=== PATIENT | male | born 1930 | race Caucasian/White ===

== ENCOUNTER 2016-04-21 09:40 | Outpatient (RCR) | payer MEDICARE, OTHER ==
--- OUTSIDE RECORDS SUMMARY | 2016-03-11 09:41 | XMS REPORT | Continuity of Care Document ---
Author Author [facility] Organization [facility] Address Unknown Phone Unavailable Support Name Relationship Address Phone SORAYA COOMBS MD Caregiver [facility] [address] [place] [id number] AIDEN HANNAH Next Of Kin [address] [place] [address] Insurance Providers Payer Name Policy Number Subscriber Name Relationship s Medicare [id number] Jose Hannah Jr 19 Self / Same As Patient [facility] [id number] Jose Hannah Jr 19 Self / Same As Patient Problems No known problems or medical conditions. Medications No known medications. Social History Social History Problem Response Recorded Date/Time Recent Foreign Travel No 06/19/2014 2:38pm Hospital Discharge Instructions No hospital discharge instructions. Plan of Care No plan of care. Functional Status No functional status results. Allergies, Adverse Reactions, Alerts No known allergies. Immunizations No immunization records. Vital Signs No known vital signs results. Results Laboratory Results Test Name Result Units Flags Reference Collection Date/Time Result Date/ Time Comments White Blood Count 11.1 10^3/uL H 4.3-11.0 03/28/2014 8:47am 03/28/2014 9: 10am Red Blood Count 4.01 10^6/uL L 4.35-5.85 03/28/2014 8:47am 03/28/2014 9: 10am Hemoglobin 12.4 G/DL L 13.3-17.7 03/28/2014 8:47am 03/28/2014 9:10am Hematocrit 37 % L 40-54 03/28/2014 8:47am 03/28/2014 9:10am Mean Corpuscular Volume 92 FL 80-99 03/28/2014 8:47am 03/28/2014 9: 10am Mean Corpuscular Hemoglobin 31 PG 25-34 03/28/2014 8:47am 03/28/2014 9: 10am Mean Corpuscular Hemoglobin Concent 34 G/DL 32-36 03/28/2014 8:47am 9:10am Red Cell Distribution Width 15.5 % H 10.0-14.5 03/28/2014 8:47am 2013 9:10am Platelet Count 166 10^3/uL 130-400 03/28/2014 8:47am 03/28/2014 9:10am Mean Platelet Volume 9.1 FL 7.4-10.4 03/28/2014 8:47am 03/28/2014 9: 10am Neutrophils (%) (Auto) 24 % L 42-75 03/28/2014 8:47am 03/28/2014 9:10am Lymphocytes (%) (Auto) 71 % H 12-44 03/28/2014 8:47am 03/28/2014 9:10am Monocytes (%) (Auto) 4 % 0-12 03/28/2014 8:47am 03/28/2014 9:10am Eosinophils (%) (Auto) 1 % 0-10 03/28/2014 8:47am 03/28/2014 9:10am Basophils (%) (Auto) 0 % 0-10 03/28/2014 8:47am 03/28/2014 9:10am Neutrophils # (Auto) 2.7 X 10^3 1.8-7.8 03/28/2014 8:47am 03/28/2014 9: 10am Lymphocytes # (Auto) 8.0 X 10^3 H 1.0-4.0 03/28/2014 8:47am 03/28/2014 9: 10am Monocytes # (Auto) 0.4 X 10^3 0.0-1.0 03/28/2014 8:47am 03/28/2014 9: 10am Eosinophils # (Auto) 0.1 10^3/uL 0.0-0.3 03/28/2014 8:47am 03/28/2014 9 :10am Basophils # (Auto) 0.0 10^3/uL 0.0-0.1 03/28/2014 8:47am 03/28/2014 9: 10am Sodium Level 138 MMOL/L 135-145 03/28/2014 8:47am 03/28/2014 9:29am Potassium Level 4.7 MMOL/L 3.6-5.0 03/28/2014 8:47am 03/28/2014 9:29am Chloride Level 103 MMOL/L 98-107 03/28/2014 8:47am 03/28/2014 9:29am Carbon Dioxide Level 25 MMOL/L 21-32 03/28/2014 8:47am 03/28/2014 9: 29am Blood Urea Nitrogen 14 MG/DL 7-18 03/28/2014 8:47am 03/28/2014 9:29am Creatinine 0.97 MG/DL 0.60-1.30 03/28/2014 8:47am 03/28/2014 9:29am BUN/Creatinine Ratio 14 03/28/2014 8:47am 03/28/2014 9:29am Estimat Glomerular Filtration Rate > 60 03/28/2014 8:47am 2013 9:29am GFR INTERPRETIVE DATA UNITS FOR ESTIMATED GFR (eGFR): mL/min/1.73 M2 REFERENCE RANGE FOR ESTIMATED GFR (eGFR) eGFR NORMAL eGFR >60 MODERATELY DECREASED eGFR 30-59 SEVERLY DECREASED eGFR 15-29 KIDNEY FAILURE <15 (OR DIALYSIS) Glucose Level 84 MG/DL 70-105 03/28/2014 8:47am 03/28/2014 9:29am Calcium Level 9.5 MG/DL 8.5-10.1 03/28/2014 8:47am 03/28/2014 9:29am Total Bilirubin 0.6 MG/DL 0.1-1.0 03/28/2014 8:47am 03/28/2014 9:29am Alkaline Phosphatase 65 U/L 40-136 03/28/2014 8:47am 03/28/2014 9:29am Aspartate Amino Transf (AST/SGOT) 31 U/L 5-34 03/28/2014 8:47am 2013 9:29am Alanine Aminotransferase (ALT/SGPT) 31 U/L 0-55 03/28/2014 8:47am 03/28 9:29am Lactate Dehydrogenase 276 U/L H 125-220 03/28/2014 8:47am 03/28/2014 9: 29am Total Protein 6.4 G/DL 6.4-8.2 03/28/2014 8:47am 03/28/2014 9:29am Albumin 4.1 G/DL 3.2-4.5 03/28/2014 8:47am 03/28/2014 9:29am Wsgp-1-Yazaxnmjfwfbs 3.84 H MG/L 0.00-1.85 03/28/2014 8:47am 2013 6:55am Procedures No known history of procedures. Encounters Encounter Location Date/Time Registered Clinic Via [facility] 06/19/14 2:39pm Registered Clinic Via [facility] 06/14/14 2:17pm Discharged Recurring Via [facility] 03/28/14 8:38am
[2016-03-11 10:01] LABS: BASOPHILS % (AUTO) 0 % (0-10); EOSINOPHILS % (AUTO) 0 % (0-10); LYMPHOCYTES % (AUTO) 84 % (12-44); MEAN CORPUSCULAR HEMOGLOBIN 31 PG (25-34); MEAN CORPUSCULAR HGB CONC 33 G/DL (32-36); MEAN CORPUSCULAR VOLUME 94 FL (80-99); MEAN PLATELET VOLUME 9.3 FL (7.4-10.4); MONOCYTES # (AUTO) 0.6 X 10^3 (0.0-1.0); MONOCYTES % (AUTO) 2 % (0-12); NEUTROPHILS # (AUTO) 3.6 X 10^3 (1.8-7.8); NEUTROPHILS % (AUTO) 14 % (42-75); PLATELET COUNT 172 10^3/uL (130-400); RED BLOOD COUNT 3.91 10^6/uL (4.35-5.85); WHITE BLOOD COUNT 26.2 10^3/uL (4.3-11.0)
[2016-03-11 10:27] LABS: ALANINE AMINOTRANSFERASE 29 U/L (0-55); ALBUMIN 4.1 G/DL (3.2-4.5); ANION GAP 7 MMOL/L (5-14); ASPARTATE AMINO TRANSFERASE 24 U/L (5-34); BILIRUBIN,TOTAL 0.6 MG/DL (0.1-1.0); BLOOD UREA NITROGEN 17 MG/DL (7-18); BUN/CREATININE RATIO 17; CALCIUM 9.4 MG/DL (8.5-10.1); CARBON DIOXIDE 24 MMOL/L (21-32); CHLORIDE 103 MMOL/L (98-107); CREATININE SERUM 1.02 MG/DL (0.60-1.30); GFR ESTIMATED > 60; GLUCOSE 96 MG/DL (70-105); LACTATE DEHYDROGENASE 242 U/L (125-220); MAGNESIUM 2.2 MG/DL (1.8-2.4); POTASSIUM 5.6 MMOL/L (3.6-5.0); SODIUM 134 MMOL/L (135-145)
[~2016-04-21 09:40] MED LIST: ACET-77 PO; ATOR20TA66 PO; BUDE10.2 IH; DICL100G18 TOP; ENAL5TAB PO; Multivitamins/Minerals Therap PO; NITR0.4T SL
[2016-04-21 10:02] LABS: BASOPHILS % (AUTO) 0 % (0-10); EOSINOPHILS % (AUTO) 0 % (0-10); LYMPHOCYTES # (AUTO) 15.7 X 10^3 (1.0-4.0); LYMPHOCYTES % (AUTO) 78 % (12-44); MEAN CORPUSCULAR HEMOGLOBIN 32 PG (25-34); MEAN CORPUSCULAR HGB CONC 34 G/DL (32-36); MEAN CORPUSCULAR VOLUME 94 FL (80-99); MEAN PLATELET VOLUME 9.3 FL (7.4-10.4); MONOCYTES # (AUTO) 0.5 X 10^3 (0.0-1.0); MONOCYTES % (AUTO) 3 % (0-12); NEUTROPHILS # (AUTO) 3.8 X 10^3 (1.8-7.8); NEUTROPHILS % (AUTO) 19 % (42-75); PLATELET COUNT 160 10^3/uL (130-400); RED BLOOD COUNT 3.91 10^6/uL (4.35-5.85); RED CELL DISTRIBUTION WIDTH 16.1 % (10.0-14.5); WHITE BLOOD COUNT 20.1 10^3/uL (4.3-11.0)
== END 2016-06-09 | disposition home or self-care (01) ==
LOC: ONC 09:40
PROVIDERS: ATTEND Internal Medicine Hematology & Oncology
DX: C91.10 Chronic lymphocytic leukemia of B-cell type not having achieved remission (principal); J44.9 Chronic obstructive pulmonary disease, unspecified; I25.10 Atherosclerotic heart disease of native coronary artery without angina pectoris; E78.5 Hyperlipidemia, unspecified; Z79.899 Other long term (current) drug therapy
CPT/HCPCS: 36415; 80053; 82232; 82784; 83615; 83735; 85025; 99213

== ENCOUNTER 2016-06-17 09:46 | Outpatient (RCR) | payer MEDICARE, OTHER ==
--- OUTSIDE RECORDS SUMMARY | 2016-06-17 09:53 | XMS REPORT | Continuity of Care Document ---
Author Author [facility] Organization [facility] Address Unknown Phone Unavailable Support Name Relationship Address Phone SORAYA COOMBS MD Caregiver [facility] [address] [place] [id number] AIDEN HANNAH Next Of Kin [address] [place] [address] Insurance Providers Payer Name Policy Number Subscriber Name Relationship s Medicare [id number] Jose Hannah Jr 19 Self / Same As Patient [facility] [id number] Jose Hannah Jr 19 Self / Same [...] 4.1 G/DL 3.2-4.5 03/28/2014 8:47am 03/28/2014 9:29am Kipf-9-Ssrfwpsjxwwba 3.84 H MG/L 0.00-1.85 03/28/2014 8:47am 2013 6:55am Procedures No known history of procedures. Encounters Encounter Location Date/Time Registered Clinic Via [facility] 06/19/14 2:39pm Registered Clinic Via [facility] 06/14/14 2:17pm Discharged Recurring Via [facility] 03/28/14 8:38am
[2016-06-17 10:19] LABS: BASOPHILS % (AUTO) 0 % (0-10); EOSINOPHILS % (AUTO) 0 % (0-10); LYMPHOCYTES # (AUTO) 20.4 X 10^3 (1.0-4.0); LYMPHOCYTES % (AUTO) 85 % (12-44); MEAN CORPUSCULAR HEMOGLOBIN 32 PG (25-34); MEAN CORPUSCULAR HGB CONC 34 G/DL (32-36); MEAN CORPUSCULAR VOLUME 95 FL (80-99); MEAN PLATELET VOLUME 9.7 FL (7.4-10.4); MONOCYTES # (AUTO) 0.5 X 10^3 (0.0-1.0); MONOCYTES % (AUTO) 2 % (0-12); NEUTROPHILS # (AUTO) 3.1 X 10^3 (1.8-7.8); NEUTROPHILS % (AUTO) 13 % (42-75); PLATELET COUNT 154 10^3/uL (130-400); RED BLOOD COUNT 3.77 10^6/uL (4.35-5.85); RED CELL DISTRIBUTION WIDTH 15.9 % (10.0-14.5)
[2016-06-17 11:33] LABS: ALANINE AMINOTRANSFERASE 19 U/L (0-55); ALBUMIN 4.1 G/DL (3.2-4.5); ANION GAP 9 MMOL/L (5-14); ASPARTATE AMINO TRANSFERASE 21 U/L (5-34); BILIRUBIN,TOTAL 0.7 MG/DL (0.1-1.0); BLOOD UREA NITROGEN 22 MG/DL (7-18); BUN/CREATININE RATIO 22; CALCIUM 9.2 MG/DL (8.5-10.1); CARBON DIOXIDE 25 MMOL/L (21-32); CHLORIDE 106 MMOL/L (98-107); GFR ESTIMATED > 60; GLUCOSE 79 MG/DL (70-105); LACTATE DEHYDROGENASE 217 U/L (125-220); POTASSIUM 4.3 MMOL/L (3.6-5.0); SODIUM 140 MMOL/L (135-145); TOTAL PROTEIN 6.4 G/DL (6.4-8.2)
== END 2016-09-15 | disposition home or self-care (01) ==
LOC: ONC 09:46
PROVIDERS: ATTEND Internal Medicine Hematology & Oncology
DX: C91.10 Chronic lymphocytic leukemia of B-cell type not having achieved remission (principal); J44.9 Chronic obstructive pulmonary disease, unspecified; I25.10 Atherosclerotic heart disease of native coronary artery without angina pectoris; E78.5 Hyperlipidemia, unspecified; Z79.899 Other long term (current) drug therapy
CPT/HCPCS: 36415; 80053; 82232; 82784; 83615; 85025; 99213

== ENCOUNTER 2016-09-17 13:32 | Outpatient (RCR) | payer MEDICARE, OTHER ==
[2016-09-16 10:26] LABS: BASOPHILS % (AUTO) 0 % (0-10); EOSINOPHILS # (AUTO) 0.1 10^3/uL (0.0-0.3); EOSINOPHILS % (AUTO) 0 % (0-10); LYMPHOCYTES # (AUTO) 16.8 X 10^3 (1.0-4.0); LYMPHOCYTES % (AUTO) 81 % (12-44); MEAN CORPUSCULAR HEMOGLOBIN 31 PG (25-34); MEAN CORPUSCULAR HGB CONC 33 G/DL (32-36); MEAN CORPUSCULAR VOLUME 95 FL (80-99); MEAN PLATELET VOLUME 8.9 FL (7.4-10.4); MONOCYTES # (AUTO) 0.3 X 10^3 (0.0-1.0); MONOCYTES % (AUTO) 1 % (0-12); NEUTROPHILS # (AUTO) 3.6 X 10^3 (1.8-7.8); NEUTROPHILS % (AUTO) 17 % (42-75); PLATELET COUNT 146 10^3/uL (130-400); RED BLOOD COUNT 3.71 10^6/uL (4.35-5.85); RED CELL DISTRIBUTION WIDTH 15.3 % (10.0-14.5); WHITE BLOOD COUNT 20.7 10^3/uL (4.3-11.0)
[2016-09-16 11:01] LABS: ALANINE AMINOTRANSFERASE 17 U/L (0-55); ANION GAP 9 MMOL/L (5-14); ASPARTATE AMINO TRANSFERASE 21 U/L (5-34); BILIRUBIN,TOTAL 0.8 MG/DL (0.1-1.0); BLOOD UREA NITROGEN 14 MG/DL (7-18); BUN/CREATININE RATIO 14; CALCIUM 9.3 MG/DL (8.5-10.1); CARBON DIOXIDE 24 MMOL/L (21-32); CHLORIDE 102 MMOL/L (98-107); CREATININE SERUM 0.99 MG/DL (0.60-1.30); GFR ESTIMATED > 60; GLUCOSE 96 MG/DL (70-105); LACTATE DEHYDROGENASE 205 U/L (125-220); POTASSIUM 5.5 MMOL/L (3.6-5.0); SODIUM 135 MMOL/L (135-145); TOTAL PROTEIN 6.1 G/DL (6.4-8.2)
[2016-12-08] MEDS ORDERED: BUDE10.22 IH (10:24)
[2016-12-08] MEDS ORDERED: METO50TA2 PO (10:24)
[2016-12-08] MEDS ORDERED: POTA-51 PO (10:24)
[2016-12-08] MEDS ORDERED: CYAN100T PO (10:24)
[2016-12-08] MEDS ORDERED: NITR0.4T SL (10:24)
[2016-12-08] MEDS ORDERED: ATOR40TA PO (10:24)
[2016-12-08] MEDS ORDERED: ENAL5TAB PO (10:24)
[2016-12-08] MEDS ORDERED: MULT-35 PO (10:24)
[2016-12-08] MEDS ORDERED: RT-ALBUINH IH (10:24)
[2016-12-08] MEDS ORDERED: FURO20TA4 PO (10:24)
[2016-12-08] MEDS ORDERED: ACET325T38 PO (10:24)
[2016-12-08] MEDS ORDERED: OXYC15TA79 PO (10:24)
[2016-12-08] MEDS ORDERED: OMEP20CA12 PO (10:24)
[2016-12-08] MEDS ORDERED: SAW450CA4 PO (10:24)
[2016-12-25] MEDS ORDERED: TR1C15 TOP (13:49)
[2016-12-25] MEDS ORDERED: MICO90PO TOP (13:49)
[2016-12-25] MEDS ORDERED: CLD600T PO (13:49)
[2016-12-25] MEDS ORDERED: Oxycodone Hcl PO (13:49)
[2016-12-25] MEDS ORDERED: DICL100G18 TOP (13:49)
== END 2016-12-15 | disposition home or self-care (01) ==
LOC: ONC 13:32
PROVIDERS: ATTEND Internal Medicine Hematology & Oncology
DX: Z79.899 Other long term (current) drug therapy; E78.5 Hyperlipidemia, unspecified; C91.10 Chronic lymphocytic leukemia of B-cell type not having achieved remission; J44.9 Chronic obstructive pulmonary disease, unspecified; I25.10 Atherosclerotic heart disease of native coronary artery without angina pectoris
CPT/HCPCS: 36415; 80053; 82232; 83615; 85025; 99213

== ENCOUNTER 2016-11-25 10:29 | Emergency (ER) | payer MEDICARE, OTHER ==
[~2016-11-25] VITALS: Ht 180.3 cm; Wt 86.2 kg
[2016-11-25] MEDS ORDERED: fentaNYL INJECTION 100 MCG/2 ML AMP IVP STA ×2 (10:34→12:54)
[2016-11-25] MEDS ORDERED: LIDOCAINE 2% 20 ML (XYLOCAINE) VIAL ONE (10:37)
[2016-11-25] MEDS ORDERED: LIDOCAINE 2% 20 ML (XYLOCAINE) VIAL INJ STA (10:40)
[2016-11-25 10:51] LABS: BASOPHILS % (AUTO) 0 % (0-10); EOSINOPHILS % (AUTO) 0 % (0-10); LYMPHOCYTES % (AUTO) 79 % (12-44); MEAN CORPUSCULAR HEMOGLOBIN 31 PG (25-34); MEAN CORPUSCULAR HGB CONC 33 G/DL (32-36); MEAN CORPUSCULAR VOLUME 94 FL (80-99); MEAN PLATELET VOLUME 9.5 FL (7.4-10.4); MONOCYTES # (AUTO) 0.3 X 10^3 (0.0-1.0); MONOCYTES % (AUTO) 2 % (0-12); NEUTROPHILS # (AUTO) 4.2 X 10^3 (1.8-7.8); NEUTROPHILS % (AUTO) 19 % (42-75); PLATELET COUNT 153 10^3/uL (130-400); RED BLOOD COUNT 3.59 10^6/uL (4.35-5.85); RED CELL DISTRIBUTION WIDTH 15.3 % (10.0-14.5); WHITE BLOOD COUNT 21.6 10^3/uL (4.3-11.0)
[2016-11-25] MEDS ORDERED: ONDANSETRON 4 MG/2 ML (SDV) Z0FRAN IVP ONE (11:00)
[2016-11-25 11:04] LABS: ALANINE AMINOTRANSFERASE 19 U/L (0-55); ALBUMIN 3.9 GM/DL (3.2-4.5); ANION GAP 9 MMOL/L (5-14); ASPARTATE AMINO TRANSFERASE 24 U/L (5-34); BILIRUBIN,TOTAL 0.6 MG/DL (0.1-1.0); BLOOD UREA NITROGEN 17 MG/DL (7-18); BUN/CREATININE RATIO 18 (0-20); CALCIUM 9.2 MG/DL (8.5-10.1); CARBON DIOXIDE 24 MMOL/L (21-32); CHLORIDE 103 MMOL/L (98-107); CREATININE SERUM 0.96 MG/DL (0.60-1.30); GFR ESTIMATED > 60; GLUCOSE 106 MG/DL (70-105); HEMOLYSIS 8 (-100-29); ICTERUS 0.8 (-100-1.9); LIPEMIA 0 (-100-49); POTASSIUM 4.3 MMOL/L (3.6-5.0); SODIUM 136 MMOL/L (135-145); TOTAL PROTEIN 6.2 GM/DL (6.4-8.2)
--- NOTE | 2016-11-25 11:23 | ED Fall/Injury ---
General Chief Complaint: Trauma-Non Activation Stated Complaint: FALL Nursing Triage Note: SEE TRIAGE NOTE. Source: patient, family, EMS Exam Limitations: no limitations (JANA BROCK MD) History of Present Illness Time seen by provider: 10:40 Initial Comments Here by EMS with report of fall and scalp laceration. Apparently, patient was at a recycling center and they were getting the recycling out of the back of his truck. The worker there had unlatched his toe gait. When he lifted up his back catching, the tailgate came down and pushed him backwards. He tripped and fell landing on his buttocks and then hit his head on the ground. Has a large laceration to the left posterior scalp. No loss of consciousness. Complains of posterior head pain, neck pain and left hip pain. Also question of mild low back pain. 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 Tetanus shot is up-to-date as of one week ago. Occurred: just prior to arrival (approximately 30 minutes ago) Severity: moderate Injuries/Pain Location: head, neck, pelvis Context: tripped Loss of Consciousness: no loss of consciousness Modifying Factors: Improves With Immobilization, Worse With Movement Associated Symptoms (Fall): No Chest Pain, No Confusion, Headache, No Lightheadedness, No Nausea/Vomiting, Neck Pain, No Shortness of Air (JANA BROCK MD) Allergies and Home Medications Allergies Coded Allergies: prednisone (Verified Allergy, Mild, 01/02/15) Home Medications Acetaminophen 500 Mg Tablet, 1,000 MG PO Q6H PRN for MILD PAIN, #100 Prescribed by: KARL MIRELES on 01/25/15826 Atorvastatin Calcium 20 Mg Tablet, 40 MG PO HS, #100 Prescribed by: KARL MIRELES on 01/25/15826 Budesonide/Formoterol Fumarate 10.2 Gm Hfa.aer.ad, 2 PUFF IH DAILY@0800, #1 Prescribed by: KARL MIRELES on 01/25/15826 Diclofenac Sodium 100 Gm Gel..gram., 0 GM TOP QID, #1 Prescribed by: KARL MIRELES on 01/25/15826 Enalapril Maleate 5 Mg Tablet, 5 MG PO DAILY, #30 Prescribed by: KARL MIRELES on 01/25/15826 Nitroglycerin 0.4 Mg Tab.subl, 0.4 MG SL Q5M PRN for CHEST PAIN, #100 Prescribed by: KARL MIRELES on 01/25/15826 [Multivitamins/Minerals Therap] 1 EA TABLET, 1 EA PO DAILY@0700, #100 Prescribed by: KARL MIRELES on 01/25/15826 Constitutional: see HPI, No chills, No fever Ears, Nose, Mouth, Throat: no symptoms reported Respiratory: no symptoms reported Cardiovascular: no symptoms reported, No syncope Gastrointestinal: no symptoms reported Genitourinary: no symptoms reported Musculoskeletal: see HPI, back pain, muscle pain, neck pain Skin: see HPI, lesions, No rash Psychiatric/Neurological: Headache, Denies Tingling, Denies Tremors, Denies Weakness (JANA BROCK MD) Past Rccenzp-Cvmjdk-Mjmuxy Hx Patient Social History Alcohol Use: Denies Use Recreational Drug Use: No Smoking Status: Never a Smoker Recent Foreign Travel: No Contact w/Someone Who Travel: No Recent Infectious Disease Expo: No (JANA BROCK MD) Immunizations Up To Date Date of Pneumonia Vaccine: Dec 04, 2014 (JANA BROCK MD) Surgeries HX Surgeries: Yes (neck/hernia repair) Surgeries: Bowel Surgery, Orthopedic, Pacemaker (JANA BROCK MD) Respiratory Hx Respiratory Disorders: Yes Respiratory Disorders: Asthma (JANA BROCK MD) Cardiovascular Hx Cardiac Disorders: Yes (pacemaker ) Cardiac Disorders: Hypertension (JANA BROCK MD) Neurological Hx Neurological Disorders: Yes ([facility]) (JANA BROCK MD) Genitourinary Hx Genitourinary Disorders: No (JANA BROCK MD) Gastrointestinal Hx Gastrointestinal Disorders: Yes (JANA BROCK MD) Musculoskeletal Hx Musculoskeletal Disorders: Yes Musculoskeletal Disorders: Arthritis, Chronic Back Pain (JANA BROCK MD) Endocrine Hx Endocrine Disorders: No (JANA BROCK MD) HEENT HX ENT Disorders: No (JANA BROCK MD) Cancer Hx Cancer: No (JANA BROCK MD) Psychosocial Hx Psychiatric Problems: No (JANA BROCK MD) Integumentary HX Skin/Integumentary Disorder: No (JANA BROCK MD) Blood Transfusions Hx Blood Disorders: No (JANA BROCK MD) Reviewed Nursing Assessment Reviewed/Agree w Nursing PMH: Yes (JANA BROCK MD) Family Medical History Significant Family History: No Pertinent Family Hx (JANA BROCK MD) Physical Exam Vital Signs Vital Sign - Last 12Hours 11/25/16 10:30 Temp 97.8 Pulse 78 Resp 18 B/P (MAP) 175/99 Pulse Ox 98 O2 Delivery Room Air (VINICIUS ERIC APRN) Vital Signs Capillary Refill : Less Than 3 Seconds (JANA BROCK MD) General Appearance: WD/WN, no apparent distress HEENT: PERRL/EOMI, normal ENT inspection, TMs normal Neck: full range of motion, supple Cardiovascular: regular rate, rhythm, no murmur Respiratory: lungs clear, normal breath sounds Gastrointestinal: non tender, soft Back: muscle spasm (lateral on left), vertebral tenderness (low lumbar spine) Extremities: pelvis stable, other (left pelvis/hip region) Neurologic/Psychiatric: alert, oriented x 3 Skin: normal color, warm/dry, other (4 cm laceration posterior left scalp with active bleeding including arterial bleeding.) (JANA BROCK MD) Nena Coma Score Best Eye Response: (4) Open Spontaneously Best Verbal Response: (5) Oriented Best Motor Response: (6) Obeys Commands (JANA BROCK MD) Laceration Repair : Wound Location: Scalp Wound Length (cm): 3 Wound's Depth, Shape: sub Q Anesthesia: 1% Lidocaine Suture: Prolene Suture Size: 4-0 Number of Sutures: 1 Layer Closure?: 1 Number Deep Layer Sutures: 0 Progress Scalp anesthetized with 3 mL of 2 percent lidocaine without epinephrine. Due to the active bleeding sutures were used rather than sona. A single running suture was placed which achieved hemostasis. (VINICIUS ERIC APRN) Progress/Results/Core Measures Results/Orders Lab Results Laboratory Tests Test 11/25/16 10:38 Range/Units White Blood Count 21.6 H 4.3-11.0 10^3/uL Red Blood Count 3.59 L 4.35-5.85 10^6/uL Hemoglobin 11.1 L 13.3-17.7 G/DL Hematocrit 34 L 40-54 % Mean Corpuscular Volume 94 80-99 FL Mean Corpuscular Hemoglobin 31 25-34 PG Mean Corpuscular Hemoglobin Concent 33 32-36 G/DL Red Cell Distribution Width 15.3 H 10.0-14.5 % Platelet Count 153 130-400 10^3/uL Mean Platelet Volume 9.5 7.4-10.4 FL Neutrophils (%) (Auto) 19 L 42-75 % Lymphocytes (%) (Auto) 79 H 12-44 % Monocytes (%) (Auto) 2 0-12 % Eosinophils (%) (Auto) 0 0-10 % Basophils (%) (Auto) 0 0-10 % Neutrophils # (Auto) 4.2 1.8-7.8 X 10^3 Lymphocytes # (Auto) 17.0 H 1.0-4.0 X 10^3 Monocytes # (Auto) 0.3 0.0-1.0 X 10^3 Eosinophils # (Auto) 0.0 0.0-0.3 10^3/uL Basophils # (Auto) 0.0 0.0-0.1 10^3/uL Neutrophils % (Manual) 28 % Lymphocytes % (Manual) 69 % Monocytes % (Manual) 3 % Smudge Cells 19 PER 100 WBC Poikilocytosis SLIGHT Elliptocytes SLIGHT Sodium Level 136 135-145 MMOL/L Potassium Level 4.3 3.6-5.0 MMOL/L Chloride Level 103 98-107 MMOL/L Carbon Dioxide Level 24 21-32 MMOL/L Anion Gap 9 5-14 MMOL/L Blood Urea Nitrogen 17 7-18 MG/DL Creatinine 0.96 0.60-1.30 MG/DL Estimat Glomerular Filtration Rate > 60 BUN/Creatinine Ratio 18 0-20 Glucose Level 106 H 70-105 MG/DL Calcium Level 9.2 8.5-10.1 MG/DL Total Bilirubin 0.6 0.1-1.0 MG/DL Aspartate Amino Transf (AST/SGOT) 24 5-34 U/L Alanine Aminotransferase (ALT/SGPT) 19 0-55 U/L Alkaline Phosphatase 68 40-136 U/L Total Protein 6.2 L 6.4-8.2 GM/DL Albumin 3.9 3.2-4.5 GM/DL (VINICIUS ERIC APRN) My Orders Orders - VINICIUS ERIC APRN Ct Head/Cervical Spine Wo (11/25/16 10:32) Ondansetron Injection (Zofran Injectio (11/25/16 11:00) (VINICIUS ERIC APRN) Medications Given in ED Current Medications Medications Dose Ordered Sig/Kaleb Route Start Time Stop Time Status Last Admin Dose Admin Fentanyl Citrate 50 mcg ONCE ONCE IVP 11/25/16 12:15 11/25/16 12:16 DC 11/25/16 12:13 50 MCG Lidocaine HCl 20 ml STK-MED ONCE .ROUTE 11/25/16 10:37 11/25/16 10:42 DC 11/25/16 10:45 20 ML Ondansetron HCl 8 mg ONCE ONCE IVP 11/25/16 11:00 11/25/16 11:01 DC 11/25/16 11:00 8 MG Promethazine HCl 12.5 mg ONCE ONCE IVP 11/25/16 12:15 11/25/16 12:16 DC 11/25/16 12:07 12.5 MG (VINICIUS ERIC APRN) Vital Signs/I&O Vital Sign - Last 12Hours 11/25/16 10:30 Temp 97.8 Pulse 78 Resp 18 B/P (MAP) 175/99 Pulse Ox 98 O2 Delivery Room Air (VINICIUS ERIC APRN) Blood Pressure Mean: 124 Progress Note : Progress Note Seen and evaluated. IV by EMS. Labs ordered. CT head, neck and lumbar spine ordered. X-ray of the pelvis ordered. Laceration repair by Vinicius Eric APRN and with my assistance prior to CT due to significance of bleeding. Bleeding markedly controlled with suture repair. Patient with moderate nausea. Zofran 8 mg IV and fentanyl 50 g IV ordered for pain. Monitor patient. 1140: Radiologist called and notified me of L2 fracture that is concerning for stability. I did discuss the concerns with the patient and family. We do not have spine surgeon available today. We did discuss this with family. Patient will require neurosurgeon and higher level of care. Patient has history with [facility] in [facility] and this is where they would prefer to go. 1152: Initiated contact with [facility]. Pending call back. 1157: I did discuss the case with Dr. Ingram, neurosurgeon on-call. Ultimately, patient is within capability of [facility] system and suggest transfer is appropriate. 1205: I did discuss the case with Dr. Lacey, ER physician and he accepts patient for ER to ER transfer. Transfer initiated. C-spine and CT head are negative and c- collar cleared. Patient has continued pain to the back and nausea. Phenergan 12.5 mg IV and fentanyl 50 g IV ordered. We did discuss importance with patient and family regarding lower spinal precautions and that the patient needs to maintain supine position. Repeat exam of the lower extremities shows patient to have continued pain in the lumbar region but distal sensation and movement are intact and equal bilaterally to both lower extremities from toes to hips. To transfer via [facility]. Patient and family agree with plan. (JANA BROCK MD) Diagnostic Imaging Diagonstic Imaging: CT Plain Films/CT/US/NM/MRI: c-spine, head [facility] [place], [place] NAME: ARGELIA ANNA JR [facility] REC#: [id number] PT STATUS: REG ER : 1930 PHYSICIAN: VINICIUS ERIC BARKER OPERATOR ADMIT DATE: 11/25/16/ER Draft Date of Exam:11/25/16 CT HEAD/CERVICAL SPINE WO PROCEDURE: CT head and CT cervical spine without contrast. TECHNIQUE: Multiple contiguous axial images were obtained through the brain and cervical spine without the use of intravenous contrast. Sagittal and coronal reformations through the cervical spine were then performed. INDICATION: Fall. Back pain. Findings: CT head: There is a left parietal scalp hematoma. This is overlying a site of prior addison hole. There is no intracranial hemorrhage. There is a periventricular and deep white matter hypodensities compatible with chronic microvascular ischemic changes. There is no hydrocephalus. No extra-axial fluid collection is seen. The orbits appear symmetric. There is mucous retention cyst seen in the right sphenoidal sinus. CT cervical spine: Postsurgical changes in the cervical spine are noted with anterior fusion hardware involving C4-C7 levels with intact plate and screws and C6 corpectomy changes with metallic implant at the C6 corpectomy site. There is suggestion of a solid osseous fusion along the C4 to C7 levels. The facet joints are not fused at these levels. There is a fusion of the left facet joint at C3/ 4. There is early osseous bridging also seen along the C3/4 intervertebral disc level. There is significant disc height loss of significant degree at C7/T1 and T1/T2 with posterior osteophytes at these 2 levels seen. There is no widening of the predental space. There is significant thickening of the posterior ligaments posterior to the dens which have a impression upon the upper cervical canal. This is similar to 09/07/2015 exam. The alignment of the lateral masses of C1 and C2 and at the atlantooccipital joints demonstrate slight subluxations with posterior translation of the left lateral mass of C1 compared to lateral mass of C2 and mild bilateral posterior translation at the atlantooccipital joints. This is similar to 09/07/2015 exam and is likely degenerative. This is not associated with a fracture. Impression: CT head: Left parietal scalp hematoma. No intracranial hemorrhage. CT cervical spine: Postsurgical changes and advanced degenerative findings similar to 09/07/2015. No fracture seen. Dictated on workstation # [id number] Dict: 11/25/16 1125 Trans: 11/25/16 1146 [facility] [id number] Interpreted by: EDWARD DUNN MD Electronically signed by: Diagonstic Imaging: CT Plain Films/CT/US/NM/MRI: other (lumbar spine) Comments VIA [place], [place] NAME: ARGELIA ANNA [facility] REC#: [id number] PT STATUS: REG ER : 1930 PHYSICIAN: JANA BROCK MD ADMIT DATE: 11/25/16/ER Draft Date of Exam:11/25/16 CT LUMBAR SPINE WO PROCEDURE: CT lumbar spine without contrast. TECHNIQUE: Multiple contiguous axial images were obtained through the lumbar spine without the use of intravenous contrast. Sagittal and coronal reformations were then performed. INDICATION: Fall. FINDINGS: There is a fracture in the L2 vertebral body with suggestion of hyperextension mechanism and involves a distraction of the vertebral body fragments by 1 cm craniocaudally anteriorly. The fracture line through the vertebral body extends posteriorly and inferiorly to the posterior wall which demonstrates a 1 mm cortical step-off. This is associated with minimal anterior translation of the upper portion of the vertebral body compared to the lower portion of the posterior spinal line. There is also a transverse fracture through the pedicles and the pars and lamina of the L2 level. There is osseous fusion between L2 and L3 and early fusion between L1 and L2. There are anterior bridging osteophytes also seen between the T11 to L1 levels. There is no obvious evidence of an epidural hematoma although this is not definitive on the CT scan and could be better evaluated by MRI if needed. 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 No underlying pars defect is seen. Grade 1 retrolisthesis of L4 over L5 and minimal retrolisthesis of L3 over L4 is also seen. There are multilevel posterior osteophytes noted. There is also multilevel facet joint arthropathy, worst around L5-S1 and to a lesser extent at L4-5. There is fusion of the right SI joint and degenerative prominent syndesmophytes along the left joint. IMPRESSION: There are fractures through the vertebral body of L2 with minimal displacement of the posterior spinal line and about a 1 cm craniocaudal distraction anteriorly. This is associated with a nondisplaced transverse fracture through the posterior elements bilaterally. The findings are suggestive of a hyperextension injury. The findings were discussed with Dr. Brock at the time of dictation. Dictated on workstation # [id number] Dict: 11/25/16 1140 Trans: 11/25/16 1157 [id number] Interpreted by: EDWARD DUNN MD Electronically signed by: Emma Imaging: Xray Plain Films/CT/US/NM/MRI: pelvis Comments NAME: ARGELIA ANNA JR [facility] REC#: [id number] PT STATUS: REG ER : 1930 PHYSICIAN: JANA BROCK MD ADMIT DATE: 11/25/16/ER Signed Date of Exam: 11/25/16 PELVIS AP view of the pelvis. INDICATION: Fall. FINDINGS: No fracture, dislocation or radiopaque foreign body is seen. There is suggestion of fusion of the left SI joint. Degenerative sclerosis in the right SI joint and degenerative changes in the lower lumbar spine seen. Both hip joints demonstrate moderate joint space narrowing and subchondral sclerosis compatible with osteoarthritis. IMPRESSION: Advanced degenerative changes. Dictated by: Dictated on workstation # [id number] Dict: 11/25/16 1138 Trans: 11/25/16 1154 Interpreted by: EDWARD DUNN MD Electronically signed by: EDWARD DUNN MD 11/25/16 1154 (JANA BROCK MD) Departure Impression Impression: Primary Impression: Fracture of L2 vertebra Qualified Codes: S32.028A - Other fracture of second lumbar vertebra, initial encounter for closed fracture Disposition: XFER SHT-TRM HOSP Condition: Stable (all 12) Transfer Transfer Time: 12:05 Transfer Facility: [place], [place]. Dr. Lacey accepting. Method of Transfer: EMS (JANA BROCK MD) Departure-Patient Inst. Referrals: SORAYA COOMBS MD (PCP/Family) Primary Care Physician JANA BROCK MD Nov 25, 2016 11:23 VINICIUS ERIC APRN Nov 25, 2016 12:30
[2016-11-25 11:34] LABS: LYMPHOCYTES % (MANUAL) 69 %; NEUTROPHILS % (MANUAL) 28 %; POIKILOCYTOSIS SLIGHT
--- NOTE | 2016-11-25 11:47 | Diagnostic Imaging Report ---
PROCEDURE: CT head and CT cervical spine without contrast. TECHNIQUE: Multiple contiguous axial images were obtained through the brain and cervical spine without the use of intravenous contrast. Sagittal and coronal reformations through the cervical spine were then performed. INDICATION: Fall. Back pain. Findings: CT head: There is a left parietal scalp hematoma. This is overlying a site of prior addison hole. There is no intracranial hemorrhage. There is a periventricular and deep white matter hypodensities compatible with chronic microvascular ischemic changes. There is no hydrocephalus. No extra-axial fluid collection is seen. The orbits appear symmetric. There is mucous retention cyst seen in the right sphenoidal sinus. CT cervical spine: Postsurgical changes in the cervical spine are noted with anterior fusion hardware involving C4-C7 levels with intact plate and screws and C6 corpectomy changes with metallic implant at the C6 corpectomy site. There is suggestion of a solid osseous fusion along the C4 to C7 levels. The facet joints are not fused at these levels. There is a fusion of the left facet joint at C3/ 4. There is early osseous bridging also seen along the C3/4 intervertebral disc level. There is significant disc height loss of significant degree at C7/T1 and T1/T2 with posterior osteophytes at these 2 levels seen. There is no widening of the predental space. There is significant thickening of the posterior ligaments posterior to the dens which have a impression upon the upper cervical canal. This is similar to 09/07/2015 exam. The alignment of the lateral masses of C1 and C2 and at the atlantooccipital joints demonstrate slight subluxations with posterior translation of the left lateral mass of C1 compared to lateral mass of C2 and mild bilateral posterior translation at the atlantooccipital joints. This is similar to 09/07/2015 exam and is likely degenerative. This is not associated with a fracture. Impression: CT head: Left parietal scalp hematoma. No intracranial hemorrhage. CT cervical spine: Postsurgical changes and advanced degenerative findings similar to 09/07/2015. No fracture seen. Dictated by: Dictated on workstation # [id number]
--- NOTE | 2016-11-25 11:49 | Diagnostic Imaging Report ---
AP view of the pelvis. INDICATION: Fall. FINDINGS: No fracture, dislocation or radiopaque foreign body is seen. There is suggestion of fusion of the left SI joint. Degenerative sclerosis in the right SI joint and degenerative changes in the lower lumbar spine seen. Both hip joints demonstrate moderate joint space narrowing and subchondral sclerosis compatible with osteoarthritis. IMPRESSION: Advanced degenerative changes. Dictated by: Dictated on workstation # [id number]
--- NOTE | 2016-11-25 11:58 | Diagnostic Imaging Report ---
PROCEDURE: CT lumbar spine without contrast. TECHNIQUE: Multiple contiguous axial images were obtained through the lumbar spine without the use of intravenous contrast. Sagittal and coronal reformations were then performed. INDICATION: Fall. FINDINGS: There is a fracture in the L2 vertebral body with suggestion of hyperextension mechanism and involves a distraction of the vertebral body fragments by 1 cm craniocaudally anteriorly. The fracture line through the vertebral body extends posteriorly and inferiorly to the posterior wall which demonstrates a 1 mm cortical step-off. This is associated with minimal anterior translation of the upper portion of the vertebral body compared to the lower portion of the posterior spinal line. There is also a transverse fracture through the pedicles and the pars and lamina of the L2 level. There is osseous fusion between L2 and L3 and early fusion between L1 and L2. There are anterior bridging osteophytes also seen between the T11 to L1 levels. There is no obvious evidence of an epidural hematoma although this is not definitive on the CT scan and could be better evaluated by MRI if needed. 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 No underlying pars defect is seen. Grade 1 retrolisthesis of L4 over L5 and minimal retrolisthesis of L3 over L4 is also seen. There are multilevel posterior osteophytes noted. There is also multilevel facet joint arthropathy, worst around L5-S1 and to a lesser extent at L4-5. There is fusion of the right SI joint and degenerative prominent syndesmophytes along the left joint. IMPRESSION: There is a fracture through the vertebral body of L2 with minimal displacement at the posterior spinal line and about a 1 cm craniocaudal distraction anteriorly. This is associated with a nondisplaced transverse fracture through the posterior elements bilaterally. The findings are suggestive of a hyperextension injury. Critical findings were discussed with Dr. Adamson at the time of dictation. Dictated by: Dictated on workstation # [id number]
[2016-11-25] MEDS: PROMETHAZINE INJ 25 MG/ML (PHENERGAN) AMP ONE ×3 (12:08→12:17)
[2016-11-25] MEDS ORDERED: PROMETHAZINE INJ 25 MG/ML (PHENERGAN) AMP IVP ONE (12:15)
[2016-11-25] MEDS ORDERED: fentaNYL INJECTION 100 MCG/2 ML AMP IVP ONE (12:15)
[2016-11-25 13:07] VITALS: BP 161/89
--- OUTSIDE RECORDS SUMMARY | 2016-11-27 16:15 | XMS REPORT | Continuity of Care Document ---
Author Author [facility] Organization [facility] Address Unknown Phone Unavailable Allergies Active Description Code Type Severity Reaction Onset Reported/Identified Relationship to Patient Clinical Status Yes prednisone [id number] Drug Allergy Mild N/A 01/02/2015 Medications Problems Date Dx Coded Attending Type Code Diagnosis Diagnosed By 05/07/1205 SOPHIE HE LEAD SOFTWARE DEVELOPER Ot R53.1 05/07/1205 SOPHIE HE LEAD SOFTWARE DEVELOPER Ot R53.83 01/06/2014 SOPHIE HE LEAD SOFTWARE DEVELOPER Ot 736.81 01/06/2014 SOPHIE HEP Ot V57.1 03/15/2014 TAYLOR FRENCH, JACQUELYN Roland Ot 204.10 03/15/2014 TAYLOR FRENCH, JACQUELYN Asuncion Ot 272.4 03/15/2014 TAYLOR FRENCH, JACQUELYN Roland Ot 276.1 03/15/2014 TAYLOR FRENCH, JACQUELYN Asuncion Ot 414.01 03/15/2014 TAYLOR FRENCH, JACQUELYN Asuncion Ot 496 05/30/2014 TAYLOR FRENCH, JACQUELYN Roland Ot 204.10 05/30/2014 TAYLOR FRENCH, JACQUELYN Asuncion Ot 272.4 05/30/2014 TAYLOR FRENCH, JACQUELYN Asuncion Ot 414.01 05/30/2014 TAYLOR FRENCH, JACQUELYN Asuncion Ot 496 06/16/2014 Ot 493.90 06/16/2014 CORIN FRENCH, SORAYA Yee Ot 355.9 06/16/2014 CORIN FRENCH, SORAYA Yee Ot 719.45 06/16/2014 CORIN FRENCH, SOARYA A Ot 719.46 06/16/2014 CORIN FRENCH, SORAYA A Ot 724.5 06/16/2014 CORIN FRENCH, SORAYA Yee Ot 733.90 06/16/2014 CORIN FRENCH, SORAYA Yee Ot 736.79 06/16/2014 CORIN FRENCH, SORAYA Yee Ot 737.10 06/16/2014 CORIN FRENCH, SORAYA A Ot 780.79 06/16/2014 CORIN FRENCH, SORAYA Yee Ot 781.2 06/16/2014 SOPHIE HEP Ot 790.99 06/16/2014 TAYLOR FRENCH, JACQUELYN Asuncion Ot 204.10 06/16/2014 TAYLOR FRENCH, JACQUELYN Roland Ot 272.4 06/16/2014 TAYLOR FRENCH, JACQUELYN Asuncion Ot 414.01 06/16/2014 TAYLOR FRENCH, JACQUELYN Asuncion Ot 496 06/16/2014 CORIN FRENCH, SORAYA A Ot 493.90 06/16/2014 CORIN FRENCH, SORAYA A Ot 786.50 06/26/2014 TAYLOR FRENCH, JACQUELYN Asuncion Ot 204.10 06/26/2014 TAYLOR FRENCH, JACQUELYN Asuncion Ot 272.4 06/26/2014 TAYLOR FRENCH, JACQUELYN Asuncion Ot 414.01 06/26/2014 TAYLOR FRENCH, JACQUELYN Asuncion Ot 496 07/12/2014 CORIN FRENCH, SORAYA A Ot 493.90 07/12/2014 CORIN FRENCH, SORAYA A Ot 786.50 07/24/2014 CORIN FRENCH, OSRAYA A Ot 518.89 09/13/2014 TAYLOR FRENCH, JACQUELYN Roland Ot 204.10 09/13/2014 TAYLOR FRENCH, JACQUELYN Asuncion Ot 272.4 09/13/2014 TAYLOR FRENCH, JACQUELYN Asuncion Ot 414.01 09/13/2014 TYALOR FRENCH, JACQUELYN Asuncion Ot 496 09/13/2014 TAYLOR FRENCH, JACQUELYN K Ot 204.10 09/13/2014 TAYLOR FRENCH, JACQUELYN Asuncion Ot 272.4 09/13/2014 TAYLOR FRENCH, JACQUELYN K Ot 414.01 09/13/2014 TAYLOR FRENCH, JACQUELYN K Ot 496 2014 TAYLOR FRENCH, JACQUELYN K Ot 204.10 2014 TAYLOR FRENCH, JACQUELYN Roland Ot 272.4 2014 TAYLOR FRENCH, JACQUELYN K Ot 414.01 2014 TAYLOR FRENCH, JACQUELYN Asuncion Ot 496 09/20/2014 TAYLOR FRENCH, JACQUELYN K Ot 204.10 09/20/2014 TAYLOR FRENCH, JACQUELYN K Ot 272.4 09/20/2014 TAYLOR FRENCH, JACQUELYN K Ot 414.01 09/20/2014 TAYLOR FRENCH, JACQUELYN Asuncion Ot 496 11/04/2014 TAYLOR FRENCH, JACQUELYN K Ot 204.10 11/04/2014 TAYLOR FRENCH, JACQUELYN K Ot 272.4 11/04/2014 TAYLOR FRENCH, JACQUELYN K Ot 414.01 11/04/2014 TAYLOR FRENCH, JACQUELYN Roland Ot 496 11/30/2014 TAYLOR FRENCH, JACQUELYN K Ot 204.10 11/30/2014 TAYLOR FRENCH, JACQUELYN K Ot 272.4 11/30/2014 TAYLOR FRENCH, JACQUELYN Asuncion Ot 414.01 11/30/2014 TAYLOR FRENCH, JACQUELYN K Ot 496 12/18/2014 TAYLOR FRENCH, JACQUELYN K Ot 204.10 12/18/2014 TAYLOR FRENCH, JACQUELYN Roland Ot 272.4 12/18/2014 TAYLOR FRENCH, JACQUELYN Roland Ot 414.01 12/18/2014 TAYLOR FRENCH, JACQUELYN K Ot 496 01/02/2015 TAYLOR FRENCH, JACQUELYN Roland Ot 204.10 01/02/2015 TAYLOR FRENCH, JACQUELYN Asuncion Ot 272.4 01/02/2015 TAYLOR FRENCH, JACQUELNY Asuncion Ot 414.01 01/02/2015 TAYLOR FRENCH, JACQUELYN Asuncion Ot 496 01/02/2015 HIMA FRENCH, JODY T Ot 784.0 01/02/2015 HIMA FRENCH, JODY T Ot 852.20 01/02/2015 HIMA FRENCH, JODY T Ot 911.0 01/02/2015 HIMA FRENCH, JODY T Ot E000.8 01/02/2015 HIMA FRENCH, JODY T Ot E849.0 01/02/2015 HIMA FRENCH, JODY T Ot E888.1 01/20/2015 ALINE FRENCH, KARL E Ot 204.10 01/20/2015 ALINE FRENCH, KARL E Ot 272.4 01/20/2015 ALINE FRENCH, KARL E Ot 401.9 01/20/2015 ALINE FRENCH, KARL E Ot 414.01 01/20/2015 ALINE FRENCH, KARL E Ot 530.81 01/20/2015 ALINE FRENCH, KARL E Ot 723.1 01/20/2015 ALINE FRENCH, KARL E Ot 784.0 01/20/2015 ALINE FERNCH, KARL E Ot V15.88 01/20/2015 ALINE FRENCH, KARL E Ot V43.65 01/20/2015 ALINE FRENCH, KARL E Ot V45.01 01/20/2015 ALINE FRENCH, KARL E Ot V57.89 01/20/2015 ALINE FRENCH, KARL E Ot V58.72 01/22/2015 ALINE FRENCH, KARL E Ot 204.10 01/22/2015 ALINE FRENCH, KARL E Ot 272.4 01/22/2015 ALINE FRENCH, KARL E Ot 401.9 01/22/2015 ALINE FRENCH, KARL E Ot 414.01 01/22/2015 ALINE FRENCH, KARL E Ot 530.81 01/22/2015 ALINE FRENCH, KARL E Ot 723.1 01/22/2015 ALINE FRENCH, KARL E Ot 784.0 01/22/2015 ALINE FRENCH, KARL E Ot V15.88 01/22/2015 ALINE FRENCH, KARL E Ot V43.65 01/22/2015 ALINE FRENCH, KARL E Ot V45.01 01/22/2015 ALINE FRENCH, KARL E Ot V57.89 01/22/2015 ALINE FRENCH, KARL E Ot V58.72 01/24/2015 ALINE FRENCH, KARL E Ot 204.10 01/24/2015 ALINE FRENCH, KARL E Ot 272.4 01/24/2015 ALINE FRENCH, KARL E Ot 401.9 01/24/2015 ALINE FRENCH, KARL E Ot 414.01 01/24/2015 ALINE FRENCH, KARL E Ot 530.81 01/24/2015 ALINE FRENCH, KARL E Ot 723.1 01/24/2015 ALINE FRENCH, KARL E Ot 784.0 01/24/2015 ALINE FRENCH, KARL E Ot V15.88 01/24/2015 ALINE FRENCH, KARL E Ot V43.65 01/24/2015 ALNIE FRENCH, KARL E Ot V45.01 01/24/2015 ALINE FRENCH, KARL E Ot V57.89 01/24/2015 ALINE FRENCH, KARL E Ot V58.72 01/26/2015 ALINE FRENCH, KARL E Ot 204.10 01/26/2015 ALINE FRENCH, KARL E Ot 272.4 01/26/2015 ALINE FRENCH, KARL E Ot 401.9 01/26/2015 ALINE FRENCH, KARL E Ot 414.01 01/26/2015 ALINE FRENCH, KARL E Ot 530.81 01/26/2015 ALINE FRENCH, KARL E Ot 723.1 01/26/2015 ALINE FRENCH, KARL E Ot 784.0 01/26/2015 ALINE FRENCH, KARL E Ot V15.88 01/26/2015 ALINE FRENCH, KARL E Ot V43.65 01/26/2015 ALINE FRENCH, KARL E Ot V45.01 01/26/2015 ALINE FRENCH, KARL E Ot V57.89 01/26/2015 ALINE FRENCH, KARL E Ot V58.72 03/13/2015 TAYLOR FRENCH, JACQUELYN Roland Ot 204.10 03/13/2015 TAYLOR FRENCH, JACQUELYN Roland Ot 272.4 03/13/2015 TAYLOR FRENCH, JACQUELYN Roland Ot 414.01 03/13/2015 TAYLOR FRENCH, JACQUELYN Roland Ot 496 03/13/2015 TAYLOR FRENCH, JACQUELYN Roland Ot 204.10 03/13/2015 TAYLOR FRENCH, JACQUELYN Roland Ot 272.4 03/13/2015 TAYLOR FRENCH, JACQUELYN Roland Ot 414.01 03/13/2015 TAYLOR FRENCH, JACQUELYN Roland Ot 496 04/27/2015 TAYLOR FRENCH, JACQUELYN Roland Ot 204.10 04/27/2015 TAYLOR FRENCH, JACQUELYN Roland Ot 272.4 04/27/2015 TAYLOR FRENCH, JACQUELYN Roland Ot 414.01 04/27/2015 TAYLOR FRENCH, JACQUELYN Roland Ot 496 05/16/2015 TAYLOR FRENCH, JACQUELYN Roland Ot C91.10 05/16/2015 TALYOR FRENCH, JACQUELYN Roland Ot E78.5 05/16/2015 TAYLOR FRENCH, JACQUELYN Roland Ot I25.10 05/16/2015 TAYLOR FRENCH, JACQUELYN Roland Ot J44.9 05/24/2015 TAYLOR FRENCH, JACQUELYN Roland Ot C91.10 05/24/2015 TAYLOR FRENCH, JACQUELYN Roland Ot E78.5 05/24/2015 TAYLOR FRENCH, JACQUELYN Roland Ot I25.10 05/24/2015 TAYLOR FRENCH, JACQUELYN Roland Ot J44.9 06/18/2015 TAYLOR FRENCH, JACQUELYN Roland Ot C91.10 06/18/2015 TAYLOR FRENCH, JACQUELYN Roland Ot E78.5 06/18/2015 TAYLOR FRENCH, JACQUELYN Roland Ot I25.10 06/18/2015 TAYLOR FRENCH, JACQUELYN Roland Ot J44.9 08/06/2015 Ot 493.90 08/06/2015 CORIN FRENCH, SORAYA Yee Ot 355.9 08/06/2015 CORIN FRENCH, SORAYA Yee Ot 719.45 08/06/2015 CORIN FRENCH, SORAYA Yee Ot 719.46 08/06/2015 CORIN FRENCH, SORAYA Yee Ot 724.5 08/06/2015 CORIN FRENCH, SORAYA Yee Ot 733.90 08/06/2015 CORIN FRENCH, SORAYA Yee Ot 736.79 08/06/2015 CORIN FRENCH, SORAYA Yee Ot 737.10 08/06/2015 CORIN FRENCH, SORAYA Yee Ot 780.79 08/06/2015 CORIN FRENCH, SORAYA Yee Ot 781.2 08/06/2015 SOPHIE HE LEAD SOFTWARE DEVELOPER Ot 790.99 08/06/2015 CORIN FRENCH, SORAYA Yee Ot 493.90 08/06/2015 CORIN FRENCH, SORAYA Yee Ot 786.50 08/06/2015 CORIN FRENCH, SORAYA Yee Ot 518.89 08/06/2015 TAYLOR FRENCH, JACQUELYN Roland Ot C91.10 08/06/2015 TAYLOR FRENCH, JACQUELYN Asuncion Ot E78.5 08/06/2015 TAYLOR FRENCH, JACQUELYN Asuncion Ot I25.10 08/06/2015 TAYLOR FRENCH, JACQUELYN Asuncion Ot J44.9 08/27/2015 TAYLOR FRENCH, JACQUELYN Asuncion Ot C91.10 08/27/2015 TAYLOR FRENCH, JACQUELYN Asuncion Ot E78.5 08/27/2015 TAYLOR FRENCH, JACQUELYN Asuncion Ot I25.10 08/27/2015 TAYLOR FRENCH, JACQUELYN Asuncion Ot J44.9 09/04/2015 TAYLOR FRENCH, JACQUELYN Asuncion Ot C91.10 09/04/2015 TAYLOR FRENCH, JACQUELYN Asuncion Ot E78.5 09/04/2015 TAYLOR FRENCH, JACQUELYN Roland Ot I25.10 09/04/2015 TAYLOR FRENCH, JACQUELYN Roland Ot J44.9 09/05/2015 SOPHIE HE Ot R53.1 WEAKNESS 09/05/2015 SOPHIE HE LEAD SOFTWARE DEVELOPER Ot R53.83 OTHER FATIGUE 09/07/2015 Ot M47.812 SPONDYLOSIS W/O MYELOPATHY OR RADICULOPA 09/07/2015 Ot S01.01XA LACERATION WITHOUT FOREIGN BODY OF SCALP 09/07/2015 Ot S51.812A LACERATION WITHOUT FOREIGN BODY OF LEFT 09/07/2015 Ot W01.0XXA FALL SAME LEV FROM SLIP/TRIP W/O STRIKE 09/07/[address] Ot [address]92[address] OF OCCURRENCE OF T 09/07/2015 Ot Y99.8 OTHER EXTERNAL CAUSE STATUS 09/07/2015 Ot Z79.82 GROUP HOME (CURRENT) USE OF ASPIRIN 09/07/2015 Ot Z95.0 PRESENCE OF CARDIAC PACEMAKER 09/07/2015 Ot Z98.1 ARTHRODESIS STATUS 09/28/2015 TAYLOR FRENCH, JACQUELYN Roland Ot C91.10 CHRONIC LYMPHOCYTIC LEUK OF B-CELL TYPE 09/28/2015 TAYLOR FRENCH, JACQUELYN Roland Ot E78.5 HYPERLIPIDEMIA, UNSPECIFIED 09/28/2015 JACQUELYN VAZQUEZ MD Ot I25.10 ATHSCL HEART DISEASE OF [place] CORONARY 09/28/2015 JACQUELYN VAZQUEZ MD, Ot J44.9 CHRONIC OBSTRUCTIVE PULMONARY DISEASE, U 09/28/2015 JACQUELYN VAZQUEZ MD, Ot Z79.899 OTHER GROUP HOME (CURRENT) DRUG THERAPY 10/03/2015 JACQUELYN VAZQUEZ MD, Ot C91.10 CHRONIC LYMPHOCYTIC LEUK OF B-CELL TYPE 10/03/2015 JACQUELYN VAZQUEZ MD, Ot E78.5 HYPERLIPIDEMIA, UNSPECIFIED 10/03/2015 JACQUELYN VAZQUEZ MD Ot I25.10 ATHSCL HEART DISEASE OF [place] CORONARY 10/03/2015 JACQUELYN VAZQUEZ MD, Ot J44.9 CHRONIC OBSTRUCTIVE PULMONARY DISEASE, U 10/03/2015 JACQUELYN VAZQUEZ MD, Ot Z79.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) DRUG THERAPY 12/02/2015 JACQUELYN VAZQUEZ MD, Ot C91.10 CHRONIC LYMPHOCYTIC LEUK OF B-CELL TYPE 12/02/2015 JACQUELYN VAZQUEZ MD, Ot E78.5 HYPERLIPIDEMIA, UNSPECIFIED 12/02/2015 JACQUELYN VAZQUEZ MD, Ot I25.10 ATHSCL HEART DISEASE OF [place] CORONARY 12/02/2015 JACQUELYN VAZQUEZ MD, Ot J44.9 CHRONIC OBSTRUCTIVE PULMONARY DISEASE, U 12/02/2015 JACQUELYN VAZQUEZ MD, Ot Z79.899 OTHER GROUP HOME (CURRENT) DRUG THERAPY 03/03/2016 JACQUELYN VAZQUEZ MD, Ot C91.10 CHRONIC LYMPHOCYTIC LEUK OF B-CELL TYPE 03/03/2016 JACQUELYN VAZQUEZ MD, Ot E78.5 HYPERLIPIDEMIA, UNSPECIFIED 03/03/2016 JACQUELYN VAZQUEZ MD, Ot I25.10 ATHSCL HEART DISEASE OF [place] CORONARY 03/03/2016 JACQUELYN VAZQUEZ MD, Ot J44.9 CHRONIC OBSTRUCTIVE PULMONARY DISEASE, U 03/03/2016 JACQUELYN VAZQUEZ MD, Ot Z79.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) DRUG THERAPY 03/12/2016 JACQUELYN VAZQUEZ MD Ot C91.10 CHRONIC LYMPHOCYTIC LEUK OF B-CELL TYPE 03/12/2016 JACQUELYN VAZQUEZ MD, Ot E78.5 HYPERLIPIDEMIA, UNSPECIFIED 03/12/2016 JACQUELYN VAZQUEZ MD Ot I25.10 ATHSCL HEART DISEASE OF [place] CORONARY 03/12/2016 JACQUELYN VAZQUEZ MD, Ot J44.9 CHRONIC OBSTRUCTIVE PULMONARY DISEASE, U 03/12/2016 JACQUELYN VAZQUEZ MD, Ot Z79.899 OTHER GROUP HOME (CURRENT) DRUG THERAPY 04/29/2016 JACQUELYN VAZQUEZ MD Ot C91.10 CHRONIC LYMPHOCYTIC LEUK OF B-CELL TYPE 04/29/2016 JACQUELYN VAZQUEZ MD Ot E78.5 HYPERLIPIDEMIA, UNSPECIFIED 04/29/2016 JACQUELYN VAZQUEZ MD Ot I25.10 ATHSCL HEART DISEASE OF [place] CORONARY 04/29/2016 JACQUELYN VAZQUEZ MD Ot J44.9 CHRONIC OBSTRUCTIVE PULMONARY DISEASE, U 04/29/2016 JACQUELYN VAZQUEZ MD Ot Z79.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) DRUG THERAPY 05/07/2016 JACQUELYN VAZQUEZ MD Ot C91.10 CHRONIC LYMPHOCYTIC LEUK OF B-CELL TYPE 05/07/2016 JACQUELYN VAZQUEZ MD Ot E78.5 HYPERLIPIDEMIA, UNSPECIFIED 05/07/2016 JACQUELYN VAZQUEZ MD Ot I25.10 ATHSCL HEART DISEASE OF [place] CORONARY 05/07/2016 JACQUELYN VAZQUEZ MD Ot J44.9 CHRONIC OBSTRUCTIVE PULMONARY DISEASE, U 05/07/2016 JACQUELYN VAZQUEZ MD Ot Z79.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) DRUG THERAPY 06/09/2016 JACQUELYN VAZQUEZ MD Ot C91.10 CHRONIC LYMPHOCYTIC LEUK OF B-CELL TYPE 06/09/2016 JACQUELYN VAZQUEZ MD Ot E78.5 HYPERLIPIDEMIA, UNSPECIFIED 06/09/2016 JACQUELYN VAZQUEZ MD Ot I25.10 ATHSCL HEART DISEASE OF [place] CORONARY 06/09/2016 JACQUELYN VAZQUEZ MD Ot J44.9 CHRONIC OBSTRUCTIVE PULMONARY DISEASE, U 06/09/2016 JACQUELYN VAZQUEZ MD Ot Z79.899 OTHER GROUP HOME (CURRENT) DRUG THERAPY 06/10/2016 JACQUELYN VAZQUEZ MD Ot C91.10 CHRONIC LYMPHOCYTIC LEUK OF B-CELL TYPE 06/10/2016 JACQUELYN VAZQUEZ MD Ot E78.5 HYPERLIPIDEMIA, UNSPECIFIED 06/10/2016 JACQUELYN VAZQUEZ MD Ot I25.10 ATHSCL HEART DISEASE OF [place] CORONARY 06/10/2016 JACQUELYN VAZQUEZ MD Ot J44.9 CHRONIC OBSTRUCTIVE PULMONARY DISEASE, U 06/10/2016 JACQUELYN VAZQUEZ MD Ot Z79.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) DRUG THERAPY 06/17/2016 JACQUELYN VAZQUEZ MD Ot C91.10 CHRONIC LYMPHOCYTIC LEUK OF B-CELL TYPE 06/17/2016 JACQUELYN VAZQUEZ MD Ot E78.5 HYPERLIPIDEMIA, UNSPECIFIED 06/17/2016 JACQUELYN VAZQUEZ MD Ot I25.10 ATHSCL HEART DISEASE OF [place] CORONARY 06/17/2016 JACQUELYN VAZQUEZ MD Ot J44.9 CHRONIC OBSTRUCTIVE PULMONARY DISEASE, U 06/17/2016 JACQUELYN VAZQUEZ MD Ot Z79.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) DRUG THERAPY 06/18/2016 JACQUELYN VAZQUEZ MD, Ot C91.10 CHRONIC LYMPHOCYTIC LEUK OF B-CELL TYPE 06/18/2016 JACQUELYN VAZQUEZ MD Ot E78.5 HYPERLIPIDEMIA, UNSPECIFIED 06/18/2016 JACQUELYN VAZQUEZ MD Ot I25.10 ATHSCL HEART DISEASE OF [place] CORONARY 06/18/2016 JACQUELYN VAZQUEZ MD, Ot J44.9 CHRONIC OBSTRUCTIVE PULMONARY DISEASE, U 06/18/2016 JACQUELYN VAZQUEZ MD, Ot Z79.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) DRUG THERAPY 07/30/2016 JACQUELYN VAZQUEZ MD, Ot C91.10 CHRONIC LYMPHOCYTIC LEUK OF B-CELL TYPE 07/30/2016 JACQUELYN VAZQUEZ MD, Ot E78.5 HYPERLIPIDEMIA, UNSPECIFIED 07/30/2016 JACQUELYN VAZQUEZ MD Ot I25.10 ATHSCL HEART DISEASE OF [place] CORONARY 07/30/2016 JACQUELYN VAZQUEZ MD, Ot J44.9 CHRONIC OBSTRUCTIVE PULMONARY DISEASE, U 07/30/2016 JACQUELYN VAZQUEZ MD Ot Z79.899 OTHER GROUP HOME (CURRENT) DRUG THERAPY 08/06/2016 JACQUELYN VAZQUEZ MD, Ot C91.10 CHRONIC LYMPHOCYTIC LEUK OF B-CELL TYPE 08/06/2016 JACQUELYN VAZQUEZ MD Ot E78.5 HYPERLIPIDEMIA, UNSPECIFIED 08/06/2016 JACQUELYN VAZQUEZ MD Ot I25.10 ATHSCL HEART DISEASE OF [place] CORONARY 08/06/2016 JACQUELYN VAZQUEZ MD Ot J44.9 CHRONIC OBSTRUCTIVE PULMONARY DISEASE, U 08/06/2016 JACQUELYN VAZQUEZ MD Ot Z79.899 OTHER GROUP HOME (CURRENT) DRUG THERAPY 09/15/2016 JACQUELYN VAZQUEZ MD Ot C91.10 CHRONIC LYMPHOCYTIC LEUK OF B-CELL TYPE 09/15/2016 JACQUELYN VAZQUEZ MD Ot E78.5 HYPERLIPIDEMIA, UNSPECIFIED 09/15/2016 JACQUELYN VAZQUEZ MD Ot I25.10 ATHSCL HEART DISEASE OF [place] CORONARY 09/15/2016 JACQUELYN VAZQUEZ MD Ot J44.9 CHRONIC OBSTRUCTIVE PULMONARY DISEASE, U 09/15/2016 JACQUELYN VAZQUEZ MD Ot Z79.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) DRUG THERAPY 09/16/2016 JACQUELYN VAZQUEZ MD Ot C91.10 CHRONIC LYMPHOCYTIC LEUK OF B-CELL TYPE 09/16/2016 JACQUELYN VAZQUEZ MD Ot E78.5 HYPERLIPIDEMIA, UNSPECIFIED 09/16/2016 JACQUELYN VAZQUEZ MD Ot I25.10 ATHSCL HEART DISEASE OF [place] CORONARY 09/16/2016 JACQUELYN VAZQUEZ MD Ot J44.9 CHRONIC OBSTRUCTIVE PULMONARY DISEASE, U 09/16/2016 JACQUELYN VAZQUEZ MD Ot Z79.899 OTHER GROUP HOME (CURRENT) DRUG THERAPY 09/16/2016 JACQUELYN VAZQUEZ MD Ot C91.10 CHRONIC LYMPHOCYTIC LEUK OF B-CELL TYPE 09/16/2016 JACQUELYN VAZQUEZ MD, Ot E78.5 HYPERLIPIDEMIA, UNSPECIFIED 09/16/2016 JACQUELYN VAZQUEZ MD Ot I25.10 ATHSCL HEART DISEASE OF [place] CORONARY 09/16/2016 JACQUELYN VAZQUEZ MD, Ot J44.9 CHRONIC OBSTRUCTIVE PULMONARY DISEASE, U 09/16/2016 JACQUELYN VAZQUEZ MD Ot Z79.899 OTHER GROUP HOME (CURRENT) DRUG THERAPY 09/17/2016 JACQUELYN VAZQUEZ MD, Ot C91.10 CHRONIC LYMPHOCYTIC LEUK OF B-CELL TYPE 09/17/2016 JACQUELYN VAZQUEZ MD, Ot E78.5 HYPERLIPIDEMIA, UNSPECIFIED 09/17/2016 JACQUELYN VAZQUEZ MD Ot I25.10 ATHSCL HEART DISEASE OF [place] CORONARY 09/17/2016 JACQUELYN VAZQUEZ MD, Ot J44.9 CHRONIC OBSTRUCTIVE PULMONARY DISEASE, U 09/17/2016 JACQUELYN VAZQUEZ MD Ot Z79.899 OTHER GROUP HOME (CURRENT) DRUG THERAPY 10/29/2016 JACQUELYN VAZQUEZ MD Ot C91.10 CHRONIC LYMPHOCYTIC LEUK OF B-CELL TYPE 10/29/2016 JACQUELYN VAZQUEZ MD Ot E78.5 HYPERLIPIDEMIA, UNSPECIFIED 10/29/2016 JACQUELYN VAZQUEZ MD Ot I25.10 ATHSCL HEART DISEASE OF [place] CORONARY 10/29/2016 JACQUELYN VAZQUEZ MD Ot J44.9 CHRONIC OBSTRUCTIVE PULMONARY DISEASE, U 10/29/2016 JACQUELYN VAZQUEZ MD Ot Z79.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) DRUG THERAPY 11/06/2016 JACQUELYN VAZQUEZ MD Ot C91.10 CHRONIC LYMPHOCYTIC LEUK OF B-CELL TYPE 11/06/2016 JACQUELYN VAZQUEZ MD Ot E78.5 HYPERLIPIDEMIA, UNSPECIFIED 11/06/2016 JACQUELYN VAZQUEZ MD Ot I25.10 ATHSCL HEART DISEASE OF [place] CORONARY 11/06/2016 TAYLOR FRENCH, JACQUELYN Roland Ot J44.9 CHRONIC OBSTRUCTIVE PULMONARY DISEASE, U 11/06/2016 TAYLOR FRENCH, JACQUELYN Roland Ot Z79.899 OTHER GROUP HOME (CURRENT) DRUG THERAPY Procedures Results Test Result Range Complete blood count (CBC) with automated white blood cell (WBC) differential - 11/25/16 10:38 Blood leukocytes automated count (number/volume) 21.6 10*3/ uL 4.3-11.0 Blood erythrocytes automated count (number/volume) 3.59 10*6 /uL 4.35-5.85 Venous blood hemoglobin measurement (mass/volume) 11.1 g/dL 13.3-17.7 Blood hematocrit (volume fraction) 34 % 40-54 Automated erythrocyte mean corpuscular volume 94 [foz_us] 80-99 Automated erythrocyte mean corpuscular hemoglobin (mass per erythrocyte) 31 pg 25-34 Automated erythrocyte mean corpuscular hemoglobin concentration measurement ( mass/volume) 33 g/dL 32-36 Automated erythrocyte distribution width ratio 15.3 % 10.0-14.5 Automated blood platelet count (count/volume) 153 10*3/uL 130-400 Automated blood platelet mean volume measurement 9.5 [foz_us ] 7.4-10.4 Automated blood neutrophils/100 leukocytes 19 % 42-75 Automated blood lymphocytes/100 leukocytes 79 % 12-44 Blood monocytes/100 leukocytes 2 % 0-12 Automated blood eosinophils/100 leukocytes 0 % 0-10 Automated blood basophils/100 leukocytes 0 % 0-10 Blood neutrophils automated count (number/volume) 4.2 10*3 1.8-7.8 Blood lymphocytes automated count (number/volume) 17.0 10*3 1.0-4.0 Blood monocytes automated count (number/volume) 0.3 10*3 0.0-1.0 Automated eosinophil count 0.0 10*3/uL 0.0-0.3 Automated blood basophil count (count/volume) 0.0 10*3/uL 0.0-0.1 Comprehensive metabolic panel - 11/25/16 10:38 Serum or plasma sodium measurement (moles/volume) 136 mmol/ L 135-145 Serum or plasma potassium measurement (moles/volume) 4.3 mmol/L 3.6-5.0 Serum or plasma chloride measurement (moles/volume) 103 mmol /L 98-107 Carbon dioxide 24 mmol/L 21-32 Serum or plasma anion gap determination (moles/volume) 9 mmol/L 5-14 Serum or plasma urea nitrogen measurement (mass/volume) 17 mg/dL 7-18 Serum or plasma creatinine measurement (mass/volume) 0.96 mg /dL 0.60-1.30 Serum or plasma urea nitrogen/creatinine mass ratio 18 0-20 Serum or plasma creatinine measurement with calculation of estimated glomerular filtration rate > NRG Serum or plasma glucose measurement (mass/volume) 106 mg/dL 70-105 Serum or plasma calcium measurement (mass/volume) 9.2 mg/dL 8.5-10.1 Serum or plasma total bilirubin measurement (mass/volume) 0.6 mg/dL 0.1-1.0 Serum or plasma alkaline phosphatase measurement (enzymatic activity/volume) 68 U/L 40-136 Serum or plasma aspartate aminotransferase measurement (enzymatic activity/ volume) 24 U/L 5-34 Serum or plasma alanine aminotransferase measurement (enzymatic activity/volume ) 19 U/L 0-55 Serum or plasma protein measurement (mass/volume) 6.2 g/dL 6.4-8.2 Serum or plasma albumin measurement (mass/volume) 3.9 g/dL 3.2-4.5 Blood manual differential performed detection - 11/25/16 10:38 Blood monocytes/100 leukocytes 3 % NRG Manual blood segmented neutrophils/100 leukocytes 28 % NRG Manual blood lymphocytes/100 leukocytes 69 % NRG Blood smudge cells detection by light microscopy 19 PER 100 WBC NRG Blood ovalocytes detection by light microscopy SLIGHT NRG Blood poikilocytosis detection by light microscopy SLIGHT NRG Encounters ACCT No. Visit Date/Time Discharge Status Pt. Type Provider Facility Loc./Unit Complaint [id number] 11/25/2016 10:31:00 2016 13:11:00 DIS Emergency JANA BROCK MD [facility] ER FALL [id number] 06/17/2016 09:46:00 2016 00:01:00 DIS Outpatient JACQUELYN VAZQUEZ MD [facility] ONC [id number] 04/21/2016 09:40:00 2016 00:01:00 DIS Outpatient JACQUELYN VAZQUEZ MD [facility] ONC [id number] 09/03/2015 13:06:00 2015 00:01:00 DIS Outpatient JACQUELYN VAZQUEZ MD [facility] ONC [id number] 09/05/2015 08:55:00 2015 12:06:00 DIS Outpatient SOPHIE HE [facility] REHAB [id number] 03/20/2015 09:05:00 2015 00:01:00 DIS Outpatient JACQUELYN VAZQUEZ MD [facility] ONC [id number] 01/17/2015 17:43:00 2014 10:30:00 DIS Inpatient ALINE FRENCH, KARL Mcghee [facility] IRF [id number] 01/02/2015 16:02:00 2014 18:19:00 DIS Emergency JODY RABAGO MD [facility] ER [id number] 2014 09:13:00 2014 00:01:00 DIS Outpatient JACQUELYN VAZQUEZ MD [facility] ONC [id number] 03/28/2014 08:38:00 2014 00:01:00 DIS Outpatient JACQUELYN VAZQUEZ MD [facility] ONC [id number] 06/19/2014 14:39:00 2014 23:59:59 CLS Outpatient SORAYA COOMBS MD [facility] RAD [id number] 06/14/2014 14:17:00 2014 23:59:59 CLS Outpatient SORAYA COOMBS MD [facility] RAD [id number] 12/27/2013 10:01:00 2013 00:01:00 DIS Outpatient JACQUELYN VAZQUEZ MD [facility] ONC [id number] 11/28/2013 13:10:00 2013 12:11:00 DIS Outpatient SOPHIE HE [facility] REHAB [id number] 11/22/2013 10:20:00 2013 23:59:59 CLS Outpatient SOPHIE HE [facility] LAB [id number] 11/15/2013 12:22:00 2013 23:59:59 CLS Outpatient CORIN FRENCH, SORAYA Yee [facility] RAD [id number] 09/17/2016 13:32:00 ACT Outpatient JACQUELYN VAZQUEZ MD [facility] ONC [id number] 09/07/2015 09:54:00 Document Registration [id number] 03/05/2011 14:06:00 Document Registration
== END 2016-11-25 13:11 | disposition short-term general hospital (02) ==
LOC: EDUNIT# 10:29 → ER 10:31
DX: S32.029A Unspecified fracture of second lumbar vertebra, initial encounter for closed fracture (principal); I10 Essential (primary) hypertension; Z95.0 Presence of cardiac pacemaker; Z87.39 Personal history of other diseases of the musculoskeletal system and connective tissue; J45.909 Unspecified asthma, uncomplicated; Z98.890 Other specified postprocedural states; W01.10XA Fall on same level from slipping, tripping and stumbling with subsequent striking against unspecified object, initial encounter; W22.8XXA Striking against or struck by other objects, initial encounter; Y92.69 Other specified industrial and construction area as the place of occurrence of the external cause
CPT/HCPCS: 36415; 70450; 72125; 72131; 72170; 80053; 85007; 85027

== ENCOUNTER 2016-12-05 11:09 | Inpatient (IN) | payer MEDICARE, OTHER ==
[~2016-12-05] VITALS: Ht 180.3 cm; Wt 80.7 kg
[2016-12-07] MEDS ORDERED: NITROGLYCERIN SUBLINGUAL 0.4 MG TAB (NITROSTAT) SL PRN (13:15)
[2016-12-07] MEDS ORDERED: RT-ALBUTEROL HFA (VENTOLIN) PER PUFF IH PRN (13:15)
[2016-12-07] MEDS ORDERED: KCL 20 MEQ TAB (K-DUR) PO PRN (13:15)
[2016-12-07] MEDS ORDERED: oxyCODONE/APAP 7.5-325 MG (PERCOCET 7.5) TABLET PO PRN (13:15)
[2016-12-07] MEDS ORDERED: FUROSEMIDE 20 MG (LASIX) TAB PO PRN (13:15)
[2016-12-07 15:25] VITALS: BP 147/67
[2016-12-07] MEDS ORDERED: RT-ALBUTEROL SULF 2.5 MG/3 ML PRE-MIX VIAL IH PRN (15:45)
--- NOTE | 2016-12-07 20:01 | PM&R History and Physical ---
History of Present Illness Date of Admission Date of Admission Dec 07, 2016 at 15:05 Chief Complaint/HPI Chief Complaint status post T12-L4 fusion for a L2 fracture- here for rehabilitation HPI 86 yo M admitted from [facility] to [facility] rehabilitation. On November 25 2016, Jose was unloading a truck at the recycling center in [place]- when the tailgate began to fall and Jose tried to get out of the way - it may have knocked him down, none the less he fell backward hitting his head on recycling cans resulting in a laceration of his head. He was seen at [facility] ER and found to have an unstable L2 fracture on CT and transferred to [facility]. Due to patient's CLL and anemia- his T12-L4 fusion was done on 12/01/16 while hematology medically stabilized him with blood transfusion(s). Patient tolerated the procedure well, no complications and was evaluated by [facility] PT and found to be with good rehab potential. Pt and his decided to come to [facility] inpatient rehab. He was suppose to come 12/05/16 but he was given multiple cathartics to help with his constipation and he has uncontrollable diarrhea resulting in the delay in transfer due to weakness. Pt arrived in the afternoon at [facility] on 12/07/2016. Patient is motivated to do well in Rehab so he can return home and get back to his exercise regimen he was doing at the health center. PMH-Standard Patient Social History nonsmoker Patient Past Medical History *closed unstable lumbar vertebrae 2 burst fracture- *CLL, B- cell *Htn- *mild persistent asthma- *Coronary artery disease GERD h/o subdural hematoma arthritis HLD PSH: ulnar nerve, bunionectomy, carpal tunnel release, cervical spine surgery Family Medical History Family Hx: FH: cancer 19 MOTHER FH: heart disease 19 FATHER Allergies and Home Medications Allergies Coded Allergies: prednisone (Verified Allergy, Mild, 12/07/16) cigarette smoke (Verified Allergy, Unknown, 12/07/16) Shortness of breath/wheezing. perfume (Verified Allergy, Unknown, 12/07/16) Perfumes and rogers cause "throat to close". Home Medications Acetaminophen 500 Mg Tablet, 1,000 MG PO Q6H PRN for MILD PAIN, #100 Prescribed by: KARL MIRELES on 01/25/15 826 Atorvastatin Calcium 20 Mg Tablet, 40 MG PO HS, #100 Prescribed by: KARL MIRELES on 01/25/15826 Budesonide/Formoterol Fumarate 10.2 Gm Hfa.aer.ad, 2 PUFF IH DAILY@0800, #1 Prescribed by: KARL MIRELES on 01/25/15826 Diclofenac Sodium 100 Gm Gel..gram., 0 GM TOP QID, #1 Prescribed by: KARL MIRELES on 01/25/15826 Enalapril Maleate 5 Mg Tablet, 5 MG PO DAILY, #30 Prescribed by: KARL MIRELES on 01/25/15826 Nitroglycerin 0.4 Mg Tab.subl, 0.4 MG SL Q5M PRN for CHEST PAIN, #100 Prescribed by: KARL MIRELES on 01/25/15826 [Multivitamins/Minerals Therap] 1 EA TABLET, 1 EA PO DAILY@0700, #100 Prescribed by: KARL MIRELES on 01/25/15826 ROS Review of Systems General: No Chills, No Night Sweats HEENT: Head Aches, No Visual Changes, No Eye Pain Pulmonary: No Dyspnea, Cough Cardiovascular: No: Chest Pain, Palpitations Gastrointestinal: No: Abdominal Pain, Nausea, Vomiting Genitourinary: No Dysuria, No Frequency Musculoskeletal: back pain, No: neck pain, shoulder pain Neurological: Weakness, No: Change in speech, Confusion Exam Exam Last Set of Vital Signs Vital Signs Date Time Temp Pulse Resp B/P (MAP) Pulse Ox O2 Delivery O2 Flow Rate FiO2 12/07/16 16:25 Room Air 12/07/16 15:25 98.3 80 16 147/67 96 Capillary Refill : General: Alert, Oriented X3, Cooperative HEENT: Mucous Memb Moist/[place], Other (running blue suture on top of head- skin growing around it.) Neck: Supple, No JVD Lungs: Clear to Auscultation, Normal Air Movement Heart: Regular Rate Abdomen: Normal Bowel Sounds, Soft Extremities: No Clubbing, No Cyanosis Skin: No Rashes, No Breakdown, Other (back incision- covered with dressing) Neuro: Normal Speech, Sensation Intact, Other (strength- 4/5 lower extremities - 5/5 upper extremities) Psych/Mental Status: Mental Status NL, Mood NL (quiet, reserved) Assessment/Plan Impression/Dx 86 yo M *closed unstable lumbar vertebrae 2 burst fracture-occuring on 11/25/16- s/p T12-L4 posterolateral inner transverse process fusion- Dr. Payton at [facility] 12/01/16 *CLL, B- cell follow with Dr. Holley leukocytosis, anemia - not on any treatment *Htn- controlled *mild persistent asthma- stable , room air *Coronary artery disease *GERD Plan admitted to Rehab for multidisciplinary approach Pt will participate in PT, OT. Currently needing assistance- goal of pt being able to go home. -TLSO brace to be doned when head of be >30 degrees and with logroll -Nursing to call surgeon's office to clarify brace orders and frequency of dressing (silver) changes -suture removal from his head laceration 11/25/16 -continued his medications on admission DVT ppx: ambulation and SCDs while in hospital bed Pt has a pacemaker check appt 12/23/16 Dr. Dykes is PCP for pt. Estimated Length of Stay greater than 2 weeks- I would say 4-6 weeks Prognosis Good rehab potential as pt was active with exercising at the [facility] leading up to the L2 fracture Diet/Code Status Diet regular Code Status full code Barriers to Discharge see paper chart Risks For This Patient see paper chart for details CARYN DENNY MD Dec 07, 2016 20:01
[2016-12-07] MEDS: meTOprolol TARTRATE 50 MG (LOPRESSOR) TAB PO SCH (20:35)
[2016-12-07] MEDS: ATORVASTATIN 40 MG (LIPITOR) TABLET PO SCH (20:35)
[2016-12-08 05:00] VITALS: BP 108/65
[2016-12-08] MEDS: PANTOPRAZOLE 40 MG (PROTONIX) TAB PO SCH (06:00)
[2016-12-08] MEDS: MULTIVIT W/MINERALS TAB (THERAGRAN M) PO SCH (06:00)
[2016-12-08 06:40] LABS: BASOPHILS # (AUTO) 0.1 10^3/uL (0.0-0.1); BASOPHILS % (AUTO) 0 % (0-10); EOSINOPHILS # (AUTO) 0.1 10^3/uL (0.0-0.3); EOSINOPHILS % (AUTO) 0 % (0-10); LYMPHOCYTES # (AUTO) 34.6 X 10^3 (1.0-4.0); LYMPHOCYTES % (AUTO) 86 % (12-44); MEAN CORPUSCULAR HEMOGLOBIN 31 PG (25-34); MEAN CORPUSCULAR HGB CONC 32 G/DL (32-36); MEAN CORPUSCULAR VOLUME 98 FL (80-99); MEAN PLATELET VOLUME 9.2 FL (7.4-10.4); MONOCYTES # (AUTO) 0.1 X 10^3 (0.0-1.0); MONOCYTES % (AUTO) 0 % (0-12); NEUTROPHILS # (AUTO) 5.4 X 10^3 (1.8-7.8); NEUTROPHILS % (AUTO) 14 % (42-75); PLATELET COUNT 201 10^3/uL (130-400); RED BLOOD COUNT 2.87 10^6/uL (4.35-5.85); RED CELL DISTRIBUTION WIDTH 18.2 % (10.0-14.5)
[2016-12-08 06:42] LABS: WHITE BLOOD COUNT 40.3 10^3/uL (4.3-11.0)
[2016-12-08 07:13] LABS: BURR CELLS SLIGHT; CRENATED RBC SLIGHT; HYPOCHROMASIA MODERATE; LYMPHOCYTES % (MANUAL) 67 %; NEUTROPHILS % (MANUAL) 33 %; POIKILOCYTOSIS SLIGHT; POLYCHROMASIA MODERATE
[2016-12-08 07:18] LABS: ALANINE AMINOTRANSFERASE 11 U/L (0-55); ALBUMIN 2.8 GM/DL (3.2-4.5); ANION GAP 8 MMOL/L (5-14); ASPARTATE AMINO TRANSFERASE 24 U/L (5-34); BILIRUBIN,TOTAL 1.4 MG/DL (0.1-1.0); BLOOD UREA NITROGEN 11 MG/DL (7-18); BUN/CREATININE RATIO 16; CALCIUM 7.8 MG/DL (8.5-10.1); CARBON DIOXIDE 23 MMOL/L (21-32); CHLORIDE 104 MMOL/L (98-107); CREATININE SERUM 0.69 MG/DL (0.60-1.30); GFR ESTIMATED > 60; GLUCOSE 91 MG/DL (70-105); POTASSIUM 4.4 MMOL/L (3.6-5.0); SODIUM 135 MMOL/L (135-145); TOTAL PROTEIN 4.9 GM/DL (6.4-8.2)
[2016-12-08 08:41] VITALS: BP 148/79
[2016-12-08] MEDS: ENALAPRIL 5 MG (VASOTEC) TAB PO SCH (08:41)
[2016-12-08] MEDS: meTOprolol TARTRATE 50 MG (LOPRESSOR) TAB PO SCH ×2 (08:41→20:38)
[2016-12-08] MEDS: ACETAMINOPHEN 325 MG TABLET/CAPLET (TYLENOL) PO PRN (08:42)
[2016-12-08] MEDS ORDERED: CYANOCOBALAMIN 100 MCG PO SCH (09:00)
[2016-12-08] MEDS ORDERED: RT-ALBUINH IH (10:24)
[2016-12-08] MEDS ORDERED: ACET325T38 PO (10:24)
[2016-12-08] MEDS ORDERED: CYAN100T PO (10:24)
[2016-12-08] MEDS ORDERED: OMEP20CA12 PO (10:24)
[2016-12-08] MEDS ORDERED: SAW450CA4 PO (10:24)
[2016-12-08] MEDS ORDERED: POTA-51 PO (10:24)
[2016-12-08] MEDS ORDERED: ENAL5TAB PO (10:24)
[2016-12-08] MEDS ORDERED: FURO20TA4 PO (10:24)
[2016-12-08] MEDS ORDERED: BUDE10.22 IH (10:24)
[2016-12-08] MEDS ORDERED: METO50TA2 PO (10:24)
[2016-12-08] MEDS ORDERED: ATOR40TA PO (10:24)
[2016-12-08] MEDS ORDERED: NITR0.4T SL (10:24)
[2016-12-08] MEDS ORDERED: MULT-35 PO (10:24)
[2016-12-08] MEDS ORDERED: OXYC15TA79 PO (10:24)
--- NOTE | 2016-12-08 10:26 | PM&R Post Admission Assessment ---
Post Admission Physician Asses The preadmission screen agrees with the post admission assessment that the patient is a good candidate for inpatient rehabilitation. The patient will have a comprehensive program of inpatient rehabilitation with a goal of maximizing level of functional independence prior to discharge home with spouse. The patient will have PT/OT ninety minutes per day, each discipline, five days a week for gait ,strengthening, conditioning, balance, ADLs, any patient/family/caregiver training as necessary. Speech therapy to do cognitive assessment and treat as indicated. Rehabilitation nursing to assist with bowel, bladder, skin, wound care, medication administration, pain management. [employer] to assist with discharge planning, community reentry. SCD's for DVT prophylaxis. He appears to be well motivated to participate in three hours of therapy a day. He should be able to tolerate three hours of therapy a day from a medical and surgical standpoint. He should benefit from the three hours of therapy a day. He has a reasonable discharge plan, reasonable discharge rehabilitation goals and a supportive family. He has various comorbidities that need to be closely monitored with medications and treatments adjusted on a daily basis as needed. These include: CoronARY ARTERY D htn aSTHMA gerd Barriers to discharge for this patient who had been independent prior to this are for him to be modified independent to supervision for ADLs and mobility skills prior to discharge home with SPOUSE, so as to lessen the burden of the caregivers. Risks for this patient include: 1. Fall 2. Fracture 3. DVT 4. Pulmonary embolism 5. Wound infection 6. Skin breakdown 7. Contractures 8. Poorly controlled pain 9. Urinary retention 10. UTI 11. Respiratory infection 12. Aspiration 13 pOORLY CONTROLLED htn 14. aNGINA 15. pOSTOP ANEMIA Estimated Length of Stay: 17 days Prognosis: Rehab prognosis appears good for goal of discharge home with SPOUSE modified independent to supervision for ADLs and mobility skills. PRIOR LEVEL OF FUNCTION-tHE PATIENT HAD BEEN mODIFIED iNDEPENDENT WITH A spc PRIOR TO THIS cURRENT LEVEL OF FUNCTION-cUURENTLY mOD ASSIST FOR TRANSFERS AND DRESSING -pLEASE SEE pt AND ot JEAN FOR DETAILS KARL MIRELES MD Dec 08, 2016 10:26
--- NOTE | 2016-12-08 10:56 | Physical Therapy Evaluation ---
PT Evaluation-General Medical Diagnosis Admission Date Dec 07, 2016 at 15:05 Medical Diagnosis: status post T12-L4 fusion for a L2 fracture Onset Date: Nov 25, 2016 Therapy Diagnosis Therapy Diagnosis: impaired mobility, strength, endurance Height/Weight Height (Feet): 5 Height (Inches): 11.00 Weight (Pounds): 193 Weight (Ounces): 2.0 Precautions Precautions/Isolations: Fall Prevention, Standard Precautions, Pressure Ulcer Referral Physician: Lyndon Reason for Referral: Evaluation/Treatment Medical History Pertinent Medical History: Arthritis, CAD, GERD, HTN Additional Medical History closed unstable lumbar vertebrae 2 burst fracture- *CLL, B- cell *Htn- *mild persistent asthma- *Coronary artery disease GERD h/o subdural hematoma arthritis HLD PSH: ulnar nerve, bunionectomy, carpal tunnel release, cervical spine surgery Current History L2 burst fx Reviewed History: Yes Social History Home: Single Level Current Living Status: Spouse Entry Into Home: Ramp Prior/Core FIM Prior Level of Function Functional [place] Measure 0=Not Assessed/NA 4=Minimal Assistance 1=Total Assistance 5=Supervision or Setup 2=Maximal Assistance 6=Modified [place] 3=Moderate Assistance 7=Complete [place] Bed Mobility: 6 Transfers (B,C,W/C) (FIM): 6 Gait: 6 Patient used a single point cane for ambulation PT Evaluation-Current Subjective Patient in bed pre tx, agrees to PT, says he has 3/10 pain in his back but he presents with much higher pain. Patient has a TLSO that he must wear when out of bed. Pt/Family Goals decrease pain Objective Patient Orientation: Person, Place, Situation ROM/Strength ROM Lower Extremities WNL except for limited ROM in right knee Strenght Lower Extremities NT because of pain Integumentary/Posture Bowel Incontinence: Yes Neuromuscular (Tone, Coordination, Reflexes) WNL Sensory Vision: Functional Hearing: Functional Sensation Right Lower Extremit: Intact Sensation Left Lower Extremity: Intact Transfers Functional [place] Measure 0=Not Assessed/NA 4=Minimal Assistance 1=Total Assistance 5=Supervision or Setup 2=Maximal Assistance 6=Modified [place] 3=Moderate Assistance 7=Complete IndependenceIRFPAI Quality Coding Scale 6 Independent with activity with or without an assistive device 5 Patient requires set up or clean up by helper. Patient completes activity by themselves 4 Supervision or touching assist (CGA). [place] provide cues , steadying assist 3 The helper provides less than half the effort to complete the activity 2 The helper provides more than half the effort to complete the activity 1 Dependent. The helper does all the effort to complete an activity 7 Patient refused to complete or attempt activity 9 The patient did not perform the activity before the current illness or injury 88 Not attempted due to Medical conditions or safety concerns Transfers (B, C, W/C) (FIM): 2 Scootin Rollin Roll Left to Right (QC): 3 Supine to/from Sit: 2 Sit to/from Stand: 2 Sit to Lying (QC): 2 Lying to Sitting/Side of Bed(Q: 2 Sit to Stand (QC): 2 Patient performs bed mobility with max assist (except for rolling) and sit to stand with max assist. He has been trained on how to log roll. Gait Does the Patient Walk?: Yes Mode of Locomotion: Walk Anticipated Mode of Locomotion: Walk Gait (FIM): 1 Walk 10 feet (QC): 2 Walk 50 ft with 2 Turns(QC): 88 Walk 150 ft (QC): 88 Walking 10ft/uneven surface-QC: 88 Distance: 15' Gait Level of Assist: 2 Gait Persons Needed: 2 Gait Assistive Device: FWW Comments/Gait Description Patient ambulated 15' with mod assist of 2 using a rolling walker, he ambulated about the end of the bed and over to a recliner. Stairs Stairs (FIM): 0 If not tested on admit;explain Patient is not able to perform even one step due to pain and poor endurance and strength. He can barely ambulate a few feet with assist of 2 people. Balance Sitting Static: Fair Sitting Dynamic: Fair Standing Static: Poor Standing Dynamic: Poor Picking up an Object (QC): 88 Treatment seated (B) LE exercises x20 (hip flexion, LAQ, AP) Assessment/Needs Patient has poor endurance, mobility, strength, and a lot of pain. He moves extremely slowly due to pain, very limited on how much he can perform during therapy. Rehab Potential: Fair PT Short Term Goals Short Term Goals Time Frame: Dec 15, 2016 Transfers (B,C,W/C) (FIM): 3 Gait (FIM): 2 Gait Distance Comment: 50' Gait Level of Assist: 3 Gait Assistive Device: FWW PT Residential Goals [place] Captain Goals PT Residential Goals Time Frame: Dec 29, 2016 Transfers (B,C,W/C) (FIM): 4 Sit to Lying (QC): 4 Lying-Sitting on Side/Bed(QC): 4 Sit to Stand (QC): 4 Rollin Roll Left to Right (QC): 4 Chair/Ybx-ml-Pjzjo Xfer(QC): 4 Car Transfer (QC): 4 Gait (FIM): 4 Distance: 150' Walk 10 feet (QC): 4 Walk 10ft-Uneven Surface(QC): 4 Walk 50ft with 2 Turns (QC): 4 Walk 150 ft (QC): 4 Gait Level of Assist: 4 Gait Assistive Device: FWW Stairs (FIM): 2 # of Steps: 4 1 Step (curb) (QC): 4 4 Steps (QC): 4 Stairs Level Of Assist: 4 PT Plan Problem List Problem List: Activity Tolerance, Functional Strength, Safety, Balance, Gait, Transfer, Bed Mobility, ROM Treatment/Plan Treatment Plan: Continue Plan of Care Treatment Plan: Bed Mobility, Education, Functional Activity [place], Functional Strength, Group Therapy, Gait, Safety, Therapeutic Exercise, Transfers Treatment Duration: Dec 29, 2016 # of days/week 5-6 Visits Per Week: 10-11 Minutes/Day (M-F): 60-90 Minutes/Day (Sat/Cheema): 15-30 Pt/Family Agrees w/Plan: Yes Safety Risks/Education Patient Education: Gait Training, Transfer Techniques, Reviewed Precautions, Correct Positioning, Safety Issues Teaching Recipient: Patient Teaching Methods: Demonstration, Discussion Response to Teaching: Reinforcement Needed Discharge Recommendations Plan Patient will perform bed mobility and transfer training, balance and endurance training, functional strengthening, stair training, gait training, and education , to improve functional mobility and independence at home. Therapy D/C Recommendations: Home w/ Family Support, Nursing Home (TCU/NH) Time/GCodes Time In: 1000 Time Out: 1100 Total Billed Treatment Time: 60 Total Billed Treatment 1 visit EVL 15' GT 15' EX 10' FA 20' TYSON AGUILERA PT Dec 08, 2016 10:56
--- NOTE | 2016-12-08 11:26 | ST Cognitive Linguistic Eval ---
Speech Evaluation-General Medical Diagnosis status post T12-L4 fusion for a L2 fracture Onset Date: Nov 25, 2016 Therapy Diagnosis Therapy Diagnosis: Cognitive Linguistic Skills WFL Precautions Precautions/Isolations: Fall Prevention, Standard Precautions, Pressure Ulcer Referral Referring Physician: Dr. Willis Haney Reason for Referral: Evaluation/Treatment Cognitive Evaluation Medical History Pertinent Medical History: Arthritis, CAD, GERD, HTN Reviewed History: Yes Social History Current Living Status: Spouse Speech PLF-Current Status Prior Level of Function The patient (and , who was present at bedside) denied any recent changes or challenges with his speech, language, or cognition prior to or throughout his recent hospitalization. Subjective The patient was recently admitted to [facility] following a L2 fracture. The patient greeted the clinician appropriately and was agreeable to participation in the cognitive evaluation. The patient's was present at bedside. The patient reported his pain was a "3 or 4," however, physically presented at a higher level (patient demonstrated frequent pauses and breaks which appeared to be secondary to discomfort). The patient's RN was present upon entrance who provided patient with medication. The patient and both reported the patient is functioning at baseline level. Per patient's , following a specific pain medication the patient was confused, "there was one medicine they gave him over there and he was confused for two hours." The patient reported his confusion "lifted" following the end of the medication. The patient remains cooperative, however, provides short answers to the clinician. Language Eval: Auditory Comprehends Simple Yes/No Ques: Functional Indent/Objects Multiple [place]: Functional Ident/Pics in [place]: Functional Follows 1-Step Commands: Functional Follows Complex Directions: Functional Follows General Conversations: Functional Language Eval: Verbal Language Completes Spontaneous Greeting: Functional Produces Auto, Serial Info: Functional (The patient is able to provide accurate location, as well as, accurate address and rationale for rehabilitation stay.) Imitates Simple Words/Phrases: Functional Word Finding: Mild Requests Basic Needs: Functional States Basic Personal Info: Functional Cognitive Patient Orientation The patient is oriented to month, day of week, and year. The patient required one verbal cue from the clinician for identification of the date. Objective Cognitive Domain Attention: WNL Memory: Mild (The patient required category cues for identification of two of three single words.) Problem Solving: Mild (The patient required intermittent repetition of instruction which may be secondary to current pain level or poor hearing. Per patient's , the patient has a hearing aid but is currently not wearing it.) Objective Impression The patient demonstrated a minimal deficit with memory, however, presents with cognitive linguistic skills grossly within normal limits and at baseline function (per patient and ). If the patient continues to struggle with current pain level and stamina, please consider re-evaluation to ensure patient is able to follow verbal prompts provided by therapy staff. Communication/Social Cognition Comprehension: 5 Expression: 5 Social Interaction: 5 Problem Solvin Memory: 4 Speech Patient Assess Expression of Ideas/Wants: Exhibits (3) Understanding [place] Content: Usually Understands (3) Brief Interview-Mental Status: Yes Repetition of Three Words: Three (3) Temporal Orientation: Year: Correct (3) Temporal Orientation: Month: Accurate within 5 days(2) Temporal Orientation: Day: Correct (1) Recall : Wear to say "Sock": No, could not recall (0) Recall : Color: Yes, after cueing (1) Recall : Bed: No, could not recall (0) Speech-Plan Treatment Plan Speech Therapy Treatment Plan: Discontinue ST Evaluation, only. Rehab Potential: Fair Safety Risks/Education Teaching Recipient: Patient, Significant Other Teaching Methods: Discussion Response to Teaching: Verbalize Understanding Education Topics Provided: Results, Recommendations, Plan of Care Time Speech Therapy Time In: 08:45 Speech Therapy Time Out: 09:00 Total Billed Time: 15 Billed Treatment Time 1, ZACK CAMACHO Dec 08, 2016 11:26
--- NOTE | 2016-12-08 11:30 | Occupational Therapy Eval ---
OT Evaluation-General/PLF Medical Diagnosis Admission Date Dec 07, 2016 at 15:05 Medical Diagnosis: status post T12-L4 fusion for a L2 fracture Onset Date: Nov 25, 2016 Therapy Diagnosis Therapy Diagnosis: Decreased ADL skills Height/Weight Height (Feet): 5 Height (Inches): 11.00 Weight (Pounds): 193 Weight (Ounces): 2.0 Precautions Precautions/Isolations: Fall Prevention, Standard Precautions, Pressure Ulcer Safety Interventions: None Referral Physician: Lyndon Referral Reason: Activity Tolerance, Self Care, Evaluation/Treatment, Strengthening/ROM Referral Comments Back precautions and spinal precautions. Pt. and spouse state that surgeons PA at [facility] let them know right before transfer that pt. is allowed to transfer to sitting, and then don TLSO brace, as pt. is having difficulty getting it on in supine. Medical History Pertinent Medical History: Arthritis, CAD, GERD, HTN Additional Medical History subdural hematoma, carpal tunnel release, cervical spine sx. 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 Reviewed History: Yes Social History Home: Single Level Current Living Status: Spouse Entry Into Home: Ramp ADL-Prior Level of Function ADL PLOF Comments Pt. states that he was independent with ADLS. Ambulates with a cane. Uses a walker only in the bathroom to get out of shower. Spouse states that pt. 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 alone at home. DME/Equipment: Bath Chair, Shower DME/Equipment Comments Pt. uses a cane but has a walker as well. Drive Self: Yes OT Current Status Subjective Pt. does report pain in back but does not state a pain level. States that he just had pain medication. Appearance Pt. in bed supine. Very slow with responses. Spouse in room and will answer for pt. Mental Status/Objective Patient Orientation: Person, Place Attachments: IV Current Hand Dominance: Right Upper Extremity ROM Pt. is able to only flex bilateral shoulders to approximately 80 degrees. States that it is from arthritis. Upper Extremity Coordination intact Upper Extremity Strength NT due to back precautions. ADL-Treatment Functional [place] Measure 0=Not Assessed/NA 4=Minimal Assistance 1=Total Assistance 5=Supervision or Setup 2=Maximal Assistance 6=Modified [place] 3=Moderate Assistance 7=Complete IndependenceIRFPAI Quality Coding Scale 6 Independent with activity with or without an assistive device 5 Patient requires set up or clean up by helper. Patient completes activity by themselves 4 Supervision or touching assist (CGA). [place] provide cues , steadying assist 3 The helper provides less than half the effort to complete the activity 2 The helper provides more than half the effort to complete the activity 1 Dependent. The helper does all the effort to complete an activity 7 Patient refused to complete or attempt activity 9 The patient did not perform the activity before the current illness or injury 88 Not attempted due to Medical conditions or safety concerns Bathing (FIM): 2 (Please see note below.) Shower/Bathe Self (QC): 2 Lower Body Dressing (FIM): 1 Lower Body Dressing (QC): 1 On/Off Footwear (QC): 1 Toileting (FIM): 1 (See note below) Toileting Hygiene (QC): 1 Transfers (B, C, W/C) (FIM): 2 (See note below) Other Treatments Pt. supine in bed. Practiced rolling back and forth with max cues. Able to roll with mod assist needed. Noted that pt. incontinent of stool. Dependent assist for clean up and samanta care. Transferred supine-sit with max assist. Sat EOB and attempted to start washing self. However, due to pain, OT washed pt. Pt. requested to lay back down. Transferred back to supine with mod x 2. Bed mobility with max x 2. OT finished washing pt. Donned socks but no pants, due to incontinence issues. All needs met in bed. Education OT Patient Education: Correct positioning, Modified ADL techniques, Progress toward Goal/Update tx plan, Purpose of tx/functional activities, Reviewed precautions, Rehab process, Transfer techniques Teaching Recipient: Patient, Significant Other Teaching Methods: Demonstration, Discussion Response to Teaching: Verbalize Understanding, Return Demonstration OT Short Term Goals Short Term Goals Time Frame: Dec 15, 2016 Eating(FIM): 5 Grooming(FIM): 4 Bathing(FIM): 3 Upper Body Dressing(FIM): 3 Lower Body Dressing(FIM): 3 Toileting(FIM): 3 Transfers (B,C,W/C) (FIM): 3 Toilet/Commode Transfer(FIM): 3 Additional Short Term Goals: 1-Demonstrate ADL Tasks, 2-Verbalize Understanding , 3-ImproveStrength/[place] 1=Demonstrate adherence to instructed precautions during ADL tasks. 2=Patient will verbalize/demonstrate understanding of assistive devices/ modifications for ADL. 3=Patient will improve strength/tolerance for activity to enable patient to perform ADL's. OT Human Resources Services Specialist Goals Human Resources Services Specialist Goals Time Frame: Dec 29, 2016 Eating (FIM): 6 Eating (QC): 5 Groomin Oral Hygiene (QC): 5 Bathing(FIM): 4 Shower/Bathe Self (QC): 4 Upper Body Dressing(FIM): 5 Upper Body Dressing (QC): 5 Lower Body Dressing(FIM): 5 Lower Body Dressing (QC): 5 On/Off Footwear (QC): 5 Toileting(FIM): 6 Toileting Hygiene (QC): 5 Transfers (B,C,W/C) (FIM): 5 Toilet/Commode Transfer(FIM): 5 Toilet/Commode Transfer (QC): 5 Shower Transfer(FIM): 4 Additional Goals: 1-Demonstrate ADL Tasks, 2-Verbalize Understanding, 3- ImproveStrength/Chandler 1=Demonstrate adherence to instructed precautions during ADL tasks. 2=Patient will verbalize/demonstrate understanding of assistive devices/ modifications for ADL. 3=Patient will improve strength/tolerance for activity to enable patient to perform ADL's. OT Education/Plan Problem List/Assessment Assessment: Decreased Activ Tolerance, Decreased UE Strength, Dependent Transfers, Impaired Bed Mobility, Impaired Funct Balance, Impaired I ADL's, Impaired Self-Care Skills, Restricted Funct UE ROM Discharge Recommendations Plan/Recommendations: Continue POC Therapy D/C Recommendations: Bath Aide, Home w/ Family Support, Occupational Therapy Home Care Equpiment Recommendations-D/C: Hip Kit Barriers to Progress pain Target Placement Home with spouse Treatment Plan/Plan of Care Treatment,Training & Education: Yes Patient would benefit from OT for education, treatment and training to promote independence in ADL's, mobility, safety and/or upper extremity function for ADL' s. Plan of Care: ADL Retraining, Caregiver Training, Functional Mobility, Group Exercise/Act as Ind, UE Funct Exercise/Act Treatment Duration: Dec 29, 2016 Visits Per Week: 10-12 Rehab Potential: Fair Time/GCodes Start Time: 09:00 Stop Time: 10:00 Total Time Billed (hr/min): 60 Billed Treatment Time 1, EVhigh x 15minutes, ADL x 45minutes MAMIE AHUJA OT Dec 08, 2016 11:30
--- NOTE | 2016-12-08 13:59 | Occupational Ther Daily Note ---
OT Current Status-Daily Note Subjective No pain reported. Pt. states that he would like to sit up longer at beginning of treatment. Appearance Pt. in chair. Agrees to work with OT. Mental Status/Objective Patient Orientation: Person, Place Functional [place] Measure 0=Not Assessed/NA 4=Minimal Assistance 1=Total Assistance 5=Supervision or Setup 2=Maximal Assistance 6=Modified [place] 3=Moderate Assistance 7=Complete [place] ADL-Treatment Functional [place] Measure 0=Not Assessed/NA 4=Minimal Assistance 1=Total Assistance 5=Supervision or Setup 2=Maximal Assistance 6=Modified [place] 3=Moderate Assistance 7=Complete IndependenceIRFPAI Quality Coding Scale 6 Independent with activity with or without an assistive device 5 Patient requires set up or clean up by helper. Patient completes activity by themselves 4 Supervision or touching assist (CGA). [place] provide cues , steadying assist 3 The helper provides less than half the effort to complete the activity 2 The helper provides more than half the effort to complete the activity 1 Dependent. The helper does all the effort to complete an activity 7 Patient refused to complete or attempt activity 9 The patient did not perform the activity before the current illness or injury 88 Not attempted due to Medical conditions or safety concerns Pt. is educated on and issued adaptive equipment. Spouse states that she has this equipment at home, as she has had bilateral hip replacements. States that her sock aide however, does not fit pt's foot, as his foot is too wide. OT provides jamal cloth sock aide. Pt. practices doffing/donning sock with dressing stick and sock aide. Requires mod assist to doff, and mod to don. Increased time noted as well. Pt. was reclined in chair and all needs met in room. Will continue to work with pt. on increased independence with dressing/ bathing. Education OT Patient Education: Correct positioning, Modified ADL techniques, Progress toward Goal/Update tx plan, Purpose of tx/functional activities, Reviewed precautions, Rehab process, Transfer techniques, Use of adapted equipment Teaching Recipient: Patient Teaching Methods: Demonstration, Discussion Response to Teaching: Verbalize Understanding, Return Demonstration OT Short Term Goals Short Term Goals Time Frame: Dec 15, 2016 Eating(FIM): 5 Grooming(FIM): 4 Bathing(FIM): 3 Upper Body Dressing(FIM): 3 Lower Body Dressing(FIM): 3 Toileting(FIM): 3 Transfers (B,C,W/C) (FIM): 3 Toilet/Commode Transfer(FIM): 3 Additional Short Term Goals: 1-Demonstrate ADL Tasks, 2-Verbalize Understanding , 3-ImproveStrength/[place]and[place] 1=Demonstrate adherence to instructed precautions during ADL tasks. 2=Patient will verbalize/demonstrate understanding of assistive devices/ modifications for ADL. 3=Patient will improve strength/tolerance for activity to enable patient to perform ADL's. OT [facility] Goals [facility] Goals Time Frame: Dec 29, 2016 Eating (FIM): 6 Eating (QC): 5 Groomin Oral Hygiene (QC): 5 Bathing(FIM): 4 Shower/Bathe Self (QC): 4 Upper Body Dressing(FIM): 5 Upper Body Dressing (QC): 5 Lower Body Dressing(FIM): 5 Lower Body Dressing (QC): 5 On/Off Footwear (QC): 5 Toileting(FIM): 6 Toileting Hygiene (QC): 5 Transfers (B,C,W/C) (FIM): 5 Toilet/Commode Transfer(FIM): 5 Toilet/Commode Transfer (QC): 5 Shower Transfer(FIM): 4 Additional Goals: 1-Demonstrate ADL Tasks, 2-Verbalize Understanding, 3- ImproveStrength/[place] 1=Demonstrate adherence to instructed precautions during ADL tasks. 2=Patient will verbalize/demonstrate understanding of assistive devices/ modifications for ADL. 3=Patient will improve strength/tolerance for activity to enable patient to perform ADL's. OT Education/Plan Problem List/Assessment Assessment: Decreased Activ Tolerance, Decreased UE Strength, Dependent Transfers, Impaired Bed Mobility, Impaired Funct Balance, Impaired I ADL's, Impaired Self-Care Skills, Restricted Funct UE ROM Discharge Recommendations Plan/Recommendations: Continue POC Therapy D/C Recommendations: Home w/ Family Support, Occupational Therapy Home Care Equpiment Recommendations-D/C: Hip Kit Target Placement Home with family support and home health care. Treatment Plan/Plan of Care Treatment,Training & Education: Yes Patient would benefit from OT for education, treatment and training to promote independence in ADL's, mobility, safety and/or upper extremity function for ADL' s. Plan of Care: ADL Retraining, Caregiver Training, Functional Mobility, Group Exercise/Act as Ind, UE Funct Exercise/Act Treatment Duration: Dec 29, 2016 Visits Per Week: 10-12 Agreement: Yes Rehab Potential: Fair Time/GCodes Start Time: 13:00 Stop Time: 13:30 Total Time Billed (hr/min): 30 Billed Treatment Time 1, ADL x 2 MAMIE AHUJA OT Dec 08, 2016 13:59
--- NOTE | 2016-12-08 14:58 | Physical Therapy Daily Note ---
PT Daily Note-Current Subjective Patient in recliner pre tx, agrees to PT. He has pain of 5/10. Patient states he has been in the recliner since this morning when PT put him in it and he would like to get back to bed. Appearance Patient in bed post tx on right aide with pillow support, has nurse call, phone , tray, all needs met. Mental Status Patient Orientation: Normal For Age Transfers Functional [place] Measure 0=Not Assessed/NA 4=Minimal Assistance 1=Total Assistance 5=Supervision or Setup 2=Maximal Assistance 6=Modified [place] 3=Moderate Assistance 7=Complete IndependenceIRFPAI Quality Coding Scale 6 Independent with activity with or without an assistive device 5 Patient requires set up or clean up by helper. Patient completes activity by themselves 4 Supervision or touching assist (CGA). [place] provide cues , steadying assist 3 The helper provides less than half the effort to complete the activity 2 The helper provides more than half the effort to complete the activity 1 Dependent. The helper does all the effort to complete an activity 7 Patient refused to complete or attempt activity 9 The patient did not perform the activity before the current illness or injury 88 Not attempted due to Medical conditions or safety concerns Transfers (B, C, W/C) (FIM): 2 Scootin Supine to/from Sit: 2 Sit to/from Stand: 4 Patient needed assist with both legs getting back to bed. He was able to stand with min assist and extra time but he was very afraid of falling after standing and was retropulsive. Patient needed extra time and rest breaks due to pain and fatigue. His TLSO also needs some major adjusting which will be performed this treatment. Treatments transfers, bed mobility, brace adjust Assessment Current Status: Poor Progress no change in mobility PT Short Term Goals Short Term Goals Time Frame: Dec 15, 2016 Transfers (B,C,W/C) (FIM): 3 Gait (FIM): 2 Gait Distance Comment: 50' Gait Level of Assist: 3 Gait Assistive Device: FWW PT Staff Assistant Goals Staff Assistant Goals PT Staff Assistant Goals Time Frame: Dec 29, 2016 Transfers (B,C,W/C) (FIM): 4 Sit to Lying (QC): 4 Lying-Sitting on Side/Bed(QC): 4 Sit to Stand (QC): 4 Rollin Roll Left to Right (QC): 4 Chair/Slf-tr-Iwhzk Xfer(QC): 4 Car Transfer (QC): 4 Gait (FIM): 4 Distance: 150' Walk 10 feet (QC): 4 Walk 10ft-Uneven Surface(QC): 4 Walk 50ft with 2 Turns (QC): 4 Walk 150 ft (QC): 4 Gait Level of Assist: 4 Gait Assistive Device: FWW Stairs (FIM): 2 # of Steps: 4 1 Step (curb) (QC): 4 4 Steps (QC): 4 Stairs Level Of Assist: 4 PT Plan Problem List Problem List: Activity Tolerance, Functional Strength, Safety, Balance, Gait, Transfer, Bed Mobility, ROM Treatment/Plan Treatment Plan: Continue Plan of Care Treatment Plan: Bed Mobility, Education, Functional Activity [place], Functional Strength, Group Therapy, Gait, Safety, Therapeutic Exercise, Transfers Treatment Duration: Dec 29, 2016 Visits Per Week: 10-11 Minutes/Day (M-F): 60-90 Minutes/Day (Sat/[place]): 15-30 Safety Risks/Education Patient Education: Transfer Techniques, Reviewed Precautions, Correct Positioning, Reviewed Don/Doff Brace, Safety Issues Teaching Recipient: Patient Teaching Methods: Demonstration, Discussion Response to Teaching: Reinforcement Needed Time/GCodes Time In: 1430 Time Out: 1500 Total Billed Treatment Time: 30 Total Billed Treatment 1 visit FA 30' TYSON AGUILERA PT Dec 08, 2016 14:58
[2016-12-08 18:30] VITALS: BP 110/50
[2016-12-08] MEDS: ATORVASTATIN 40 MG (LIPITOR) TABLET PO SCH (20:38)
[2016-12-09 05:53] VITALS: BP 115/68
[2016-12-09] MEDS: MULTIVIT W/MINERALS TAB (THERAGRAN M) PO SCH (06:24)
[2016-12-09] MEDS: PANTOPRAZOLE 40 MG (PROTONIX) TAB PO SCH (06:24)
[2016-12-09] MEDS: meTOprolol TARTRATE 50 MG (LOPRESSOR) TAB PO SCH ×2 (08:15→20:34)
[2016-12-09] MEDS: ENALAPRIL 5 MG (VASOTEC) TAB PO SCH (08:15)
--- NOTE | 2016-12-09 08:58 | Occupational Ther Daily Note ---
OT Current Status-Daily Note Subjective Pt alert, lying in bed. Pt agreed to therapy. Pt c/o pain, 02/15, nrsg brought pain medications. Mental Status/Objective Patient Orientation: Person, Place, Time, Situation Functional [place] Measure 0=Not Assessed/NA 4=Minimal Assistance 1=Total Assistance 5=Supervision or Setup 2=Maximal Assistance 6=Modified [place] 3=Moderate Assistance 7=Complete [place] Attachments: Other-See Comments ADL-Treatment Assist x2 for supine to sitting EOB then assist x1 to sit EOB. Mod A for stand pivot transfer. Set up for bathing. Pt able to wash face, upper body and samanta area in sitting. Pt's movements were slow and hesitant and took increased time to complete. Max A for lower body bathing and buttocks. Mod A for upper body dressing and dependent for lower body dressing. Set up for eating breakfast, pt able to use utensils to feed self and cut up food. Pt stated that he could not get comfortable in chair. Attempted to stand pt with assist x1, stood shelter and then had to sit back down. Pt dependent for donning/doffing back brace. After therapy, pt sitting in recliner with call light/phone in reach. All needs met in room. Functional [place] Measure 0=Not Assessed/NA 4=Minimal Assistance 1=Total Assistance 5=Supervision or Setup 2=Maximal Assistance 6=Modified [place] 3=Moderate Assistance 7=Complete IndependenceIRFPAI Quality Coding Scale 6 Independent with activity with or without an assistive device 5 Patient requires set up or clean up by helper. Patient completes activity by themselves 4 Supervision or touching assist (CGA). [place] provide cues , steadying assist 3 The helper provides less than half the effort to complete the activity 2 The helper provides more than half the effort to complete the activity 1 Dependent. The helper does all the effort to complete an activity 7 Patient refused to complete or attempt activity 9 The patient did not perform the activity before the current illness or injury 88 Not attempted due to Medical conditions or safety concerns Eating (FIM): 5 Bathing (FIM): 3 Bathing Location: L Arm, R Arm, Chest, Abdomen, Perineal Area Upper Body (FIM): 3 Lower Body Dressing (FIM): 2 Transfers (B, C, W/C) (FIM): 1 OT Short Term Goals Short Term Goals Time Frame: Dec 15, 2016 Eating(FIM): 5 Grooming(FIM): 4 Bathing(FIM): 3 Upper Body Dressing(FIM): 3 Lower Body Dressing(FIM): 3 Toileting(FIM): 3 Transfers (B,C,W/C) (FIM): 3 Toilet/Commode Transfer(FIM): 3 Additional Short Term Goals: 1-Demonstrate ADL Tasks, 2-Verbalize Understanding , 3-ImproveStrength/[place] 1=Demonstrate adherence to instructed precautions during ADL tasks. 2=Patient will verbalize/demonstrate understanding of assistive devices/ modifications for ADL. 3=Patient will improve strength/tolerance for activity to enable patient to perform ADL's. OT [employer] Goals [facility] Goals Time Frame: Dec 29, 2016 Eating (FIM): 6 Eating (QC): 5 Groomin Oral Hygiene (QC): 5 Bathing(FIM): 4 Shower/Bathe Self (QC): 4 Upper Body Dressing(FIM): 5 Upper Body Dressing (QC): 5 Lower Body Dressing(FIM): 5 Lower Body Dressing (QC): 5 On/Off Footwear (QC): 5 Toileting(FIM): 6 Toileting Hygiene (QC): 5 Transfers (B,C,W/C) (FIM): 5 Toilet/Commode Transfer(FIM): 5 Toilet/Commode Transfer (QC): 5 Shower Transfer(FIM): 4 Additional Goals: 1-Demonstrate ADL Tasks, 2-Verbalize Understanding, 3- ImproveStrength/[place] 1=Demonstrate adherence to instructed precautions during ADL tasks. 2=Patient will verbalize/demonstrate understanding of assistive devices/ modifications for ADL. 3=Patient will improve strength/tolerance for activity to enable patient to perform ADL's. OT Education/Plan Discharge Recommendations Plan/Recommendations: Continue POC Treatment Plan/Plan of Care Patient would benefit from OT for education, treatment and training to promote independence in ADL's, mobility, safety and/or upper extremity function for ADL' s. Plan of Care: ADL Retraining, Caregiver Training, Functional Mobility, Group Exercise/Act as Ind, UE Funct Exercise/Act Treatment Duration: Dec 29, 2016 Visits Per Week: 10-12 Agreement: Yes Rehab Potential: Fair Time/GCodes Start Time: 08:00 Stop Time: 09:00 Total Time Billed (hr/min): 60 Billed Treatment Time 1 visit-ADL 3 (50 min) FA 1 (10 min) DOUGIE VILLATORO Dec 09, 2016 08:58
--- NOTE | 2016-12-09 09:16 | Progress Note (SOAP) ---
Subjective Date Seen by Provider: Dec 09, 2016 Time Seen by Provider: 10:15 Subjective/Events-last exam PT REPORTS THAT HE HAS BEEN FEELING BETTER. HE REPORTS THAT HE IS WEAK, BUT THERAPY STAFF REPORTS THAT HE WALKED ABOUT 100FEET THIS MORNING. HE REPORTS THAT HE HAS BEEN FEELING INTERMITTENTLY CONFUSED. HIS BACK HURTS. Review of Systems General: Fatigue HEENT: No Head Aches Pulmonary: No Dyspnea, No Cough Cardiovascular: No: Chest Pain Gastrointestinal: No: Abdominal Pain, Nausea Neurological: Weakness, No: Confusion Objective Exam Vital Signs Date Time Temp Pulse Resp B/P (MAP) Pulse Ox O2 Delivery O2 Flow Rate FiO2 12/09/16 05:53 99.0 92 18 115/68 95 Room Air 12/08/16 21:00 Room Air 12/08/16 18:30 99.0 65 14 110/50 94 Room Air 12/08/16 09:40 Room Air I & O 12/09/16 07:00 Intake Total 850 ml Output Total 1275 ml Balance -425 ml Capillary Refill : General Appearance: No Apparent Distress, WD/WN Neck: Supple Respiratory: Chest Non Tender, Lungs Clear, Normal Breath Sounds Cardiovascular: Regular Rate, Rhythm Gastrointestinal: normal bowel sounds, non tender, soft Extremity: No Pedal Edema Neurologic/Psychiatric: Alert, Oriented x3, Normal Mood/Affect Skin: Warm/Dry Lymphatic: No Adenopathy Assessment/Plan Assessment/Plan Assess & Plan/Chief Complaint L2 LUMBAR VERTEBRAL BURST FRACTURE FIXED IN [place] AT [facility] ON 12/01/16 - PT HAD A FALL AT THE [facility], FELL BACKWARDS HIT HIS BOTTOM AND HEAD ON THE GROUND AND SUSTAINED THE FRACTURE, HE IS RECEIVING PHYSICAL AND OCCUPATIONAL THERAPY. 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 VAZQUEZ IS FOLLOWING PATIENT - SHE WILL SEE HIM WHILE IN THE HOSPITAL. HYPERTENSION - CHRONIC -RESTARTED HOME MEDICATIONS. WEAKNESS - CONTINUE WITH PHYSICAL THERAPY. DELIRIUM - ACUTE DUE TO HIS ACUTE INJURY AND ILLNESS - IF SYMPTOMS WORSEN AT ALL , WE WILL CONSIDER A REPEAT CT SCAN OF HIS HEAD DUE TO HIS HISTORY OF SUBDURAL HEMATOMA. COPD - ON ALBUTEROL Clinical Quality Measures DVT/VTE Risk/Contraindication: Risk Factor Score Per Nursin RFS Level Per Nursing on Admit: 4+=Very High SORAYA COOMBS MD Dec 09, 2016 09:16
--- NOTE | 2016-12-09 10:04 | Physical Therapy Daily Note ---
PT Daily Note-Current Subjective Patient in recliner pre tx, agrees to PT, has pain of 3/10. Appearance Patient in recliner post tx with nurse call, phone, tray, in room, TLSO on. Mental Status Patient Orientation: Person, Place TLSO Transfers Functional [place] Measure 0=Not Assessed/NA 4=Minimal Assistance 1=Total Assistance 5=Supervision or Setup 2=Maximal Assistance 6=Modified [place] 3=Moderate Assistance 7=Complete IndependenceIRFPAI Quality Coding Scale 6 Independent with activity with or without an assistive device 5 Patient requires set up or clean up by helper. Patient completes activity by themselves 4 Supervision or touching assist (CGA). [place] provide cues , steadying assist 3 The helper provides less than half the effort to complete the activity 2 The helper provides more than half the effort to complete the activity 1 Dependent. The helper does all the effort to complete an activity 7 Patient refused to complete or attempt activity 9 The patient did not perform the activity before the current illness or injury 88 Not attempted due to Medical conditions or safety concerns Transfers (B, C, W/C) (FIM): 3 Sit to/from Stand: 3 Gait Training Gait (FIM): 2 Distance: 100'x2, 15' Gait Level of Assist: 3 Gait Persons Needed: 2 Gait Assistive Device: FWW slow, antalgic, wheelchair follow Exercises Standing: Heel/toe raises, Mini squats Standing Reps: 10 Treatments transfers, ambulation, functional strengthening Assessment Current Status: Fair Progress improved transfers and ambulation but patient moves very very slowly and needs rest breaks between activities PT Short Term Goals Short Term Goals Time Frame: Dec 15, 2016 Transfers (B,C,W/C) (FIM): 3 Gait (FIM): 2 Gait Distance Comment: 50' Gait Level of Assist: 3 Gait Assistive Device: FWW PT Program Manufacturing Leader Goals Program Manufacturing Leader Goals PT Program Manufacturing Leader Goals Time Frame: Dec 29, 2016 Transfers (B,C,W/C) (FIM): 4 Sit to Lying (QC): 4 Lying-Sitting on Side/Bed(QC): 4 Sit to Stand (QC): 4 Rollin Roll Left to Right (QC): 4 Chair/Nhe-xz-Qzlfx Xfer(QC): 4 Car Transfer (QC): 4 Gait (FIM): 4 Distance: 150' Walk 10 feet (QC): 4 Walk 10ft-Uneven Surface(QC): 4 Walk 50ft with 2 Turns (QC): 4 Walk 150 ft (QC): 4 Gait Level of Assist: 4 Gait Assistive Device: FWW Stairs (FIM): 2 # of Steps: 4 1 Step (curb) (QC): 4 4 Steps (QC): 4 Stairs Level Of Assist: 4 PT Plan Problem List Problem List: Activity Tolerance, Functional Strength, Safety, Balance, Gait, Transfer, Bed Mobility, ROM Treatment/Plan Treatment Plan: Continue Plan of Care Treatment Plan: Bed Mobility, Education, Functional Activity [place], Functional Strength, Group Therapy, Gait, Safety, Therapeutic Exercise, Transfers Treatment Duration: Dec 29, 2016 Visits Per Week: 10-11 Minutes/Day (M-F): 60-90 Minutes/Day (Sat/Cheema): 15-30 Safety Risks/Education Patient Education: Gait Training, Transfer Techniques, Correct Positioning, Reviewed Don/Doff Brace, Safety Issues Teaching Recipient: Patient Teaching Methods: Demonstration, Discussion Response to Teaching: Reinforcement Needed Time/GCodes Time In: 900 Time Out: 1000 Total Billed Treatment Time: 60 Total Billed Treatment 1 visit EX 10' FA 15' GT 35' TYSON AGUILERA PT Dec 09, 2016 10:04
--- NOTE | 2016-12-09 13:32 | Therapy Group Daily Note ---
Therapy Daily Group Note Patient Education Topic Other List Below Exercises LE Seated Exercise, UE Exercise Other/Notes Pt was an active participant in OT/PT group. He introduced himself and shared a December memory. He shared December trivia questions with the group and knew the answers to many of them. He also did seated exercises with a "[place]" theme. He was transported to and from group in his recliner and was left up in his room, all needs met. Start Time: 13:00 Stop Time: 14:10 Total Billed Treatment Time: 70 Total Billed Treatment visit, group 70 minutes JUANITO MARTE OT Dec 09, 2016 13:32
[2016-12-09 13:38] LABS: BASOPHILS # (AUTO) 0.1 10^3/uL (0.0-0.1); BASOPHILS % (AUTO) 0 % (0-10); EOSINOPHILS % (AUTO) 0 % (0-10); LYMPHOCYTES # (AUTO) 43.2 X 10^3 (1.0-4.0); LYMPHOCYTES % (AUTO) 82 % (12-44); MEAN CORPUSCULAR HEMOGLOBIN 31 PG (25-34); MEAN CORPUSCULAR HGB CONC 32 G/DL (32-36); MEAN CORPUSCULAR VOLUME 98 FL (80-99); MEAN PLATELET VOLUME 9.2 FL (7.4-10.4); MONOCYTES # (AUTO) 0.3 X 10^3 (0.0-1.0); MONOCYTES % (AUTO) 1 % (0-12); NEUTROPHILS # (AUTO) 9.4 X 10^3 (1.8-7.8); NEUTROPHILS % (AUTO) 18 % (42-75); PLATELET COUNT 240 10^3/uL (130-400); RED BLOOD COUNT 3.43 10^6/uL (4.35-5.85); RED CELL DISTRIBUTION WIDTH 18.8 % (10.0-14.5)
[2016-12-09 14:01] LABS: ANION GAP 11 MMOL/L (5-14); BLOOD UREA NITROGEN 13 MG/DL (7-18); BUN/CREATININE RATIO 17; CALCIUM 8.3 MG/DL (8.5-10.1); CARBON DIOXIDE 22 MMOL/L (21-32); CHLORIDE 101 MMOL/L (98-107); CREATININE SERUM 0.77 MG/DL (0.60-1.30); GFR ESTIMATED > 60; GLUCOSE 108 MG/DL (70-105); POTASSIUM 4.7 MMOL/L (3.6-5.0); SODIUM 134 MMOL/L (135-145)
--- NOTE | 2016-12-09 14:18 | Consultation ---
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 He is currently admitted to the in-patient rehabilitation unit after having sustained a fall in which he received both a skull laceration and an unstable L2 burst fracture. Patient was transferred to [place] for neurosurgical intervention. He is status post L2 fusion surgery on 12/01/16. Today he is wearing a back brace and walk 50 feet according to his was present at today 's visit. Last seen by me in September 2016 and his white count was 24,000. His white count is currently risen to 40,000. He denies having recent fever, chills , or night sweats. He was doing well prior to the fall. Allergies and Home Medications Allergies Coded Allergies: prednisone (Verified Allergy, Mild, 12/07/16) cigarette smoke (Verified Allergy, Unknown, 12/07/16) Shortness of breath/wheezing. perfume (Verified Allergy, Unknown, 12/07/16) Perfumes and rogers cause "throat to close". Home Medications Acetaminophen 325 Mg Tablet, 650 MG PO Q4H PRN for PAIN-MILD, (Reported) TAKES 2 (325MG) TABLETS Albuterol Sulfate 1 Puff Puff, 2 PUFF IH Q6H PRN for SHORTNESS OF BREATH, ( Reported) 1 PUFF = 90 MCG Atorvastatin Calcium 40 Mg Tablet, 40 MG PO HS, (Reported) Budesonide/Formoterol Fumarate 10.2 Gm Hfa.aer.ad, 2 PUFF IH DAILY, (Reported) Cyanocobalamin 100 Mcg Tablet, 100 MCG PO DAILY, (Reported) Enalapril Maleate 5 Mg Tablet, 5 MG PO DAILY, (Reported) Furosemide 20 Mg Tablet, 20 MG PO DAILY PRN for WEIGHT GAIN , (Reported) NEEDED FOR WEIGH GAIN OF 3LBS IN 24 HOURS OR 5 LBS IN 72 HOURS Metoprolol Tartrate 50 Mg Tablet, 50 MG PO Q12H, (Reported) Multivitamin 1 Each Tablet, 1 TAB PO DAILY, (Reported) Nitroglycerin 0.4 Mg Tab.subl, 0.4 MG SL UD PRN for CHEST PAIN, (Reported) Omeprazole 20 Mg Capsule.dr, 40 MG PO DAILY, (Reported) Oxycodone HCl 15 Mg Tablet, 7.5 MG PO Q4H PRN for PAIN-BREAKTHROUGH, (Reported) TAKES 1/2 (15MG) TABLET Potassium Chloride 20 Meq Tablet.er, 20 MEQ PO DAILY PRN for WHEN TAKING FUROSEMIDE, (Reported) Saw [place] Fruit 450 Mg Capsule, 450 MG PO DAILY, (Reported) Past Xdyyztm-Cfcvuh-Ncilaz Hx Patient Social History Alcohol Use: Denies Use Recreational Drug Use: No Smoking Status: Never a Smoker Recent Foreign Travel: No Contact w/Someone Who Travel: No Recent Infectious Disease Expo: No Recent Hopitalizations: Yes Physical Abuse Screen: No Sexual Abuse: No Immunizations Up To Date Date of Pneumonia Vaccine: Dec 04, 2014 Seasonal Allergies Seasonal Allergies: Yes Surgeries HX Surgeries: Yes (neck/hernia repair) Surgeries: Bowel Surgery, Orthopedic, Pacemaker Respiratory Hx Respiratory Disorders: Yes Respiratory Disorders: Asthma Cardiovascular Hx Cardiac Disorders: Yes (pacemaker ) Cardiac Disorders: Hypertension Neurological Hx Neurological Disorders: Yes ([facility]) Genitourinary Hx Genitourinary Disorders: No Gastrointestinal Hx Gastrointestinal Disorders: Yes Gastrointestinal Disorders: Abdominal Hernia, Polyps Musculoskeletal Hx Musculoskeletal Disorders: Yes Musculoskeletal Disorders: Arthritis, Back Injury, Chronic Back Pain, Fractures Endocrine Hx Endocrine Disorders: No HEENT HX ENT Disorders: No Hearing Impairment: Denies Cancer Hx Cancer: No Cancer: Leukemia Psychosocial Hx Psychiatric Problems: No Integumentary HX Skin/Integumentary Disorder: No Blood Transfusions Hx Blood Disorders: No Family Medical History Significant Family History: No Pertinent Family Hx Family Medial History: FH: cancer 19 MOTHER FH: heart disease 19 FATHER Review of Systems-General Constitutional: see HPI EENTM: hearing loss Respiratory: no symptoms reported Cardiovascular: no symptoms reported Musculoskeletal: back pain, joint pain Physical Exam-General Problems Physical Exam Vital Signs Vital Sign - Last 12Hours 12/07/16 15:25 Temp 98.3 Pulse 80 Resp 16 B/P (MAP) 147/67 Pulse Ox 96 O2 Delivery Room Air Capillary Refill : General Appearance: no apparent distress HEENT: PERRL/EOMI Neck: non-tender, full range of motion, supple Respiratory: lungs clear, no respiratory distress, no accessory muscle use Cardiovascular: regular rate, rhythm, no edema Gastrointestinal: normal bowel sounds, non tender, soft Rectal: deferred Back: other (Back brace in place;) Neurologic/Psychiatric: alert, normal mood/affect Comments Laboratory Tests 12/08/16 06:28 12/09/16 13:30 Assessment/Plan Assessment/Plan Admission Diagnosis/Plan 1. Leukocytosis-arising from known CLL related lymphocytosis and mild granulocytosis. Current stress of vertebral fracture, scalp laceration and other lacerations caused by fall may be source of his leukocytosis. a. We'll monitor. Obtain peripheral smear for review. 2. Anemia-multifactorial in origin related to recent trauma, chronic disease , and CLL. a. Check reticulocyte count and JESSI. 3. Status post traumatic L2 vertebral body hyperextension fracture and subsequent L2 fusion surgery completed on . Patient now admitted to acute inpatient rehabilitation for for rehabilitation. 4. 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 Status Post Evacuation of Subdural Hematoma in 2014 6. Comorbidities of history of recurrent abdominal pain, coronary artery disease, arthritis, hyperlipidemia, hypertension, chronic lung disease. Clinical Quality Measures DVT/VTE Risk/Contraindication: Risk Factor Score Per Nursin RFS Level Per Nursing on Admit: 4+=Very High JACQUELYN VAZQUEZ MD Dec 09, 2016 14:18
[2016-12-09 18:49] VITALS: BP 116/65
[2016-12-09] MEDS: ATORVASTATIN 40 MG (LIPITOR) TABLET PO SCH (20:34)
[2016-12-10 05:00] VITALS: BP 150/85
[2016-12-10 05:54] LABS: BASOPHILS % (AUTO) 0 % (0-10); EOSINOPHILS % (AUTO) 0 % (0-10); LYMPHOCYTES # (AUTO) 35.3 X 10^3 (1.0-4.0); LYMPHOCYTES % (AUTO) 84 % (12-44); MEAN CORPUSCULAR HEMOGLOBIN 31 PG (25-34); MEAN CORPUSCULAR HGB CONC 32 G/DL (32-36); MEAN CORPUSCULAR VOLUME 98 FL (80-99); MEAN PLATELET VOLUME 9.2 FL (7.4-10.4); MONOCYTES # (AUTO) 0.5 X 10^3 (0.0-1.0); MONOCYTES % (AUTO) 1 % (0-12); NEUTROPHILS % (AUTO) 14 % (42-75); PLATELET COUNT 213 10^3/uL (130-400); RED BLOOD COUNT 2.94 10^6/uL (4.35-5.85); RED CELL DISTRIBUTION WIDTH 18.5 % (10.0-14.5); RETICULOCYTE % 3.97 % (0.50-2.40)
[2016-12-10 06:12] LABS: ALANINE AMINOTRANSFERASE 12 U/L (0-55); ALBUMIN 2.7 GM/DL (3.2-4.5); ANION GAP 8 MMOL/L (5-14); ASPARTATE AMINO TRANSFERASE 24 U/L (5-34); BILIRUBIN,TOTAL 1.7 MG/DL (0.1-1.0); BLOOD UREA NITROGEN 13 MG/DL (7-18); BUN/CREATININE RATIO 18; CALCIUM 7.8 MG/DL (8.5-10.1); CARBON DIOXIDE 22 MMOL/L (21-32); CHLORIDE 105 MMOL/L (98-107); CREATININE SERUM 0.73 MG/DL (0.60-1.30); GFR ESTIMATED > 60; GLUCOSE 98 MG/DL (70-105); POTASSIUM 4.6 MMOL/L (3.6-5.0); SODIUM 135 MMOL/L (135-145); TOTAL PROTEIN 4.8 GM/DL (6.4-8.2)
[2016-12-10 06:13] LABS: WHITE BLOOD COUNT 41.9 10^3/uL (4.3-11.0)
[2016-12-10] MEDS: PANTOPRAZOLE 40 MG (PROTONIX) TAB PO SCH (06:13)
[2016-12-10] MEDS: MULTIVIT W/MINERALS TAB (THERAGRAN M) PO SCH (06:13)
[2016-12-10 07:31] LABS: ANISOCYTOSIS MODERATE; BAND NEUTROPHILS 0 %; BASOPHILS % (MANUAL) 0 %; EOSINOPHILS % (MANUAL) 0 %; LYMPHOCYTES % (MANUAL) 69 %; NEUTROPHILS % (MANUAL) 30 %; PATH WILL NEED TO REVIEW SMEAR PATH TO REVIEW; POIKILOCYTOSIS SLIGHT
[2016-12-10] MEDS: ENALAPRIL 5 MG (VASOTEC) TAB PO SCH (09:06)
[2016-12-10] MEDS: meTOprolol TARTRATE 50 MG (LOPRESSOR) TAB PO SCH ×2 (09:06→20:43)
--- NOTE | 2016-12-10 09:17 | Progress Note (SOAP) ---
Subjective Date Seen by Provider: Dec 10, 2016 Time Seen by Provider: 09:20 Subjective/Events-last exam Reports back pain worsened by physical therapy such as walking; Objective Exam Vital Signs Date Time Temp Pulse Resp B/P (MAP) Pulse Ox O2 Delivery O2 Flow Rate FiO2 12/10/16 05:00 99.3 100 20 150/85 92 Room Air 12/09/16 21:00 Room Air 12/09/16 18:49 89 18 116/65 91 Room Air I & O 12/10/16 07:00 Intake Total 1400 ml Output Total 975 ml Balance 425 ml Capillary Refill : General Appearance: Chronically ill HEENT: PERRL/EOMI Neck: Normal Inspection, Non Tender, Supple Respiratory: Lungs Clear Cardiovascular: Regular Rate, Rhythm, No Edema, No JVD Gastrointestinal: normal bowel sounds, non tender, soft, no organomegaly Results Lab Laboratory Tests 12/09/16 13:30: White Blood Count 53.0*H, Red Blood Count 3.43L, Hemoglobin 10.6L, Hematocrit 34L, Mean Corpuscular Volume 98, Mean Corpuscular Hemoglobin 31, Mean Corpuscular Hemoglobin Concent 32, Red Cell Distribution Width 18.8H, Platelet Count 240, Mean Platelet Volume 9.2, Neutrophils (%) (Auto) 18L, Lymphocytes (% ) (Auto) 82H, Monocytes (%) (Auto) 1, Eosinophils (%) (Auto) 0, Basophils (%) ( Auto) 0, Neutrophils # (Auto) 9.4H, Lymphocytes # (Auto) 43.2H, Monocytes # ( Auto) 0.3, Eosinophils # (Auto) 0.0, Basophils # (Auto) 0.1, Absolute Reticulocyte Count 151H, Percent Reticulocyte Count 4.40H, Sodium Level 134L, Potassium Level 4.7, Chloride Level 101, Carbon Dioxide Level 22, Anion Gap 11, Blood Urea Nitrogen 13, Creatinine 0.77, Estimat Glomerular Filtration Rate > 60 , BUN/Creatinine Ratio 17, Glucose Level 108H, Calcium Level 8.3L 12/10/16 05:05: Glucometer 94 12/10/16 05:45: White Blood Count 41.9*H, Red Blood Count 2.94L, Hemoglobin 9.1L, Hematocrit 29L , Mean Corpuscular Volume 98, Mean Corpuscular Hemoglobin 31, Mean Corpuscular Hemoglobin Concent 32, Red Cell Distribution Width 18.5H, Platelet Count 213, Mean Platelet Volume 9.2, Neutrophils (%) (Auto) 14L, Lymphocytes (%) (Auto) 84H , Monocytes (%) (Auto) 1, Eosinophils (%) (Auto) 0, Basophils (%) (Auto) 0, Neutrophils # (Auto) 6.0, Lymphocytes # (Auto) 35.3H, Monocytes # (Auto) 0.5, Eosinophils # (Auto) 0.0, Basophils # (Auto) 0.0, Absolute Reticulocyte Count 117H, Percent Reticulocyte Count 3.97H, Sodium Level 135, Potassium Level 4.6, Chloride Level 105, Carbon Dioxide Level 22, Anion Gap 8, Blood Urea Nitrogen 13 , Creatinine 0.73, Estimat Glomerular Filtration Rate > 60, BUN/Creatinine Ratio 18, Glucose Level 98, Calcium Level 7.8L, Neutrophils % (Manual) 30, Lymphocytes % (Manual) 69, Monocytes % (Manual) 1, Eosinophils % (Manual) 0, Basophils % (Manual) 0, Band Neutrophils 0, Smudge Cells MARKED, Poikilocytosis SLIGHT, Anisocytosis MODERATE, Total Bilirubin 1.7H, Aspartate Amino Transf (AST /SGOT) 24, Alanine Aminotransferase (ALT/SGPT) 12, Alkaline Phosphatase 121, Total Protein 4.8L, Albumin 2.7L Laboratory Tests 12/09/16 13:30 12/10/16 05:45 Assessment/Plan Assessment/Plan Assess & Plan/Chief Complaint 1. Leukocytosis-arising from known CLL related lymphocytosis and mild granulocytosis. Current stress of vertebral fracture, scalp laceration and other lacerations caused by fall may be source of his leukocytosis. a. We'll monitor. Peripheral smear has been reviewed and shows expected changes given current setting. 2. Anemia-multifactorial in origin related to recent trauma, chronic disease , and CLL. a. Check reticulocyte count and EDSON. b. Appropriately elevated reticulocyte count. EDSON is negative, therefore no need for steroid intervention. 3. Status post traumatic L2 vertebral body hyperextension fracture and subsequent L2 fusion surgery completed on 12/01/16. a. Patient now admitted to acute inpatient rehabilitation for for rehabilitation. b. Recommend administering breakthrough pain medication (Oxy-Ir) to start of physical therapy session to reduce patient's discomfort level. 4. 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 Status Post Evacuation of Subdural Hematoma in 2014 6. Comorbidities of history of recurrent abdominal pain, coronary artery disease, arthritis, hyperlipidemia, hypertension, chronic lung disease. Clinical Quality Measures DVT/VTE Risk/Contraindication: Risk Factor Score Per Nursin RFS Level Per Nursing on Admit: 4+=Very High JACQUELYN VAZQUEZ MD Dec 10, 2016 09:17
--- NOTE | 2016-12-10 10:02 | Physical Therapy Daily Note ---
PT Daily Note-Current Subjective Patient in bed pre tx, agrees to PT, has no pain in bed at rest but has 10/10 pain with activity. Nurse gave him pain meds. Appearance Patient in recliner post tx, has nurse call, phone, tray, in room. Mental Status Patient Orientation: Person, Place, Situation TLSO Transfers Functional [place] Measure 0=Not Assessed/NA 4=Minimal Assistance 1=Total Assistance 5=Supervision or Setup 2=Maximal Assistance 6=Modified [place] 3=Moderate Assistance 7=Complete IndependenceIRFPAI Quality Coding Scale 6 Independent with activity with or without an assistive device 5 Patient requires set up or clean up by helper. Patient completes activity by themselves 4 Supervision or touching assist (CGA). [place] provide cues , steadying assist 3 The helper provides less than half the effort to complete the activity 2 The helper provides more than half the effort to complete the activity 1 Dependent. The helper does all the effort to complete an activity 7 Patient refused to complete or attempt activity 9 The patient did not perform the activity before the current illness or injury 88 Not attempted due to Medical conditions or safety concerns Transfers (B, C, W/C) (FIM): 2 Scootin Rollin Supine to/from Sit: 2 Sit to/from Stand: 3 Bed to/from Chair: 4 Patient required max assist of 2 for supine to sit, and a lot of extra time due to pain Gait Training Gait (FIM): 2 Distance: 50' Gait Level of Assist: 4 Gait Persons Needed: 1 Gait Assistive Device: FWW very slow, antalgic, a couple of standing rest breaks Exercises Seated Therapy Exercises: Ankle pumps, Long arc quads Seated Reps: 20 Standing: Heel/toe raises, Mini squats Standing Reps: 20 Treatments bed mobility and transfers, ambulation, functional strengthening Assessment Current Status: Poor Progress no change in mobility, lots of pain and extra time for mobility due to that PT Short Term Goals Short Term Goals Time Frame: Dec 15, 2016 Transfers (B,C,W/C) (FIM): 3 Gait (FIM): 2 Gait Distance Comment: 50' Gait Level of Assist: 3 Gait Assistive Device: FWW PT Tooth Inspector Goals Tooth Inspector Goals PT Half-Way Goals Time Frame: Dec 29, 2016 Transfers (B,C,W/C) (FIM): 4 Sit to Lying (QC): 4 Lying-Sitting on Side/Bed(QC): 4 Sit to Stand (QC): 4 Rollin Roll Left to Right (QC): 4 Chair/Orb-uf-Jdkyi Xfer(QC): 4 Car Transfer (QC): 4 Gait (FIM): 4 Distance: 150' Walk 10 feet (QC): 4 Walk 10ft-Uneven Surface(QC): 4 Walk 50ft with 2 Turns (QC): 4 Walk 150 ft (QC): 4 Gait Level of Assist: 4 Gait Assistive Device: FWW Stairs (FIM): 2 # of Steps: 4 1 Step (curb) (QC): 4 4 Steps (QC): 4 Stairs Level Of Assist: 4 PT Plan Problem List Problem List: Activity Tolerance, Functional Strength, Safety, Balance, Gait, Transfer, Bed Mobility, ROM Treatment/Plan Treatment Plan: Continue Plan of Care Treatment Plan: Bed Mobility, Education, Functional Activity [place], Functional Strength, Group Therapy, Gait, Safety, Therapeutic Exercise, Transfers Treatment Duration: Dec 29, 2016 Visits Per Week: 10-11 Minutes/Day (M-F): 60-90 Minutes/Day (Sat/Cheema): 15-30 Safety Risks/Education Patient Education: Gait Training, Transfer Techniques, Reviewed Precautions, Correct Positioning, Reviewed Don/Doff Brace, Safety Issues Teaching Recipient: Patient Teaching Methods: Demonstration, Discussion Response to Teaching: Reinforcement Needed Time/GCodes Time In: 900 Time Out: 1000 Total Billed Treatment Time: 60 Total Billed Treatment 1 visit GT 15' EX 15' FA 30' TYSON AGUILERA PT Dec 10, 2016 10:02
--- NOTE | 2016-12-10 11:12 | Occupational Ther Daily Note ---
OT Current Status-Daily Note Subjective Pt alert, sitting in recliner. present in room. Pt agreed to therapy. Pt c/o pain, did not rate. Nrsg had given pain medication prior to OT. Mental Status/Objective Patient Orientation: Person, Place, Time, Situation Functional [place] Measure 0=Not Assessed/NA 4=Minimal Assistance 1=Total Assistance 5=Supervision or Setup 2=Maximal Assistance 6=Modified [place] 3=Moderate Assistance 7=Complete [place] Attachments: Other-See Comments (back brace) ADL-Treatment Set up for sponge bath. Pt fatigues easily and requires frequent recovery breaks. Pt had difficulty locking his knees for sit to stand, assisted pt with this. After therapy, pt lying in bed with call light/phone in reach. All needs met in room. Functional [place] Measure 0=Not Assessed/NA 4=Minimal Assistance 1=Total Assistance 5=Supervision or Setup 2=Maximal Assistance 6=Modified [place] 3=Moderate Assistance 7=Complete IndependenceIRFPAI Quality Coding Scale 6 Independent with activity with or without an assistive device 5 Patient requires set up or clean up by helper. Patient completes activity by themselves 4 Supervision or touching assist (CGA). [place] provide cues , steadying assist 3 The helper provides less than half the effort to complete the activity 2 The helper provides more than half the effort to complete the activity 1 Dependent. The helper does all the effort to complete an activity 7 Patient refused to complete or attempt activity 9 The patient did not perform the activity before the current illness or injury 88 Not attempted due to Medical conditions or safety concerns Bathing (FIM): 3 (Pt sitting in recliner to complete bathing. Pt appeared fatigued but did complete upper body, upper leg and samanta area. Assist for lower leg and buttocks due to back precautions. Pt does have AE for lower body bathing though due to decrease activity tolerance unable to use during this treatment.) Bathing Location: L Arm, R Arm, L Upper Leg, R Upper Leg, Chest, Abdomen, Perineal Area Upper Body (FIM): 3 (Mod A for upper body dressing.) Lower Body Dressing (FIM): 2 (Assist for donning/doffing socks and shoes. Does not wear pants at this time due to bowel incontinence.) Toileting (FIM): 2 (Pt requires assist to cleanse buttocks and to stabilize in standing.) Toilet/Commode Transfer (FIM): 1 (Pt requires assist x2 for sit to stand then is able to complete stand pivot transfer with assist x1.) Other Treatment Pt required assist x2 for bed mobility. Pt lying in bed and completed UE exercises against gravity. Pt demonstrated good AROM with B shldrs and good strength with bicep/tricep exercises. Pt required recovery break between each exercise. No c/o pain with UE exercises in supine. After therapy, pt lying in bed with call light/phone in reach. All needs met in room. OT Short Term Goals Short Term Goals Time Frame: Dec 15, 2016 Eating(FIM): 5 Grooming(FIM): 4 Bathing(FIM): 3 Upper Body Dressing(FIM): 3 Lower Body Dressing(FIM): 3 Toileting(FIM): 3 Transfers (B,C,W/C) (FIM): 3 Toilet/Commode Transfer(FIM): 3 Additional Short Term Goals: 1-Demonstrate ADL Tasks, 2-Verbalize Understanding , 3-ImproveStrength/[place] 1=Demonstrate adherence to instructed precautions during ADL tasks. 2=Patient will verbalize/demonstrate understanding of assistive devices/ modifications for ADL. 3=Patient will improve strength/tolerance for activity to enable patient to perform ADL's. OT Sieve Maker Goals [facility] Goals Time Frame: Dec 29, 2016 Eating (FIM): 6 Eating (QC): 5 Groomin Oral Hygiene (QC): 5 Bathing(FIM): 4 Shower/Bathe Self (QC): 4 Upper Body Dressing(FIM): 5 Upper Body Dressing (QC): 5 Lower Body Dressing(FIM): 5 Lower Body Dressing (QC): 5 On/Off Footwear (QC): 5 Toileting(FIM): 6 Toileting Hygiene (QC): 5 Transfers (B,C,W/C) (FIM): 5 Toilet/Commode Transfer(FIM): 5 Toilet/Commode Transfer (QC): 5 Shower Transfer(FIM): 4 Additional Goals: 1-Demonstrate ADL Tasks, 2-Verbalize Understanding, 3- ImproveStrength/[place] 1=Demonstrate adherence to instructed precautions during ADL tasks. 2=Patient will verbalize/demonstrate understanding of assistive devices/ modifications for ADL. 3=Patient will improve strength/tolerance for activity to enable patient to perform ADL's. OT Education/Plan Discharge Recommendations Plan/Recommendations: Continue POC Treatment Plan/Plan of Care Patient would benefit from OT for education, treatment and training to promote independence in ADL's, mobility, safety and/or upper extremity function for ADL' s. Plan of Care: ADL Retraining, Caregiver Training, Functional Mobility, Group Exercise/Act as Ind, UE Funct Exercise/Act Treatment Duration: Dec 29, 2016 Visits Per Week: 10-12 Agreement: Yes Rehab Potential: Fair Time/GCodes Start Time: 10:00 Stop Time: 11:30 Total Time Billed (hr/min): 90 Billed Treatment Time 1 visit-ADL 5 (70 min) FA 1 (20 min) DOUGIE VILLATORO Dec 10, 2016 11:12
[2016-12-10] MEDS: RT-ADVAIR HFA 115/21 MCG PER PUFF IH SCH ×2 (11:37→11:38)
--- NOTE | 2016-12-10 13:28 | Physical Therapy Daily Note ---
PT Daily Note-Current Subjective Patient in bed pre tx, agrees to PT, has pain of 4/10 in left hip and back. Appearance Patient in recliner post tx with nurse call, phone, tray, in room. Mental Status Patient Orientation: Person, Place TLSO Transfers Functional [place] Measure 0=Not Assessed/NA 4=Minimal Assistance 1=Total Assistance 5=Supervision or Setup 2=Maximal Assistance 6=Modified [place] 3=Moderate Assistance 7=Complete IndependenceIRFPAI Quality Coding Scale 6 Independent with activity with or without an assistive device 5 Patient requires set up or clean up by helper. Patient completes activity by themselves 4 Supervision or touching assist (CGA). [place] provide cues , steadying assist 3 The helper provides less than half the effort to complete the activity 2 The helper provides more than half the effort to complete the activity 1 Dependent. The helper does all the effort to complete an activity 7 Patient refused to complete or attempt activity 9 The patient did not perform the activity before the current illness or injury 88 Not attempted due to Medical conditions or safety concerns Transfers (B, C, W/C) (FIM): 2 Scootin Rollin Supine to/from Sit: 2 Sit to/from Stand: 3 Cues for safety and hand placement. Patient needed a lot of time to just sit at at the edge of the bed. Lots of pain and he moves very slowly. Gait Training Gait (FIM): 1 Distance: 3' Gait Level of Assist: 4 Gait Persons Needed: 1 Gait Assistive Device: FWW Patient just ambulated from the bed to the recliner, very slow, antalgic. Treatments bed mobility and transfers, ambulation Assessment Current Status: Poor Progress Patient is making poor progress, it took 30 min just to sit up in bed, get his brace on, and transfer to a chair PT Short Term Goals Short Term Goals Time Frame: Dec 15, 2016 Transfers (B,C,W/C) (FIM): 3 Gait (FIM): 2 Gait Distance Comment: 50' Gait Level of Assist: 3 Gait Assistive Device: FWW PT Fci Goals Fast Food Server Goals PT Fast Food Server Goals Time Frame: Dec 29, 2016 Transfers (B,C,W/C) (FIM): 4 Sit to Lying (QC): 4 Lying-Sitting on Side/Bed(QC): 4 Sit to Stand (QC): 4 Rollin Roll Left to Right (QC): 4 Chair/Mdm-pm-Cpoaq Xfer(QC): 4 Car Transfer (QC): 4 Gait (FIM): 4 Distance: 150' Walk 10 feet (QC): 4 Walk 10ft-Uneven Surface(QC): 4 Walk 50ft with 2 Turns (QC): 4 Walk 150 ft (QC): 4 Gait Level of Assist: 4 Gait Assistive Device: FWW Stairs (FIM): 2 # of Steps: 4 1 Step (curb) (QC): 4 4 Steps (QC): 4 Stairs Level Of Assist: 4 PT Plan Problem List Problem List: Activity Tolerance, Functional Strength, Safety, Balance, Gait, Transfer, Bed Mobility, ROM Treatment/Plan Treatment Plan: Continue Plan of Care Treatment Plan: Bed Mobility, Education, Functional Activity [place], Functional Strength, Group Therapy, Gait, Safety, Therapeutic Exercise, Transfers Treatment Duration: Dec 29, 2016 Visits Per Week: 10-11 Minutes/Day (M-F): 60-90 Minutes/Day (Sat/Cheema): 15-30 Safety Risks/Education Patient Education: Gait Training, Transfer Techniques, Correct Positioning, Reviewed Don/Doff Brace, Safety Issues Teaching Recipient: Patient Teaching Methods: Demonstration, Discussion Response to Teaching: Reinforcement Needed Time/GCodes Time In: 1300 Time Out: 1330 Total Billed Treatment Time: 30 Total Billed Treatment 1 visit FA 30' TYSON AGUILERA PT Dec 10, 2016 13:28
[2016-12-10 19:04] VITALS: BP 96/63
--- NOTE | 2016-12-10 19:34 | PM & R (SOAP) Progress Note ---
Subjective Time Seen by Provider: 12:30 Subjective/Events-last exam Patient was seen in his room with his spouse Progressing well with therapies Appreciate DR Fuentes and Vishnu notes and orders Current labs noted.Patient mod assist for transfers Review of Systems Musculoskeletal: leg pain Neurological: Weakness Objective Exam Last Set of Vital Signs Vital Signs Date Time Temp Pulse Resp B/P (MAP) Pulse Ox O2 Delivery O2 Flow Rate FiO2 12/10/16 11:38 95 Room Air 12/10/16 05:00 99.3 100 20 150/85 Capillary Refill : I&O Intake and Output 12/10/16 00:00 Intake Total 1250 ml Output Total 1200 ml Balance 50 ml Intake Oral 1250 ml Output Urine Total 1200 ml General: Alert, Oriented X3, Cooperative HEENT: Mucous Memb Moist/[place], Other (running blue suture on top of head- skin growing around it.) Neck: Supple, No JVD Lungs: Clear to Auscultation, Normal Air Movement Heart: Regular Rate Abdomen: Normal Bowel Sounds, Soft Extremities: No Clubbing, No Cyanosis Skin: No Rashes, No Breakdown, Other (back incision- covered with dressing) Neuro: Normal Speech, Sensation Intact, Other (strength- 4/5 lower extremities - 5/5 upper extremities) Psych/Mental Status: Mental Status NL, Mood NL (quiet, reserved) Results Lab Laboratory Tests 12/08/16 06:28: White Blood Count 40.3*H, Red Blood Count 2.87L, Hemoglobin 8.9L, Hematocrit 28L , Mean Corpuscular Volume 98, Mean Corpuscular Hemoglobin 31, Mean Corpuscular Hemoglobin Concent 32, Red Cell Distribution Width 18.2H, Platelet Count 201, Mean Platelet Volume 9.2, Neutrophils (%) (Auto) 14L, Lymphocytes (%) (Auto) 86H , Monocytes (%) (Auto) 0, Eosinophils (%) (Auto) 0, Basophils (%) (Auto) 0, Neutrophils # (Auto) 5.4, Lymphocytes # (Auto) 34.6H, Monocytes # (Auto) 0.1, Eosinophils # (Auto) 0.1, Basophils # (Auto) 0.1, Neutrophils % (Manual) 33, Lymphocytes % (Manual) 67, Smudge Cells MARKED, Polychromasia MODERATE, Hypochromasia MODERATE, Poikilocytosis SLIGHT, Burns Cells SLIGHT, Crenated Cell SLIGHT, Sodium Level 135, Potassium Level 4.4, Chloride Level 104, Carbon Dioxide Level 23, Anion Gap 8, Blood Urea Nitrogen 11, Creatinine 0.69, Estimat Glomerular Filtration Rate > 60, BUN/Creatinine Ratio 16, Glucose Level 91, Calcium Level 7.8L, Total Bilirubin 1.4H, Aspartate Amino Transf (AST/SGOT) 24, Alanine Aminotransferase (ALT/SGPT) 11, Alkaline Phosphatase 94, Total Protein 4.9L, Albumin 2.8L 12/09/16 13:30: White Blood Count 53.0*H, Red Blood Count 3.43L, Hemoglobin 10.6L, Hematocrit 34L, Mean Corpuscular Volume 98, Mean Corpuscular Hemoglobin 31, Mean Corpuscular Hemoglobin Concent 32, Red Cell Distribution Width 18.8H, Platelet Count 240, Mean Platelet Volume 9.2, Neutrophils (%) (Auto) 18L, Lymphocytes (% ) (Auto) 82H, Monocytes (%) (Auto) 1, Eosinophils (%) (Auto) 0, Basophils (%) ( Auto) 0, Neutrophils # (Auto) 9.4H, Lymphocytes # (Auto) 43.2H, Monocytes # ( Auto) 0.3, Eosinophils # (Auto) 0.0, Basophils # (Auto) 0.1, Sodium Level 134L, Potassium Level 4.7, Chloride Level 101, Carbon Dioxide Level 22, Anion Gap 11, Blood Urea Nitrogen 13, Creatinine 0.77, Estimat Glomerular Filtration Rate > 60 , BUN/Creatinine Ratio 17, Glucose Level 108H, Calcium Level 8.3L, Absolute Reticulocyte Count 151H, Percent Reticulocyte Count 4.40H 12/10/16 05:05: Glucometer 94 12/10/16 05:45: White Blood Count 41.9*H, Red Blood Count 2.94L, Hemoglobin 9.1L, Hematocrit 29L , Mean Corpuscular Volume 98, Mean Corpuscular Hemoglobin 31, Mean Corpuscular Hemoglobin Concent 32, Red Cell Distribution Width 18.5H, Platelet Count 213, Mean Platelet Volume 9.2, Neutrophils (%) (Auto) 14L, Lymphocytes (%) (Auto) 84H , Monocytes (%) (Auto) 1, Eosinophils (%) (Auto) 0, Basophils (%) (Auto) 0, Neutrophils # (Auto) 6.0, Lymphocytes # (Auto) 35.3H, Monocytes # (Auto) 0.5, Eosinophils # (Auto) 0.0, Basophils # (Auto) 0.0, Neutrophils % (Manual) 30, Lymphocytes % (Manual) 69, Smudge Cells MARKED, Poikilocytosis SLIGHT, Sodium Level 135, Potassium Level 4.6, Chloride Level 105, Carbon Dioxide Level 22, Anion Gap 8, Blood Urea Nitrogen 13, Creatinine 0.73, Estimat Glomerular Filtration Rate > 60, BUN/Creatinine Ratio 18, Glucose Level 98, Calcium Level 7.8L, Total Bilirubin 1.7H, Aspartate Amino Transf (AST/SGOT) 24, Alanine Aminotransferase (ALT/SGPT) 12, Alkaline Phosphatase 121, Total Protein 4.8L, Albumin 2.7L, Absolute Reticulocyte Count 117H, Percent Reticulocyte Count 3.97H , Monocytes % (Manual) 1, Eosinophils % (Manual) 0, Basophils % (Manual) 0, Band Neutrophils 0, Anisocytosis MODERATE Assessment/Plan Assessment L2 veterbral burst frx s/p repair OSH [facility] Scalp laceration s/p suturing OSH HTN Home meds restarted Concussion s/p fall with confusion improving Plan Continue PT/OT Team Conference held earlier today-See report for full functional update and POC and ELOS F/U with DR Hyde as per their schedule. Appreciate ST note they have signed off for now as she feel patient is at baseline with mild memory deficits KARL MIRELES MD Dec 10, 2016 19:34
--- NOTE | 2016-12-10 19:45 | Individualized Plan of Care ---
Individualized Plan of Care Rehab Nursing IPOC Order Admission Date Dec 07, 2016 at 15:05 Current Orders Orders Direct Antiglobulin Test (12/10/16 06:56) Rt Request For Service (12/10/16 11:42) Patient Visit (12/10/16 ) Exercise Therap, Ea 15 Min (12/10/16 ) Gait Training, Ea 15 Min (12/10/16 ) Functional Activities, Ea 15 (12/10/16 ) Rehab Nursing Orders: Bladder Program, Bladder Training, Bowel Program, Bowel Training, Diseage Management, Edu in Press Rel Techn, Hydration Management, Nutrition Management, Wound Management Toilet every (bladder): (hrs): 2 hours while awake PRN PT IPOC Problem List: Activity Tolerance, Functional Strength, Safety, Balance, Gait, Transfer, Bed Mobility, ROM Treatment Plan: Continue Plan of Care Bed Mobility, Education, Functional Activity [place], Functional Strength, Group Therapy, Gait, Safety, Therapeutic Exercise, Transfers Treatment Duration: Dec 29, 2016 Visits Per Week: 10-11 Minutes/Day (M-F): 60-90 Minutes/Day (Sat/Cheema): 15-30 OT IPOC Problems: Decreased Activ Tolerance, Decreased UE Strength, Dependent Transfers , Impaired Bed Mobility, Impaired Funct Balance, Impaired I ADL's, Impaired Self -Care Skills, Restricted Funct UE ROM Plan of Care: ADL Retraining, Caregiver Training, Functional Mobility, Group Exercise/Act as Ind, UE Funct Exercise/Act Treatment Duration: Dec 29, 2016 Visits Per Week: 10-12 Minutes/Day (M-F): 60-90 Minutes/Day (Sat/Cheema): 15-30 ST IPOC Speech Therapy Treatment Plan: Discontinue ST Physician IPOC Medical Issues being managed closely and that require the 24 hour availability of a physician: HTN Confusion secondary to Concussion s/p fall Pain management CLL with chronic anemia and leukocytosis Medical Issues: Bowel/Bladder Function, DVT Prophylaxis, Falls Precautions, Fluid/Electrolyte/Nutrition Balance, Infection Protection, Pain Management, Wound Care, Other (List) (as per above) Brief Synthesis of Preadmission Screen, Post-Admission Evaluation, and Therapy Evaluations: 86 yo male s/p fall with resulting l2 burst frx managed with surgical repair OSH as well as scalp laceration with concussion s/p suturing.Meds being adjusted for HTN Has chronic anemia due to CLL DR Kishan Conteh has seen Had been Modifeid Independent prior to fall and living with spouse PCP DR Dykes Medical Prognosis: good Anticipated Length of Stay: 7-17 Rehab Goals Modified Independent for adls and mobility skills Anticipated discharge destinat: Home with spouse with [facility] KARL MIRELES MD Dec 10, 2016 19:45
[2016-12-10] MEDS: ATORVASTATIN 40 MG (LIPITOR) TABLET PO SCH (20:43)
[2016-12-11 05:00] VITALS: BP 152/84
[2016-12-11] MEDS: MULTIVIT W/MINERALS TAB (THERAGRAN M) PO SCH (06:23)
[2016-12-11] MEDS: PANTOPRAZOLE 40 MG (PROTONIX) TAB PO SCH (06:23)
[2016-12-11 06:48] LABS: BASOPHILS # (AUTO) 0.1 10^3/uL (0.0-0.1); BASOPHILS % (AUTO) 0 % (0-10); EOSINOPHILS % (AUTO) 0 % (0-10); LYMPHOCYTES % (AUTO) 86 % (12-44); MEAN CORPUSCULAR HEMOGLOBIN 32 PG (25-34); MEAN CORPUSCULAR HGB CONC 32 G/DL (32-36); MEAN CORPUSCULAR VOLUME 99 FL (80-99); MEAN PLATELET VOLUME 9.3 FL (7.4-10.4); MONOCYTES # (AUTO) 0.3 X 10^3 (0.0-1.0); MONOCYTES % (AUTO) 1 % (0-12); NEUTROPHILS # (AUTO) 5.7 X 10^3 (1.8-7.8); NEUTROPHILS % (AUTO) 14 % (42-75); PLATELET COUNT 206 10^3/uL (130-400); RED BLOOD COUNT 3.08 10^6/uL (4.35-5.85); RED CELL DISTRIBUTION WIDTH 18.7 % (10.0-14.5)
[2016-12-11 07:28] LABS: WHITE BLOOD COUNT 42.1 10^3/uL (4.3-11.0)
[2016-12-11] MEDS: meTOprolol TARTRATE 50 MG (LOPRESSOR) TAB PO SCH ×2 (08:07→20:12)
[2016-12-11] MEDS: ENALAPRIL 5 MG (VASOTEC) TAB PO SCH (08:07)
--- NOTE | 2016-12-11 08:23 | PM & R (SOAP) Progress Note ---
Subjective Time Seen by Provider: 07:30 Subjective/Events-last exam Patient was seen in his room this AM Patient Mod assist for transfers Pain control adequate Slept well Objective Exam Last Set of Vital Signs Vital Signs Date Time Temp Pulse Resp B/P (MAP) Pulse Ox O2 Delivery O2 Flow Rate FiO2 12/11/16 05:00 98.6 98 20 152/84 97 Room Air Capillary Refill : I&O Intake and Output 12/11/16 00:00 Intake Total 900 ml Output Total 500 ml Balance 400 ml Intake Oral 900 ml Output Urine Total 500 ml # Voids 7 # Bowel Movements 3 General: Alert, Oriented X3, Cooperative HEENT: Mucous Memb Moist/[place], Other (running blue suture on top of head- skin growing around it.) Neck: Supple, No JVD Lungs: Clear to Auscultation, Normal Air Movement Heart: Regular Rate Abdomen: Normal Bowel Sounds, Soft Extremities: No Clubbing, No Cyanosis Skin: No Rashes, No Breakdown, Other (back incision- covered with dressing) Neuro: Normal Speech, Sensation Intact, Other (strength- 4/5 lower extremities - 5/5 upper extremities) Psych/Mental Status: Mental Status NL, Mood NL (quiet, reserved) Results Lab Laboratory Tests 12/09/16 13:30: White Blood Count 53.0*H, Red Blood Count 3.43L, Hemoglobin 10.6L, Hematocrit 34L, Mean Corpuscular Volume 98, Mean Corpuscular Hemoglobin 31, Mean Corpuscular Hemoglobin Concent 32, Red Cell Distribution Width 18.8H, Platelet Count 240, Mean Platelet Volume 9.2, Neutrophils (%) (Auto) 18L, Lymphocytes (% ) (Auto) 82H, Monocytes (%) (Auto) 1, Eosinophils (%) (Auto) 0, Basophils (%) ( Auto) 0, Neutrophils # (Auto) 9.4H, Lymphocytes # (Auto) 43.2H, Monocytes # ( Auto) 0.3, Eosinophils # (Auto) 0.0, Basophils # (Auto) 0.1, Absolute Reticulocyte Count 151H, Percent Reticulocyte Count 4.40H, Sodium Level 134L, Potassium Level 4.7, Chloride Level 101, Carbon Dioxide Level 22, Anion Gap 11, Blood Urea Nitrogen 13, Creatinine 0.77, Estimat Glomerular Filtration Rate > 60 , BUN/Creatinine Ratio 17, Glucose Level 108H, Calcium Level 8.3L 12/10/16 05:05: Glucometer 94 12/10/16 05:45: White Blood Count 41.9*H, Red Blood Count 2.94L, Hemoglobin 9.1L, Hematocrit 29L , Mean Corpuscular Volume 98, Mean Corpuscular Hemoglobin 31, Mean Corpuscular Hemoglobin Concent 32, Red Cell Distribution Width 18.5H, Platelet Count 213, Mean Platelet Volume 9.2, Neutrophils (%) (Auto) 14L, Lymphocytes (%) (Auto) 84H , Monocytes (%) (Auto) 1, Eosinophils (%) (Auto) 0, Basophils (%) (Auto) 0, Neutrophils # (Auto) 6.0, Lymphocytes # (Auto) 35.3H, Monocytes # (Auto) 0.5, Eosinophils # (Auto) 0.0, Basophils # (Auto) 0.0, Absolute Reticulocyte Count 117H, Percent Reticulocyte Count 3.97H, Sodium Level 135, Potassium Level 4.6, Chloride Level 105, Carbon Dioxide Level 22, Anion Gap 8, Blood Urea Nitrogen 13 , Creatinine 0.73, Estimat Glomerular Filtration Rate > 60, BUN/Creatinine Ratio 18, Glucose Level 98, Calcium Level 7.8L, Neutrophils % (Manual) 30, Lymphocytes % (Manual) 69, Monocytes % (Manual) 1, Eosinophils % (Manual) 0, Basophils % (Manual) 0, Band Neutrophils 0, Smudge Cells MARKED, Poikilocytosis SLIGHT, Anisocytosis MODERATE, Total Bilirubin 1.7H, Aspartate Amino Transf (AST /SGOT) 24, Alanine Aminotransferase (ALT/SGPT) 12, Alkaline Phosphatase 121, Total Protein 4.8L, Albumin 2.7L 12/11/16 06:12: White Blood Count 42.1*H, Red Blood Count 3.08L, Hemoglobin 9.7L, Hematocrit 30L , Mean Corpuscular Volume 99, Mean Corpuscular Hemoglobin 32, Mean Corpuscular Hemoglobin Concent 32, Red Cell Distribution Width 18.7H, Platelet Count 206, Mean Platelet Volume 9.3, Neutrophils (%) (Auto) 14L, Lymphocytes (%) (Auto) 86H , Monocytes (%) (Auto) 1, Eosinophils (%) (Auto) 0, Basophils (%) (Auto) 0, Neutrophils # (Auto) 5.7, Lymphocytes # (Auto) 36.0H, Monocytes # (Auto) 0.3, Eosinophils # (Auto) 0.0, Basophils # (Auto) 0.1 Assessment/Plan Assessment L2 veterbral burst frx s/p repair OSH CLL chronic Dr [facility] following Scalp laceration s/p suturing OSH HTN Home meds restarted Concussion s/p fall with confusion improving Plan Continue PT/OT Team Conference held yesterday-See report for full functional update and POC and ELOS F/U with DR Dykes and farhan as per their schedule. Appreciate ST note they have signed off for now as she feel patient is at baseline with mild memory deficits Current labs noted KARL MIRELES MD Dec 11, 2016 08:22
--- NOTE | 2016-12-11 09:35 | Progress Note (SOAP) ---
Subjective Date Seen by Provider: Dec 11, 2016 Time Seen by Provider: 09:10 Subjective/Events-last exam Feeling better today; Still not eating well; Objective Exam Vital Signs Date Time Temp Pulse Resp B/P (MAP) Pulse Ox O2 Delivery O2 Flow Rate FiO2 12/11/16 05:00 98.6 98 20 152/84 97 Room Air 12/10/16 22:08 96 Room Air 12/10/16 21:00 Room Air 12/10/16 19:04 96.7 110 16 96/63 97 12/10/16 11:38 95 Room Air I & O 12/11/16 07:00 Intake Total 750 ml Output Total 550 ml Balance 200 ml Capillary Refill : General Appearance: No Apparent Distress HEENT: PERRL/EOMI Neck: Full Range of Motion Respiratory: Decreased Breath Sounds, Other (Few bibasila) Gastrointestinal: normal bowel sounds, non tender, soft Extremity: Non Tender, No Calf Tenderness Neurologic/Psychiatric: Alert, Oriented x3, Normal Mood/Affect Results Lab Laboratory Tests 12/11/16 06:12: White Blood Count 42.1*H, Red Blood Count 3.08L, Hemoglobin 9.7L, Hematocrit 30L , Mean Corpuscular Volume 99, Mean Corpuscular Hemoglobin 32, Mean Corpuscular Hemoglobin Concent 32, Red Cell Distribution Width 18.7H, Platelet Count 206, Mean Platelet Volume 9.3, Neutrophils (%) (Auto) 14L, Lymphocytes (%) (Auto) 86H , Monocytes (%) (Auto) 1, Eosinophils (%) (Auto) 0, Basophils (%) (Auto) 0, Neutrophils # (Auto) 5.7, Lymphocytes # (Auto) 36.0H, Monocytes # (Auto) 0.3, Eosinophils # (Auto) 0.0, Basophils # (Auto) 0.1 Laboratory Tests 12/09/16 13:30 12/10/16 05:45 12/11/16 06:12 Assessment/Plan Assessment/Plan Assess & Plan/Chief Complaint 1. Leukocytosis-arising from known CLL related lymphocytosis and mild granulocytosis. Current stress of vertebral fracture, scalp laceration and other lacerations caused by fall may be source of his leukocytosis. a. We'll monitor. Peripheral smear has been reviewed and shows expected changes given current setting. 2. Anemia-multifactorial in origin related to recent trauma, chronic disease , and CLL. a. Check reticulocyte count and EDSON. b. Appropriately elevated reticulocyte count. EDSON is negative, therefore no need for steroid intervention. 3. Status post traumatic L2 vertebral body hyperextension fracture and subsequent L2 fusion surgery completed on 12/01/16. a. Patient now admitted to acute inpatient rehabilitation for for rehabilitation. b. Recommend administering breakthrough pain medication (Oxy-Ir) to start of physical therapy session to reduce patient's discomfort level. 4. 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 Status Post Evacuation of Subdural Hematoma in 2014 6. Comorbidities of history of recurrent abdominal pain, coronary artery disease, arthritis, hyperlipidemia, hypertension, chronic lung disease. Clinical Quality Measures DVT/VTE Risk/Contraindication: Risk Factor Score Per Nursin RFS Level Per Nursing on Admit: 4+=Very High JACQUELYN VAZQUEZ MD Dec 11, 2016 09:35
--- NOTE | 2016-12-11 11:09 | Occupational Ther Daily Note ---
OT Current Status-Daily Note Subjective Pt alert, lying in bed. Pt agreed to therapy. Pt c/o pain, 01/15. Pt stated that he had gotten a pain pill 2 hours before therapy. Pt c/o pain on outside of upper R LE. Mental Status/Objective Patient Orientation: Person, Place, Time, Situation Functional [place] Measure 0=Not Assessed/NA 4=Minimal Assistance 1=Total Assistance 5=Supervision or Setup 2=Maximal Assistance 6=Modified [place] 3=Moderate Assistance 7=Complete [place] Attachments: Other-See Comments (back brace) ADL-Treatment Pt dependent with bed mobility, assist x2 to go from supine to sitting. Assist x1 for sitting on EOB. Assist x2 for standing up from EOB and assist to straight leg in standing. Pt transferred from bed to [facility] with min A x1. Pt was able to bathe upper body, [place] area and upper legs in sitting. Assist to cleanse lower legs and buttocks. Able to doff shirt with min A and dons shirt with min A. Pt dependent with lower body dressing. Pt declines to don pants at this time due to incontinence of bowel and difficulty with manipulating clothing to urinate. Pt takes increased time to complete tasks due to decreased activity tolerance. Pt takes multiple recovery breaks due to fatigue and pain in R upper leg. entered room and stated that she had food for him. Pt declined eating it at this time. After therapy, was in room with pt. Call light/phone in reach. All needs met in room. Functional [place] Measure 0=Not Assessed/NA 4=Minimal Assistance 1=Total Assistance 5=Supervision or Setup 2=Maximal Assistance 6=Modified [place] 3=Moderate Assistance 7=Complete IndependenceIRFPAI Quality Coding Scale 6 Independent with activity with or without an assistive device 5 Patient requires set up or clean up by helper. Patient completes activity by themselves 4 Supervision or touching assist (CGA). [place] provide cues , steadying assist 3 The helper provides less than half the effort to complete the activity 2 The helper provides more than half the effort to complete the activity 1 Dependent. The helper does all the effort to complete an activity 7 Patient refused to complete or attempt activity 9 The patient did not perform the activity before the current illness or injury 88 Not attempted due to Medical conditions or safety concerns Bathing (FIM): 3 Bathing Location: L Arm, R Arm, L Upper Leg, R Upper Leg, Chest, Abdomen, Perineal Area Upper Body (FIM): 4 Toileting (FIM): 2 Transfers (B, C, W/C) (FIM): 1 Toilet/Commode Transfer (FIM): 1 OT Short Term Goals Short Term Goals Time Frame: Dec 15, 2016 Eating(FIM): 5 Grooming(FIM): 4 Bathing(FIM): 3 Upper Body Dressing(FIM): 3 Lower Body Dressing(FIM): 3 Toileting(FIM): 3 Transfers (B,C,W/C) (FIM): 3 Toilet/Commode Transfer(FIM): 3 Additional Short Term Goals: 1-Demonstrate ADL Tasks, 2-Verbalize Understanding , 3-ImproveStrength/[place] 1=Demonstrate adherence to instructed precautions during ADL tasks. 2=Patient will verbalize/demonstrate understanding of assistive devices/ modifications for ADL. 3=Patient will improve strength/tolerance for activity to enable patient to perform ADL's. OT Cotton Presser Goals Cotton Presser Goals Time Frame: Dec 29, 2016 Eating (FIM): 6 Eating (QC): 5 Groomin Oral Hygiene (QC): 5 Bathing(FIM): 4 Shower/Bathe Self (QC): 4 Upper Body Dressing(FIM): 5 Upper Body Dressing (QC): 5 Lower Body Dressing(FIM): 5 Lower Body Dressing (QC): 5 On/Off Footwear (QC): 5 Toileting(FIM): 6 Toileting Hygiene (QC): 5 Transfers (B,C,W/C) (FIM): 5 Toilet/Commode Transfer(FIM): 5 Toilet/Commode Transfer (QC): 5 Shower Transfer(FIM): 4 Additional Goals: 1-Demonstrate ADL Tasks, 2-Verbalize Understanding, 3- ImproveStrength/[place] 1=Demonstrate adherence to instructed precautions during ADL tasks. 2=Patient will verbalize/demonstrate understanding of assistive devices/ modifications for ADL. 3=Patient will improve strength/tolerance for activity to enable patient to perform ADL's. OT Education/Plan Discharge Recommendations Plan/Recommendations: Continue POC Treatment Plan/Plan of Care Patient would benefit from OT for education, treatment and training to promote independence in ADL's, mobility, safety and/or upper extremity function for ADL' s. Plan of Care: ADL Retraining, Caregiver Training, Functional Mobility, Group Exercise/Act as Ind, UE Funct Exercise/Act Treatment Duration: Dec 29, 2016 Visits Per Week: 10-12 Minutes/Day (M-F): 60-90 Minutes/Day (Sat/Cheema): 15-30 Agreement: Yes Rehab Potential: Fair Time/GCodes Start Time: 10:00 Stop Time: 11:00 Total Time Billed (hr/min): 60 Billed Treatment Time 1 visit-ADL 4 (60 min) DOUGIE VILLATORO Dec 11, 2016 11:09
--- NOTE | 2016-12-11 13:03 | Physical Therapy Daily Note ---
PT Daily Note-Current Subjective Pt sitting in [facility] upon arrival. Pt agrees to PT for strengthening and balance work. Pain Numeric Pain Scale: 3 Location: Incisional, Dorsal Location Body Site: Back Pain Description: Sharp Mental Status Patient Orientation: Person, Place, Situation Attachments: Other-See Comments (Back brace ) Transfers Functional [place] Measure 0=Not Assessed/NA 4=Minimal Assistance 1=Total Assistance 5=Supervision or Setup 2=Maximal Assistance 6=Modified [place] 3=Moderate Assistance 7=Complete IndependenceIRFPAI Quality Coding Scale 6 Independent with activity with or without an assistive device 5 Patient requires set up or clean up by helper. Patient completes activity by themselves 4 Supervision or touching assist (CGA). [place] provide cues , steadying assist 3 The helper provides less than half the effort to complete the activity 2 The helper provides more than half the effort to complete the activity 1 Dependent. The helper does all the effort to complete an activity 7 Patient refused to complete or attempt activity 9 The patient did not perform the activity before the current illness or injury 88 Not attempted due to Medical conditions or safety concerns Scootin Sit to/from Stand: 2 Sit to Stand (QC): 2 Weight Bearing Weight Bearing Restriction: Full Weight Bearing Location Restriction: LE Bilateral Wheelchair Training Does the Pt Use a Wheelchair?: Yes Wheelchair Distance: 3=150 ft Distance: 150' Wheelchair Level of Assist: 3 Wheel 50 ft with 2 turns (QC): 3 Wheel 150 ft (QC): 3 Type of Wheelchair: Manual Exercises Seated Therapy Exercises: Ankle pumps, Long arc quads Seated Reps: 20 Standing: Heel/toe raises, Mini squats Standing Reps: 20 Treatments Pt completed Seated Ex in [facility] as well as several sit to stands from [facility] at // bars. Pt completed Standing Ex at //bars. Pt attempted SPT to [employer] but lacked strength so attempted w/FWW. Pt reported discomfort with sitting at [facility] so transferred back to [facility]. Pt attempted short distance walking although very fatigued and returned to [facility] at end of tx to rest with all needs met. Assessment Current Status: Fair Progress Pt fatigues very easily and needs frequent rest breaks. Pt's R side lacks strength. PT Short Term Goals Short Term Goals Time Frame: Dec 15, 2016 Transfers (B,C,W/C) (FIM): 3 Gait (FIM): 2 Gait Distance Comment: 50' Gait Level of Assist: 3 Gait Assistive Device: FWW PT Automobile Salesman Goals Automobile Salesman Goals PT Automobile Salesman Goals Time Frame: Dec 29, 2016 Transfers (B,C,W/C) (FIM): 4 Sit to Lying (QC): 4 Lying-Sitting on Side/Bed(QC): 4 Sit to Stand (QC): 4 Rollin Roll Left to Right (QC): 4 Chair/Gkj-pq-Hgeny Xfer(QC): 4 Car Transfer (QC): 4 Gait (FIM): 4 Distance: 150' Walk 10 feet (QC): 4 Walk 10ft-Uneven Surface(QC): 4 Walk 50ft with 2 Turns (QC): 4 Walk 150 ft (QC): 4 Gait Level of Assist: 4 Gait Assistive Device: FWW Stairs (FIM): 2 # of Steps: 4 1 Step (curb) (QC): 4 4 Steps (QC): 4 Stairs Level Of Assist: 4 PT Plan Problem List Problem List: Activity Tolerance, Functional Strength, Safety, Balance, Gait, Transfer Treatment/Plan Treatment Plan: Continue Plan of Care Treatment Plan: Bed Mobility, Education, Functional Activity [place], Functional Strength, Group Therapy, Gait, Safety, Therapeutic Exercise, Transfers Treatment Duration: Dec 29, 2016 Frequency: At least 5-7 days/Wk (IRF) Estimated Hrs Per Day: 2 hours per day Patient and/or Family Agrees t: Yes Safety Risks/Education Patient Education: Gait Training, Transfer Techniques, Reviewed Precautions, Correct Positioning, Safety Issues Teaching Recipient: Patient Teaching Methods: Discussion Response to Teaching: Verbalize Understanding Time/GCodes Time In: 1100 Time Out: 1200 Total Billed Treatment Time: 60 Total Billed Treatment visit, GT (15m), EX x2 (30m) & FA (15m) KIRSTEN CORRAL DIRECTOR OF HOME ECONOMICS Dec 11, 2016 13:03
--- NOTE | 2016-12-11 13:41 | Occupational Ther Daily Note ---
OT Current Status-Daily Note Subjective Pt alert, sitting in w/c. present in room. Pt agreed to therapy. No c/o pain at this time. Mental Status/Objective Patient Orientation: Person, Place, Time, Situation Functional [place] Measure 0=Not Assessed/NA 4=Minimal Assistance 1=Total Assistance 5=Supervision or Setup 2=Maximal Assistance 6=Modified [place] 3=Moderate Assistance 7=Complete [place] Attachments: Other-See Comments (back brace) ADL-Treatment Pt worked with AE for donning/doffing footwear. Pt demonstrated understanding of sock aide, dressing stick and long handle shoe horn. After demonstration of using sock aide pt used to don socks then after demonstration of dressing stick to doff socks pt able to complete. Pt was already familiar with long handle shoehorn and donned shoes by self. Wound care nrsg came in to monitor pt's skin. [employer] assisted nrsg to stand pt so nrsg could check skin. After therapy, pt sitting in recliner with present. Call light/phone in reach. All needs met in room. Functional [place] Measure 0=Not Assessed/NA 4=Minimal Assistance 1=Total Assistance 5=Supervision or Setup 2=Maximal Assistance 6=Modified [place] 3=Moderate Assistance 7=Complete IndependenceIRFPAI Quality Coding Scale 6 Independent with activity with or without an assistive device 5 Patient requires set up or clean up by helper. Patient completes activity by themselves 4 Supervision or touching assist (CGA). [place] provide cues , steadying assist 3 The helper provides less than half the effort to complete the activity 2 The helper provides more than half the effort to complete the activity 1 Dependent. The helper does all the effort to complete an activity 7 Patient refused to complete or attempt activity 9 The patient did not perform the activity before the current illness or injury 88 Not attempted due to Medical conditions or safety concerns On/Off Footwear (QC): 5 OT Short Term Goals Short Term Goals Time Frame: Dec 15, 2016 Eating(FIM): 5 Grooming(FIM): 4 Bathing(FIM): 3 Upper Body Dressing(FIM): 3 Lower Body Dressing(FIM): 3 Toileting(FIM): 3 Transfers (B,C,W/C) (FIM): 3 Toilet/Commode Transfer(FIM): 3 Additional Short Term Goals: 1-Demonstrate ADL Tasks, 2-Verbalize Understanding , 3-ImproveStrength/Chandler 1=Demonstrate adherence to instructed precautions during ADL tasks. 2=Patient will verbalize/demonstrate understanding of assistive devices/ modifications for ADL. 3=Patient will improve strength/tolerance for activity to enable patient to perform ADL's. OT Senior Care Goals Control Center Operator Goals Time Frame: Dec 29, 2016 Eating (FIM): 6 Eating (QC): 5 Groomin Oral Hygiene (QC): 5 Bathing(FIM): 4 Shower/Bathe Self (QC): 4 Upper Body Dressing(FIM): 5 Upper Body Dressing (QC): 5 Lower Body Dressing(FIM): 5 Lower Body Dressing (QC): 5 On/Off Footwear (QC): 5 Toileting(FIM): 6 Toileting Hygiene (QC): 5 Transfers (B,C,W/C) (FIM): 5 Toilet/Commode Transfer(FIM): 5 Toilet/Commode Transfer (QC): 5 Shower Transfer(FIM): 4 Additional Goals: 1-Demonstrate ADL Tasks, 2-Verbalize Understanding, 3- ImproveStrength/Chandler 1=Demonstrate adherence to instructed precautions during ADL tasks. 2=Patient will verbalize/demonstrate understanding of assistive devices/ modifications for ADL. 3=Patient will improve strength/tolerance for activity to enable patient to perform ADL's. OT Education/Plan Discharge Recommendations Plan/Recommendations: Continue POC Treatment Plan/Plan of Care Patient would benefit from OT for education, treatment and training to promote independence in ADL's, mobility, safety and/or upper extremity function for ADL' s. Plan of Care: ADL Retraining, Caregiver Training, Functional Mobility, Group Exercise/Act as Ind, UE Funct Exercise/Act Treatment Duration: Dec 29, 2016 Frequency: Twice Daily (Thursday - Thursday, PRN Thursday) Estimated Hrs Per Day: 1.5 hours per day Agreement: Yes Rehab Potential: Fair Time/GCodes Start Time: 13:00 Stop Time: 13:30 Total Time Billed (hr/min): 30 Billed Treatment Time 1 visit-FA 2 (30 min) DOUGIE VILLATORO Dec 11, 2016 13:41
[2016-12-11] MEDS: RT-ADVAIR HFA 115/21 MCG PER PUFF IH SCH (14:45)
--- NOTE | 2016-12-11 16:34 | Physical Therapy Daily Note ---
PT Daily Note-Current Subjective Pt still sitting in [facility] upon arrival. Pt agrees to PT. Pain Numeric Pain Scale: 5-Moderate Pain Location: Incisional, Dorsal Location Body Site: Back Pain Description: Sharp Mental Status Patient Orientation: Person, Place, Situation Attachments: Other-See Comments (Back brace) Transfers Functional [place] Measure 0=Not Assessed/NA 4=Minimal Assistance 1=Total Assistance 5=Supervision or Setup 2=Maximal Assistance 6=Modified [place] 3=Moderate Assistance 7=Complete IndependenceIRFPAI Quality Coding Scale 6 Independent with activity with or without an assistive device 5 Patient requires set up or clean up by helper. Patient completes activity by themselves 4 Supervision or touching assist (CGA). [place] provide cues , steadying assist 3 The helper provides less than half the effort to complete the activity 2 The helper provides more than half the effort to complete the activity 1 Dependent. The helper does all the effort to complete an activity 7 Patient refused to complete or attempt activity 9 The patient did not perform the activity before the current illness or injury 88 Not attempted due to Medical conditions or safety concerns Scootin Rollin Roll Left to Right (QC): 4 Supine to/from Sit: 4 Sit to/from Stand: 3 Sit to Lying (QC): 4 Sit to Stand (QC): 3 Chair/Xco-ni-Isxfd Xfer(QC): 3 Bed to/from Chair: 3 Weight Bearing Weight Bearing Restriction: Full Weight Bearing Location Restriction: LE Bilateral Gait Training Does the Patient Walk?: Yes Distance (FIM): 1=up to 49 ft Distance: 5' Gait Level of Assist: 4 Gait Persons Needed: 1 Gait Assistive Device: FWW Pt has slow jean marie and shuffling gait. Wheelchair Training Does the Pt Use a Wheelchair?: Yes Type of Wheelchair: Manual Treatments Pt and sp ask few questions about pt's progress and when discharge might happen. Pt transfers from [facility] to standing using FWW at Mod A. Pt transfers from standing to EOB at Min A then EOB to supine at Min A with assistance for placement of Upper & Lower body. Pt is positioned on R side to prevent pressure sores as well as to let nursing view incision. Pt is left with all needs met at end of tx. Assessment Current Status: Fair Progress Pt fatigues easy but is improving with giving more assistance during transfers. PT Short Term Goals Short Term Goals Time Frame: Dec 15, 2016 Transfers (B,C,W/C) (FIM): 3 Gait (FIM): 2 Gait Distance Comment: 50' Gait Level of Assist: 3 Gait Assistive Device: FWW Wheelchair Distance: 150' PT Forging Roll Operator Goals Fdc Goals PT Forging Roll Operator Goals Time Frame: Dec 29, 2016 Transfers (B,C,W/C) (FIM): 4 Sit to Lying (QC): 4 Lying-Sitting on Side/Bed(QC): 4 Sit to Stand (QC): 4 Rollin Roll Left to Right (QC): 4 Chair/Ehx-sh-Fwice Xfer(QC): 4 Car Transfer (QC): 4 Gait (FIM): 4 Distance: 150' Walk 10 feet (QC): 4 Walk 10ft-Uneven Surface(QC): 4 Walk 50ft with 2 Turns (QC): 4 Walk 150 ft (QC): 4 Gait Level of Assist: 4 Gait Assistive Device: FWW Stairs (FIM): 2 # of Steps: 4 1 Step (curb) (QC): 4 4 Steps (QC): 4 Stairs Level Of Assist: 4 PT Plan Problem List Problem List: Activity Tolerance, Functional Strength, Safety, Balance, Gait, Transfer, Bed Mobility Treatment/Plan Treatment Plan: Continue Plan of Care Treatment Plan: Bed Mobility, Education, Functional Activity [place], Functional Strength, Group Therapy, Gait, Safety, Therapeutic Exercise, Transfers Treatment Duration: Dec 29, 2016 Frequency: At least 5-7 days/Wk (IRF) Estimated Hrs Per Day: 2 hours per day Patient and/or Family Agrees t: Yes Safety Risks/Education Patient Education: Transfer Techniques, Correct Positioning, Reviewed Don/Doff Brace, Safety Issues Teaching Recipient: Patient, Significant Other Teaching Methods: Discussion Response to Teaching: Verbalize Understanding Time/GCodes Time In: 1430 Time Out: 1500 Total Billed Treatment Time: 30 Total Billed Treatment visit, FA x2 (30m) KIRSTEN CORRAL PTA Dec 11, 2016 16:34
[2016-12-11 18:39] VITALS: BP 108/58
[2016-12-11] MEDS: ATORVASTATIN 40 MG (LIPITOR) TABLET PO SCH (20:12)
[2016-12-12 05:43] LABS: BASOPHILS # (AUTO) 0.1 10^3/uL (0.0-0.1); BASOPHILS % (AUTO) 0 % (0-10); EOSINOPHILS % (AUTO) 0 % (0-10); LYMPHOCYTES # (AUTO) 33.3 X 10^3 (1.0-4.0); LYMPHOCYTES % (AUTO) 86 % (12-44); MEAN CORPUSCULAR HEMOGLOBIN 32 PG (25-34); MEAN CORPUSCULAR HGB CONC 33 G/DL (32-36); MEAN CORPUSCULAR VOLUME 99 FL (80-99); MEAN PLATELET VOLUME 9.1 FL (7.4-10.4); MONOCYTES % (AUTO) 0 % (0-12); NEUTROPHILS # (AUTO) 5.4 X 10^3 (1.8-7.8); NEUTROPHILS % (AUTO) 14 % (42-75); PLATELET COUNT 203 10^3/uL (130-400); RED BLOOD COUNT 2.78 10^6/uL (4.35-5.85); RED CELL DISTRIBUTION WIDTH 18.7 % (10.0-14.5)
[2016-12-12 05:54] LABS: WHITE BLOOD COUNT 38.7 10^3/uL (4.3-11.0)
[2016-12-12 05:58] VITALS: BP 126/64
[2016-12-12] MEDS: PANTOPRAZOLE 40 MG (PROTONIX) TAB PO SCH (06:01)
[2016-12-12] MEDS: MULTIVIT W/MINERALS TAB (THERAGRAN M) PO SCH (06:02)
[2016-12-12] MEDS: RT-ADVAIR HFA 115/21 MCG PER PUFF IH SCH (07:21)
--- NOTE | 2016-12-12 08:44 | PM & R (SOAP) Progress Note ---
Subjective Time Seen by Provider: 08:05 Subjective/Events-last exam Patient was seen in his room and in common area with PT Discussed case with RN Patient with increased pain with therapies Will schedule AM dose of pain med so as to decrease any breakthrough pain Serum Ca low -david replace Patient Min to mod assist for transfers and min assist for gait with WW with forward flexed posture Review of Systems Musculoskeletal: back pain Objective Exam Last Set of Vital Signs Vital Signs Date Time Temp Pulse Resp B/P (MAP) Pulse Ox O2 Delivery O2 Flow Rate FiO2 12/12/16 07:21 96 Room Air 12/12/16 05:58 97.4 95 18 126/64 Capillary Refill : I&O Intake and Output 12/12/16 00:00 Intake Total 790 ml Output Total 900 ml Balance -110 ml Intake Oral 790 ml Output Urine Total 900 ml # Voids 1 # Bowel Movements 1 General: Alert, Oriented X3, Cooperative HEENT: Mucous Memb Moist/Gause, Other (running blue suture on top of head- skin growing around it.) Neck: Supple, No JVD Lungs: Clear to Auscultation, Normal Air Movement Heart: Regular Rate Abdomen: Normal Bowel Sounds, Soft Extremities: No Clubbing, No Cyanosis Skin: No Rashes, No Breakdown, Other (back incision- covered with dressing) Neuro: Normal Speech, Sensation Intact, Other (strength- 4/5 lower extremities - 5/5 upper extremities) Psych/Mental Status: Mental Status NL, Mood NL (quiet, reserved) Results Lab Laboratory Tests 12/09/16 13:30: White Blood Count 53.0*H, Red Blood Count 3.43L, Hemoglobin 10.6L, Hematocrit 34L, Mean Corpuscular Volume 98, Mean Corpuscular Hemoglobin 31, Mean Corpuscular Hemoglobin Concent 32, Red Cell Distribution Width 18.8H, Platelet Count 240, Mean Platelet Volume 9.2, Neutrophils (%) (Auto) 18L, Lymphocytes (% ) (Auto) 82H, Monocytes (%) (Auto) 1, Eosinophils (%) (Auto) 0, Basophils (%) ( Auto) 0, Neutrophils # (Auto) 9.4H, Lymphocytes # (Auto) 43.2H, Monocytes # ( Auto) 0.3, Eosinophils # (Auto) 0.0, Basophils # (Auto) 0.1, Absolute Reticulocyte Count 151H, Percent Reticulocyte Count 4.40H, Sodium Level 134L, Potassium Level 4.7, Chloride Level 101, Carbon Dioxide Level 22, Anion Gap 11, Blood Urea Nitrogen 13, Creatinine 0.77, Estimat Glomerular Filtration Rate > 60 , BUN/Creatinine Ratio 17, Glucose Level 108H, Calcium Level 8.3L 12/10/16 05:05: Glucometer 94 12/10/16 05:45: White Blood Count 41.9*H, Red Blood Count 2.94L, Hemoglobin 9.1L, Hematocrit 29L , Mean Corpuscular Volume 98, Mean Corpuscular Hemoglobin 31, Mean Corpuscular Hemoglobin Concent 32, Red Cell Distribution Width 18.5H, Platelet Count 213, Mean Platelet Volume 9.2, Neutrophils (%) (Auto) 14L, Lymphocytes (%) (Auto) 84H , Monocytes (%) (Auto) 1, Eosinophils (%) (Auto) 0, Basophils (%) (Auto) 0, Neutrophils # (Auto) 6.0, Lymphocytes # (Auto) 35.3H, Monocytes # (Auto) 0.5, Eosinophils # (Auto) 0.0, Basophils # (Auto) 0.0, Absolute Reticulocyte Count 117H, Percent Reticulocyte Count 3.97H, Sodium Level 135, Potassium Level 4.6, Chloride Level 105, Carbon Dioxide Level 22, Anion Gap 8, Blood Urea Nitrogen 13 , Creatinine 0.73, Estimat Glomerular Filtration Rate > 60, BUN/Creatinine Ratio 18, Glucose Level 98, Calcium Level 7.8L, Neutrophils % (Manual) 30, Lymphocytes % (Manual) 69, Monocytes % (Manual) 1, Eosinophils % (Manual) 0, Basophils % (Manual) 0, Band Neutrophils 0, Smudge Cells MARKED, Poikilocytosis SLIGHT, Anisocytosis MODERATE, Total Bilirubin 1.7H, Aspartate Amino Transf (AST /SGOT) 24, Alanine Aminotransferase (ALT/SGPT) 12, Alkaline Phosphatase 121, Total Protein 4.8L, Albumin 2.7L 12/11/16 06:12: White Blood Count 42.1*H, Red Blood Count 3.08L, Hemoglobin 9.7L, Hematocrit 30L , Mean Corpuscular Volume 99, Mean Corpuscular Hemoglobin 32, Mean Corpuscular Hemoglobin Concent 32, Red Cell Distribution Width 18.7H, Platelet Count 206, Mean Platelet Volume 9.3, Neutrophils (%) (Auto) 14L, Lymphocytes (%) (Auto) 86H , Monocytes (%) (Auto) 1, Eosinophils (%) (Auto) 0, Basophils (%) (Auto) 0, Neutrophils # (Auto) 5.7, Lymphocytes # (Auto) 36.0H, Monocytes # (Auto) 0.3, Eosinophils # (Auto) 0.0, Basophils # (Auto) 0.1 12/12/16 05:30: White Blood Count 38.7*H, Red Blood Count 2.78L, Hemoglobin 9.0L, Hematocrit 28L , Mean Corpuscular Volume 99, Mean Corpuscular Hemoglobin 32, Mean Corpuscular Hemoglobin Concent 33, Red Cell Distribution Width 18.7H, Platelet Count 203, Mean Platelet Volume 9.1, Neutrophils (%) (Auto) 14L, Lymphocytes (%) (Auto) 86H , Monocytes (%) (Auto) 0, Eosinophils (%) (Auto) 0, Basophils (%) (Auto) 0, Neutrophils # (Auto) 5.4, Lymphocytes # (Auto) 33.3H, Monocytes # (Auto) 0.0, Eosinophils # (Auto) 0.0, Basophils # (Auto) 0.1 Assessment/Plan Assessment 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 Appreciate ST note they have signed off for now as she feel patient is at baseline with mild memory deficits Current labs noted Schedule Pain med in AM before morning session of Therapy Replace Ca See orders KARL MIRELES MD Dec 12, 2016 08:44
--- NOTE | 2016-12-12 09:02 | Physical Therapy Daily Note ---
PT Daily Note-Current Subjective Patient in bed pre tx, agrees to PT, has no pain at rest in his bed but extreme pain with activity. Patient needs dressed. Appearance Patient on bedside commode post tx with nurse call, and nursing in the room. Mental Status Patient Orientation: Person, Place, Situation TLSO Transfers Functional [place] Measure 0=Not Assessed/NA 4=Minimal Assistance 1=Total Assistance 5=Supervision or Setup 2=Maximal Assistance 6=Modified [place] 3=Moderate Assistance 7=Complete IndependenceIRFPAI Quality Coding Scale 6 Independent with activity with or without an assistive device 5 Patient requires set up or clean up by helper. Patient completes activity by themselves 4 Supervision or touching assist (CGA). [place] provide cues , steadying assist 3 The helper provides less than half the effort to complete the activity 2 The helper provides more than half the effort to complete the activity 1 Dependent. The helper does all the effort to complete an activity 7 Patient refused to complete or attempt activity 9 The patient did not perform the activity before the current illness or injury 88 Not attempted due to Medical conditions or safety concerns Transfers (B, C, W/C) (FIM): 2 Scootin Rollin Supine to/from Sit: 2 Sit to/from Stand: 2 Patient seems to not be able to assist much with his legs when standing. Gait Training Gait (FIM): 2 Distance: 50', 100' Gait Level of Assist: 4 Gait Persons Needed: 1 Gait Assistive Device: FWW Very slow, antalgic, slumps over. Exercises Standing: Heel/toe raises, Mini squats Standing Reps: 15 Treatments Bed mobility and transfers, ambulation, functional strengthening, patient was dressed. Patient stated at the end of his treatment that he had to have a bowel movement. He was put on the bedside commode with his nurse call, and nurse was actually in the room. Assessment Current Status: Poor Progress No change in mobility. Patient takes a lot of extra time with mobility. PT Short Term Goals Short Term Goals Time Frame: Dec 15, 2016 Transfers (B,C,W/C) (FIM): 3 Gait (FIM): 2 Gait Distance Comment: 50' Gait Level of Assist: 3 Gait Assistive Device: FWW Wheelchair Distance: 150' PT Occupational Therapy Specialist Goals Occupational Therapy Specialist Goals PT Occupational Therapy Specialist Goals Time Frame: Dec 29, 2016 Transfers (B,C,W/C) (FIM): 4 Sit to Lying (QC): 4 Lying-Sitting on Side/Bed(QC): 4 Sit to Stand (QC): 4 Rollin Roll Left to Right (QC): 4 Chair/Ksn-kq-Urndp Xfer(QC): 4 Car Transfer (QC): 4 Gait (FIM): 4 Distance: 150' Walk 10 feet (QC): 4 Walk 10ft-Uneven Surface(QC): 4 Walk 50ft with 2 Turns (QC): 4 Walk 150 ft (QC): 4 Gait Level of Assist: 4 Gait Assistive Device: FWW Stairs (FIM): 2 # of Steps: 4 1 Step (curb) (QC): 4 4 Steps (QC): 4 Stairs Level Of Assist: 4 PT Plan Problem List Problem List: Activity Tolerance, Functional Strength, Safety, Balance, Gait, Transfer, Bed Mobility, ROM Treatment/Plan Treatment Plan: Continue Plan of Care Treatment Plan: Bed Mobility, Education, Functional Activity [place], Functional Strength, Group Therapy, Gait, Safety, Therapeutic Exercise, Transfers Treatment Duration: Dec 29, 2016 Frequency: At least 5-7 days/Wk (IRF) Estimated Hrs Per Day: 1.5 hours per day Patient and/or Family Agrees t: Yes Safety Risks/Education Patient Education: Gait Training, Transfer Techniques, Correct Positioning, Reviewed Don/Doff Brace, Safety Issues Teaching Recipient: Patient Teaching Methods: Demonstration, Discussion Response to Teaching: Reinforcement Needed Time/GCodes Time In: 800 Time Out: 900 Total Billed Treatment Time: 60 Total Billed Treatment 1 visit GT 30' EX 15' FA 15' TYSON AGUILERA PT Dec 12, 2016 09:02
--- NOTE | 2016-12-12 09:16 | Progress Note (SOAP) ---
Subjective Date Seen by Provider: Dec 12, 2016 Time Seen by Provider: 09:10 Subjective/Events-last exam He states he is feeling better today; Bowels moved this morning and he is using the incentive spirometer; Objective Exam Vital Signs Date Time Temp Pulse Resp B/P (MAP) Pulse Ox O2 Delivery O2 Flow Rate FiO2 12/12/16 07:21 96 Room Air 12/12/16 05:58 97.4 95 18 126/64 95 Room Air 12/11/16 20:15 Room Air 12/11/16 19:28 Room Air 12/11/16 18:39 99.0 102 14 108/58 94 12/11/16 15:49 Room Air I & O 12/12/16 07:00 Intake Total 640 ml Output Total 350 ml Balance 290 ml Capillary Refill : General Appearance: No Apparent Distress HEENT: PERRL/EOMI Neck: Full Range of Motion, Non Tender, Supple Respiratory: Lungs Clear Cardiovascular: Regular Rate, Rhythm, No Edema Gastrointestinal: normal bowel sounds, non tender, soft Extremity: Non Tender, No Calf Tenderness Neurologic/Psychiatric: Alert, Oriented x3 Results Lab Laboratory Tests 12/12/16 05:30: White Blood Count 38.7*H, Red Blood Count 2.78L, Hemoglobin 9.0L, Hematocrit 28L , Mean Corpuscular Volume 99, Mean Corpuscular Hemoglobin 32, Mean Corpuscular Hemoglobin Concent 33, Red Cell Distribution Width 18.7H, Platelet Count 203, Mean Platelet Volume 9.1, Neutrophils (%) (Auto) 14L, Lymphocytes (%) (Auto) 86H , Monocytes (%) (Auto) 0, Eosinophils (%) (Auto) 0, Basophils (%) (Auto) 0, Neutrophils # (Auto) 5.4, Lymphocytes # (Auto) 33.3H, Monocytes # (Auto) 0.0, Eosinophils # (Auto) 0.0, Basophils # (Auto) 0.1 Laboratory Tests 12/11/16 06:12 12/12/16 05:30 Assessment/Plan Assessment/Plan Assess & Plan/Chief Complaint 1. Leukocytosis-arising from known CLL related lymphocytosis and mild granulocytosis. Current stress of vertebral fracture, scalp laceration and other lacerations caused by fall may be source of his leukocytosis. a. We'll monitor. Peripheral smear has been reviewed and shows expected changes given current setting. b. WBC gradually improving. 2. Anemia-multifactorial in origin related to recent trauma, chronic disease , and CLL. a. Check reticulocyte count and EDSON. b. Appropriately elevated reticulocyte count. EDSON is negative, therefore no need for steroid intervention. 3. Status post traumatic L2 vertebral body hyperextension fracture and subsequent L2 fusion surgery completed on 12/01/16. a. Patient now admitted to acute inpatient rehabilitation for for rehabilitation. b. Recommend administering breakthrough pain medication (Oxy-Ir) to start of physical therapy session to reduce patient's discomfort level. 4. 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 Status Post Evacuation of Subdural Hematoma in 2014 6. Comorbidities of history of recurrent abdominal pain, coronary artery disease, arthritis, hyperlipidemia, hypertension, chronic lung disease. 7. Dr. Brown will be covering until 12/16/16. Clinical Quality Measures DVT/VTE Risk/Contraindication: Risk Factor Score Per Nursin RFS Level Per Nursing on Admit: 4+=Very High JACQUELYN VAZQUEZ MD Dec 12, 2016 09:16
[2016-12-12] MEDS: meTOprolol TARTRATE 50 MG (LOPRESSOR) TAB PO SCH ×2 (09:34→20:03)
[2016-12-12] MEDS: ENALAPRIL 5 MG (VASOTEC) TAB PO SCH (09:35)
--- NOTE | 2016-12-12 10:12 | Occupational Ther Daily Note ---
OT Current Status-Daily Note Subjective Pt alert, sitting on BSC. Pt agreed to therapy. No c/o pain at this time. Pt stated that he needed to get his pain medications in correlation with therapy. Nrsg does know about this. Mental Status/Objective Patient Orientation: Person, Place, Time, Situation Functional [place] Measure 0=Not Assessed/NA 4=Minimal Assistance 1=Total Assistance 5=Supervision or Setup 2=Maximal Assistance 6=Modified [place] 3=Moderate Assistance 7=Complete [place] ADL-Treatment Pt had BM on BSC. Assist x2 to go from sit to stand then was able to stand with assist x1. Assist to cleanse buttocks in standing. Set up for sponge bathing. Pt was able to use long handle sponge to bathe lower legs though not effectively. Pt was able to cleanse upper body and samanta area in sitting. Pt declined brushing teeth at this time. Pt took increased time to complete ADLs due to increased fatigue, decreased activity tolerance. Mod A to don/doff shirt , doffed socks with sock aide then max A for donning shoes. After therapy, pt' s in room. Pt sitting in recliner with call light/phone in reach. All needs met in room. Functional [place] Measure 0=Not Assessed/NA 4=Minimal Assistance 1=Total Assistance 5=Supervision or Setup 2=Maximal Assistance 6=Modified [place] 3=Moderate Assistance 7=Complete IndependenceIRFPAI Quality Coding Scale 6 Independent with activity with or without an assistive device 5 Patient requires set up or clean up by helper. Patient completes activity by themselves 4 Supervision or touching assist (CGA). [place] provide cues , steadying assist 3 The helper provides less than half the effort to complete the activity 2 The helper provides more than half the effort to complete the activity 1 Dependent. The helper does all the effort to complete an activity 7 Patient refused to complete or attempt activity 9 The patient did not perform the activity before the current illness or injury 88 Not attempted due to Medical conditions or safety concerns Bathing (FIM): 3 Bathing Location: L Arm, R Arm, L Upper Leg, R Upper Leg, L Lower Leg ( including foot), R Lower Leg (including foot), Chest, Abdomen, Perineal Area Upper Body (FIM): 3 Lower Body Dressing (FIM): 2 OT Short Term Goals Short Term Goals Time Frame: Dec 15, 2016 Eating(FIM): 5 Grooming(FIM): 4 Bathing(FIM): 3 Upper Body Dressing(FIM): 3 Lower Body Dressing(FIM): 3 Toileting(FIM): 3 Transfers (B,C,W/C) (FIM): 3 Toilet/Commode Transfer(FIM): 3 Additional Short Term Goals: 1-Demonstrate ADL Tasks, 2-Verbalize Understanding , 3-ImproveStrength/[place]andler 1=Demonstrate adherence to instructed precautions during ADL tasks. 2=Patient will verbalize/demonstrate understanding of assistive devices/ modifications for ADL. 3=Patient will improve strength/tolerance for activity to enable patient to perform ADL's. OT Apricot Washer Goals Fdc Goals Time Frame: Dec 29, 2016 Eating (FIM): 6 Eating (QC): 5 Groomin Oral Hygiene (QC): 5 Bathing(FIM): 4 Shower/Bathe Self (QC): 4 Upper Body Dressing(FIM): 5 Upper Body Dressing (QC): 5 Lower Body Dressing(FIM): 5 Lower Body Dressing (QC): 5 On/Off Footwear (QC): 5 Toileting(FIM): 6 Toileting Hygiene (QC): 5 Transfers (B,C,W/C) (FIM): 5 Toilet/Commode Transfer(FIM): 5 Toilet/Commode Transfer (QC): 5 Shower Transfer(FIM): 4 Additional Goals: 1-Demonstrate ADL Tasks, 2-Verbalize Understanding, 3- ImproveStrength/Chandler 1=Demonstrate adherence to instructed precautions during ADL tasks. 2=Patient will verbalize/demonstrate understanding of assistive devices/ modifications for ADL. 3=Patient will improve strength/tolerance for activity to enable patient to perform ADL's. OT Education/Plan Discharge Recommendations Plan/Recommendations: Continue POC Treatment Plan/Plan of Care Patient would benefit from OT for education, treatment and training to promote independence in ADL's, mobility, safety and/or upper extremity function for ADL' s. Plan of Care: ADL Retraining, Caregiver Training, Functional Mobility, Group Exercise/Act as Ind, UE Funct Exercise/Act Treatment Duration: Dec 29, 2016 Frequency: Twice Daily (Thursday - Thursday, PRN Thursday) Estimated Hrs Per Day: 1.5 hours per day Agreement: Yes Rehab Potential: Fair Time/GCodes Start Time: 09:10 Stop Time: 10:10 Total Time Billed (hr/min): 60 Billed Treatment Time 1 visit-ADL 4 (60 min) DOUGIE VILLATORO Dec 12, 2016 10:12
--- NOTE | 2016-12-12 14:36 | Therapy Group Daily Note ---
Therapy Daily Group Note Exercises Other Other/Notes Pt was an active participant in OT/PT group. He introduced himself to the group for socialization and did seated exercises for stress management. He played Supply[employer] with a group and was able to roll the dice, add up points, and problem- solve what moves to make next. He also was able to participate for the entire group time. He was returned to his room in his recliner, all needs met, present. Start Time: 13:00 Stop Time: 14:15 Total Billed Treatment Time: 75 Total Billed Treatment visit, 75 minutes group JUANITO MARTE OT Dec 12, 2016 14:36
[2016-12-12 18:22] VITALS: BP 102/62
[2016-12-12] MEDS: ATORVASTATIN 40 MG (LIPITOR) TABLET PO SCH (20:03)
[2016-12-12] MEDS: ACETAMINOPHEN 325 MG TABLET/CAPLET (TYLENOL) PO PRN (20:04)
[2016-12-13 05:31] LABS: BASOPHILS # (AUTO) 0.1 10^3/uL (0.0-0.1); BASOPHILS % (AUTO) 0 % (0-10); EOSINOPHILS # (AUTO) 0.1 10^3/uL (0.0-0.3); EOSINOPHILS % (AUTO) 0 % (0-10); LYMPHOCYTES # (AUTO) 29.5 X 10^3 (1.0-4.0); LYMPHOCYTES % (AUTO) 85 % (12-44); MEAN CORPUSCULAR HEMOGLOBIN 31 PG (25-34); MEAN CORPUSCULAR HGB CONC 32 G/DL (32-36); MEAN CORPUSCULAR VOLUME 99 FL (80-99); MEAN PLATELET VOLUME 9.2 FL (7.4-10.4); MONOCYTES # (AUTO) 0.3 X 10^3 (0.0-1.0); MONOCYTES % (AUTO) 1 % (0-12); NEUTROPHILS # (AUTO) 4.7 X 10^3 (1.8-7.8); NEUTROPHILS % (AUTO) 14 % (42-75); PLATELET COUNT 182 10^3/uL (130-400); RED BLOOD COUNT 2.84 10^6/uL (4.35-5.85); RED CELL DISTRIBUTION WIDTH 18.7 % (10.0-14.5)
[2016-12-13 05:53] LABS: WHITE BLOOD COUNT 34.6 10^3/uL (4.3-11.0)
[2016-12-13 06:28] VITALS: BP 149/84
[2016-12-13] MEDS: CALCIUM CARB + VIT D 600 MG (CALCARB + D) TAB PO SCH (06:31)
[2016-12-13] MEDS: MULTIVIT W/MINERALS TAB (THERAGRAN M) PO SCH (06:31)
[2016-12-13] MEDS: PANTOPRAZOLE 40 MG (PROTONIX) TAB PO SCH (06:31)
[2016-12-13] MEDS: RT-ADVAIR HFA 115/21 MCG PER PUFF IH SCH (08:25)
[2016-12-13 09:13] VITALS: BP 103/51
[2016-12-13] MEDS: ENALAPRIL 5 MG (VASOTEC) TAB PO SCH (09:23)
[2016-12-13] MEDS: meTOprolol TARTRATE 50 MG (LOPRESSOR) TAB PO SCH ×2 (09:23→20:08)
--- NOTE | 2016-12-13 09:25 | Physical Therapy Daily Note ---
PT Daily Note-Current Subjective Pt sitting in recliner upon arrival. Pt agrees to PT. PT will assist Aide to standing pt while Aide bathes pt at recliner. Pain Location: Incisional, Dorsal Location Body Site: Back Pain Description: Ache Comment: Pt didn't rate, just advised PT of receiving pain med recently. Mental Status Patient Orientation: Person, Place, Situation Attachments: Other-See Comments (Bace Brace) Transfers Functional [place] Measure 0=Not Assessed/NA 4=Minimal Assistance 1=Total Assistance 5=Supervision or Setup 2=Maximal Assistance 6=Modified [place] 3=Moderate Assistance 7=Complete IndependenceIRFPAI Quality Coding Scale 6 Independent with activity with or without an assistive device 5 Patient requires set up or clean up by helper. Patient completes activity by themselves 4 Supervision or touching assist (CGA). [place] provide cues , steadying assist 3 The helper provides less than half the effort to complete the activity 2 The helper provides more than half the effort to complete the activity 1 Dependent. The helper does all the effort to complete an activity 7 Patient refused to complete or attempt activity 9 The patient did not perform the activity before the current illness or injury 88 Not attempted due to Medical conditions or safety concerns Scootin Sit to/from Stand: 3 Sit to Stand (QC): 3 Pt stands at recliner using FWW for bathing. Weight Bearing Weight Bearing Restriction: Full Weight Bearing Location Restriction: LE Bilateral Treatments Pt with assistance of PT and Aide donns & doffs back brace. PT assists pt with standing using FWW while Aide bathes pt at recliner before returning to sitting in recliner to rest. Pt is left with all needs met at end of tx resting in recliner. Assessment Current Status: Fair Progress Pt adheres to precautions and uses back brace appropriately but still struggling with strength of UE & LE. PT Short Term Goals Short Term Goals Time Frame: Dec 15, 2016 Transfers (B,C,W/C) (FIM): 3 Gait (FIM): 2 Gait Distance Comment: 50' Gait Level of Assist: 3 Gait Assistive Device: FWW Wheelchair Distance: 150' PT Overweaver Goals Overweaver Goals PT Overweaver Goals Time Frame: Dec 29, 2016 Transfers (B,C,W/C) (FIM): 4 Sit to Lying (QC): 4 Lying-Sitting on Side/Bed(QC): 4 Sit to Stand (QC): 4 Rollin Roll Left to Right (QC): 4 Chair/Zpw-vc-Xciai Xfer(QC): 4 Car Transfer (QC): 4 Gait (FIM): 4 Distance: 150' Walk 10 feet (QC): 4 Walk 10ft-Uneven Surface(QC): 4 Walk 50ft with 2 Turns (QC): 4 Walk 150 ft (QC): 4 Gait Level of Assist: 4 Gait Assistive Device: FWW Stairs (FIM): 2 # of Steps: 4 1 Step (curb) (QC): 4 4 Steps (QC): 4 Stairs Level Of Assist: 4 PT Plan Problem List Problem List: Activity Tolerance, Functional Strength, Safety, Balance, Gait, Transfer, Bed Mobility Treatment/Plan Treatment Plan: Continue Plan of Care Treatment Plan: Bed Mobility, Education, Functional Activity [place], Functional Strength, Group Therapy, Gait, Safety, Therapeutic Exercise, Transfers Treatment Duration: Dec 29, 2016 Frequency: At least 5-7 days/Wk (IRF) Estimated Hrs Per Day: 1.5 hours per day Patient and/or Family Agrees t: Yes Safety Risks/Education Patient Education: Transfer Techniques, Correct Positioning, Reviewed Don/Doff Brace, Safety Issues Teaching Recipient: Patient Teaching Methods: Discussion Response to Teaching: Verbalize Understanding Time/GCodes Time In: 800 Time Out: 820 Total Billed Treatment Time: 20 Total Billed Treatment visit, FA (20m) KIRSTEN CORRAL PTA Dec 13, 2016 09:25
[2016-12-13 18:47] VITALS: BP 96/57
[2016-12-13] MEDS: ATORVASTATIN 40 MG (LIPITOR) TABLET PO SCH (20:08)
[2016-12-13] MEDS: ACETAMINOPHEN 325 MG TABLET/CAPLET (TYLENOL) PO PRN (20:08)
[2016-12-14 05:59] LABS: BASOPHILS % (AUTO) 0 % (0-10); EOSINOPHILS # (AUTO) 0.1 10^3/uL (0.0-0.3); EOSINOPHILS % (AUTO) 0 % (0-10); LYMPHOCYTES % (AUTO) 83 % (12-44); MEAN CORPUSCULAR HEMOGLOBIN 32 PG (25-34); MEAN CORPUSCULAR HGB CONC 32 G/DL (32-36); MEAN CORPUSCULAR VOLUME 99 FL (80-99); MEAN PLATELET VOLUME 9.5 FL (7.4-10.4); MONOCYTES # (AUTO) 0.2 X 10^3 (0.0-1.0); MONOCYTES % (AUTO) 1 % (0-12); NEUTROPHILS # (AUTO) 5.5 X 10^3 (1.8-7.8); NEUTROPHILS % (AUTO) 16 % (42-75); PLATELET COUNT 181 10^3/uL (130-400); RED BLOOD COUNT 2.87 10^6/uL (4.35-5.85); RED CELL DISTRIBUTION WIDTH 18.7 % (10.0-14.5)
[2016-12-14 06:00] VITALS: BP 137/80
[2016-12-14 06:03] LABS: WHITE BLOOD COUNT 33.9 10^3/uL (4.3-11.0)
[2016-12-14] MEDS: PANTOPRAZOLE 40 MG (PROTONIX) TAB PO SCH (06:23)
[2016-12-14] MEDS: CALCIUM CARB + VIT D 600 MG (CALCARB + D) TAB PO SCH (06:23)
[2016-12-14] MEDS: MULTIVIT W/MINERALS TAB (THERAGRAN M) PO SCH (06:23)
[2016-12-14] MEDS: RT-ADVAIR HFA 115/21 MCG PER PUFF IH SCH (07:27)
[2016-12-14 07:37] VITALS: BP 130/63
[2016-12-14] MEDS: meTOprolol TARTRATE 50 MG (LOPRESSOR) TAB PO SCH ×2 (07:39→21:02)
[2016-12-14] MEDS: ENALAPRIL 5 MG (VASOTEC) TAB PO SCH (07:39)
[2016-12-14 18:31] VITALS: BP 107/66
[2016-12-14] MEDS: ATORVASTATIN 40 MG (LIPITOR) TABLET PO SCH (21:02)
[2016-12-15] MEDS: PANTOPRAZOLE 40 MG (PROTONIX) TAB PO SCH (06:02)
[2016-12-15] MEDS: MULTIVIT W/MINERALS TAB (THERAGRAN M) PO SCH (06:02)
[2016-12-15] MEDS: CALCIUM CARB + VIT D 600 MG (CALCARB + D) TAB PO SCH (06:02)
[2016-12-15 06:12] VITALS: BP 137/82
[2016-12-15 06:33] LABS: BASOPHILS % (AUTO) 0 % (0-10); EOSINOPHILS # (AUTO) 0.1 10^3/uL (0.0-0.3); EOSINOPHILS % (AUTO) 0 % (0-10); LYMPHOCYTES # (AUTO) 27.6 X 10^3 (1.0-4.0); LYMPHOCYTES % (AUTO) 84 % (12-44); MEAN CORPUSCULAR HEMOGLOBIN 32 PG (25-34); MEAN CORPUSCULAR HGB CONC 32 G/DL (32-36); MEAN CORPUSCULAR VOLUME 100 FL (80-99); MEAN PLATELET VOLUME 9.2 FL (7.4-10.4); MONOCYTES # (AUTO) 0.3 X 10^3 (0.0-1.0); MONOCYTES % (AUTO) 1 % (0-12); NEUTROPHILS # (AUTO) 4.9 X 10^3 (1.8-7.8); NEUTROPHILS % (AUTO) 15 % (42-75); PLATELET COUNT 173 10^3/uL (130-400); RED BLOOD COUNT 2.89 10^6/uL (4.35-5.85); RED CELL DISTRIBUTION WIDTH 18.9 % (10.0-14.5)
[2016-12-15 06:38] LABS: WHITE BLOOD COUNT 32.9 10^3/uL (4.3-11.0)
[2016-12-15] MEDS: RT-ADVAIR HFA 115/21 MCG PER PUFF IH SCH (07:05)
[2016-12-15] MEDS: meTOprolol TARTRATE 50 MG (LOPRESSOR) TAB PO SCH ×2 (08:00→20:22)
[2016-12-15] MEDS: ENALAPRIL 5 MG (VASOTEC) TAB PO SCH (08:00)
[2016-12-15] MEDS: ACETAMINOPHEN 325 MG TABLET/CAPLET (TYLENOL) PO PRN (09:11)
--- NOTE | 2016-12-15 11:56 | Physical Therapy Daily Note ---
PT Daily Note-Current Subjective Patient in recliner pre tx, agrees to PT, has pain of 3/10 in left leg. Appearance Patient in recliner post tx with nurse call, phone, tray, all needs met. Mental Status Patient Orientation: Person, Place, Situation TLSO Transfers Functional [place] Measure 0=Not Assessed/NA 4=Minimal Assistance 1=Total Assistance 5=Supervision or Setup 2=Maximal Assistance 6=Modified [place] 3=Moderate Assistance 7=Complete IndependenceIRFPAI Quality Coding Scale 6 Independent with activity with or without an assistive device 5 Patient requires set up or clean up by helper. Patient completes activity by themselves 4 Supervision or touching assist (CGA). [place] provide cues , steadying assist 3 The helper provides less than half the effort to complete the activity 2 The helper provides more than half the effort to complete the activity 1 Dependent. The helper does all the effort to complete an activity 7 Patient refused to complete or attempt activity 9 The patient did not perform the activity before the current illness or injury 88 Not attempted due to Medical conditions or safety concerns Transfers (B, C, W/C) (FIM): 4 Sit to/from Stand: 4 Patient was able to improve sit to stand to min assist from low surfaces. Gait Training Gait (FIM): 4 Distance: 150', 75'x2 Gait Level of Assist: 4 Gait Persons Needed: 1 Gait Assistive Device: FWW CGA, slow, antalgic Exercises Seated Therapy Exercises: Ankle pumps, Hip flexion Seated Reps: 20 Standing: Heel/toe raises, Mini squats Standing Reps: 20 sit to stand 3 sets of 5, LAQ alternating for 5 min, seated hip abd with RTB x20 , seated hip add using pillow x20 Treatments transfers, ambulation, functional strengthening Assessment Current Status: Fair Progress improved sit to stand, patient fatigues quickly and needs frequent rest breaks PT Short Term Goals Short Term Goals Time Frame: Dec 15, 2016 Transfers (B,C,W/C) (FIM): 3 Gait (FIM): 2 Gait Distance Comment: 50' Gait Level of Assist: 3 Gait Assistive Device: FWW Wheelchair Distance: 150' PT Lay Out Inspector Goals Lay Out Inspector Goals PT Intermediate Goals Time Frame: Dec 29, 2016 Transfers (B,C,W/C) (FIM): 4 Sit to Lying (QC): 4 Lying-Sitting on Side/Bed(QC): 4 Sit to Stand (QC): 4 Rollin Roll Left to Right (QC): 4 Chair/Lkr-zs-Mkumz Xfer(QC): 4 Car Transfer (QC): 4 Gait (FIM): 4 Distance: 150' Walk 10 feet (QC): 4 Walk 10ft-Uneven Surface(QC): 4 Walk 50ft with 2 Turns (QC): 4 Walk 150 ft (QC): 4 Gait Level of Assist: 4 Gait Assistive Device: FWW Stairs (FIM): 2 # of Steps: 4 1 Step (curb) (QC): 4 4 Steps (QC): 4 Stairs Level Of Assist: 4 PT Plan Problem List Problem List: Activity Tolerance, Functional Strength, Safety, Balance, Gait, Transfer, Bed Mobility, ROM Treatment/Plan Treatment Plan: Continue Plan of Care Treatment Plan: Bed Mobility, Education, Functional Activity [place], Functional Strength, Group Therapy, Gait, Safety, Therapeutic Exercise, Transfers Treatment Duration: Dec 29, 2016 Frequency: At least 5-7 days/Wk (IRF) Estimated Hrs Per Day: 1.5 hours per day Patient and/or Family Agrees t: Yes Safety Risks/Education Patient Education: Gait Training, Transfer Techniques, Correct Positioning, Safety Issues Teaching Recipient: Patient Teaching Methods: Demonstration, Discussion Response to Teaching: Reinforcement Needed Time/GCodes Time In: 1100 Time Out: 1200 Total Billed Treatment Time: 60 Total Billed Treatment 1 visit GT 30' EX 30' TYSON AGUILERA PT Dec 15, 2016 11:56
--- NOTE | 2016-12-15 13:22 | Occupational Ther Daily Note ---
OT Current Status-Daily Note Subjective Pt. reports 10/10 pain in back this morning. Nursing notified and gives him pain medication. Appearance Pt. in bed when OT enters room. Agrees to work with OT. Mental Status/Objective Patient Orientation: Person, Place Functional [place] Measure 0=Not Assessed/NA 4=Minimal Assistance 1=Total Assistance 5=Supervision or Setup 2=Maximal Assistance 6=Modified [place] 3=Moderate Assistance 7=Complete [place] ADL-Treatment Functional [place] Measure 0=Not Assessed/NA 4=Minimal Assistance 1=Total Assistance 5=Supervision or Setup 2=Maximal Assistance 6=Modified [place] 3=Moderate Assistance 7=Complete IndependenceIRFPAI Quality Coding Scale 6 Independent with activity with or without an assistive device 5 Patient requires set up or clean up by helper. Patient completes activity by themselves 4 Supervision or touching assist (CGA). [place] provide cues , steadying assist 3 The helper provides less than half the effort to complete the activity 2 The helper provides more than half the effort to complete the activity 1 Dependent. The helper does all the effort to complete an activity 7 Patient refused to complete or attempt activity 9 The patient did not perform the activity before the current illness or injury 88 Not attempted due to Medical conditions or safety concerns Bathing (FIM): 3 (Pt. is able to wash chest and arms seated on side of bed, and then legs with LH sponge seated. OT washed samanta areas in stance after pt. toileted.) Shower/Bathe Self (QC): 3 Upper Body (FIM): 3 (Min assist to don shirt and max assist to don brace.) Upper Body Dressing (QC): 3 Lower Body Dressing (FIM): 1 (Pt. attempted with equipment but couldnt use it due to pain.) Lower Body Dressing (QC): 1 On/Off Footwear (QC): 1 Toileting (FIM): 1 Toileting Hygiene (QC): 1 Transfers (B, C, W/C) (FIM): 3 (Mod assist supine to sit, and then mod sit- stand.) Toilet/Commode Transfer (FIM): 3 Other Treatment At beginning of treatment, pt. insistent that OT have two people in room to get him to side of bed. Nurse tech came in but pt. only required one person. Pt. able to sit on side of bed, but reported 10/10 back pain. Nursing gave pt. pain pill. Pt. started to state that he had to get to toilet very fast. Transferred very quickly so that pt. would not have accident on side of bed. Required mod assist to transfer to BSC. Able to have BM. Required dependent assistance to cleanse self. OT began to have pt. practice donning brace, but spouse in room and started to assist him as well. Transferred to chair with mod assist. Pillows placed to assist with positioning. All needs met in room. Pt. required increased time with all tasks. Education OT Patient Education: Correct positioning, Exercise program, Modified ADL techniques, Progress toward Goal/Update tx plan, Purpose of tx/functional activities, Reviewed precautions, Rehab process, Transfer techniques, Use of adapted equipment Teaching Recipient: Patient Teaching Methods: Demonstration, Discussion Response to Teaching: Verbalize Understanding, Return Demonstration OT Short Term Goals Short Term Goals Time Frame: Dec 15, 2016 Eating(FIM): 5 Grooming(FIM): 4 Bathing(FIM): 3 Upper Body Dressing(FIM): 3 Lower Body Dressing(FIM): 3 Toileting(FIM): 3 Transfers (B,C,W/C) (FIM): 3 Toilet/Commode Transfer(FIM): 3 Additional Short Term Goals: 1-Demonstrate ADL Tasks, 2-Verbalize Understanding , 3-ImproveStrength/Chandler 1=Demonstrate adherence to instructed precautions during ADL tasks. 2=Patient will verbalize/demonstrate understanding of assistive devices/ modifications for ADL. 3=Patient will improve strength/tolerance for activity to enable patient to perform ADL's. OT Residential Goals Kennel Keeper Goals Time Frame: Dec 29, 2016 Eating (FIM): 6 Eating (QC): 5 Groomin Oral Hygiene (QC): 5 Bathing(FIM): 4 Shower/Bathe Self (QC): 4 Upper Body Dressing(FIM): 5 Upper Body Dressing (QC): 5 Lower Body Dressing(FIM): 5 Lower Body Dressing (QC): 5 On/Off Footwear (QC): 5 Toileting(FIM): 6 Toileting Hygiene (QC): 5 Transfers (B,C,W/C) (FIM): 5 Toilet/Commode Transfer(FIM): 5 Toilet/Commode Transfer (QC): 5 Shower Transfer(FIM): 4 Additional Goals: 1-Demonstrate ADL Tasks, 2-Verbalize Understanding, 3- ImproveStrength/Chandler 1=Demonstrate adherence to instructed precautions during ADL tasks. 2=Patient will verbalize/demonstrate understanding of assistive devices/ modifications for ADL. 3=Patient will improve strength/tolerance for activity to enable patient to perform ADL's. OT Education/Plan Problem List/Assessment Assessment: Decreased Activ Tolerance, Decreased UE Strength, Dependent Transfers, Impaired Bed Mobility, Impaired Funct Balance, Impaired I ADL's, Impaired Self-Care Skills, Restricted Funct UE ROM Discharge Recommendations Plan/Recommendations: Continue POC Therapy D/C Recommendations: Home w/ Family Support, Occupational Therapy Home Care Equpiment Recommendations-D/C: Hip Kit Treatment Plan/Plan of Care Treatment,Training & Education: Yes Patient would benefit from OT for education, treatment and training to promote independence in ADL's, mobility, safety and/or upper extremity function for ADL' s. Plan of Care: ADL Retraining, Caregiver Training, Functional Mobility, Group Exercise/Act as Ind, UE Funct Exercise/Act Treatment Duration: Dec 29, 2016 Frequency: Twice Daily (Thursday - Thursday, PRN Thursday) Estimated Hrs Per Day: 1.5 hours per day Agreement: Yes Rehab Potential: Fair Time/GCodes Start Time: 08:45 Stop Time: 10:15 Total Time Billed (hr/min): 90 Billed Treatment Time 1, ADL x 6 MAMIE AHUJA OT Dec 15, 2016 13:22
--- NOTE | 2016-12-15 15:20 | Physical Therapy Daily Note ---
PT Daily Note-Current Subjective "I think Floyd wore me out this morning!" Agrees to PT but notes he is tired. Transfers Functional [place] Measure 0=Not Assessed/NA 4=Minimal Assistance 1=Total Assistance 5=Supervision or Setup 2=Maximal Assistance 6=Modified [place] 3=Moderate Assistance 7=Complete IndependenceIRFPAI Quality Coding Scale 6 Independent with activity with or without an assistive device 5 Patient requires set up or clean up by helper. Patient completes activity by themselves 4 Supervision or touching assist (CGA). [place] provide cues , steadying assist 3 The helper provides less than half the effort to complete the activity 2 The helper provides more than half the effort to complete the activity 1 Dependent. The helper does all the effort to complete an activity 7 Patient refused to complete or attempt activity 9 The patient did not perform the activity before the current illness or injury 88 Not attempted due to Medical conditions or safety concerns Treatments Slow with functional sit to stand transfer and needs min assist. Pt was able to recall correct hand placement for transfer. Pt ambulated x 50 ft with fWW with CGA, rested and ambulated an additional 50 ft with FWW with CGA. Seated LE ther ex x 15 for AP, LAQ and hip flexion. Leg exercises performed to promote LE strength for improved gait and transfer ability. m Assessment Current Status: Good Progress PT Short Term Goals Short Term Goals Time Frame: Dec 15, 2016 Transfers (B,C,W/C) (FIM): 3 Gait (FIM): 2 Gait Distance Comment: 50' Gait Level of Assist: 3 Gait Assistive Device: FWW Wheelchair Distance: 150' PT Power Line Installer And Repairer Goals Care Home Goals PT Power Line Installer And Repairer Goals Time Frame: Dec 29, 2016 Transfers (B,C,W/C) (FIM): 4 Sit to Lying (QC): 4 Lying-Sitting on Side/Bed(QC): 4 Sit to Stand (QC): 4 Rollin Roll Left to Right (QC): 4 Chair/Xdw-lg-Iygql Xfer(QC): 4 Car Transfer (QC): 4 Gait (FIM): 4 Distance: 150' Walk 10 feet (QC): 4 Walk 10ft-Uneven Surface(QC): 4 Walk 50ft with 2 Turns (QC): 4 Walk 150 ft (QC): 4 Gait Level of Assist: 4 Gait Assistive Device: FWW Stairs (FIM): 2 # of Steps: 4 1 Step (curb) (QC): 4 4 Steps (QC): 4 Stairs Level Of Assist: 4 PT Plan Problem List Problem List: Activity Tolerance, Functional Strength, Safety, Balance, Gait, Transfer, Bed Mobility Treatment/Plan Treatment Plan: Continue Plan of Care Treatment Plan: Bed Mobility, Education, Functional Activity [place], Functional Strength, Group Therapy, Gait, Safety, Therapeutic Exercise, Transfers Treatment Duration: Dec 29, 2016 Frequency: At least 5-7 days/Wk (IRF) Estimated Hrs Per Day: 1.5 hours per day Patient and/or Family Agrees t: Yes Time/GCodes Time In: 1300 Time Out: 1330 Total Billed Treatment Time: 30 Total Billed Treatment visit GT 15 EX 15 DOUGIE ORNELAS PT Dec 15, 2016 15:20
[2016-12-15 18:56] VITALS: BP 117/60
--- NOTE | 2016-12-15 19:03 | PM & R (SOAP) Progress Note ---
Subjective Time Seen by Provider: 12:00 Subjective/Events-last exam Patient was seen in his room this noonhour Progressing well with therapies Patient Min assist for transfers and CGA for gait with gait aide and PT Objective Exam Last Set of Vital Signs Vital Signs Date Time Temp Pulse Resp B/P (MAP) Pulse Ox O2 Delivery O2 Flow Rate FiO2 12/15/16 18:56 83 20 117/60 95 Room Air 12/15/16 06:12 98.9 Capillary Refill : I&O Intake and Output 12/15/16 00:00 Intake Total 1280 ml Output Total 1050 ml Balance 230 ml Intake Oral 1280 ml Output Urine Total 1050 ml General: Alert, Oriented X3, Cooperative HEENT: Mucous Memb Moist/[place], Other (running blue suture on top of head- skin growing around it.) Neck: Supple, No JVD Lungs: Clear to Auscultation, Normal Air Movement Heart: Regular Rate Abdomen: Normal Bowel Sounds, Soft Extremities: No Clubbing, No Cyanosis Skin: No Rashes, No Breakdown, Other (back incision- covered with dressing) Neuro: Normal Speech, Sensation Intact, Other (strength- 4/5 lower extremities - 5/5 upper extremities) Psych/Mental Status: Mental Status NL, Mood NL (quiet, reserved) Results Lab Laboratory Tests 12/13/16 05:12: White Blood Count 34.6*H, Red Blood Count 2.84L, Hemoglobin 8.9L, Hematocrit 28L , Mean Corpuscular Volume 99, Mean Corpuscular Hemoglobin 31, Mean Corpuscular Hemoglobin Concent 32, Red Cell Distribution Width 18.7H, Platelet Count 182, Mean Platelet Volume 9.2, Neutrophils (%) (Auto) 14L, Lymphocytes (%) (Auto) 85H , Monocytes (%) (Auto) 1, Eosinophils (%) (Auto) 0, Basophils (%) (Auto) 0, Neutrophils # (Auto) 4.7, Lymphocytes # (Auto) 29.5H, Monocytes # (Auto) 0.3, Eosinophils # (Auto) 0.1, Basophils # (Auto) 0.1 12/14/16 04:48: White Blood Count 33.9*H, Red Blood Count 2.87L, Hemoglobin 9.1L, Hematocrit 29L , Mean Corpuscular Volume 99, Mean Corpuscular Hemoglobin 32, Mean Corpuscular Hemoglobin Concent 32, Red Cell Distribution Width 18.7H, Platelet Count 181, Mean Platelet Volume 9.5, Neutrophils (%) (Auto) 16L, Lymphocytes (%) (Auto) 83H , Monocytes (%) (Auto) 1, Eosinophils (%) (Auto) 0, Basophils (%) (Auto) 0, Neutrophils # (Auto) 5.5, Lymphocytes # (Auto) 28.0H, Monocytes # (Auto) 0.2, Eosinophils # (Auto) 0.1, Basophils # (Auto) 0.0 12/15/16 06:21: White Blood Count 32.9*H, Red Blood Count 2.89L, Hemoglobin 9.2L, Hematocrit 29L , Mean Corpuscular Volume 100H, Mean Corpuscular Hemoglobin 32, Mean Corpuscular Hemoglobin Concent 32, Red Cell Distribution Width 18.9H, Platelet Count 173, Mean Platelet Volume 9.2, Neutrophils (%) (Auto) 15L, Lymphocytes (% ) (Auto) 84H, Monocytes (%) (Auto) 1, Eosinophils (%) (Auto) 0, Basophils (%) ( Auto) 0, Neutrophils # (Auto) 4.9, Lymphocytes # (Auto) 27.6H, Monocytes # (Auto ) 0.3, Eosinophils # (Auto) 0.1, Basophils # (Auto) 0.0 Assessment/Plan Assessment 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 Appreciate ST note they have signed off for now as she feel patient is at baseline with mild memory deficits Current labs noted Schedule Pain med in AM before morning session of Therapy Replaced Ca See orders Next Team Conference 12/17/16 KARL MIRELES MD Dec 15, 2016 19:03
[2016-12-15] MEDS: ATORVASTATIN 40 MG (LIPITOR) TABLET PO SCH (20:22)
[2016-12-16 03:25] VITALS: BP 122/72
[2016-12-16 05:50] LABS: BASOPHILS % (AUTO) 0 % (0-10); EOSINOPHILS # (AUTO) 0.1 10^3/uL (0.0-0.3); EOSINOPHILS % (AUTO) 0 % (0-10); LYMPHOCYTES # (AUTO) 21.9 X 10^3 (1.0-4.0); LYMPHOCYTES % (AUTO) 84 % (12-44); MEAN CORPUSCULAR HEMOGLOBIN 31 PG (25-34); MEAN CORPUSCULAR HGB CONC 31 G/DL (32-36); MEAN CORPUSCULAR VOLUME 100 FL (80-99); MEAN PLATELET VOLUME 9.1 FL (7.4-10.4); MONOCYTES % (AUTO) 0 % (0-12); NEUTROPHILS # (AUTO) 4.2 X 10^3 (1.8-7.8); NEUTROPHILS % (AUTO) 16 % (42-75); PLATELET COUNT 153 10^3/uL (130-400); RED BLOOD COUNT 2.75 10^6/uL (4.35-5.85); RED CELL DISTRIBUTION WIDTH 18.8 % (10.0-14.5); WHITE BLOOD COUNT 26.2 10^3/uL (4.3-11.0)
[2016-12-16 06:12] LABS: ALANINE AMINOTRANSFERASE 15 U/L (0-55); ALBUMIN 2.6 GM/DL (3.2-4.5); ANION GAP 6 MMOL/L (5-14); ASPARTATE AMINO TRANSFERASE 19 U/L (5-34); BILIRUBIN,TOTAL 1.4 MG/DL (0.1-1.0); BLOOD UREA NITROGEN 16 MG/DL (7-18); BUN/CREATININE RATIO 23; CARBON DIOXIDE 23 MMOL/L (21-32); CHLORIDE 104 MMOL/L (98-107); CREATININE SERUM 0.71 MG/DL (0.60-1.30); GFR ESTIMATED > 60; GLUCOSE 97 MG/DL (70-105); POTASSIUM 4.9 MMOL/L (3.6-5.0); SODIUM 133 MMOL/L (135-145); TOTAL PROTEIN 4.8 GM/DL (6.4-8.2)
[2016-12-16] MEDS: MULTIVIT W/MINERALS TAB (THERAGRAN M) PO SCH (06:16)
[2016-12-16] MEDS: PANTOPRAZOLE 40 MG (PROTONIX) TAB PO SCH (06:16)
[2016-12-16] MEDS: CALCIUM CARB + VIT D 600 MG (CALCARB + D) TAB PO SCH (06:16)
[2016-12-16] MEDS: RT-ADVAIR HFA 115/21 MCG PER PUFF IH SCH (07:05)
--- NOTE | 2016-12-16 08:01 | PM & R (SOAP) Progress Note ---
Subjective Time Seen by Provider: 07:30 Subjective/Events-last exam Patient was seen in his room this AM Labs and therapy notes reviewed Patient Mod assist for Upper body dressing and max assist for lower body dressing WBC count and T Bilirubin decreasing Serum Calcium improved and HGB fairly stable Objective Exam Last Set of Vital Signs Vital Signs Date Time Temp Pulse Resp B/P (MAP) Pulse Ox O2 Delivery O2 Flow Rate FiO2 12/16/16 07:05 96 Room Air 12/16/16 03:25 98.6 98 18 122/72 Capillary Refill : I&O Intake and Output 12/16/16 00:00 Intake Total 730 ml Output Total 400 ml Balance 330 ml Intake Oral 730 ml Output Urine Total 400 ml # Voids 3 # Bowel Movements 3 General: Alert, Oriented X3, Cooperative HEENT: Mucous Memb Moist/[place], Other (running blue suture on top of head- skin growing around it.) Neck: Supple, No JVD Lungs: Clear to Auscultation, Normal Air Movement Heart: Regular Rate Abdomen: Normal Bowel Sounds, Soft Extremities: No Clubbing, No Cyanosis Skin: No Rashes, No Breakdown, Other (back incision- covered with dressing) Neuro: Normal Speech, Sensation Intact, Other (strength- 4/5 lower extremities - 5/5 upper extremities) Psych/Mental Status: Mental Status NL, Mood NL (quiet, reserved) Results Lab Laboratory Tests 12/14/16 04:48: White Blood Count 33.9*H, Red Blood Count 2.87L, Hemoglobin 9.1L, Hematocrit 29L , Mean Corpuscular Volume 99, Mean Corpuscular Hemoglobin 32, Mean Corpuscular Hemoglobin Concent 32, Red Cell Distribution Width 18.7H, Platelet Count 181, Mean Platelet Volume 9.5, Neutrophils (%) (Auto) 16L, Lymphocytes (%) (Auto) 83H , Monocytes (%) (Auto) 1, Eosinophils (%) (Auto) 0, Basophils (%) (Auto) 0, Neutrophils # (Auto) 5.5, Lymphocytes # (Auto) 28.0H, Monocytes # (Auto) 0.2, Eosinophils # (Auto) 0.1, Basophils # (Auto) 0.0 12/15/16 06:21: White Blood Count 32.9*H, Red Blood Count 2.89L, Hemoglobin 9.2L, Hematocrit 29L , Mean Corpuscular Volume 100H, Mean Corpuscular Hemoglobin 32, Mean Corpuscular Hemoglobin Concent 32, Red Cell Distribution Width 18.9H, Platelet Count 173, Mean Platelet Volume 9.2, Neutrophils (%) (Auto) 15L, Lymphocytes (% ) (Auto) 84H, Monocytes (%) (Auto) 1, Eosinophils (%) (Auto) 0, Basophils (%) ( Auto) 0, Neutrophils # (Auto) 4.9, Lymphocytes # (Auto) 27.6H, Monocytes # (Auto ) 0.3, Eosinophils # (Auto) 0.1, Basophils # (Auto) 0.0 12/16/16 05:45: White Blood Count 26.2H, Red Blood Count 2.75L, Hemoglobin 8.6L, Hematocrit 27L , Mean Corpuscular Volume 100H, Mean Corpuscular Hemoglobin 31, Mean Corpuscular Hemoglobin Concent 31L, Red Cell Distribution Width 18.8H, Platelet Count 153, Mean Platelet Volume 9.1, Neutrophils (%) (Auto) 16L, Lymphocytes (% ) (Auto) 84H, Monocytes (%) (Auto) 0, Eosinophils (%) (Auto) 0, Basophils (%) ( Auto) 0, Neutrophils # (Auto) 4.2, Lymphocytes # (Auto) 21.9H, Monocytes # (Auto ) 0.0, Eosinophils # (Auto) 0.1, Basophils # (Auto) 0.0, Sodium Level 133L, Potassium Level 4.9, Chloride Level 104, Carbon Dioxide Level 23, Anion Gap 6, Blood Urea Nitrogen 16, Creatinine 0.71, Estimat Glomerular Filtration Rate > 60 , BUN/Creatinine Ratio 23, Glucose Level 97, Calcium Level 8.0L, Total Bilirubin 1.4H, Aspartate Amino Transf (AST/SGOT) 19, Alanine Aminotransferase ( ALT/SGPT) 15, Alkaline Phosphatase 126, Total Protein 4.8L, Albumin 2.6L Assessment/Plan Assessment 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 Appreciate ST note they have signed off for now as she feel patient is at baseline with mild memory deficits Current labs noted Scheduled Pain med in AM before morning session of Therapy-doing better with pain management Replaced Ca See orders Next Team Conference tomorrow 12/17/16 KARL MIRELES MD Dec 16, 2016 08:01
[2016-12-16] MEDS: meTOprolol TARTRATE 50 MG (LOPRESSOR) TAB PO SCH ×2 (08:54→20:13)
[2016-12-16] MEDS: ENALAPRIL 5 MG (VASOTEC) TAB PO SCH (08:54)
--- NOTE | 2016-12-16 09:16 | Occupational Ther Daily Note ---
OT Current Status-Daily Note Subjective Pt. does not report pain level, but begins to cry and states that his left upper leg hurts when he gets up. Nursing notified and notified. Appearance Pt. in bed. Agreeable to work with OT. Mental Status/Objective Patient Orientation: Person, Place Functional [place] Measure 0=Not Assessed/NA 4=Minimal Assistance 1=Total Assistance 5=Supervision or Setup 2=Maximal Assistance 6=Modified [place] 3=Moderate Assistance 7=Complete [place] ADL-Treatment Functional [place] Measure 0=Not Assessed/NA 4=Minimal Assistance 1=Total Assistance 5=Supervision or Setup 2=Maximal Assistance 6=Modified [place] 3=Moderate Assistance 7=Complete IndependenceIRFPAI Quality Coding Scale 6 Independent with activity with or without an assistive device 5 Patient requires set up or clean up by helper. Patient completes activity by themselves 4 Supervision or touching assist (CGA). [place] provide cues , steadying assist 3 The helper provides less than half the effort to complete the activity 2 The helper provides more than half the effort to complete the activity 1 Dependent. The helper does all the effort to complete an activity 7 Patient refused to complete or attempt activity 9 The patient did not perform the activity before the current illness or injury 88 Not attempted due to Medical conditions or safety concerns Bathing (FIM): 2 (Attempted to do most of bath supine this date, to assist with pain control before sitting on side of bed. Pt. able to wash chest and upper arms, face. Required assistance to wash saamnta areas, legs, feet.) Shower/Bathe Self (QC): 2 Upper Body (FIM): 2 (Once on side of bed, pt. could not get pain under control to cocentrate on putting shirt on. Required max assist to don shirt and brace.) Upper Body Dressing (QC): 2 Lower Body Dressing (FIM): 1 (OT donned shorts while pt. supine. Pt. somewhat able to roll side to side and OT pulled over hips.) Lower Body Dressing (QC): 1 On/Off Footwear (QC): 1 Transfers (B, C, W/C) (FIM): 2 (max assist for supine-sit, and sit-stand. Pt. transferred to chair with mod assist using walker.) Education OT Patient Education: Correct positioning, Modified ADL techniques, Progress toward Goal/Update tx plan, Purpose of tx/functional activities, Reviewed precautions, Rehab process, Transfer techniques Teaching Recipient: Patient Teaching Methods: Demonstration, Discussion Response to Teaching: Verbalize Understanding, Return Demonstration OT Short Term Goals Short Term Goals Time Frame: Dec 15, 2016 Eating(FIM): 5 Grooming(FIM): 4 Bathing(FIM): 3 Upper Body Dressing(FIM): 3 Lower Body Dressing(FIM): 3 Toileting(FIM): 3 Transfers (B,C,W/C) (FIM): 3 Toilet/Commode Transfer(FIM): 3 Additional Short Term Goals: 1-Demonstrate ADL Tasks, 2-Verbalize Understanding , 3-ImproveStrength/[place] 1=Demonstrate adherence to instructed precautions during ADL tasks. 2=Patient will verbalize/demonstrate understanding of assistive devices/ modifications for ADL. 3=Patient will improve strength/tolerance for activity to enable patient to perform ADL's. OT Jail Goals Jail Goals Time Frame: Dec 29, 2016 Eating (FIM): 6 Eating (QC): 5 Groomin Oral Hygiene (QC): 5 Bathing(FIM): 4 Shower/Bathe Self (QC): 4 Upper Body Dressing(FIM): 5 Upper Body Dressing (QC): 5 Lower Body Dressing(FIM): 5 Lower Body Dressing (QC): 5 On/Off Footwear (QC): 5 Toileting(FIM): 6 Toileting Hygiene (QC): 5 Transfers (B,C,W/C) (FIM): 5 Toilet/Commode Transfer(FIM): 5 Toilet/Commode Transfer (QC): 5 Shower Transfer(FIM): 4 Additional Goals: 1-Demonstrate ADL Tasks, 2-Verbalize Understanding, 3- ImproveStrength/[place] 1=Demonstrate adherence to instructed precautions during ADL tasks. 2=Patient will verbalize/demonstrate understanding of assistive devices/ modifications for ADL. 3=Patient will improve strength/tolerance for activity to enable patient to perform ADL's. OT Education/Plan Problem List/Assessment Assessment: Decreased Activ Tolerance, Decreased UE Strength, Dependent Transfers, Impaired Bed Mobility, Impaired Funct Balance, Impaired I ADL's, Impaired Self-Care Skills, Restricted Funct UE ROM Discharge Recommendations Plan/Recommendations: Continue POC Therapy D/C Recommendations: Home w/ Family Support, Occupational Therapy Home Care Equpiment Recommendations-D/C: Hip Kit Barriers to Progress pain Treatment Plan/Plan of Care Treatment,Training & Education: Yes Patient would benefit from OT for education, treatment and training to promote independence in ADL's, mobility, safety and/or upper extremity function for ADL' s. Plan of Care: ADL Retraining, Caregiver Training, Functional Mobility, Group Exercise/Act as Ind, UE Funct Exercise/Act Treatment Duration: Dec 29, 2016 Frequency: Twice Daily (Thursday - Thursday, PRN Thursday) Estimated Hrs Per Day: 1.5 hours per day Agreement: Yes Rehab Potential: Fair Time/GCodes Start Time: 08:00 Stop Time: 09:00 Total Time Billed (hr/min): 60 Billed Treatment Time 1, ADL x 4 MAMIE AHUJA OT Dec 16, 2016 09:16
--- NOTE | 2016-12-16 10:58 | Physical Therapy Daily Note ---
PT Daily Note-Current Subjective Patient in recliner pre tx, he is very very drowsy, his states he had pain meds about an hour before PT and that is why. He states his pain is 4/10 Appearance Patient in recliner post tx with nurse call, phone, tray, all needs met. Mental Status Patient Orientation: Person, Place, Situation TLSO Transfers Functional [place] Measure 0=Not Assessed/NA 4=Minimal Assistance 1=Total Assistance 5=Supervision or Setup 2=Maximal Assistance 6=Modified [place] 3=Moderate Assistance 7=Complete IndependenceIRFPAI Quality Coding Scale 6 Independent with activity with or without an assistive device 5 Patient requires set up or clean up by helper. Patient completes activity by themselves 4 Supervision or touching assist (CGA). [place] provide cues , steadying assist 3 The helper provides less than half the effort to complete the activity 2 The helper provides more than half the effort to complete the activity 1 Dependent. The helper does all the effort to complete an activity 7 Patient refused to complete or attempt activity 9 The patient did not perform the activity before the current illness or injury 88 Not attempted due to Medical conditions or safety concerns Transfers (B, C, W/C) (FIM): 3 Sit to/from Stand: 3 Bed to/from Chair: 3 mod assist for sit to stand and stand pivot transfer. Patient was not able to stand and ambulate at the beginning of tx, he was too drowsy and retropulsive when trying to stand, keeps eyes closed. Gait Training Gait (FIM): 4 Distance: 150' Gait Level of Assist: 4 Gait Persons Needed: 1 Gait Assistive Device: FWW Patient was able to ambulate at the end of his treatment, he was more alert, he did need cues to stand strait, tended to slump over. He ambulated 150' with a rolling walker with CGA, very slow ambulation. Exercises Standing: Heel/toe raises, Mini squats Standing Reps: 20 seated hip abd with RTB x20, seated hip add with pillow x20, QSx20 each side, AP x20, seated hip flexion x20, sit to stand x5 in parallel bars Treatments transfers, ambulation, functional strengthening Assessment Current Status: Poor Progress Patient extremely drowsy and he could not ambulate at the beginning of his treatment. He did wake up eventually and ambulate at the end of his treatment. No real progress with mobility. Patient needed many rest breaks. PT Short Term Goals Short Term Goals Time Frame: Dec 15, 2016 Transfers (B,C,W/C) (FIM): 3 Gait (FIM): 2 Gait Distance Comment: 50' Gait Level of Assist: 3 Gait Assistive Device: FWW Wheelchair Distance: 150' PT Dude Ranch Manager Goals Dude Ranch Manager Goals PT Mcfp Goals Time Frame: Dec 29, 2016 Transfers (B,C,W/C) (FIM): 4 Sit to Lying (QC): 4 Lying-Sitting on Side/Bed(QC): 4 Sit to Stand (QC): 4 Rollin Roll Left to Right (QC): 4 Chair/Dhp-oz-Kwtsw Xfer(QC): 4 Car Transfer (QC): 4 Gait (FIM): 4 Distance: 150' Walk 10 feet (QC): 4 Walk 10ft-Uneven Surface(QC): 4 Walk 50ft with 2 Turns (QC): 4 Walk 150 ft (QC): 4 Gait Level of Assist: 4 Gait Assistive Device: FWW Stairs (FIM): 2 # of Steps: 4 1 Step (curb) (QC): 4 4 Steps (QC): 4 Stairs Level Of Assist: 4 PT Plan Problem List Problem List: Activity Tolerance, Functional Strength, Safety, Balance, Gait, Transfer, Bed Mobility, ROM Treatment/Plan Treatment Plan: Continue Plan of Care Treatment Plan: Bed Mobility, Education, Functional Activity [place], Functional Strength, Group Therapy, Gait, Safety, Therapeutic Exercise, Transfers Treatment Duration: Dec 29, 2016 Frequency: At least 5-7 days/Wk (IRF) Estimated Hrs Per Day: 1.5 hours per day Patient and/or Family Agrees t: Yes Safety Risks/Education Patient Education: Gait Training, Transfer Techniques, Correct Positioning, Safety Issues Teaching Recipient: Patient Teaching Methods: Demonstration, Discussion Response to Teaching: Reinforcement Needed Time/GCodes Time In: 1000 Time Out: 1100 Total Billed Treatment Time: 60 Total Billed Treatment 1 visit GT 15' EX 45' TYSON AGUILERA PT Dec 16, 2016 10:58
--- NOTE | 2016-12-16 11:37 | Occupational Ther Daily Note ---
OT Current Status-Daily Note Subjective Pt. reports no pain this date. Appearance Pt. up in chair. Agrees to work with OT. Mental Status/Objective Patient Orientation: Person, Place Functional [place] Measure 0=Not Assessed/NA 4=Minimal Assistance 1=Total Assistance 5=Supervision or Setup 2=Maximal Assistance 6=Modified [place] 3=Moderate Assistance 7=Complete [place] ADL-Treatment Functional [place] Measure 0=Not Assessed/NA 4=Minimal Assistance 1=Total Assistance 5=Supervision or Setup 2=Maximal Assistance 6=Modified [place] 3=Moderate Assistance 7=Complete IndependenceIRFPAI Quality Coding Scale 6 Independent with activity with or without an assistive device 5 Patient requires set up or clean up by helper. Patient completes activity by themselves 4 Supervision or touching assist (CGA). [place] provide cues , steadying assist 3 The helper provides less than half the effort to complete the activity 2 The helper provides more than half the effort to complete the activity 1 Dependent. The helper does all the effort to complete an activity 7 Patient refused to complete or attempt activity 9 The patient did not perform the activity before the current illness or injury 88 Not attempted due to Medical conditions or safety concerns Lower Body Dressing (FIM): 4 (Pt. practices doffing/donning socks with dressing stick and sock aide. Does this twice, with only minimal assist required at times. Requires increased time, and cues to make sure that grippers are in correct position.) Education OT Patient Education: Correct positioning, Modified ADL techniques, Progress toward Goal/Update tx plan, Purpose of tx/functional activities, Reviewed precautions, Rehab process, Transfer techniques, Use of adapted equipment Teaching Recipient: Patient Teaching Methods: Demonstration, Discussion Response to Teaching: Verbalize Understanding, Return Demonstration OT Short Term Goals Short Term Goals Time Frame: Dec 15, 2016 Eating(FIM): 5 Grooming(FIM): 4 Bathing(FIM): 3 Upper Body Dressing(FIM): 3 Lower Body Dressing(FIM): 3 Toileting(FIM): 3 Transfers (B,C,W/C) (FIM): 3 Toilet/Commode Transfer(FIM): 3 Additional Short Term Goals: 1-Demonstrate ADL Tasks, 2-Verbalize Understanding , 3-ImproveStrength/[place] 1=Demonstrate adherence to instructed precautions during ADL tasks. 2=Patient will verbalize/demonstrate understanding of assistive devices/ modifications for ADL. 3=Patient will improve strength/tolerance for activity to enable patient to perform ADL's. OT Care Home Goals Machine I Coremaker Goals Time Frame: Dec 29, 2016 Eating (FIM): 6 Eating (QC): 5 Groomin Oral Hygiene (QC): 5 Bathing(FIM): 4 Shower/Bathe Self (QC): 4 Upper Body Dressing(FIM): 5 Upper Body Dressing (QC): 5 Lower Body Dressing(FIM): 5 Lower Body Dressing (QC): 5 On/Off Footwear (QC): 5 Toileting(FIM): 6 Toileting Hygiene (QC): 5 Transfers (B,C,W/C) (FIM): 5 Toilet/Commode Transfer(FIM): 5 Toilet/Commode Transfer (QC): 5 Shower Transfer(FIM): 4 Additional Goals: 1-Demonstrate ADL Tasks, 2-Verbalize Understanding, 3- ImproveStrength/[place] 1=Demonstrate adherence to instructed precautions during ADL tasks. 2=Patient will verbalize/demonstrate understanding of assistive devices/ modifications for ADL. 3=Patient will improve strength/tolerance for activity to enable patient to perform ADL's. OT Education/Plan Problem List/Assessment Assessment: Decreased Activ Tolerance, Impaired I ADL's, Impaired Self-Care Skills Discharge Recommendations Plan/Recommendations: Continue POC Therapy D/C Recommendations: Home w/ Family Support, Occupational Therapy Home Care Equpiment Recommendations-D/C: Hip Kit Treatment Plan/Plan of Care Treatment,Training & Education: Yes Patient would benefit from OT for education, treatment and training to promote independence in ADL's, mobility, safety and/or upper extremity function for ADL' s. Plan of Care: ADL Retraining, Caregiver Training, Functional Mobility, Group Exercise/Act as Ind, UE Funct Exercise/Act Treatment Duration: Dec 29, 2016 Frequency: Twice Daily (Thursday - Thursday, PRN Thursday) Estimated Hrs Per Day: 1.5 hours per day Agreement: Yes Rehab Potential: Fair Time/GCodes Start Time: 11:00 Stop Time: 11:30 Total Time Billed (hr/min): 30 Billed Treatment Time 1, ADL x 2 MAMIE AHUJA OT Dec 16, 2016 11:37
--- NOTE | 2016-12-16 13:01 | Diagnostic Imaging Report ---
INDICATION: Recent fall. COMPARISON: 11/25/2016. FINDINGS: Two frontal radiographic views of the left hip were obtained and show no evidence of acute fracture or dislocation. Femoral acetabular joint space is maintained. Bony structures are intact. Degenerative changes are noted. There is also calcified arterial sclerosis. IMPRESSION: No radiographic evidence of acute fracture or dislocation of the left hip. Dictated by: Dictated on workstation # [id number]
--- NOTE | 2016-12-16 13:04 | Physical Therapy Daily Note ---
PT Daily Note-Current Subjective Patient agrees to PT. No c/o at this time. Pain Numeric Pain Scale: 0-No Pain Location: No Pain Reported Mental Status Patient Orientation: Normal For Age Transfers Functional [place] Measure 0=Not Assessed/NA 4=Minimal Assistance 1=Total Assistance 5=Supervision or Setup 2=Maximal Assistance 6=Modified [place] 3=Moderate Assistance 7=Complete IndependenceIRFPAI Quality Coding Scale 6 Independent with activity with or without an assistive device 5 Patient requires set up or clean up by helper. Patient completes activity by themselves 4 Supervision or touching assist (CGA). [place] provide cues , steadying assist 3 The helper provides less than half the effort to complete the activity 2 The helper provides more than half the effort to complete the activity 1 Dependent. The helper does all the effort to complete an activity 7 Patient refused to complete or attempt activity 9 The patient did not perform the activity before the current illness or injury 88 Not attempted due to Medical conditions or safety concerns Transfers (B, C, W/C) (FIM): 5 Scootin Sit to/from Stand: 5 Sit to Stand (QC): 5 Gait Training Does the Patient Walk?: Yes Gait (FIM): 4 Distance (FIM): 3=150 ft Distance: 225' Walk 10 feet (QC): 4 Walk 50 ft with 2 Turns(QC): 4 Walk 150 ft (QC): 4 Gait Level of Assist: 4 Gait Persons Needed: 1 Gait Assistive Device: FWW kyphotic, slow, shuffle gait sequence Exercises Seated Therapy Exercises: Ankle pumps, Long arc quads (left LE) Seated Reps: 25 Assessment Exercises and gait improving to facilitate independent mobility. Patient improving slowly with treatment plan. PT Short Term Goals Short Term Goals Time Frame: Dec 15, 2016 Transfers (B,C,W/C) (FIM): 3 Gait (FIM): 2 Gait Distance Comment: 50' Gait Level of Assist: 3 Gait Assistive Device: FWW Wheelchair Distance: 150' PT [facility] Goals Tobacco Packer Goals PT Tobacco Packer Goals Time Frame: Dec 29, 2016 Transfers (B,C,W/C) (FIM): 4 Sit to Lying (QC): 4 Lying-Sitting on Side/Bed(QC): 4 Sit to Stand (QC): 4 Rollin Roll Left to Right (QC): 4 Chair/Zmw-xd-Itbtf Xfer(QC): 4 Car Transfer (QC): 4 Gait (FIM): 4 Distance: 150' Walk 10 feet (QC): 4 Walk 10ft-Uneven Surface(QC): 4 Walk 50ft with 2 Turns (QC): 4 Walk 150 ft (QC): 4 Gait Level of Assist: 4 Gait Assistive Device: FWW Stairs (FIM): 2 # of Steps: 4 1 Step (curb) (QC): 4 4 Steps (QC): 4 Stairs Level Of Assist: 4 PT Plan Treatment/Plan Treatment Plan: Continue Plan of Care Treatment Plan: Bed Mobility, Education, Functional Activity [place], Functional Strength, Group Therapy, Gait, Safety, Therapeutic Exercise, Transfers Treatment Duration: Dec 29, 2016 Frequency: At least 5-7 days/Wk (IRF) Estimated Hrs Per Day: 1.5 hours per day Patient and/or Family Agrees t: Yes Time/GCodes Time In: 1130 Time Out: 1200 Total Billed Treatment Time: 30 Total Billed Treatment 1 visit EX 10 min GT 20 min DAVE MATA PT Dec 16, 2016 13:04
--- NOTE | 2016-12-16 13:08 | Progress Note (SOAP) ---
Subjective Date Seen by Provider: Dec 16, 2016 Time Seen by Provider: 12:55 Subjective/Events-last exam Feeling better and states she has been using the incentive spirometer. Reports left hip pain however. Objective Exam Vital Signs Date Time Temp Pulse Resp B/P (MAP) Pulse Ox O2 Delivery O2 Flow Rate FiO2 12/16/16 09:00 Room Air 12/16/16 07:05 96 Room Air 12/16/16 03:25 98.6 98 18 122/72 97 Room Air 12/15/16 23:04 Room Air 12/15/16 20:30 Room Air 12/15/16 18:56 83 20 117/60 95 Room Air I & O 12/16/16 07:00 Intake Total 880 ml Output Total 375 ml Balance 505 ml Capillary Refill : General Appearance: No Apparent Distress HEENT: PERRL/EOMI Neck: Full Range of Motion, Non Tender, Supple Respiratory: Lungs Clear Cardiovascular: Regular Rate, Rhythm, No Edema, No Gallop, No JVD Gastrointestinal: normal bowel sounds, non tender, soft Neurologic/Psychiatric: Alert, Oriented x3 Results Lab Laboratory Tests 12/16/16 05:45: White Blood Count 26.2H, Red Blood Count 2.75L, Hemoglobin 8.6L, Hematocrit 27L , Mean Corpuscular Volume 100H, Mean Corpuscular Hemoglobin 31, Mean Corpuscular Hemoglobin Concent 31L, Red Cell Distribution Width 18.8H, Platelet Count 153, Mean Platelet Volume 9.1, Neutrophils (%) (Auto) 16L, Lymphocytes (% ) (Auto) 84H, Monocytes (%) (Auto) 0, Eosinophils (%) (Auto) 0, Basophils (%) ( Auto) 0, Neutrophils # (Auto) 4.2, Lymphocytes # (Auto) 21.9H, Monocytes # (Auto ) 0.0, Eosinophils # (Auto) 0.1, Basophils # (Auto) 0.0, Sodium Level 133L, Potassium Level 4.9, Chloride Level 104, Carbon Dioxide Level 23, Anion Gap 6, Blood Urea Nitrogen 16, Creatinine 0.71, Estimat Glomerular Filtration Rate > 60 , BUN/Creatinine Ratio 23, Glucose Level 97, Calcium Level 8.0L, Total Bilirubin 1.4H, Aspartate Amino Transf (AST/SGOT) 19, Alanine Aminotransferase ( ALT/SGPT) 15, Alkaline Phosphatase 126, Total Protein 4.8L, Albumin 2.6L Radiology Left hip x-ray 2 views done in 12/16/16:IMPRESSION: No radiographic evidence of acute fracture or dislocation of the left hip. Assessment/Plan Assessment/Plan Assess & Plan/Chief Complaint 1. Leukocytosis-arising from known CLL related lymphocytosis and mild granulocytosis. Current stress of vertebral fracture, scalp laceration and other lacerations caused by fall may be source of his leukocytosis. a. We'll monitor. Peripheral smear has been reviewed and shows expected changes given current setting. b. WBC is much improved and continues to fall. WBC has decreased from 53,000 to 26,200. 2. Anemia-multifactorial in origin related to recent trauma, chronic disease , and CLL. a. Check reticulocyte count and EDSON. b. Appropriately elevated reticulocyte count. EDSON is negative, therefore no need for steroid intervention. 3. Status post traumatic L2 vertebral body hyperextension fracture and subsequent L2 fusion surgery completed on 12/01/16. a. Patient now admitted to acute inpatient rehabilitation for for rehabilitation. b. Recommend administering breakthrough pain medication (Oxy-Ir) to start of physical therapy session to reduce patient's discomfort level. 4. 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 Status Post Evacuation of Subdural Hematoma in 2014 6. Comorbidities of history of recurrent abdominal pain, coronary artery disease, arthritis, hyperlipidemia, hypertension, chronic lung disease. Clinical Quality Measures DVT/VTE Risk/Contraindication: Risk Factor Score Per Nursin RFS Level Per Nursing on Admit: 4+=Very High JACQUELYN VAZQUEZ MD Dec 16, 2016 13:08
[2016-12-16 18:56] VITALS: BP 111/61
[2016-12-16 19:44] VITALS: BP 111/61
[2016-12-16] MEDS: ATORVASTATIN 40 MG (LIPITOR) TABLET PO SCH (20:13)
[2016-12-16 20:18] VITALS: BP 104/63
[2016-12-17 05:58] VITALS: BP 115/62
[2016-12-17] MEDS: MULTIVIT W/MINERALS TAB (THERAGRAN M) PO SCH (06:00)
[2016-12-17] MEDS: PANTOPRAZOLE 40 MG (PROTONIX) TAB PO SCH (06:00)
[2016-12-17] MEDS: CALCIUM CARB + VIT D 600 MG (CALCARB + D) TAB PO SCH (06:02)
[2016-12-17 06:22] LABS: BASOPHILS % (AUTO) 0 % (0-10); EOSINOPHILS # (AUTO) 0.1 10^3/uL (0.0-0.3); EOSINOPHILS % (AUTO) 0 % (0-10); LYMPHOCYTES # (AUTO) 22.7 X 10^3 (1.0-4.0); LYMPHOCYTES % (AUTO) 85 % (12-44); MEAN CORPUSCULAR HEMOGLOBIN 31 PG (25-34); MEAN CORPUSCULAR HGB CONC 31 G/DL (32-36); MEAN CORPUSCULAR VOLUME 100 FL (80-99); MEAN PLATELET VOLUME 9.2 FL (7.4-10.4); MONOCYTES # (AUTO) 0.2 X 10^3 (0.0-1.0); MONOCYTES % (AUTO) 1 % (0-12); NEUTROPHILS # (AUTO) 3.8 X 10^3 (1.8-7.8); NEUTROPHILS % (AUTO) 14 % (42-75); PLATELET COUNT 163 10^3/uL (130-400); RED BLOOD COUNT 2.82 10^6/uL (4.35-5.85); RED CELL DISTRIBUTION WIDTH 18.6 % (10.0-14.5); WHITE BLOOD COUNT 26.7 10^3/uL (4.3-11.0)
[2016-12-17] MEDS: RT-ADVAIR HFA 115/21 MCG PER PUFF IH SCH (07:15)
--- NOTE | 2016-12-17 08:13 | PM & R (SOAP) Progress Note ---
Subjective Time Seen by Provider: 07:50 Subjective/Events-last exam Patient was seen in his room this AM RN reports incresed sedation with scheduled zanaflex -will make PRN see orders Patient mod assist for transfers Xray left hip shows DJD, Objective Exam Last Set of Vital Signs Vital Signs Date Time Temp Pulse Resp B/P (MAP) Pulse Ox O2 Delivery O2 Flow Rate FiO2 12/17/16 07:15 96 Room Air 12/17/16 05:58 98.9 96 18 115/62 Capillary Refill : I&O Intake and Output 12/17/16 00:00 Intake Total 1240 ml Output Total 975 ml Balance 265 ml Intake Oral 1240 ml Output Urine Total 975 ml # Bowel Movements 1 General: Alert, Oriented X3, Cooperative HEENT: Mucous Memb Moist/Bolan, Other (running blue suture on top of head- skin growing around it.) Neck: Supple, No JVD Lungs: Clear to Auscultation, Normal Air Movement Heart: Regular Rate Abdomen: Normal Bowel Sounds, Soft Extremities: No Clubbing, No Cyanosis Skin: No Rashes, No Breakdown, Other (back incision- covered with dressing) Neuro: Normal Speech, Sensation Intact, Other (strength- 4/5 lower extremities - 5/5 upper extremities) Psych/Mental Status: Mental Status NL, Mood NL (quiet, reserved) Results Lab Laboratory Tests 12/15/16 06:21: White Blood Count 32.9*H, Red Blood Count 2.89L, Hemoglobin 9.2L, Hematocrit 29L , Mean Corpuscular Volume 100H, Mean Corpuscular Hemoglobin 32, Mean Corpuscular Hemoglobin Concent 32, Red Cell Distribution Width 18.9H, Platelet Count 173, Mean Platelet Volume 9.2, Neutrophils (%) (Auto) 15L, Lymphocytes (% ) (Auto) 84H, Monocytes (%) (Auto) 1, Eosinophils (%) (Auto) 0, Basophils (%) ( Auto) 0, Neutrophils # (Auto) 4.9, Lymphocytes # (Auto) 27.6H, Monocytes # (Auto ) 0.3, Eosinophils # (Auto) 0.1, Basophils # (Auto) 0.0 12/16/16 05:45: White Blood Count 26.2H, Red Blood Count 2.75L, Hemoglobin 8.6L, Hematocrit 27L , Mean Corpuscular Volume 100H, Mean Corpuscular Hemoglobin 31, Mean Corpuscular Hemoglobin Concent 31L, Red Cell Distribution Width 18.8H, Platelet Count 153, Mean Platelet Volume 9.1, Neutrophils (%) (Auto) 16L, Lymphocytes (% ) (Auto) 84H, Monocytes (%) (Auto) 0, Eosinophils (%) (Auto) 0, Basophils (%) ( Auto) 0, Neutrophils # (Auto) 4.2, Lymphocytes # (Auto) 21.9H, Monocytes # (Auto ) 0.0, Eosinophils # (Auto) 0.1, Basophils # (Auto) 0.0, Sodium Level 133L, Potassium Level 4.9, Chloride Level 104, Carbon Dioxide Level 23, Anion Gap 6, Blood Urea Nitrogen 16, Creatinine 0.71, Estimat Glomerular Filtration Rate > 60 , BUN/Creatinine Ratio 23, Glucose Level 97, Calcium Level 8.0L, Total Bilirubin 1.4H, Aspartate Amino Transf (AST/SGOT) 19, Alanine Aminotransferase ( ALT/SGPT) 15, Alkaline Phosphatase 126, Total Protein 4.8L, Albumin 2.6L 12/17/16 06:10: White Blood Count 26.7H, Red Blood Count 2.82L, Hemoglobin 8.8L, Hematocrit 28L , Mean Corpuscular Volume 100H, Mean Corpuscular Hemoglobin 31, Mean Corpuscular Hemoglobin Concent 31L, Red Cell Distribution Width 18.6H, Platelet Count 163, Mean Platelet Volume 9.2, Neutrophils (%) (Auto) 14L, Lymphocytes (% ) (Auto) 85H, Monocytes (%) (Auto) 1, Eosinophils (%) (Auto) 0, Basophils (%) ( Auto) 0, Neutrophils # (Auto) 3.8, Lymphocytes # (Auto) 22.7H, Monocytes # (Auto ) 0.2, Eosinophils # (Auto) 0.1, Basophils # (Auto) 0.0 Assessment/Plan Assessment L2 veterbral burst frx s/p repair OSH CLL chronic Dr Farhan Quintero following-WBC count decreasing Scalp laceration s/p suturing OSH HTN Home meds restarted-controlled Concussion s/p fall with confusion improving Hypocalcemia-replaced improved Pain management probable oversedation from zanaflex Plan Continue PT/OT F/U with DR Dykes and farhan as per their schedule. Appreciate ST note they have signed off for now as she feel patient is at baseline with mild memory deficits Current labs noted Scheduled Pain med in AM before morning session of Therapy-doing better with pain management Replaced Ca See orders Next Team Conference later today -See report for full functional update and POC and ELOS Continue scheduled [pain med in am before therapies unless sedation remains an issue Trial of Voltaran gel for painful djd left hip See orders KARL MIRELES MD Dec 17, 2016 08:12
[2016-12-17] MEDS: ENALAPRIL 5 MG (VASOTEC) TAB PO SCH (08:20)
[2016-12-17] MEDS: meTOprolol TARTRATE 50 MG (LOPRESSOR) TAB PO SCH ×2 (08:21→20:30)
[2016-12-17] MEDS: DICLOFENAC 1% GEL 100 GM (VOLTAREN) TUBE TOP SCH ×4 (09:21→20:31)
--- NOTE | 2016-12-17 09:42 | Diagnostic Imaging Report ---
INDICATION: Status post fall with left knee pain. AP, oblique, and lateral views of the left knee are obtained. Left knee prosthesis appears to be in good alignment with no overt fracture or loosening. There are extensive vascular calcifications. There is a calcification superior to the patella which appears to be chronic. IMPRESSION: Chronic changes with well-positioned left knee joint prosthesis. No sign of fracture or device loosening. Extensive vascular calcifications are noted. Dictated by: Dictated on workstation # [id number]
--- NOTE | 2016-12-17 11:01 | Physical Therapy Daily Note ---
PT Daily Note-Current Subjective Patient in recliner pre tx, agrees to PT. Patient has 2/10 pain today in left leg. Patient is alert and has less pain today. Appearance Patient on bedside commode post tx with nurse call, in room. Mental Status Patient Orientation: Person, Place, Situation TLSO Transfers Functional [place] Measure 0=Not Assessed/NA 4=Minimal Assistance 1=Total Assistance 5=Supervision or Setup 2=Maximal Assistance 6=Modified [place] 3=Moderate Assistance 7=Complete IndependenceIRFPAI Quality Coding Scale 6 Independent with activity with or without an assistive device 5 Patient requires set up or clean up by helper. Patient completes activity by themselves 4 Supervision or touching assist (CGA). [place] provide cues , steadying assist 3 The helper provides less than half the effort to complete the activity 2 The helper provides more than half the effort to complete the activity 1 Dependent. The helper does all the effort to complete an activity 7 Patient refused to complete or attempt activity 9 The patient did not perform the activity before the current illness or injury 88 Not attempted due to Medical conditions or safety concerns Transfers (B, C, W/C) (FIM): 3 Sit to/from Stand: 3 mod assist for sit to stand from low surfaces Gait Training Gait (FIM): 4 Distance: 150'x2, 40'x3 Gait Level of Assist: 4 Gait Persons Needed: 1 Gait Assistive Device: FWW CGA, slow, antalgic Stair Training Patient went up and down 1 step using a rolling walker and did this 6 times. Exercises Seated Therapy Exercises: Hip flexion Seated Reps: 20 Standing: Mini squats Standing Reps: 20 LAQ alternating for 5 min Treatments transfers, ambulation, functional strengthening, stair training, gait training Assessment Current Status: Fair Progress slowly improving mobility, less pain today PT Short Term Goals Short Term Goals Time Frame: Dec 15, 2016 Transfers (B,C,W/C) (FIM): 3 Gait (FIM): 2 Gait Distance Comment: 50' Gait Level of Assist: 3 Gait Assistive Device: FWW Wheelchair Distance: 150' PT Jail Goals Jail Goals PT Jail Goals Time Frame: Dec 29, 2016 Transfers (B,C,W/C) (FIM): 4 Sit to Lying (QC): 4 Lying-Sitting on Side/Bed(QC): 4 Sit to Stand (QC): 4 Rollin Roll Left to Right (QC): 4 Chair/Zjq-yj-Cgdrp Xfer(QC): 4 Car Transfer (QC): 4 Gait (FIM): 4 Distance: 150' Walk 10 feet (QC): 4 Walk 10ft-Uneven Surface(QC): 4 Walk 50ft with 2 Turns (QC): 4 Walk 150 ft (QC): 4 Gait Level of Assist: 4 Gait Assistive Device: FWW Stairs (FIM): 2 # of Steps: 4 1 Step (curb) (QC): 4 4 Steps (QC): 4 Stairs Level Of Assist: 4 PT Plan Problem List Problem List: Activity Tolerance, Functional Strength, Safety, Balance, Gait, Transfer, Bed Mobility, ROM Treatment/Plan Treatment Plan: Continue Plan of Care Treatment Plan: Bed Mobility, Education, Functional Activity [place], Functional Strength, Group Therapy, Gait, Safety, Therapeutic Exercise, Transfers Treatment Duration: Dec 29, 2016 Frequency: At least 5-7 days/Wk (IRF) Estimated Hrs Per Day: 1.5 hours per day Patient and/or Family Agrees t: Yes Safety Risks/Education Patient Education: Gait Training, Transfer Techniques, Steps, Correct Positioning, Safety Issues Teaching Recipient: Patient Teaching Methods: Demonstration, Discussion Response to Teaching: Reinforcement Needed Time/GCodes Time In: 1000 Time Out: 1100 Total Billed Treatment Time: 60 Total Billed Treatment 1 visit EX 15' GT 45' TYSON AGUILERA PT Dec 17, 2016 11:01
--- NOTE | 2016-12-17 14:41 | Occupational Ther Daily Note ---
OT Current Status-Daily Note Subjective Pt. reports 10/10 pain in left hip when he is sitting on side of bed. Nursing is notified. Appearance Pt. is alert and calm when in bed. Begins to get upset and hurts when he is sitting. Mental Status/Objective Patient Orientation: Person, Place Functional [place] Measure 0=Not Assessed/NA 4=Minimal Assistance 1=Total Assistance 5=Supervision or Setup 2=Maximal Assistance 6=Modified [place] 3=Moderate Assistance 7=Complete [place] ADL-Treatment Functional [place] Measure 0=Not Assessed/NA 4=Minimal Assistance 1=Total Assistance 5=Supervision or Setup 2=Maximal Assistance 6=Modified [place] 3=Moderate Assistance 7=Complete IndependenceIRFPAI Quality Coding Scale 6 Independent with activity with or without an assistive device 5 Patient requires set up or clean up by helper. Patient completes activity by themselves 4 Supervision or touching assist (CGA). [place] provide cues , steadying assist 3 The helper provides less than half the effort to complete the activity 2 The helper provides more than half the effort to complete the activity 1 Dependent. The helper does all the effort to complete an activity 7 Patient refused to complete or attempt activity 9 The patient did not perform the activity before the current illness or injury 88 Not attempted due to Medical conditions or safety concerns Bathing (FIM): 3 (Pt. bathes at supine level due to pain. OT bathes rear [place]anta area and feet. Pt. able to bathe all other areas.) Shower/Bathe Self (QC): 3 Upper Body (FIM): 3 (Pt. is able to don shirt seated after increased time with min assist. Needs max assist to don brace.) Upper Body Dressing (QC): 3 Lower Body Dressing (FIM): 2 Lower Body Dressing (QC): 2 On/Off Footwear (QC): 1 Transfers (B, C, W/C) (FIM): 3 (Max assist supine-sit. Mod sit-stand.) Let nursing know that pt. in pain. Nursing and OT informed physician of this. Pt. transferred to chair after bath. All needs met up in chair. Education OT Patient Education: Correct positioning, Modified ADL techniques, Progress toward Goal/Update tx plan, Purpose of tx/functional activities, Reviewed precautions, Rehab process, Transfer techniques Teaching Recipient: Patient Teaching Methods: Demonstration, Discussion Response to Teaching: Verbalize Understanding, Return Demonstration OT Short Term Goals Short Term Goals Time Frame: Dec 15, 2016 Eating(FIM): 5 Grooming(FIM): 4 Bathing(FIM): 3 Upper Body Dressing(FIM): 3 Lower Body Dressing(FIM): 3 Toileting(FIM): 3 Transfers (B,C,W/C) (FIM): 3 Toilet/Commode Transfer(FIM): 3 Additional Short Term Goals: 1-Demonstrate ADL Tasks, 2-Verbalize Understanding , 3-ImproveStrength/[place] 1=Demonstrate adherence to instructed precautions during ADL tasks. 2=Patient will verbalize/demonstrate understanding of assistive devices/ modifications for ADL. 3=Patient will improve strength/tolerance for activity to enable patient to perform ADL's. OT Senior Care Goals Inspector Water Pollution Control Goals Time Frame: Dec 29, 2016 Eating (FIM): 6 Eating (QC): 5 Groomin Oral Hygiene (QC): 5 Bathing(FIM): 4 Shower/Bathe Self (QC): 4 Upper Body Dressing(FIM): 5 Upper Body Dressing (QC): 5 Lower Body Dressing(FIM): 5 Lower Body Dressing (QC): 5 On/Off Footwear (QC): 5 Toileting(FIM): 6 Toileting Hygiene (QC): 5 Transfers (B,C,W/C) (FIM): 5 Toilet/Commode Transfer(FIM): 5 Toilet/Commode Transfer (QC): 5 Shower Transfer(FIM): 4 Additional Goals: 1-Demonstrate ADL Tasks, 2-Verbalize Understanding, 3- ImproveStrength/[place] 1=Demonstrate adherence to instructed precautions during ADL tasks. 2=Patient will verbalize/demonstrate understanding of assistive devices/ modifications for ADL. 3=Patient will improve strength/tolerance for activity to enable patient to perform ADL's. OT Education/Plan Problem List/Assessment Assessment: Decreased Activ Tolerance, Impaired Bed Mobility, Impaired Funct Balance, Impaired I ADL's, Impaired Self-Care Skills Discharge Recommendations Plan/Recommendations: Continue POC Therapy D/C Recommendations: 24 hr Supervision, Home w/ Family Support, Occupational Therapy Home Care Equpiment Recommendations-D/C: Hip Kit Barriers to Progress pain Treatment Plan/Plan of Care Treatment,Training & Education: Yes Patient would benefit from OT for education, treatment and training to promote independence in ADL's, mobility, safety and/or upper extremity function for ADL' s. Plan of Care: ADL Retraining, Caregiver Training, Functional Mobility, Group Exercise/Act as Ind, UE Funct Exercise/Act Treatment Duration: Dec 29, 2016 Frequency: At least 5-7 days/Wk (IRF) (Thursday - Thursday, PRN Thursday) Estimated Hrs Per Day: 1.5 hours per day Agreement: Yes Rehab Potential: Fair Time/GCodes Start Time: 08:15 Stop Time: 09:15 Total Time Billed (hr/min): 60 Billed Treatment Time 1, ADL x 4 MAMIE AHUJA OT Dec 17, 2016 14:41
--- NOTE | 2016-12-17 15:06 | Therapy Group Daily Note ---
Therapy Daily Group Note Patient Education Topic Energy Cons, Exercises Exercises LE Seated Exercise, UE Exercise Other/Notes Pt transported via w/c to OT/PT group. Group consisted of introductions (name, place living, what inspires you), socialization, energy conservation education and upper/lower seated exercises that incorporated cardio. and energy conservation. Pt contributed to discussions effectively. Pt attempted to complete UE/LE exercises. Pt was able to verbalize understanding of education topic and elaborate on discussions. After group, pt transported via w/c to room. Call light/phone in reach. All needs met in room. Start Time: 13:00 Stop Time: 14:15 Total Billed Treatment Time: 75 Total Billed Treatment 1, GRP KIRSTEN CORRAL SYSTEMATIC THEOLOGY PROFESSOR Dec 17, 2016 15:06
[2016-12-17 17:58] VITALS: BP 111/60
[2016-12-17] MEDS: ATORVASTATIN 40 MG (LIPITOR) TABLET PO SCH (20:30)
[2016-12-18 05:13] VITALS: BP 113/57
[2016-12-18 05:34] LABS: BASOPHILS % (AUTO) 0 % (0-10); EOSINOPHILS # (AUTO) 0.1 10^3/uL (0.0-0.3); EOSINOPHILS % (AUTO) 0 % (0-10); LYMPHOCYTES # (AUTO) 20.6 X 10^3 (1.0-4.0); LYMPHOCYTES % (AUTO) 83 % (12-44); MEAN CORPUSCULAR HEMOGLOBIN 32 PG (25-34); MEAN CORPUSCULAR HGB CONC 32 G/DL (32-36); MEAN CORPUSCULAR VOLUME 100 FL (80-99); MEAN PLATELET VOLUME 9.7 FL (7.4-10.4); MONOCYTES % (AUTO) 0 % (0-12); NEUTROPHILS % (AUTO) 16 % (42-75); PLATELET COUNT 144 10^3/uL (130-400); RED BLOOD COUNT 2.74 10^6/uL (4.35-5.85); RED CELL DISTRIBUTION WIDTH 18.6 % (10.0-14.5); WHITE BLOOD COUNT 24.8 10^3/uL (4.3-11.0)
[2016-12-18] MEDS: MULTIVIT W/MINERALS TAB (THERAGRAN M) PO SCH (06:19)
[2016-12-18] MEDS: CALCIUM CARB + VIT D 600 MG (CALCARB + D) TAB PO SCH (06:19)
[2016-12-18] MEDS: PANTOPRAZOLE 40 MG (PROTONIX) TAB PO SCH (06:19)
[2016-12-18] MEDS: RT-ADVAIR HFA 115/21 MCG PER PUFF IH SCH (06:27)
--- NOTE | 2016-12-18 08:14 | PM & R (SOAP) Progress Note ---
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 Voltaran gel ordered for additional pain control. Review of Systems Musculoskeletal: leg pain Objective Exam Last Set of Vital Signs Vital Signs Date Time Temp Pulse Resp B/P (MAP) Pulse Ox O2 Delivery O2 Flow Rate FiO2 12/18/16 06:27 97 Room Air 12/18/16 05:13 98.3 99 20 113/57 Capillary Refill : I&O Intake and Output 12/18/16 00:00 Intake Total 800 ml Output Total 600 ml Balance 200 ml Intake Oral 800 ml Output Urine Total 600 ml # Voids 1 # Bowel Movements 2 General: Alert, Oriented X3, Cooperative HEENT: Mucous Memb Moist/[place], Other (running blue suture on top of head- skin growing around it.) Neck: Supple, No JVD Lungs: Clear to Auscultation, Normal Air Movement Heart: Regular Rate Abdomen: Normal Bowel Sounds, Soft Extremities: No Clubbing, No Cyanosis, Other (Surgical scar over left knee) Skin: No Rashes, No Breakdown, Other (back incision- covered with dressing) Neuro: Normal Speech, Sensation Intact, Other (strength- 4/5 lower extremities - 5/5 upper extremities) Psych/Mental Status: Mental Status NL, Mood NL (quiet, reserved) Results Lab Laboratory Tests 12/16/16 05:45: White Blood Count 26.2H, Red Blood Count 2.75L, Hemoglobin 8.6L, Hematocrit 27L , Mean Corpuscular Volume 100H, Mean Corpuscular Hemoglobin 31, Mean Corpuscular Hemoglobin Concent 31L, Red Cell Distribution Width 18.8H, Platelet Count 153, Mean Platelet Volume 9.1, Neutrophils (%) (Auto) 16L, Lymphocytes (% ) (Auto) 84H, Monocytes (%) (Auto) 0, Eosinophils (%) (Auto) 0, Basophils (%) ( Auto) 0, Neutrophils # (Auto) 4.2, Lymphocytes # (Auto) 21.9H, Monocytes # (Auto ) 0.0, Eosinophils # (Auto) 0.1, Basophils # (Auto) 0.0, Sodium Level 133L, Potassium Level 4.9, Chloride Level 104, Carbon Dioxide Level 23, Anion Gap 6, Blood Urea Nitrogen 16, Creatinine 0.71, Estimat Glomerular Filtration Rate > 60 , BUN/Creatinine Ratio 23, Glucose Level 97, Calcium Level 8.0L, Total Bilirubin 1.4H, Aspartate Amino Transf (AST/SGOT) 19, Alanine Aminotransferase ( ALT/SGPT) 15, Alkaline Phosphatase 126, Total Protein 4.8L, Albumin 2.6L 12/17/16 06:10: White Blood Count 26.7H, Red Blood Count 2.82L, Hemoglobin 8.8L, Hematocrit 28L , Mean Corpuscular Volume 100H, Mean Corpuscular Hemoglobin 31, Mean Corpuscular Hemoglobin Concent 31L, Red Cell Distribution Width 18.6H, Platelet Count 163, Mean Platelet Volume 9.2, Neutrophils (%) (Auto) 14L, Lymphocytes (% ) (Auto) 85H, Monocytes (%) (Auto) 1, Eosinophils (%) (Auto) 0, Basophils (%) ( Auto) 0, Neutrophils # (Auto) 3.8, Lymphocytes # (Auto) 22.7H, Monocytes # (Auto ) 0.2, Eosinophils # (Auto) 0.1, Basophils # (Auto) 0.0 12/18/16 04:56: White Blood Count 24.8H, Red Blood Count 2.74L, Hemoglobin 8.7L, Hematocrit 27L , Mean Corpuscular Volume 100H, Mean Corpuscular Hemoglobin 32, Mean Corpuscular Hemoglobin Concent 32, Red Cell Distribution Width 18.6H, Platelet Count 144, Mean Platelet Volume 9.7, Neutrophils (%) (Auto) 16L, Lymphocytes (% ) (Auto) 83H, Monocytes (%) (Auto) 0, Eosinophils (%) (Auto) 0, Basophils (%) ( Auto) 0, Neutrophils # (Auto) 4.0, Lymphocytes # (Auto) 20.6H, Monocytes # (Auto ) 0.0, Eosinophils # (Auto) 0.1, Basophils # (Auto) 0.0 Assessment/Plan Assessment L2 veterbral burst frx s/p repair OSH CLL chronic Dr Farhan Conteh following-WBC count decreasing Scalp laceration s/p suturing OSH HTN Home meds restarted-controlled Concussion s/p fall with confusion improving Hypocalcemia-replaced improved Pain management probable oversedation from zanaflex-improved with change to prn 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 Appreciate ST note they have signed off for now as she feel patient is at baseline with mild memory deficits Current labs noted Scheduled Pain med in AM before morning session of Therapy-doing better with pain management Replaced Ca See orders Team Conference held yesterday -See report for full functional update and POC and ELOS Continue scheduled [pain med in am before therapies unless sedation remains an issue Trial of Voltaran gel for painful djd left hip-done See orders KARL MIRELES MD Dec 18, 2016 08:14
[2016-12-18 08:44] VITALS: BP 106/71
[2016-12-18] MEDS: ENALAPRIL 5 MG (VASOTEC) TAB PO SCH (08:45)
[2016-12-18] MEDS: meTOprolol TARTRATE 50 MG (LOPRESSOR) TAB PO SCH ×2 (08:45→20:25)
[2016-12-18] MEDS: DICLOFENAC 1% GEL 100 GM (VOLTAREN) TUBE TOP SCH ×4 (08:46→20:27)
--- NOTE | 2016-12-18 10:11 | Physical Therapy Daily Note ---
PT Daily Note-Current Subjective Patient in bed pre tx, agrees to PT, has a lot of pain this morning 9-03/17. He has already had pain meds but nurse notified about a cream for pain they have been putting on his left thigh. After putting that on his leg later on in the treatment, it helped his pain quite a bit. Patient's upper body needs dressed, shirt and TLSO. Appearance Patient in recliner post tx with nurse call, phone, tray, all needs met. Mental Status Patient Orientation: Person, Place, Situation TLSO Transfers Functional [place] Measure 0=Not Assessed/NA 4=Minimal Assistance 1=Total Assistance 5=Supervision or Setup 2=Maximal Assistance 6=Modified [place] 3=Moderate Assistance 7=Complete IndependenceIRFPAI Quality Coding Scale 6 Independent with activity with or without an assistive device 5 Patient requires set up or clean up by helper. Patient completes activity by themselves 4 Supervision or touching assist (CGA). [place] provide cues , steadying assist 3 The helper provides less than half the effort to complete the activity 2 The helper provides more than half the effort to complete the activity 1 Dependent. The helper does all the effort to complete an activity 7 Patient refused to complete or attempt activity 9 The patient did not perform the activity before the current illness or injury 88 Not attempted due to Medical conditions or safety concerns Transfers (B, C, W/C) (FIM): 2 Scootin Rollin Supine to/from Sit: 2 Sit to/from Stand: 3 cues for safety and hand placement Gait Training Gait (FIM): 2 Distance: 75'x4 Gait Level of Assist: 4 Gait Persons Needed: 1 Gait Assistive Device: FWW very very antalgic, slow. Patient had so much pain ambulation and dressing is all that could be done in his time. He ambulated 4 times with rest breaks in between after sitting in bed and dressing. Patient needed a lot of rest breaks and performed bed mobility and transfers very slowly due to pain. Treatments bed mobility, transfers, ambulation, dressing Assessment Current Status: Poor Progress worse mobility due to pain PT Short Term Goals Short Term Goals Time Frame: Dec 15, 2016 Transfers (B,C,W/C) (FIM): 3 Gait (FIM): 2 Gait Distance Comment: 50' Gait Level of Assist: 3 Gait Assistive Device: FWW Wheelchair Distance: 150' PT Automotive Service Consultant Goals Automotive Service Consultant Goals PT Mcfp Goals Time Frame: Dec 29, 2016 Transfers (B,C,W/C) (FIM): 4 Sit to Lying (QC): 4 Lying-Sitting on Side/Bed(QC): 4 Sit to Stand (QC): 4 Rollin Roll Left to Right (QC): 4 Chair/Egh-mj-Bbthv Xfer(QC): 4 Car Transfer (QC): 4 Gait (FIM): 4 Distance: 150' Walk 10 feet (QC): 4 Walk 10ft-Uneven Surface(QC): 4 Walk 50ft with 2 Turns (QC): 4 Walk 150 ft (QC): 4 Gait Level of Assist: 4 Gait Assistive Device: FWW Stairs (FIM): 2 # of Steps: 4 1 Step (curb) (QC): 4 4 Steps (QC): 4 Stairs Level Of Assist: 4 PT Plan Problem List Problem List: Activity Tolerance, Functional Strength, Safety, Balance, Gait, Transfer, Bed Mobility, ROM Treatment/Plan Treatment Plan: Continue Plan of Care Treatment Plan: Bed Mobility, Education, Functional Activity [place], Functional Strength, Group Therapy, Gait, Safety, Therapeutic Exercise, Transfers Treatment Duration: Dec 29, 2016 Frequency: At least 5-7 days/Wk (IRF) Estimated Hrs Per Day: 1.5 hours per day Patient and/or Family Agrees t: Yes Safety Risks/Education Patient Education: Gait Training, Transfer Techniques, Correct Positioning, Reviewed Don/Doff Brace, Safety Issues Teaching Recipient: Patient Teaching Methods: Demonstration, Discussion Response to Teaching: Reinforcement Needed Time/GCodes Time In: 915 Time Out: 1015 Total Billed Treatment Time: 60 Total Billed Treatment 1 visit GT 45' FA 15' TYSON AGUILERA PT Dec 18, 2016 10:11
--- NOTE | 2016-12-18 13:20 | Progress Note (SOAP) ---
Subjective Date Seen by Provider: Dec 18, 2016 Time Seen by Provider: 12:30 Subjective/Events-last exam Gradually making progress he states, but still not able to take care of himself. Objective Exam Vital Signs Date Time Temp Pulse Resp B/P (MAP) Pulse Ox O2 Delivery O2 Flow Rate FiO2 12/18/16 10:26 Room Air 12/18/16 08:44 104 106/71 98 Room Air 12/18/16 06:27 97 Room Air 12/18/16 05:13 98.3 99 20 113/57 95 Room Air 12/17/16 20:30 Room Air 12/17/16 19:27 Room Air 12/17/16 17:58 98.4 85 18 111/60 96 Room Air I & O 12/18/16 07:00 Intake Total 800 ml Output Total 700 ml Balance 100 ml Capillary Refill : General Appearance: No Apparent Distress, Chronically ill HEENT: PERRL/EOMI Respiratory: Lungs Clear Cardiovascular: Regular Rate, Rhythm, No Edema, No JVD Gastrointestinal: normal bowel sounds, non tender, soft Neurologic/Psychiatric: Alert, Oriented x3, Normal Mood/Affect Results Lab Laboratory Tests 12/18/16 04:56: White Blood Count 24.8H, Red Blood Count 2.74L, Hemoglobin 8.7L, Hematocrit 27L , Mean Corpuscular Volume 100H, Mean Corpuscular Hemoglobin 32, Mean Corpuscular Hemoglobin Concent 32, Red Cell Distribution Width 18.6H, Platelet Count 144, Mean Platelet Volume 9.7, Neutrophils (%) (Auto) 16L, Lymphocytes (% ) (Auto) 83H, Monocytes (%) (Auto) 0, Eosinophils (%) (Auto) 0, Basophils (%) ( Auto) 0, Neutrophils # (Auto) 4.0, Lymphocytes # (Auto) 20.6H, Monocytes # (Auto ) 0.0, Eosinophils # (Auto) 0.1, Basophils # (Auto) 0.0 Laboratory Tests 12/17/16 06:10 12/18/16 04:56 Assessment/Plan Assessment/Plan Assess & Plan/Chief Complaint 1. Leukocytosis-arising from known CLL related lymphocytosis and mild granulocytosis. Current stress of vertebral fracture, scalp laceration and other lacerations caused by fall may be source of his leukocytosis. a. We'll monitor. Peripheral smear has been reviewed and shows expected changes given current setting. b. WBC is much improved and continues to fall. WBC has decreased from 53,000 to 24,800. 2. Anemia-multifactorial in origin related to recent trauma, chronic disease , and CLL. a. Check reticulocyte count and EDSON. b. Appropriately elevated reticulocyte count. EDSON is negative, therefore no need for steroid intervention. 3. Status post traumatic L2 vertebral body hyperextension fracture and subsequent L2 fusion surgery completed on 12/01/16. a. Patient now admitted to acute inpatient rehabilitation for for rehabilitation. b. Recommend administering breakthrough pain medication (Oxy-Ir) to start of physical therapy session to reduce patient's discomfort level. 4. 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 Status Post Evacuation of Subdural Hematoma in 2014 6. Comorbidities of history of recurrent abdominal pain, coronary artery disease, arthritis, hyperlipidemia, hypertension, chronic lung disease. Clinical Quality Measures DVT/VTE Risk/Contraindication: Risk Factor Score Per Nursin RFS Level Per Nursing on Admit: 4+=Very High JACQUELYN VAZQUEZ MD Dec 18, 2016 13:19
--- NOTE | 2016-12-18 14:17 | Physical Therapy Daily Note ---
PT Daily Note-Current Subjective Patient in wheelchair pre tx in therapy gym, just got done with OT. Has pain of 5/10, less pain in left leg. Appearance Patient in recliner post tx with nurse call, phone, tray, all needs met, in the room. Mental Status Patient Orientation: Normal For Age TLSO Transfers Functional [place] Measure 0=Not Assessed/NA 4=Minimal Assistance 1=Total Assistance 5=Supervision or Setup 2=Maximal Assistance 6=Modified [place] 3=Moderate Assistance 7=Complete IndependenceIRFPAI Quality Coding Scale 6 Independent with activity with or without an assistive device 5 Patient requires set up or clean up by helper. Patient completes activity by themselves 4 Supervision or touching assist (CGA). [place] provide cues , steadying assist 3 The helper provides less than half the effort to complete the activity 2 The helper provides more than half the effort to complete the activity 1 Dependent. The helper does all the effort to complete an activity 7 Patient refused to complete or attempt activity 9 The patient did not perform the activity before the current illness or injury 88 Not attempted due to Medical conditions or safety concerns Transfers (B, C, W/C) (FIM): 4 Sit to/from Stand: 4 Gait Training Gait (FIM): 2 Distance: 100'x2 Gait Level of Assist: 4 Gait Persons Needed: 1 Gait Assistive Device: FWW slow, antalgic Exercises sit to stand 3 sets of 5 Assessment Current Status: Fair Progress improved ambulation, less pain PT Short Term Goals Short Term Goals Time Frame: Dec 15, 2016 Transfers (B,C,W/C) (FIM): 3 Gait (FIM): 2 Gait Distance Comment: 50' Gait Level of Assist: 3 Gait Assistive Device: FWW Wheelchair Distance: 150' PT Mcfp Goals Mcfp Goals PT Mcfp Goals Time Frame: Dec 29, 2016 Transfers (B,C,W/C) (FIM): 4 Sit to Lying (QC): 4 Lying-Sitting on Side/Bed(QC): 4 Sit to Stand (QC): 4 Rollin Roll Left to Right (QC): 4 Chair/Jkb-xr-Cullt Xfer(QC): 4 Car Transfer (QC): 4 Gait (FIM): 4 Distance: 150' Walk 10 feet (QC): 4 Walk 10ft-Uneven Surface(QC): 4 Walk 50ft with 2 Turns (QC): 4 Walk 150 ft (QC): 4 Gait Level of Assist: 4 Gait Assistive Device: FWW Stairs (FIM): 2 # of Steps: 4 1 Step (curb) (QC): 4 4 Steps (QC): 4 Stairs Level Of Assist: 4 PT Plan Problem List Problem List: Activity Tolerance, Functional Strength, Safety, Balance, Gait, Transfer, Bed Mobility, ROM Treatment/Plan Treatment Plan: Continue Plan of Care Treatment Plan: Bed Mobility, Education, Functional Activity [place], Functional Strength, Group Therapy, Gait, Safety, Therapeutic Exercise, Transfers Treatment Duration: Dec 29, 2016 Frequency: At least 5-7 days/Wk (IRF) Estimated Hrs Per Day: 1.5 hours per day Patient and/or Family Agrees t: Yes Safety Risks/Education Patient Education: Gait Training, Transfer Techniques, Correct Positioning, Safety Issues Teaching Recipient: Patient Teaching Methods: Demonstration, Discussion Response to Teaching: Reinforcement Needed Time/GCodes Time In: 1330 Time Out: 1400 Total Billed Treatment Time: 30 Total Billed Treatment 1 visit EX 10' GT 20' TYSON AGUILERA PT Dec 18, 2016 14:17
--- NOTE | 2016-12-18 16:06 | Occupational Ther Daily Note ---
OT Current Status-Daily Note Subjective Pt. does not report a pain level. Appearance Pt. in bed. Agrees to bathe and dress while supine in bed, as sitting on side causes pain in leg. Mental Status/Objective Patient Orientation: Person Functional [place] Measure 0=Not Assessed/NA 4=Minimal Assistance 1=Total Assistance 5=Supervision or Setup 2=Maximal Assistance 6=Modified [place] 3=Moderate Assistance 7=Complete [place] ADL-Treatment Functional [place] Measure 0=Not Assessed/NA 4=Minimal Assistance 1=Total Assistance 5=Supervision or Setup 2=Maximal Assistance 6=Modified [place] 3=Moderate Assistance 7=Complete IndependenceIRFPAI Quality Coding Scale 6 Independent with activity with or without an assistive device 5 Patient requires set up or clean up by helper. Patient completes activity by themselves 4 Supervision or touching assist (CGA). [place] provide cues , steadying assist 3 The helper provides less than half the effort to complete the activity 2 The helper provides more than half the effort to complete the activity 1 Dependent. The helper does all the effort to complete an activity 7 Patient refused to complete or attempt activity 9 The patient did not perform the activity before the current illness or injury 88 Not attempted due to Medical conditions or safety concerns Bathing (FIM): 3 (Pt. able to wash chest, arms, front samanta area. OT washes rest.) Shower/Bathe Self (QC): 3 (Supine) Lower Body Dressing (FIM): 3 (Pt. practiced donning socks and shorts supine in bed with AE.) Lower Body Dressing (QC): 3 On/Off Footwear (QC): 2 Pt. required increased time this date. Attempted to do most tasks supine, as pt. begins to report severe pain anytime that HOB is starting to be elevated. Education OT Patient Education: Correct positioning, Modified ADL techniques, Progress toward Goal/Update tx plan, Purpose of tx/functional activities, Reviewed precautions, Rehab process, Transfer techniques, Use of adapted equipment Teaching Recipient: Patient Teaching Methods: Demonstration, Discussion Response to Teaching: Verbalize Understanding, Return Demonstration OT Short Term Goals Short Term Goals Time Frame: Dec 15, 2016 Eating(FIM): 5 Grooming(FIM): 4 Bathing(FIM): 3 Upper Body Dressing(FIM): 3 Lower Body Dressing(FIM): 3 Toileting(FIM): 3 Transfers (B,C,W/C) (FIM): 3 Toilet/Commode Transfer(FIM): 3 Additional Short Term Goals: 1-Demonstrate ADL Tasks, 2-Verbalize Understanding , 3-ImproveStrength/[place] 1=Demonstrate adherence to instructed precautions during ADL tasks. 2=Patient will verbalize/demonstrate understanding of assistive devices/ modifications for ADL. 3=Patient will improve strength/tolerance for activity to enable patient to perform ADL's. OT Fpc Goals Fpc Goals Time Frame: Dec 29, 2016 Eating (FIM): 6 Eating (QC): 5 Groomin Oral Hygiene (QC): 5 Bathing(FIM): 4 Shower/Bathe Self (QC): 4 Upper Body Dressing(FIM): 5 Upper Body Dressing (QC): 5 Lower Body Dressing(FIM): 5 Lower Body Dressing (QC): 5 On/Off Footwear (QC): 5 Toileting(FIM): 6 Toileting Hygiene (QC): 5 Transfers (B,C,W/C) (FIM): 5 Toilet/Commode Transfer(FIM): 5 Toilet/Commode Transfer (QC): 5 Shower Transfer(FIM): 4 Additional Goals: 1-Demonstrate ADL Tasks, 2-Verbalize Understanding, 3- ImproveStrength/[place] 1=Demonstrate adherence to instructed precautions during ADL tasks. 2=Patient will verbalize/demonstrate understanding of assistive devices/ modifications for ADL. 3=Patient will improve strength/tolerance for activity to enable patient to perform ADL's. OT Education/Plan Problem List/Assessment Assessment: Decreased Activ Tolerance, Dependent Transfers, Impaired Bed Mobility, Impaired Funct Balance, Impaired I ADL's, Impaired Self-Care Skills Discharge Recommendations Plan/Recommendations: Continue POC Therapy D/C Recommendations: Home w/ Family Support, Occupational Therapy Home Care Treatment Plan/Plan of Care Treatment,Training & Education: Yes Patient would benefit from OT for education, treatment and training to promote independence in ADL's, mobility, safety and/or upper extremity function for ADL' s. Plan of Care: ADL Retraining, Caregiver Training, Functional Mobility, Group Exercise/Act as Ind, UE Funct Exercise/Act Treatment Duration: Dec 29, 2016 Frequency: At least 5-7 days/Wk (IRF) (Thursday - Thursday, PRN Thursday) Estimated Hrs Per Day: 1.5 hours per day Agreement: Yes Rehab Potential: Fair Time/GCodes Start Time: 08:15 Stop Time: 09:15 Total Time Billed (hr/min): 60 Billed Treatment Time 1, ADL x 4 MAMIE AHUJA OT Dec 18, 2016 16:06
--- NOTE | 2016-12-18 16:12 | Occupational Ther Daily Note ---
OT Current Status-Daily Note Subjective Pt. up in chair. Has new cream on thigh. Spouse and pt. state that it has "made all the difference." Appearance Pt. up in chair. Tolerates standing with OT. Mental Status/Objective Functional [place] Measure 0=Not Assessed/NA 4=Minimal Assistance 1=Total Assistance 5=Supervision or Setup 2=Maximal Assistance 6=Modified [place] 3=Moderate Assistance 7=Complete [place] ADL-Treatment Functional [place] Measure 0=Not Assessed/NA 4=Minimal Assistance 1=Total Assistance 5=Supervision or Setup 2=Maximal Assistance 6=Modified [place] 3=Moderate Assistance 7=Complete IndependenceIRFPAI Quality Coding Scale 6 Independent with activity with or without an assistive device 5 Patient requires set up or clean up by helper. Patient completes activity by themselves 4 Supervision or touching assist (CGA). [place] provide cues , steadying assist 3 The helper provides less than half the effort to complete the activity 2 The helper provides more than half the effort to complete the activity 1 Dependent. The helper does all the effort to complete an activity 7 Patient refused to complete or attempt activity 9 The patient did not perform the activity before the current illness or injury 88 Not attempted due to Medical conditions or safety concerns Other Treatment Pt. stood out of chair with mod assistance. Transferred to wheelchair and went to therapy gym. Armbike set at minimal setting. Tolerated 10 minutes to increase overall endurance with daily tasks. Several rest breaks needed. PT took over after pt. rested. All needs met. Education OT Patient Education: Correct positioning, Modified ADL techniques, Progress toward Goal/Update tx plan, Purpose of tx/functional activities, Reviewed precautions, Rehab process, Transfer techniques Teaching Recipient: Patient Teaching Methods: Demonstration, Discussion Response to Teaching: Verbalize Understanding, Return Demonstration OT Short Term Goals Short Term Goals Time Frame: Dec 15, 2016 Eating(FIM): 5 Grooming(FIM): 4 Bathing(FIM): 3 Upper Body Dressing(FIM): 3 Lower Body Dressing(FIM): 3 Toileting(FIM): 3 Transfers (B,C,W/C) (FIM): 3 Toilet/Commode Transfer(FIM): 3 Additional Short Term Goals: 1-Demonstrate ADL Tasks, 2-Verbalize Understanding , 3-ImproveStrength/[place] 1=Demonstrate adherence to instructed precautions during ADL tasks. 2=Patient will verbalize/demonstrate understanding of assistive devices/ modifications for ADL. 3=Patient will improve strength/tolerance for activity to enable patient to perform ADL's. OT Continuous Drier Helper Goals Continuous Drier Helper Goals Time Frame: Dec 29, 2016 Eating (FIM): 6 Eating (QC): 5 Groomin Oral Hygiene (QC): 5 Bathing(FIM): 4 Shower/Bathe Self (QC): 4 Upper Body Dressing(FIM): 5 Upper Body Dressing (QC): 5 Lower Body Dressing(FIM): 5 Lower Body Dressing (QC): 5 On/Off Footwear (QC): 5 Toileting(FIM): 6 Toileting Hygiene (QC): 5 Transfers (B,C,W/C) (FIM): 5 Toilet/Commode Transfer(FIM): 5 Toilet/Commode Transfer (QC): 5 Shower Transfer(FIM): 4 Additional Goals: 1-Demonstrate ADL Tasks, 2-Verbalize Understanding, 3- ImproveStrength/[place] 1=Demonstrate adherence to instructed precautions during ADL tasks. 2=Patient will verbalize/demonstrate understanding of assistive devices/ modifications for ADL. 3=Patient will improve strength/tolerance for activity to enable patient to perform ADL's. OT Education/Plan Problem List/Assessment Assessment: Decreased Activ Tolerance, Dependent Transfers, Impaired I ADL's, Impaired Self-Care Skills Discharge Recommendations Plan/Recommendations: Continue POC Therapy D/C Recommendations: Home w/ Family Support, Occupational Therapy Home Care Treatment Plan/Plan of Care Patient would benefit from OT for education, treatment and training to promote independence in ADL's, mobility, safety and/or upper extremity function for ADL' s. Plan of Care: ADL Retraining, Caregiver Training, Functional Mobility, Group Exercise/Act as Ind, UE Funct Exercise/Act Treatment Duration: Dec 29, 2016 Frequency: At least 5-7 days/Wk (IRF) (Thursday - Thursday, PRN Thursday) Estimated Hrs Per Day: 1.5 hours per day Agreement: Yes Rehab Potential: Fair Time/GCodes Start Time: 13:00 Stop Time: 13:30 Total Time Billed (hr/min): 30 Billed Treatment Time 1, EX x 2 MAMIE AHUJA OT Dec 18, 2016 16:12
[2016-12-18 17:30] VITALS: BP 119/65
[2016-12-18] MEDS: ATORVASTATIN 40 MG (LIPITOR) TABLET PO SCH (20:25)
[2016-12-19 05:00] VITALS: BP 126/73
[2016-12-19 05:38] LABS: BASOPHILS % (AUTO) 0 % (0-10); EOSINOPHILS # (AUTO) 0.1 10^3/uL (0.0-0.3); EOSINOPHILS % (AUTO) 0 % (0-10); LYMPHOCYTES # (AUTO) 19.9 X 10^3 (1.0-4.0); LYMPHOCYTES % (AUTO) 85 % (12-44); MEAN CORPUSCULAR HEMOGLOBIN 32 PG (25-34); MEAN CORPUSCULAR HGB CONC 32 G/DL (32-36); MEAN CORPUSCULAR VOLUME 100 FL (80-99); MEAN PLATELET VOLUME 9.3 FL (7.4-10.4); MONOCYTES # (AUTO) 0.2 X 10^3 (0.0-1.0); MONOCYTES % (AUTO) 1 % (0-12); NEUTROPHILS # (AUTO) 3.3 X 10^3 (1.8-7.8); NEUTROPHILS % (AUTO) 14 % (42-75); PLATELET COUNT 172 10^3/uL (130-400); RED CELL DISTRIBUTION WIDTH 18.4 % (10.0-14.5); WHITE BLOOD COUNT 23.6 10^3/uL (4.3-11.0)
[2016-12-19] MEDS: PANTOPRAZOLE 40 MG (PROTONIX) TAB PO SCH (06:09)
[2016-12-19] MEDS: CALCIUM CARB + VIT D 600 MG (CALCARB + D) TAB PO SCH (06:09)
[2016-12-19] MEDS: MULTIVIT W/MINERALS TAB (THERAGRAN M) PO SCH (06:09)
[2016-12-19] MEDS: RT-ADVAIR HFA 115/21 MCG PER PUFF IH SCH (06:27)
--- NOTE | 2016-12-19 08:31 | PM & R (SOAP) Progress Note ---
Subjective Time Seen by Provider: 08:10 Subjective/Events-last exam Patient was seen in his room this AM Patient mod assist for transfer Patient tolerating lower scheduled dose of Oxy for pain control before morning therapies.Appreciate DR woody notes. Objective Exam Last Set of Vital Signs Vital Signs Date Time Temp Pulse Resp B/P (MAP) Pulse Ox O2 Delivery O2 Flow Rate FiO2 12/19/16 06:28 95 Room Air 12/19/16 05:00 99.1 97 20 126/73 Capillary Refill : I&O Intake and Output 12/19/16 00:00 Intake Total 687 ml Output Total 700 ml Balance -13 ml Intake Oral 687 ml Output Urine Total 700 ml # Voids 1 # Bowel Movements 1 General: Alert, Oriented X3, Cooperative HEENT: Mucous Memb Moist/[place], Other (running blue suture on top of head- skin growing around it.) Neck: Supple, No JVD Lungs: Clear to Auscultation, Normal Air Movement Heart: Regular Rate Abdomen: Normal Bowel Sounds, Soft Extremities: No Clubbing, No Cyanosis, Other (Surgical scar over left knee) Skin: No Rashes, No Breakdown, Other (back incision- covered with dressing) Neuro: Normal Speech, Sensation Intact, Other (strength- 4/5 lower extremities - 5/5 upper extremities) Psych/Mental Status: Mental Status NL, Mood NL (quiet, reserved) Results Lab Laboratory Tests 12/17/16 06:10: White Blood Count 26.7H, Red Blood Count 2.82L, Hemoglobin 8.8L, Hematocrit 28L , Mean Corpuscular Volume 100H, Mean Corpuscular Hemoglobin 31, Mean Corpuscular Hemoglobin Concent 31L, Red Cell Distribution Width 18.6H, Platelet Count 163, Mean Platelet Volume 9.2, Neutrophils (%) (Auto) 14L, Lymphocytes (% ) (Auto) 85H, Monocytes (%) (Auto) 1, Eosinophils (%) (Auto) 0, Basophils (%) ( Auto) 0, Neutrophils # (Auto) 3.8, Lymphocytes # (Auto) 22.7H, Monocytes # (Auto ) 0.2, Eosinophils # (Auto) 0.1, Basophils # (Auto) 0.0 12/18/16 04:56: White Blood Count 24.8H, Red Blood Count 2.74L, Hemoglobin 8.7L, Hematocrit 27L , Mean Corpuscular Volume 100H, Mean Corpuscular Hemoglobin 32, Mean Corpuscular Hemoglobin Concent 32, Red Cell Distribution Width 18.6H, Platelet Count 144, Mean Platelet Volume 9.7, Neutrophils (%) (Auto) 16L, Lymphocytes (% ) (Auto) 83H, Monocytes (%) (Auto) 0, Eosinophils (%) (Auto) 0, Basophils (%) ( Auto) 0, Neutrophils # (Auto) 4.0, Lymphocytes # (Auto) 20.6H, Monocytes # (Auto ) 0.0, Eosinophils # (Auto) 0.1, Basophils # (Auto) 0.0 12/19/16 05:13: White Blood Count 23.6H, Red Blood Count 2.70L, Hemoglobin 8.5L, Hematocrit 27L , Mean Corpuscular Volume 100H, Mean Corpuscular Hemoglobin 32, Mean Corpuscular Hemoglobin Concent 32, Red Cell Distribution Width 18.4H, Platelet Count 172, Mean Platelet Volume 9.3, Neutrophils (%) (Auto) 14L, Lymphocytes (% ) (Auto) 85H, Monocytes (%) (Auto) 1, Eosinophils (%) (Auto) 0, Basophils (%) ( Auto) 0, Neutrophils # (Auto) 3.3, Lymphocytes # (Auto) 19.9H, Monocytes # (Auto ) 0.2, Eosinophils # (Auto) 0.1, Basophils # (Auto) 0.0 Assessment/Plan Assessment L2 veterbral burst frx s/p repair OSH CLL chronic Dr Holley [facility] following-WBC count decreasing Scalp laceration s/p suturing OSH HTN Home meds restarted-controlled Concussion s/p fall with confusion improving Hypocalcemia-replaced improved Pain management probable oversedation from zanaflex-improved with change to prn 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 Appreciate ST note they have signed off for now as she feel patient is at baseline with mild memory deficits Current labs noted Scheduled Pain med in AM before morning session of Therapy-doing better with pain management Replaced Ca See orders Team Conference held 12-17-16 -See report for full functional update and POC and ELOS Continue scheduled [pain med in am before therapies unless sedation remains an issue Trial of Voltaran gel for painful djd left hip-done KARL MIRELES MD Dec 19, 2016 08:31
[2016-12-19] MEDS: meTOprolol TARTRATE 50 MG (LOPRESSOR) TAB PO SCH ×2 (08:37→20:48)
[2016-12-19] MEDS: ENALAPRIL 5 MG (VASOTEC) TAB PO SCH (08:37)
[2016-12-19] MEDS: DICLOFENAC 1% GEL 100 GM (VOLTAREN) TUBE TOP SCH ×4 (08:38→20:49)
--- NOTE | 2016-12-19 10:03 | Occupational Ther Daily Note ---
OT Current Status-Daily Note Subjective Pt alert, lying in bed. Pt agreed to therapy. Pt c/o pain in hip, not rated. Pt stated that he had pain meds and cream already. Mental Status/Objective Patient Orientation: Person, Place, Time, Situation Functional [place] Measure 0=Not Assessed/NA 4=Minimal Assistance 1=Total Assistance 5=Supervision or Setup 2=Maximal Assistance 6=Modified [place] 3=Moderate Assistance 7=Complete [place] ADL-Treatment Pt appeared to be in increased pain throughout treatment and was in tears at one point. Assist x2 for supine to sitting EOB then CGA for sitting EOB. Pt took increased time to complete tasks. Pt sat on EOB and bathed upper body then nrsg changed back bandage. Assist to don shirt due to increased pain. Pt then transferred with nursing assistance from EOB to [facility] with mod A to stand and min A for stand pivot transfer with FWW. Pt utilized BS. Pt required assist to cleanse self after toileting. Assist to don shorts over feet then pt , using one arm at a time hiked pants over hips. Pt transferred from [facility] to recliner with min A x1. present in room. Call light/phone in reach. All needs met in room. Functional [place] Measure 0=Not Assessed/NA 4=Minimal Assistance 1=Total Assistance 5=Supervision or Setup 2=Maximal Assistance 6=Modified [place] 3=Moderate Assistance 7=Complete IndependenceIRFPAI Quality Coding Scale 6 Independent with activity with or without an assistive device 5 Patient requires set up or clean up by helper. Patient completes activity by themselves 4 Supervision or touching assist (CGA). [place] provide cues , steadying assist 3 The helper provides less than half the effort to complete the activity 2 The helper provides more than half the effort to complete the activity 1 Dependent. The helper does all the effort to complete an activity 7 Patient refused to complete or attempt activity 9 The patient did not perform the activity before the current illness or injury 88 Not attempted due to Medical conditions or safety concerns Bathing (FIM): 3 Upper Body (FIM): 4 Lower Body Dressing (FIM): 2 Toileting (FIM): 3 Transfers (B, C, W/C) (FIM): 3 Toilet/Commode Transfer (FIM): 4 OT Short Term Goals Short Term Goals Time Frame: Dec 15, 2016 Eating(FIM): 5 Grooming(FIM): 4 Bathing(FIM): 3 Upper Body Dressing(FIM): 3 Lower Body Dressing(FIM): 3 Toileting(FIM): 3 Transfers (B,C,W/C) (FIM): 3 Toilet/Commode Transfer(FIM): 3 Additional Short Term Goals: 1-Demonstrate ADL Tasks, 2-Verbalize Understanding , 3-ImproveStrength/[place] 1=Demonstrate adherence to instructed precautions during ADL tasks. 2=Patient will verbalize/demonstrate understanding of assistive devices/ modifications for ADL. 3=Patient will improve strength/tolerance for activity to enable patient to perform ADL's. OT Hims Clerk Goals Hims Clerk Goals Time Frame: Dec 29, 2016 Eating (FIM): 6 Eating (QC): 5 Groomin Oral Hygiene (QC): 5 Bathing(FIM): 4 Shower/Bathe Self (QC): 4 Upper Body Dressing(FIM): 5 Upper Body Dressing (QC): 5 Lower Body Dressing(FIM): 5 Lower Body Dressing (QC): 5 On/Off Footwear (QC): 5 Toileting(FIM): 6 Toileting Hygiene (QC): 5 Transfers (B,C,W/C) (FIM): 5 Toilet/Commode Transfer(FIM): 5 Toilet/Commode Transfer (QC): 5 Shower Transfer(FIM): 4 Additional Goals: 1-Demonstrate ADL Tasks, 2-Verbalize Understanding, 3- ImproveStrength/[place] 1=Demonstrate adherence to instructed precautions during ADL tasks. 2=Patient will verbalize/demonstrate understanding of assistive devices/ modifications for ADL. 3=Patient will improve strength/tolerance for activity to enable patient to perform ADL's. OT Education/Plan Discharge Recommendations Plan/Recommendations: Continue POC Treatment Plan/Plan of Care Patient would benefit from OT for education, treatment and training to promote independence in ADL's, mobility, safety and/or upper extremity function for ADL' s. Plan of Care: ADL Retraining, Caregiver Training, Functional Mobility, Group Exercise/Act as Ind, UE Funct Exercise/Act Treatment Duration: Dec 29, 2016 Frequency: At least 5-7 days/Wk (IRF) (Thursday - Thursday, PRN Thursday) Estimated Hrs Per Day: 1.5 hours per day Agreement: Yes Rehab Potential: Fair Time/GCodes Start Time: 09:00 Stop Time: 10:00 Total Time Billed (hr/min): 60 Billed Treatment Time 1 visit-ADL 4 (60 min) DOUGIE VILLATORO Dec 19, 2016 10:03
--- NOTE | 2016-12-19 10:38 | Progress Note (SOAP) ---
Subjective Date Seen by Provider: Dec 19, 2016 Time Seen by Provider: 09:55 Subjective/Events-last exam PT REPORTS THAT HE IS STILL IN QUITE A BIT OF PAIN. HE REPORTS THAT HIS BACK HURTS ALL THE TIME, WORSE WITH MOVEMENT. HE REPORTS THAT HE DOES FEEL A LITTLE BIT BETTER LATER IN THE DAY. Review of Systems General: Fatigue, Malaise HEENT: No Head Aches, No Visual Changes Pulmonary: No Dyspnea, No Cough Cardiovascular: No: Chest Pain, Palpitations Gastrointestinal: No: Abdominal Pain, Nausea Genitourinary: No Dysuria Musculoskeletal: back pain, leg pain Neurological: Confusion (INTERMITTENT), Weakness Objective Exam Vital Signs Date Time Temp Pulse Resp B/P (MAP) Pulse Ox O2 Delivery O2 Flow Rate FiO2 12/19/16 10:12 Room Air 12/19/16 08:41 99.0 12/19/16 06:28 95 Room Air 12/19/16 05:00 99.1 97 20 126/73 98 Room Air 12/18/16 20:10 Room Air 12/18/16 19:00 99.0 12/18/16 17:30 99.9 84 20 119/65 99 Room Air I & O 12/19/16 07:00 Intake Total 837 ml Output Total 400 ml Balance 437 ml Capillary Refill : General Appearance: WD/WN, Mild Distress HEENT: PERRL/EOMI Neck: Full Range of Motion, Supple Respiratory: Chest Non Tender, Lungs Clear, Normal Breath Sounds, No Accessory Muscle Use Cardiovascular: Regular Rate, Rhythm, No Edema Gastrointestinal: normal bowel sounds, non tender, soft, no organomegaly, no pulsatile mass Extremity: Pedal Edema (TRACE) Neurologic/Psychiatric: Alert, Other (SLOW FUNCTIONING) Skin: Warm/Dry Lymphatic: No Adenopathy Results Lab Laboratory Tests 12/19/16 05:13: White Blood Count 23.6H, Red Blood Count 2.70L, Hemoglobin 8.5L, Hematocrit 27L , Mean Corpuscular Volume 100H, Mean Corpuscular Hemoglobin 32, Mean Corpuscular Hemoglobin Concent 32, Red Cell Distribution Width 18.4H, Platelet Count 172, Mean Platelet Volume 9.3, Neutrophils (%) (Auto) 14L, Lymphocytes (% ) (Auto) 85H, Monocytes (%) (Auto) 1, Eosinophils (%) (Auto) 0, Basophils (%) ( Auto) 0, Neutrophils # (Auto) 3.3, Lymphocytes # (Auto) 19.9H, Monocytes # (Auto ) 0.2, Eosinophils # (Auto) 0.1, Basophils # (Auto) 0.0 Assessment/Plan Assessment/Plan Assess & Plan/Chief Complaint L2 LUMBAR VERTEBRAL BURST FRACTURE FIXED IN [place] AT [facility] ON 12/01/16 - PT HAD A FALL AT THE [facility], FELL BACKWARDS HIT HIS BOTTOM AND HEAD ON THE GROUND AND SUSTAINED THE FRACTURE, HE IS RECEIVING PHYSICAL AND OCCUPATIONAL THERAPY. WITH INCREASE IN BACK PAIN - PLAN FOR CT SCAN OF LUMBAR SPINE TODAY. CLL - WHITE COUNT IMPROVING - DR. VAZQUEZ IS FOLLOWING PATIENT - SHE WILL SEE HIM WHILE IN THE HOSPITAL. HYPERTENSION - CHRONIC -RESTARTED HOME MEDICATIONS. WEAKNESS - CONTINUE WITH PHYSICAL THERAPY. DELIRIUM - IMPROVED. COPD - ON ALBUTEROL Clinical Quality Measures DVT/VTE Risk/Contraindication: Risk Factor Score Per Nursin RFS Level Per Nursing on Admit: 4+=Very High SORAYA COOMBS MD Dec 19, 2016 10:38
--- NOTE | 2016-12-19 11:00 | Physical Therapy Daily Note ---
PT Daily Note-Current Subjective Patient in recliner pre tx, agrees to PT, has 9/10 pain in left leg. Appearance Patient in recliner post tx with nurse call, phone, tray, in room, all needs met. Mental Status Patient Orientation: Person, Place, Situation TLSO Transfers Functional [place] Measure 0=Not Assessed/NA 4=Minimal Assistance 1=Total Assistance 5=Supervision or Setup 2=Maximal Assistance 6=Modified [place] 3=Moderate Assistance 7=Complete IndependenceIRFPAI Quality Coding Scale 6 Independent with activity with or without an assistive device 5 Patient requires set up or clean up by helper. Patient completes activity by themselves 4 Supervision or touching assist (CGA). [place] provide cues , steadying assist 3 The helper provides less than half the effort to complete the activity 2 The helper provides more than half the effort to complete the activity 1 Dependent. The helper does all the effort to complete an activity 7 Patient refused to complete or attempt activity 9 The patient did not perform the activity before the current illness or injury 88 Not attempted due to Medical conditions or safety concerns Transfers (B, C, W/C) (FIM): 4 Sit to/from Stand: 4 min assist to stand from lower surfaces, cues for safety and hand placement Gait Training Gait (FIM): 4 Distance: 150'x2 Gait Level of Assist: 4 Gait Persons Needed: 1 Gait Assistive Device: FWW slow, antalgic Exercises Standing: Hip Abduction, Heel/toe raises, Mini squats Standing Reps: 20 LAQ alternating for 5 min, toe taps on step x20 each side Treatments transfers, ambulation, functional strengthening Assessment Current Status: Fair Progress improved ambulation even with more pain, however, he needed a lot of rest breaks PT Short Term Goals Short Term Goals Time Frame: Dec 15, 2016 Transfers (B,C,W/C) (FIM): 3 Gait (FIM): 2 Gait Distance Comment: 50' Gait Level of Assist: 3 Gait Assistive Device: FWW Wheelchair Distance: 150' PT Intermediate Goals Scrap Picker Goals PT Scrap Picker Goals Time Frame: Dec 29, 2016 Transfers (B,C,W/C) (FIM): 4 Sit to Lying (QC): 4 Lying-Sitting on Side/Bed(QC): 4 Sit to Stand (QC): 4 Rollin Roll Left to Right (QC): 4 Chair/Orf-tt-Sjikz Xfer(QC): 4 Car Transfer (QC): 4 Gait (FIM): 4 Distance: 150' Walk 10 feet (QC): 4 Walk 10ft-Uneven Surface(QC): 4 Walk 50ft with 2 Turns (QC): 4 Walk 150 ft (QC): 4 Gait Level of Assist: 4 Gait Assistive Device: FWW Stairs (FIM): 2 # of Steps: 4 1 Step (curb) (QC): 4 4 Steps (QC): 4 Stairs Level Of Assist: 4 PT Plan Problem List Problem List: Activity Tolerance, Functional Strength, Safety, Balance, Gait, Transfer, Bed Mobility, ROM Treatment/Plan Treatment Plan: Continue Plan of Care Treatment Plan: Bed Mobility, Education, Functional Activity [place], Functional Strength, Group Therapy, Gait, Safety, Therapeutic Exercise, Transfers Treatment Duration: Dec 29, 2016 Frequency: At least 5-7 days/Wk (IRF) Estimated Hrs Per Day: 1.5 hours per day Patient and/or Family Agrees t: Yes Safety Risks/Education Patient Education: Gait Training, Transfer Techniques, Safety Issues Teaching Recipient: Patient Teaching Methods: Demonstration, Discussion Response to Teaching: Reinforcement Needed Time/GCodes Time In: 1000 Time Out: 1100 Total Billed Treatment Time: 60 Total Billed Treatment 1 visit GT 30' EX 30' TYSON AGUILERA PT Dec 19, 2016 11:00
[2016-12-19] MEDS ORDERED: NS 100 ML (IVPB) BAG IV ONE (11:15)
[2016-12-19] MEDS ORDERED: IOHEXOL 350 MG/ML 100 ML (OMNIPAQUE 350) VIAL IV ONE (11:15)
--- NOTE | 2016-12-19 14:17 | Diagnostic Imaging Report ---
PROCEDURE: CT lumbar spine with and without contrast. TECHNIQUE: Axial images were obtained through the lumbar spine with and without intravenous contrast and reformatted into coronal and sagittal planes. INDICATION: Lumbar surgery 12/01/2016. Increased back pain. COMPARISON: Lumbar spine CT without contrast 11/25/2016. FINDINGS: There are five lumbar type vertebral bodies. There is grade 1 retrolisthesis of L3 on L4 and L4 on L5. Grade 1 anterolisthesis of L5 on S1. Since the prior exam, there have been postoperative changes of a bilateral sully and pedicle screw fixation at T12 through L4, spanning a Chance fracture of the L2 vertebral body. There is decreased distraction of this fracture which measures approximately 0.8 cm anteriorly, previously 1.0 cm. No evidence of hardware loosening. Hardware components are intact. There is a small nonspecific fluid collection in the postoperative soft tissues, overlying the L3 and L4 spinous processes measuring approximately 2.2 x 2.2 x 4.8 cm. No other fluid collections in the postoperative soft tissues. Bilateral pleural effusions are partially visualized. Arterial calcifications including a normal-caliber abdominal aorta. T12-L1: Posterior disc osteophyte complex and facet arthropathy result in moderate spinal canal narrowing. Disc space height loss also contributes to mild left neuroforaminal narrowing. L1-L2: Posterior disc osteophyte complex and facet arthropathy result in at least mild spinal canal narrowing. Disc space height loss and facet arthropathy also contribute to moderate bilateral neuroforaminal narrowing. L2-L3: No substantial spinal canal narrowing. Disc space height loss and facet arthropathy result in advanced left neuroforaminal narrowing. No substantial right neuroforaminal narrowing. L3-L4: Posterior disc osteophyte complex, ligamentous hypertrophy and facet arthropathy all contribute to moderate spinal canal narrowing. Disc space height loss and facet arthropathy contribute to moderate bilateral neuroforaminal narrowing. L4-L5: The retrolisthesis combines with facet arthropathy to result in at least mild spinal canal narrowing. Disc space height loss and facet arthropathy result in advanced bilateral neuroforaminal narrowing. L5-S1: No definite spinal canal narrowing. The anterolisthesis and facet arthropathy result in [id number] bilateral neuroforaminal narrowing. IMPRESSION: 1. Interval postoperative findings of bilateral sully and pedicle screw fixation at T12 through L4, spanning the Chance fracture of L2. The distraction of the Chance fracture has mildly decreased since the prior exam. No new fractures. No evidence of hardware failure. 2. Small nonspecific fluid collection in the postoperative soft tissues overlying the L3 and L4 spinous processes. 3. Multilevel spinal canal and neuroforaminal narrowing detailed above. Dictated by: Dictated on workstation # [id number]
--- NOTE | 2016-12-19 14:39 | Therapy Group Daily Note ---
Therapy Daily Group Note Other/Notes Each patient participated in group therapy in the common area of the rehab floor. Each patient ambulated or was transported to the common area of rehab and they sat in a lumbee. Then each patient introduced themselves, stated where they were from and had to answer a question that involved memory and critical thinking. Patients then participated in group/patient led upper and lower strengthening exercises, some upper extremity exercises with a theraband. Finally, patients were educated on the role of different assistive devices with ambulation. Finally, each patient ambulated or was transported back to their room and put in bed or chair with nurse call, phone, tray, all needs met. Start Time: 13:00 Stop Time: 14:15 Total Billed Treatment Time: 75 Total Billed Treatment 1 visit GRP 75' TYSON AGUILERA PT Dec 19, 2016 14:39
[2016-12-19 17:40] VITALS: BP 99/56
[2016-12-19] MEDS: ATORVASTATIN 40 MG (LIPITOR) TABLET PO SCH (20:48)
[2016-12-20 05:00] VITALS: BP 114/62
[2016-12-20 05:38] LABS: BASOPHILS % (AUTO) 0 % (0-10); EOSINOPHILS # (AUTO) 0.1 10^3/uL (0.0-0.3); EOSINOPHILS % (AUTO) 0 % (0-10); LYMPHOCYTES # (AUTO) 22.6 X 10^3 (1.0-4.0); LYMPHOCYTES % (AUTO) 87 % (12-44); MEAN CORPUSCULAR HEMOGLOBIN 32 PG (25-34); MEAN CORPUSCULAR HGB CONC 32 G/DL (32-36); MEAN CORPUSCULAR VOLUME 100 FL (80-99); MEAN PLATELET VOLUME 9.3 FL (7.4-10.4); MONOCYTES % (AUTO) 0 % (0-12); NEUTROPHILS # (AUTO) 3.2 X 10^3 (1.8-7.8); NEUTROPHILS % (AUTO) 12 % (42-75); PLATELET COUNT 169 10^3/uL (130-400); RED BLOOD COUNT 2.85 10^6/uL (4.35-5.85); RED CELL DISTRIBUTION WIDTH 18.6 % (10.0-14.5); WHITE BLOOD COUNT 25.9 10^3/uL (4.3-11.0)
[2016-12-20] MEDS: MULTIVIT W/MINERALS TAB (THERAGRAN M) PO SCH (06:26)
[2016-12-20] MEDS: PANTOPRAZOLE 40 MG (PROTONIX) TAB PO SCH (06:26)
[2016-12-20] MEDS: CALCIUM CARB + VIT D 600 MG (CALCARB + D) TAB PO SCH (06:26)
[2016-12-20] MEDS: RT-ADVAIR HFA 115/21 MCG PER PUFF IH SCH (07:45)
[2016-12-20] MEDS: ENALAPRIL 5 MG (VASOTEC) TAB PO SCH (08:14)
[2016-12-20] MEDS: meTOprolol TARTRATE 50 MG (LOPRESSOR) TAB PO SCH ×2 (08:14→21:43)
[2016-12-20] MEDS: DICLOFENAC 1% GEL 100 GM (VOLTAREN) TUBE TOP SCH ×4 (08:15→21:43)
--- NOTE | 2016-12-20 11:23 | Physical Therapy Daily Note ---
PT Daily Note-Current Subjective Pt in bed, agrees to get up for Rx. Pain Numeric Pain Scale: 8 Location: Medial Location Body Site: Back Pain Description: Pressure Comment: c/o reported to nursing who states pt. has already had morphine Appearance whinces and expresses pain Mental Status Patient Orientation: [place], Normal For Age Attachments: Other-See Comments (TLSO max assist to apply) Transfers Functional [place] Measure 0=Not Assessed/NA 4=Minimal Assistance 1=Total Assistance 5=Supervision or Setup 2=Maximal Assistance 6=Modified [place] 3=Moderate Assistance 7=Complete IndependenceIRFPAI Quality Coding Scale 6 Independent with activity with or without an assistive device 5 Patient requires set up or clean up by helper. Patient completes activity by themselves 4 Supervision or touching assist (CGA). [place] provide cues , steadying assist 3 The helper provides less than half the effort to complete the activity 2 The helper provides more than half the effort to complete the activity 1 Dependent. The helper does all the effort to complete an activity 7 Patient refused to complete or attempt activity 9 The patient did not perform the activity before the current illness or injury 88 Not attempted due to Medical conditions or safety concerns Transfers (B, C, W/C) (FIM): 3 Scootin Rollin Supine to/from Sit: 3 Sit to/from Stand: 3 Gait Training Does the Patient Walk?: Yes Gait (FIM): 2 Distance (FIM): 5=865-13 ft (60ftx1) Gait Level of Assist: 4 Gait Persons Needed: 1 Gait Assistive Device: FWW slow gait with min assist, pain limiting pt. this date Exercises Supine Ex: Ankle pumps, Quad Set, Rolling, Hip abd/add Supine Reps: 8 Assessment Current Status: Fair Progress pain at high level limiting function today PT Short Term Goals Short Term Goals Time Frame: Dec 15, 2016 Transfers (B,C,W/C) (FIM): 3 Gait (FIM): 2 Gait Distance Comment: 50' Gait Level of Assist: 3 Gait Assistive Device: FWW Wheelchair Distance: 150' PT Marketing Production Coordinator Goals Marketing Production Coordinator Goals PT Jail Goals Time Frame: Dec 29, 2016 Transfers (B,C,W/C) (FIM): 4 Sit to Lying (QC): 4 Lying-Sitting on Side/Bed(QC): 4 Sit to Stand (QC): 4 Rollin Roll Left to Right (QC): 4 Chair/Had-vb-Rsiee Xfer(QC): 4 Car Transfer (QC): 4 Gait (FIM): 4 Distance: 150' Walk 10 feet (QC): 4 Walk 10ft-Uneven Surface(QC): 4 Walk 50ft with 2 Turns (QC): 4 Walk 150 ft (QC): 4 Gait Level of Assist: 4 Gait Assistive Device: FWW Stairs (FIM): 2 # of Steps: 4 1 Step (curb) (QC): 4 4 Steps (QC): 4 Stairs Level Of Assist: 4 PT Plan Treatment/Plan Treatment Plan: Continue Plan of Care Treatment Plan: Bed Mobility, Education, Functional Activity [place], Functional Strength, Group Therapy, Gait, Safety, Therapeutic Exercise, Transfers Treatment Duration: Dec 29, 2016 Frequency: At least 5-7 days/Wk (IRF) Estimated Hrs Per Day: 1.5 hours per day Patient and/or Family Agrees t: Yes Safety Risks/Education Patient Education: Gait Training, Transfer Techniques, Correct Positioning, Disease Process, Safety Issues Teaching Recipient: Patient Teaching Methods: Demonstration, Discussion Response to Teaching: Verbalize Understanding, Return Demonstration, Reinforcement Needed Time/GCodes Time In: 830 Time Out: 855 Total Billed Treatment Time: 25 Total Billed Treatment 1,FA15,GT10 G Codes Necessary: CASPER Sahni PULMONOLOGIST/INTENSIVIST Dec 20, 2016 11:23
[2016-12-20 18:00] VITALS: BP 122/66
[2016-12-20] MEDS: ATORVASTATIN 40 MG (LIPITOR) TABLET PO SCH (21:43)
[2016-12-21 05:09] VITALS: BP 121/71
[2016-12-21] MEDS: PANTOPRAZOLE 40 MG (PROTONIX) TAB PO SCH (06:18)
[2016-12-21] MEDS: CALCIUM CARB + VIT D 600 MG (CALCARB + D) TAB PO SCH (06:18)
[2016-12-21] MEDS: MULTIVIT W/MINERALS TAB (THERAGRAN M) PO SCH (06:18)
[2016-12-21 06:58] LABS: BASOPHILS % (AUTO) 0 % (0-10); EOSINOPHILS # (AUTO) 0.1 10^3/uL (0.0-0.3); EOSINOPHILS % (AUTO) 0 % (0-10); LYMPHOCYTES # (AUTO) 21.1 X 10^3 (1.0-4.0); LYMPHOCYTES % (AUTO) 84 % (12-44); MEAN CORPUSCULAR HEMOGLOBIN 32 PG (25-34); MEAN CORPUSCULAR HGB CONC 32 G/DL (32-36); MEAN CORPUSCULAR VOLUME 99 FL (80-99); MEAN PLATELET VOLUME 9.2 FL (7.4-10.4); MONOCYTES # (AUTO) 0.2 X 10^3 (0.0-1.0); MONOCYTES % (AUTO) 1 % (0-12); NEUTROPHILS # (AUTO) 3.7 X 10^3 (1.8-7.8); NEUTROPHILS % (AUTO) 15 % (42-75); PLATELET COUNT 184 10^3/uL (130-400); RED BLOOD COUNT 2.93 10^6/uL (4.35-5.85); RED CELL DISTRIBUTION WIDTH 18.4 % (10.0-14.5); WHITE BLOOD COUNT 25.2 10^3/uL (4.3-11.0)
[2016-12-21] MEDS: meTOprolol TARTRATE 50 MG (LOPRESSOR) TAB PO SCH ×2 (09:14→20:37)
[2016-12-21] MEDS: DICLOFENAC 1% GEL 100 GM (VOLTAREN) TUBE TOP SCH ×4 (09:14→20:34)
[2016-12-21] MEDS: ENALAPRIL 5 MG (VASOTEC) TAB PO SCH (09:14)
[2016-12-21] MEDS: RT-ADVAIR HFA 115/21 MCG PER PUFF IH SCH (12:46)
[2016-12-21 18:00] VITALS: BP 117/69
[2016-12-21] MEDS: ATORVASTATIN 40 MG (LIPITOR) TABLET PO SCH (20:37)
[2016-12-22 05:00] VITALS: BP 134/66
[2016-12-22] MEDS: MULTIVIT W/MINERALS TAB (THERAGRAN M) PO SCH (06:14)
[2016-12-22] MEDS: PANTOPRAZOLE 40 MG (PROTONIX) TAB PO SCH (06:14)
[2016-12-22] MEDS: CALCIUM CARB + VIT D 600 MG (CALCARB + D) TAB PO SCH (06:14)
[2016-12-22 06:41] LABS: BASOPHILS % (AUTO) 0 % (0-10); EOSINOPHILS # (AUTO) 0.2 10^3/uL (0.0-0.3); EOSINOPHILS % (AUTO) 1 % (0-10); LYMPHOCYTES # (AUTO) 20.6 X 10^3 (1.0-4.0); LYMPHOCYTES % (AUTO) 86 % (12-44); MEAN CORPUSCULAR HEMOGLOBIN 32 PG (25-34); MEAN CORPUSCULAR HGB CONC 32 G/DL (32-36); MEAN CORPUSCULAR VOLUME 100 FL (80-99); MEAN PLATELET VOLUME 9.2 FL (7.4-10.4); MONOCYTES % (AUTO) 0 % (0-12); NEUTROPHILS # (AUTO) 3.1 X 10^3 (1.8-7.8); NEUTROPHILS % (AUTO) 13 % (42-75); PLATELET COUNT 177 10^3/uL (130-400); RED BLOOD COUNT 2.88 10^6/uL (4.35-5.85); RED CELL DISTRIBUTION WIDTH 18.3 % (10.0-14.5); WHITE BLOOD COUNT 23.9 10^3/uL (4.3-11.0)
--- NOTE | 2016-12-22 08:57 | Physical Therapy Daily Note ---
PT Daily Note-Current Subjective Patient in bed pre tx, agrees to PT, has pain of 3-4/10 when up. Requests pain lotion for his left leg, nurse notified and it is applied. Patient also needs to get dressed. Appearance Patient in recliner post tx with nurse call, phone, tray, all needs met. Patient has some redness on the top of his left foot, nursing notified, states it looks like psoriasis Mental Status Patient Orientation: Normal For Age TLSO Transfers Functional [place] Measure 0=Not Assessed/NA 4=Minimal Assistance 1=Total Assistance 5=Supervision or Setup 2=Maximal Assistance 6=Modified [place] 3=Moderate Assistance 7=Complete IndependenceIRFPAI Quality Coding Scale 6 Independent with activity with or without an assistive device 5 Patient requires set up or clean up by helper. Patient completes activity by themselves 4 Supervision or touching assist (CGA). [place] provide cues , steadying assist 3 The helper provides less than half the effort to complete the activity 2 The helper provides more than half the effort to complete the activity 1 Dependent. The helper does all the effort to complete an activity 7 Patient refused to complete or attempt activity 9 The patient did not perform the activity before the current illness or injury 88 Not attempted due to Medical conditions or safety concerns Transfers (B, C, W/C) (FIM): 2 Scootin Rollin Supine to/from Sit: 2 Sit to/from Stand: 4 Patient still needs max assist for bed mobility, but can stand from the edge of the bed with min assist. Cues for hand placement. Gait Training Gait (FIM): 4 Distance: 150'x2 Gait Level of Assist: 4 Gait Persons Needed: 1 Gait Assistive Device: FWW CGA, antalgic, slow, patient ambulates slumped over Exercises sit to stand 3 sets of 5 NuStep Minutes: 15 NuStep Workload: 4 Treatments bed mobility and transfers, ambulation, functional strengthening, dressing Assessment Current Status: Fair Progress very slowly improving mobility, still needs to work a lot on bed mobility, pain is the limiting factor PT Short Term Goals Short Term Goals Time Frame: Dec 15, 2016 Transfers (B,C,W/C) (FIM): 3 Gait (FIM): 2 Gait Distance Comment: 50' Gait Level of Assist: 3 Gait Assistive Device: FWW Wheelchair Distance: 150' PT Obstetrics Technician Goals Obstetrics Technician Goals PT [facility] Care Goals Time Frame: Dec 29, 2016 Transfers (B,C,W/C) (FIM): 4 Sit to Lying (QC): 4 Lying-Sitting on Side/Bed(QC): 4 Sit to Stand (QC): 4 Rollin Roll Left to Right (QC): 4 Chair/Ana-yg-Kahqn Xfer(QC): 4 Car Transfer (QC): 4 Gait (FIM): 4 Distance: 150' Walk 10 feet (QC): 4 Walk 10ft-Uneven Surface(QC): 4 Walk 50ft with 2 Turns (QC): 4 Walk 150 ft (QC): 4 Gait Level of Assist: 4 Gait Assistive Device: FWW Stairs (FIM): 2 # of Steps: 4 1 Step (curb) (QC): 4 4 Steps (QC): 4 Stairs Level Of Assist: 4 PT Plan Problem List Problem List: Activity Tolerance, Functional Strength, Safety, Balance, Gait, Transfer, Bed Mobility, ROM Treatment/Plan Treatment Plan: Continue Plan of Care Treatment Plan: Bed Mobility, Education, Functional Activity [place], Functional Strength, Group Therapy, Gait, Safety, Therapeutic Exercise, Transfers Treatment Duration: Dec 29, 2016 Frequency: At least 5-7 days/Wk (IRF) Estimated Hrs Per Day: 1.5 hours per day Patient and/or Family Agrees t: Yes Safety Risks/Education Patient Education: Gait Training, Transfer Techniques, Correct Positioning, Safety Issues Teaching Recipient: Patient Teaching Methods: Demonstration, Discussion Response to Teaching: Reinforcement Needed Time/GCodes Time In: 800 Time Out: 900 Total Billed Treatment Time: 60 Total Billed Treatment 1 visit GT 30' EX 30' TYSON AGUILERA PT Dec 22, 2016 08:57
[2016-12-22] MEDS: DICLOFENAC 1% GEL 100 GM (VOLTAREN) TUBE TOP SCH ×4 (09:08→21:14)
[2016-12-22] MEDS: ENALAPRIL 5 MG (VASOTEC) TAB PO SCH (09:08)
[2016-12-22] MEDS: meTOprolol TARTRATE 50 MG (LOPRESSOR) TAB PO SCH ×2 (09:08→21:14)
[2016-12-22] MEDS: RT-ADVAIR HFA 115/21 MCG PER PUFF IH SCH (10:00)
--- NOTE | 2016-12-22 11:53 | Occupational Ther Daily Note ---
OT Current Status-Daily Note Subjective "I usually just do everything in this chair." Appearance Seated in the chair with back brace in place. Mental Status/Objective Functional [place] Measure 0=Not Assessed/NA 4=Minimal Assistance 1=Total Assistance 5=Supervision or Setup 2=Maximal Assistance 6=Modified [place] 3=Moderate Assistance 7=Complete [place] ADL-Treatment Patient agreed to upper body care and grooming this am. present today. Patient required set up for all activity. He could complete grooming independently, including shaving and brushing teeth, washing face and upper body. He assisted with the removal of the brace to bath and to don his T- shirt. He also assisted when brace was reapplied. Time spent discussing home situation and equipment he already has. He reported he had a "gripper" at home and this has been helpful. Functional [place] Measure 0=Not Assessed/NA 4=Minimal Assistance 1=Total Assistance 5=Supervision or Setup 2=Maximal Assistance 6=Modified [place] 3=Moderate Assistance 7=Complete IndependenceIRFPAI Quality Coding Scale 6 Independent with activity with or without an assistive device 5 Patient requires set up or clean up by helper. Patient completes activity by themselves 4 Supervision or touching assist (CGA). [place] provide cues , steadying assist 3 The helper provides less than half the effort to complete the activity 2 The helper provides more than half the effort to complete the activity 1 Dependent. The helper does all the effort to complete an activity 7 Patient refused to complete or attempt activity 9 The patient did not perform the activity before the current illness or injury 88 Not attempted due to Medical conditions or safety concerns OT Short Term Goals Short Term Goals Time Frame: Dec 15, 2016 Eating(FIM): 5 Grooming(FIM): 4 Bathing(FIM): 3 Upper Body Dressing(FIM): 3 Lower Body Dressing(FIM): 3 Toileting(FIM): 3 Transfers (B,C,W/C) (FIM): 3 Toilet/Commode Transfer(FIM): 3 Additional Short Term Goals: 1-Demonstrate ADL Tasks, 2-Verbalize Understanding , 3-ImproveStrength/[place] 1=Demonstrate adherence to instructed precautions during ADL tasks. 2=Patient will verbalize/demonstrate understanding of assistive devices/ modifications for ADL. 3=Patient will improve strength/tolerance for activity to enable patient to perform ADL's. OT Evp And Chief Operating Officer Goals Shelter Goals Time Frame: Dec 29, 2016 Eating (FIM): 6 Eating (QC): 5 Groomin Oral Hygiene (QC): 5 Bathing(FIM): 4 Shower/Bathe Self (QC): 4 Upper Body Dressing(FIM): 5 Upper Body Dressing (QC): 5 Lower Body Dressing(FIM): 5 Lower Body Dressing (QC): 5 On/Off Footwear (QC): 5 Toileting(FIM): 6 Toileting Hygiene (QC): 5 Transfers (B,C,W/C) (FIM): 5 Toilet/Commode Transfer(FIM): 5 Toilet/Commode Transfer (QC): 5 Shower Transfer(FIM): 4 Additional Goals: 1-Demonstrate ADL Tasks, 2-Verbalize Understanding, 3- ImproveStrength/[place] 1=Demonstrate adherence to instructed precautions during ADL tasks. 2=Patient will verbalize/demonstrate understanding of assistive devices/ modifications for ADL. 3=Patient will improve strength/tolerance for activity to enable patient to perform ADL's. OT Education/Plan Discharge Recommendations Plan/Recommendations: Continue POC Treatment Plan/Plan of Care Patient would benefit from OT for education, treatment and training to promote independence in ADL's, mobility, safety and/or upper extremity function for ADL' s. Plan of Care: ADL Retraining, Caregiver Training, Functional Mobility, Group Exercise/Act as Ind, UE Funct Exercise/Act Treatment Duration: Dec 29, 2016 Frequency: At least 5-7 days/Wk (IRF) (Thursday - Thursday, PRN Thursday) Estimated Hrs Per Day: 1.5 hours per day Agreement: Yes Rehab Potential: Fair Time/GCodes Start Time: 09:05 Stop Time: 10:10 Total Time Billed (hr/min): 65 Billed Treatment Time Visit, ADL x 4 units TASHA ABDULLAHI OT Dec 22, 2016 11:52
--- NOTE | 2016-12-22 15:05 | Therapy Group Daily Note ---
Therapy Daily Group Note Patient Education Topic Fall Prevention Exercises LE Seated Exercise, Other Other/Notes Pt was an active participant in OT/PT group. He walked CGA, FWW to group and introduced himself to the group by sharing his favorite vacation spot. He did seated LE exercises and participated in group education/discussion on fall prevention. He did a memory activity with the group and was successful in recalling items on board. He was able to tolerate the increased activity time in preparation for discharge planning. Pt walked back to his room, CGA, FWW and was left up in recliner, all needs met. Start Time: 12:45 Stop Time: 14:00 Total Billed Treatment Time: 75 Total Billed Treatment visit, 75 minutes group JUANITO MARTE OT Dec 22, 2016 15:05
[2016-12-22 19:09] VITALS: BP 111/60
--- NOTE | 2016-12-22 20:28 | PM & R (SOAP) Progress Note ---
Subjective Time Seen by Provider: 07:30 Subjective/Events-last exam Patient was seen in his room this evening Therapy notes reviewed Patient Mod assist for transfers, CT Lumbar spine reviewed. Review of Systems Musculoskeletal: back pain, leg pain Objective Exam Last Set of Vital Signs Vital Signs Date Time Temp Pulse Resp B/P (MAP) Pulse Ox O2 Delivery O2 Flow Rate FiO2 12/22/16 20:18 Room Air 12/22/16 19:09 97.6 71 14 111/60 98 Capillary Refill : I&O Intake and Output 12/22/16 00:00 Intake Total 1640 ml Output Total 200 ml Balance 1440 ml Intake Oral 1640 ml Output Urine Total 200 ml # Voids 6 # Bowel Movements 2 General: Alert, Oriented X3, Cooperative HEENT: Mucous Memb Moist/[place], Other (running blue suture on top of head- skin growing around it.) Neck: Supple, No JVD Lungs: Clear to Auscultation, Normal Air Movement Heart: Regular Rate Abdomen: Normal Bowel Sounds, Soft Extremities: No Clubbing, No Cyanosis, Other (Surgical scar over left knee) Skin: No Rashes, No Breakdown, Other (back incision- covered with dressing) Neuro: Normal Speech, Sensation Intact, Other (strength- 4/5 lower extremities - 5/5 upper extremities) Psych/Mental Status: Mental Status NL, Mood NL (quiet, reserved) Results Lab Laboratory Tests 12/20/16 05:32: White Blood Count 25.9H, Red Blood Count 2.85L, Hemoglobin 9.0L, Hematocrit 28L , Mean Corpuscular Volume 100H, Mean Corpuscular Hemoglobin 32, Mean Corpuscular Hemoglobin Concent 32, Red Cell Distribution Width 18.6H, Platelet Count 169, Mean Platelet Volume 9.3, Neutrophils (%) (Auto) 12L, Lymphocytes (% ) (Auto) 87H, Monocytes (%) (Auto) 0, Eosinophils (%) (Auto) 0, Basophils (%) ( Auto) 0, Neutrophils # (Auto) 3.2, Lymphocytes # (Auto) 22.6H, Monocytes # (Auto ) 0.0, Eosinophils # (Auto) 0.1, Basophils # (Auto) 0.0 12/21/16 06:50: White Blood Count 25.2H, Red Blood Count 2.93L, Hemoglobin 9.3L, Hematocrit 29L , Mean Corpuscular Volume 99, Mean Corpuscular Hemoglobin 32, Mean Corpuscular Hemoglobin Concent 32, Red Cell Distribution Width 18.4H, Platelet Count 184, Mean Platelet Volume 9.2, Neutrophils (%) (Auto) 15L, Lymphocytes (%) (Auto) 84H , Monocytes (%) (Auto) 1, Eosinophils (%) (Auto) 0, Basophils (%) (Auto) 0, Neutrophils # (Auto) 3.7, Lymphocytes # (Auto) 21.1H, Monocytes # (Auto) 0.2, Eosinophils # (Auto) 0.1, Basophils # (Auto) 0.0 12/22/16 06:35: White Blood Count 23.9H, Red Blood Count 2.88L, Hemoglobin 9.2L, Hematocrit 29L , Mean Corpuscular Volume 100H, Mean Corpuscular Hemoglobin 32, Mean Corpuscular Hemoglobin Concent 32, Red Cell Distribution Width 18.3H, Platelet Count 177, Mean Platelet Volume 9.2, Neutrophils (%) (Auto) 13L, Lymphocytes (% ) (Auto) 86H, Monocytes (%) (Auto) 0, Eosinophils (%) (Auto) 1, Basophils (%) ( Auto) 0, Neutrophils # (Auto) 3.1, Lymphocytes # (Auto) 20.6H, Monocytes # (Auto ) 0.0, Eosinophils # (Auto) 0.2, Basophils # (Auto) 0.0 Assessment/Plan Assessment 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 Appreciate ST note they have signed off for now as she feel patient is at baseline with mild memory deficits Current labs noted Scheduled Pain med in AM before morning session of Therapy-doing better with pain management Replaced Ca See orders Continued scheduled pain med in am before therapies but at a lessed dose Trial of Voltaran gel for painful djd left hip-done Next Team Conference 12/24/16 KARL MIRELES MD Dec 22, 2016 20:27
[2016-12-22] MEDS: ATORVASTATIN 40 MG (LIPITOR) TABLET PO SCH (21:14)
[2016-12-23] MEDS: PANTOPRAZOLE 40 MG (PROTONIX) TAB PO SCH (05:44)
[2016-12-23] MEDS: CALCIUM CARB + VIT D 600 MG (CALCARB + D) TAB PO SCH (05:44)
[2016-12-23] MEDS: MULTIVIT W/MINERALS TAB (THERAGRAN M) PO SCH (05:44)
[2016-12-23 05:55] VITALS: BP 119/63
[2016-12-23 07:34] LABS: BASOPHILS % (AUTO) 0 % (0-10); EOSINOPHILS # (AUTO) 0.2 10^3/uL (0.0-0.3); EOSINOPHILS % (AUTO) 1 % (0-10); LYMPHOCYTES # (AUTO) 18.3 X 10^3 (1.0-4.0); LYMPHOCYTES % (AUTO) 82 % (12-44); MEAN CORPUSCULAR HEMOGLOBIN 32 PG (25-34); MEAN CORPUSCULAR HGB CONC 32 G/DL (32-36); MEAN CORPUSCULAR VOLUME 100 FL (80-99); MEAN PLATELET VOLUME 9.2 FL (7.4-10.4); MONOCYTES # (AUTO) 0.3 X 10^3 (0.0-1.0); MONOCYTES % (AUTO) 1 % (0-12); NEUTROPHILS # (AUTO) 3.5 X 10^3 (1.8-7.8); NEUTROPHILS % (AUTO) 16 % (42-75); PLATELET COUNT 183 10^3/uL (130-400); RED BLOOD COUNT 2.87 10^6/uL (4.35-5.85); WHITE BLOOD COUNT 22.3 10^3/uL (4.3-11.0)
[2016-12-23] MEDS: RT-ADVAIR HFA 115/21 MCG PER PUFF IH SCH (07:46)
--- NOTE | 2016-12-23 08:59 | Physical Therapy Daily Note ---
PT Daily Note-Current Subjective Patient in bed pre tx, agrees to PT, has pain of 4-5/10. Patient will need to get dressed (does so with min A upper and mod-max assist lower) Appearance Patient in recliner post tx with nurse call, phone, tray, all needs met. Mental Status Patient Orientation: Person, Place, Situation TLSO Transfers Functional [place] Measure 0=Not Assessed/NA 4=Minimal Assistance 1=Total Assistance 5=Supervision or Setup 2=Maximal Assistance 6=Modified [place] 3=Moderate Assistance 7=Complete IndependenceIRFPAI Quality Coding Scale 6 Independent with activity with or without an assistive device 5 Patient requires set up or clean up by helper. Patient completes activity by themselves 4 Supervision or touching assist (CGA). [place] provide cues , steadying assist 3 The helper provides less than half the effort to complete the activity 2 The helper provides more than half the effort to complete the activity 1 Dependent. The helper does all the effort to complete an activity 7 Patient refused to complete or attempt activity 9 The patient did not perform the activity before the current illness or injury 88 Not attempted due to Medical conditions or safety concerns Transfers (B, C, W/C) (FIM): 3 Scootin Rollin Supine to/from Sit: 3 Sit to/from Stand: 4 Improved bed mobility, patient able to go from supine to sit with mod A. Still needs min assist to stand from low surfaces. Gait Training Gait (FIM): 4 Distance: 150'x2 Gait Level of Assist: 4 Gait Persons Needed: 1 Gait Assistive Device: FWW CGA, slow, antalgic, cues for direction Stair Training Stair Training: Handrails/: 2 handrails Stairs (FIM): 2 #of Steps: 4 Stairs: Pattern: Step to Level of Assist: 4 CGA, cues for safety and foot placement Exercises LAQ alternating for 5 min NuStep Minutes: 15 NuStep Workload: 4 Treatments bed mobility and transfers, dressing, functional strengthening, gait training, stair training Assessment Current Status: Fair Progress improved stairs and bed mobility PT Short Term Goals Short Term Goals Time Frame: Dec 15, 2016 Transfers (B,C,W/C) (FIM): 3 Gait (FIM): 2 Gait Distance Comment: 50' Gait Level of Assist: 3 Gait Assistive Device: FWW Wheelchair Distance: 150' PT [facility] Goals [facility] Goals PT [facility] Goals Time Frame: Dec 29, 2016 Transfers (B,C,W/C) (FIM): 4 Sit to Lying (QC): 4 Lying-Sitting on Side/Bed(QC): 4 Sit to Stand (QC): 4 Rollin Roll Left to Right (QC): 4 Chair/Mbb-ig-Dpaoo Xfer(QC): 4 Car Transfer (QC): 4 Gait (FIM): 4 Distance: 150' Walk 10 feet (QC): 4 Walk 10ft-Uneven Surface(QC): 4 Walk 50ft with 2 Turns (QC): 4 Walk 150 ft (QC): 4 Gait Level of Assist: 4 Gait Assistive Device: FWW Stairs (FIM): 2 # of Steps: 4 1 Step (curb) (QC): 4 4 Steps (QC): 4 Stairs Level Of Assist: 4 PT Plan Problem List Problem List: Activity Tolerance, Functional Strength, Safety, Balance, Gait, Transfer, Bed Mobility, ROM Treatment/Plan Treatment Plan: Continue Plan of Care Treatment Plan: Bed Mobility, Education, Functional Activity [place], Functional Strength, Group Therapy, Gait, Safety, Therapeutic Exercise, Transfers Treatment Duration: Dec 29, 2016 Frequency: At least 5-7 days/Wk (IRF) Estimated Hrs Per Day: 1.5 hours per day Patient and/or Family Agrees t: Yes Safety Risks/Education Patient Education: Gait Training, Transfer Techniques, Steps, Correct Positioning, Safety Issues Teaching Recipient: Patient Teaching Methods: Demonstration, Discussion Response to Teaching: Reinforcement Needed Time/GCodes Time In: 800 Time Out: 900 Total Billed Treatment Time: 60 Total Billed Treatment 1 visit EX 20' GT 30' FA 10' TYSON AGUILERA PT Dec 23, 2016 08:59
[2016-12-23] MEDS: ENALAPRIL 5 MG (VASOTEC) TAB PO SCH (09:12)
[2016-12-23] MEDS: DICLOFENAC 1% GEL 100 GM (VOLTAREN) TUBE TOP SCH ×4 (09:14→20:28)
[2016-12-23 09:23] VITALS: BP 98/58
[2016-12-23 11:25] VITALS: BP 118/66
[2016-12-23] MEDS: meTOprolol TARTRATE 50 MG (LOPRESSOR) TAB PO SCH ×2 (11:26→20:43)
--- NOTE | 2016-12-23 12:06 | PM & R (SOAP) Progress Note ---
Subjective Time Seen by Provider: 11:30 Subjective/Events-last exam Patient was seen in his room earlier today and again at this recored time after RN noticed spotty rash on left leg Patient reports no pain or itch Review of Systems Skin rash as per above macular and spoty near left knee and pretibial area Objective Exam Last Set of Vital Signs Vital Signs Date Time Temp Pulse Resp B/P (MAP) Pulse Ox O2 Delivery O2 Flow Rate FiO2 12/23/16 11:25 101 118/66 12/23/16 08:41 Room Air 12/23/16 07:46 99 12/23/16 05:55 97.0 17 Capillary Refill : I&O Intake and Output 12/23/16 00:00 Intake Total 600 ml Output Total 1050 ml Balance -450 ml Intake Oral 600 ml Output Urine Total 1050 ml General: Alert, Oriented X3, Cooperative HEENT: Mucous Memb Moist/[place], Other (running blue suture on top of head- skin growing around it.) Neck: Supple, No JVD Lungs: Clear to Auscultation, Normal Air Movement Heart: Regular Rate Abdomen: Normal Bowel Sounds, Soft Extremities: No Clubbing, No Cyanosis, Other (Surgical scar over left knee) Skin: No Rashes, No Breakdown, Other (back incision- covered with dressing) Neuro: Normal Speech, Sensation Intact, Other (strength- 4/5 lower extremities - 5/5 upper extremities) Psych/Mental Status: Mental Status NL, Mood NL (quiet, reserved) Results Lab Laboratory Tests 12/21/16 06:50: White Blood Count 25.2H, Red Blood Count 2.93L, Hemoglobin 9.3L, Hematocrit 29L , Mean Corpuscular Volume 99, Mean Corpuscular Hemoglobin 32, Mean Corpuscular Hemoglobin Concent 32, Red Cell Distribution Width 18.4H, Platelet Count 184, Mean Platelet Volume 9.2, Neutrophils (%) (Auto) 15L, Lymphocytes (%) (Auto) 84H , Monocytes (%) (Auto) 1, Eosinophils (%) (Auto) 0, Basophils (%) (Auto) 0, Neutrophils # (Auto) 3.7, Lymphocytes # (Auto) 21.1H, Monocytes # (Auto) 0.2, Eosinophils # (Auto) 0.1, Basophils # (Auto) 0.0 12/22/16 06:35: White Blood Count 23.9H, Red Blood Count 2.88L, Hemoglobin 9.2L, Hematocrit 29L , Mean Corpuscular Volume 100H, Mean Corpuscular Hemoglobin 32, Mean Corpuscular Hemoglobin Concent 32, Red Cell Distribution Width 18.3H, Platelet Count 177, Mean Platelet Volume 9.2, Neutrophils (%) (Auto) 13L, Lymphocytes (% ) (Auto) 86H, Monocytes (%) (Auto) 0, Eosinophils (%) (Auto) 1, Basophils (%) ( Auto) 0, Neutrophils # (Auto) 3.1, Lymphocytes # (Auto) 20.6H, Monocytes # (Auto ) 0.0, Eosinophils # (Auto) 0.2, Basophils # (Auto) 0.0 12/23/16 07:30: White Blood Count 22.3H, Red Blood Count 2.87L, Hemoglobin 9.2L, Hematocrit 29L , Mean Corpuscular Volume 100H, Mean Corpuscular Hemoglobin 32, Mean Corpuscular Hemoglobin Concent 32, Red Cell Distribution Width 18.0H, Platelet Count 183, Mean Platelet Volume 9.2, Neutrophils (%) (Auto) 16L, Lymphocytes (% ) (Auto) 82H, Monocytes (%) (Auto) 1, Eosinophils (%) (Auto) 1, Basophils (%) ( Auto) 0, Neutrophils # (Auto) 3.5, Lymphocytes # (Auto) 18.3H, Monocytes # (Auto ) 0.3, Eosinophils # (Auto) 0.2, Basophils # (Auto) 0.0 Assessment/Plan Assessment 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 Appreciate ST note they have signed off for now as she feel patient is at baseline with mild memory deficits Current labs noted Scheduled Pain med in AM before morning session of Therapy-doing better with pain management Replaced Ca See orders Continued scheduled pain med in am before therapies but at a lessed dose Trial of Voltaran gel for painful djd left hip-done Next Team Conference tomorrow 12/24/16 RX for rash See orders. KARL MIRELES MD Dec 23, 2016 12:06
[2016-12-23] MEDS: TRIAMCINOLONE 0.1% CR (KENALOG) 15 GM TUBE TOP SCH ×2 (12:55→20:26)
--- NOTE | 2016-12-23 12:57 | Occupational Ther Daily Note ---
OT Current Status-Daily Note Subjective Pt sitting in chair, agrees to treatment. Pt reports 1/10 pain in back. Mental Status/Objective Functional [place] Measure 0=Not Assessed/NA 4=Minimal Assistance 1=Total Assistance 5=Supervision or Setup 2=Maximal Assistance 6=Modified [place] 3=Moderate Assistance 7=Complete [place] ADL-Treatment Pt requests sponge bath this morning. Pt bathed upper body with set up. Don shirt with SBA. Assist required to don brace. Able to wash lower legs and feet using long handled sponge, but required assist to dry them. Stood with minimal assistance to wash buttocks and samanta area. Instruction provided regarding use of adaptive equipment for LE dressing. Pt used uptwist spinner to start shorts over feet with minimal assistance. Sit to stand with minimal assistance. Pt required assist for balance during pant hike. Pt donned bilateral socks with SBA and verbal cues using sock aid. Pt brushed teeth after set up while seated in chair. Increased time required for ADL tasks. Pt sitting in chair with needs met after session. Functional [place] Measure 0=Not Assessed/NA 4=Minimal Assistance 1=Total Assistance 5=Supervision or Setup 2=Maximal Assistance 6=Modified [place] 3=Moderate Assistance 7=Complete IndependenceIRFPAI Quality Coding Scale 6 Independent with activity with or without an assistive device 5 Patient requires set up or clean up by helper. Patient completes activity by themselves 4 Supervision or touching assist (CGA). [place] provide cues , steadying assist 3 The helper provides less than half the effort to complete the activity 2 The helper provides more than half the effort to complete the activity 1 Dependent. The helper does all the effort to complete an activity 7 Patient refused to complete or attempt activity 9 The patient did not perform the activity before the current illness or injury 88 Not attempted due to Medical conditions or safety concerns Grooming (FIM): 5 Oral Hygiene (QC): 5 Bathing (FIM): 3 Shower/Bathe Self (QC): 3 Upper Body (FIM): 5 Upper Body Dressing (QC): 4 Lower Body Dressing (FIM): 3 Lower Body Dressing (QC): 3 OT Short Term Goals Short Term Goals Time Frame: Dec 15, 2016 Eating(FIM): 5 Grooming(FIM): 4 Bathing(FIM): 3 Upper Body Dressing(FIM): 3 Lower Body Dressing(FIM): 3 Toileting(FIM): 3 Transfers (B,C,W/C) (FIM): 3 Toilet/Commode Transfer(FIM): 3 Additional Short Term Goals: 1-Demonstrate ADL Tasks, 2-Verbalize Understanding , 3-ImproveStrength/[place] 1=Demonstrate adherence to instructed precautions during ADL tasks. 2=Patient will verbalize/demonstrate understanding of assistive devices/ modifications for ADL. 3=Patient will improve strength/tolerance for activity to enable patient to perform ADL's. OT Fdc Goals Wic Site Coordinator Goals Time Frame: Dec 29, 2016 Eating (FIM): 6 Eating (QC): 5 Groomin Oral Hygiene (QC): 5 Bathing(FIM): 4 Shower/Bathe Self (QC): 4 Upper Body Dressing(FIM): 5 Upper Body Dressing (QC): 5 Lower Body Dressing(FIM): 5 Lower Body Dressing (QC): 5 On/Off Footwear (QC): 5 Toileting(FIM): 6 Toileting Hygiene (QC): 5 Transfers (B,C,W/C) (FIM): 5 Toilet/Commode Transfer(FIM): 5 Toilet/Commode Transfer (QC): 5 Shower Transfer(FIM): 4 Additional Goals: 1-Demonstrate ADL Tasks, 2-Verbalize Understanding, 3- ImproveStrength/[place] 1=Demonstrate adherence to instructed precautions during ADL tasks. 2=Patient will verbalize/demonstrate understanding of assistive devices/ modifications for ADL. 3=Patient will improve strength/tolerance for activity to enable patient to perform ADL's. OT Education/Plan Discharge Recommendations Plan/Recommendations: Continue POC Treatment Plan/Plan of Care Patient would benefit from OT for education, treatment and training to promote independence in ADL's, mobility, safety and/or upper extremity function for ADL' s. Plan of Care: ADL Retraining, Caregiver Training, Functional Mobility, Group Exercise/Act as Ind, UE Funct Exercise/Act Treatment Duration: Dec 29, 2016 Frequency: At least 5-7 days/Wk (IRF) (Thursday - Thursday, PRN Thursday) Estimated Hrs Per Day: 1.5 hours per day Agreement: Yes Rehab Potential: Fair Time/GCodes Start Time: 10:45 Stop Time: 11:45 Total Time Billed (hr/min): 15 Billed Treatment Time 1 visit, ADLx4(60minutes) MARU FARFAN OT Dec 23, 2016 12:57
--- NOTE | 2016-12-23 14:18 | Therapy Group Daily Note ---
Therapy Daily Group Note Other/Notes Patients had group therapy in the common area of rehab this afternoon. Each patient was transported or ambulated to the common area of rehab and sat in a group [place]. Each patient then had to introduce themselves, state where they were from and answer a question that required memory and critical thinking. Patients then participated in games that involve manual dexterity, UE ROM, problem solving, memory, and strategy. Finally, each patient was transported or ambulated back to their room and put in bed or chair with nurse call, phone, tray, all needs met. Start Time: 13:00 Stop Time: 14:00 Total Billed Treatment Time: 60 Total Billed Treatment 1 visit GRP 60' TYSON AGUILERA PT Dec 23, 2016 14:18
[2016-12-23 17:33] VITALS: BP 154/81
--- NOTE | 2016-12-23 17:54 | Progress Note (SOAP) ---
Subjective Date Seen by Provider: Dec 23, 2016 Time Seen by Provider: 12:35 Subjective/Events-last exam at bedside. Continues to have some back pain worsened by activity. Patient and aware that interim assisted placement may be required post discharge. Objective Exam Vital Signs Date Time Temp Pulse Resp B/P (MAP) Pulse Ox O2 Delivery O2 Flow Rate FiO2 12/23/16 17:33 98.4 99 18 154/81 99 Room Air 12/23/16 11:25 101 118/66 12/23/16 09:23 100 98/58 12/23/16 08:41 Room Air 12/23/16 07:46 99 Room Air 12/23/16 05:55 97.0 91 17 119/63 97 Room Air 12/22/16 20:18 Room Air 12/22/16 19:46 Room Air 12/22/16 19:09 97.6 71 14 111/60 98 Room Air I & O 12/23/16 07:00 Intake Total 900 ml Output Total 1050 ml Balance -150 ml Capillary Refill : General Appearance: Chronically ill Neck: Full Range of Motion, Non Tender Respiratory: Lungs Clear, Normal Breath Sounds Cardiovascular: Regular Rate, Rhythm Gastrointestinal: normal bowel sounds, non tender, soft Neurologic/Psychiatric: Alert, Oriented x3, No Motor/Sensory Deficits, compensation adjuster II- XII Norm as Tested Skin: Rash (bilateral lower extremities) Results Lab Laboratory Tests 12/23/16 07:30: White Blood Count 22.3H, Red Blood Count 2.87L, Hemoglobin 9.2L, Hematocrit 29L , Mean Corpuscular Volume 100H, Mean Corpuscular Hemoglobin 32, Mean Corpuscular Hemoglobin Concent 32, Red Cell Distribution Width 18.0H, Platelet Count 183, Mean Platelet Volume 9.2, Neutrophils (%) (Auto) 16L, Lymphocytes (% ) (Auto) 82H, Monocytes (%) (Auto) 1, Eosinophils (%) (Auto) 1, Basophils (%) ( Auto) 0, Neutrophils # (Auto) 3.5, Lymphocytes # (Auto) 18.3H, Monocytes # (Auto ) 0.3, Eosinophils # (Auto) 0.2, Basophils # (Auto) 0.0 Assessment/Plan Assessment/Plan Assess & Plan/Chief Complaint 1. Leukocytosis-initial elevation noted from known CLL related lymphocytosis and mild granulocytosis. Current stress of vertebral fracture, scalp laceration and other lacerations caused by fall contributed to his leukocytosis. a. Peripheral smear has been reviewed and shows expected changes given current setting. b. WBC is now much improved and is back to his baseline range. 2. Anemia-multifactorial in origin related to recent trauma, chronic disease , and CLL. Stable hemoglobin. 3. Status post traumatic L2 vertebral body hyperextension fracture and subsequent L2 fusion surgery completed on 12/01/16. a. Patient now admitted to acute inpatient rehabilitation for for rehabilitation. b. Recommend administering breakthrough pain medication (Oxy-Ir) to start of physical therapy session to reduce patient's discomfort level. 4. 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 Status Post Evacuation of Subdural Hematoma in 2014 6. Comorbidities of history of recurrent abdominal pain, coronary artery disease, arthritis, hyperlipidemia, hypertension, chronic lung disease. 7. Since counts are back to his baseline in the 20,000 range. Give a follow- up appointment with me 1-2 weeks post discharge. Clinical Quality Measures DVT/VTE Risk/Contraindication: Risk Factor Score Per Nursin RFS Level Per Nursing on Admit: 4+=Very High JACQUELYN VAZQUEZ MD Dec 23, 2016 17:54
[2016-12-23] MEDS: MICONAZOLE 2% POWDER (DESENEX AF) 90 GM TOP SCH (20:29)
[2016-12-23] MEDS: ATORVASTATIN 40 MG (LIPITOR) TABLET PO SCH (20:43)
[2016-12-24 05:10] VITALS: BP 119/65
[2016-12-24] MEDS: CALCIUM CARB + VIT D 600 MG (CALCARB + D) TAB PO SCH (06:06)
[2016-12-24] MEDS: PANTOPRAZOLE 40 MG (PROTONIX) TAB PO SCH (06:06)
[2016-12-24] MEDS: MULTIVIT W/MINERALS TAB (THERAGRAN M) PO SCH (06:06)
[2016-12-24 07:07] LABS: BASOPHILS % (AUTO) 0 % (0-10); EOSINOPHILS # (AUTO) 0.2 10^3/uL (0.0-0.3); EOSINOPHILS % (AUTO) 1 % (0-10); LYMPHOCYTES # (AUTO) 18.5 X 10^3 (1.0-4.0); LYMPHOCYTES % (AUTO) 82 % (12-44); MEAN CORPUSCULAR HEMOGLOBIN 32 PG (25-34); MEAN CORPUSCULAR HGB CONC 32 G/DL (32-36); MEAN CORPUSCULAR VOLUME 99 FL (80-99); MEAN PLATELET VOLUME 8.9 FL (7.4-10.4); MONOCYTES # (AUTO) 0.2 X 10^3 (0.0-1.0); MONOCYTES % (AUTO) 1 % (0-12); NEUTROPHILS # (AUTO) 3.8 X 10^3 (1.8-7.8); NEUTROPHILS % (AUTO) 17 % (42-75); PLATELET COUNT 180 10^3/uL (130-400); RED BLOOD COUNT 2.77 10^6/uL (4.35-5.85); WHITE BLOOD COUNT 22.6 10^3/uL (4.3-11.0)
[2016-12-24] MEDS: RT-ADVAIR HFA 115/21 MCG PER PUFF IH SCH (08:05)
[2016-12-24] MEDS: ENALAPRIL 5 MG (VASOTEC) TAB PO SCH (08:17)
[2016-12-24] MEDS: MICONAZOLE 2% POWDER (DESENEX AF) 90 GM TOP SCH ×2 (08:17→20:01)
[2016-12-24] MEDS: meTOprolol TARTRATE 50 MG (LOPRESSOR) TAB PO SCH ×2 (08:17→20:00)
[2016-12-24] MEDS: DICLOFENAC 1% GEL 100 GM (VOLTAREN) TUBE TOP SCH ×4 (08:18→20:00)
[2016-12-24] MEDS: TRIAMCINOLONE 0.1% CR (KENALOG) 15 GM TUBE TOP SCH ×2 (08:18→20:00)
--- NOTE | 2016-12-24 09:32 | PM & R (SOAP) Progress Note ---
Subjective Time Seen by Provider: 07:45 Subjective/Events-last exam Patient was seen in his room this AM Patient Mod assist for transfers Discussed case with Dr real yesterday and with SW Review of Systems Skin rash as per above macular and spoty near left knee and pretibial area Objective Exam Last Set of Vital Signs Vital Signs Date Time Temp Pulse Resp B/P (MAP) Pulse Ox O2 Delivery O2 Flow Rate FiO2 12/24/16 08:05 97 Room Air 12/24/16 05:10 98.2 93 18 119/65 Capillary Refill : I&O Intake and Output 12/24/16 00:00 Intake Total 1000 ml Output Total 950 ml Balance 50 ml Intake Oral 1000 ml Output Urine Total 950 ml # Voids 2 # Bowel Movements 1 General: Alert, Oriented X3, Cooperative HEENT: Mucous Memb Moist/[place], Other (running blue suture on top of head- skin growing around it.) Neck: Supple, No JVD Lungs: Clear to Auscultation, Normal Air Movement Heart: Regular Rate Abdomen: Normal Bowel Sounds, Soft Extremities: No Clubbing, No Cyanosis, Other (Surgical scar over left knee) Skin: No Rashes, No Breakdown, Other (back incision- covered with dressing) Neuro: Normal Speech, Sensation Intact, Other (strength- 4/5 lower extremities - 5/5 upper extremities) Psych/Mental Status: Mental Status NL, Mood NL (quiet, reserved) Results Lab Laboratory Tests 12/22/16 06:35: White Blood Count 23.9H, Red Blood Count 2.88L, Hemoglobin 9.2L, Hematocrit 29L , Mean Corpuscular Volume 100H, Mean Corpuscular Hemoglobin 32, Mean Corpuscular Hemoglobin Concent 32, Red Cell Distribution Width 18.3H, Platelet Count 177, Mean Platelet Volume 9.2, Neutrophils (%) (Auto) 13L, Lymphocytes (% ) (Auto) 86H, Monocytes (%) (Auto) 0, Eosinophils (%) (Auto) 1, Basophils (%) ( Auto) 0, Neutrophils # (Auto) 3.1, Lymphocytes # (Auto) 20.6H, Monocytes # (Auto ) 0.0, Eosinophils # (Auto) 0.2, Basophils # (Auto) 0.0 12/23/16 07:30: White Blood Count 22.3H, Red Blood Count 2.87L, Hemoglobin 9.2L, Hematocrit 29L , Mean Corpuscular Volume 100H, Mean Corpuscular Hemoglobin 32, Mean Corpuscular Hemoglobin Concent 32, Red Cell Distribution Width 18.0H, Platelet Count 183, Mean Platelet Volume 9.2, Neutrophils (%) (Auto) 16L, Lymphocytes (% ) (Auto) 82H, Monocytes (%) (Auto) 1, Eosinophils (%) (Auto) 1, Basophils (%) ( Auto) 0, Neutrophils # (Auto) 3.5, Lymphocytes # (Auto) 18.3H, Monocytes # (Auto ) 0.3, Eosinophils # (Auto) 0.2, Basophils # (Auto) 0.0 12/24/16 06:57: White Blood Count 22.6H, Red Blood Count 2.77L, Hemoglobin 8.9L, Hematocrit 28L , Mean Corpuscular Volume 99, Mean Corpuscular Hemoglobin 32, Mean Corpuscular Hemoglobin Concent 32, Red Cell Distribution Width 18.0H, Platelet Count 180, Mean Platelet Volume 8.9, Neutrophils (%) (Auto) 17L, Lymphocytes (%) (Auto) 82H , Monocytes (%) (Auto) 1, Eosinophils (%) (Auto) 1, Basophils (%) (Auto) 0, Neutrophils # (Auto) 3.8, Lymphocytes # (Auto) 18.5H, Monocytes # (Auto) 0.2, Eosinophils # (Auto) 0.2, Basophils # (Auto) 0.0 Assessment/Plan Assessment L2 veterbral burst frx s/p repair OSH CLL chronic Dr Real [facility] following-WBC count decreasing Scalp laceration s/p suturing OSH HTN Home meds restarted-controlled Concussion s/p fall with confusion improving Hypocalcemia-replaced improved Pain management probable oversedation from zanaflex-improved with change to prn 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 Appreciate ST note they have signed off for now as she feel patient is at baseline with mild memory deficits Current labs noted Scheduled Pain med in AM before morning session of Therapy-doing better with pain management Replaced Ca See orders Continued scheduled pain med in am before therapies but at a lessed dose Trial of Voltaran gel for painful djd left hip-done Next Team Conference later today 12/24/16-see report for full funtional updat and elos RX for rash See orders. discharge set tetatvely for Thursday12-29-16 to [facility] as patients spouse feels that she is unable to care for him at home at this time Will confirm with KARL BAPTISTE MD Dec 24, 2016 09:32
--- NOTE | 2016-12-24 11:09 | Physical Therapy Daily Note ---
PT Daily Note-Current Subjective Pt.s preset and states she wants to "c/o about the swelling in his feet alexandre the left one and wants to know exactly what the red areas are on his foot" This DRY CLEANER shared that it was likely a result of the swelling , cells full of fluid etc. I also consulted nursing who advises they have called Dr Dykes to come see pt. Pt denies any pain today and feels he is closer to [place]. States he is not comfortable in the lift recline chair. Much time spent trying to best pillows for positioning and teaching pt. to use left chair mechanism. Pain Numeric Pain Scale: 0-No Pain Appearance bilater LE edema L>R. red area dorsum of left foot with no open area Mental Status Patient Orientation: Normal For Age Attachments: Other-See Comments (TLSO ) Transfers Functional [place] Measure 0=Not Assessed/NA 4=Minimal Assistance 1=Total Assistance 5=Supervision or Setup 2=Maximal Assistance 6=Modified [place] 3=Moderate Assistance 7=Complete IndependenceIRFPAI Quality Coding Scale 6 Independent with activity with or without an assistive device 5 Patient requires set up or clean up by helper. Patient completes activity by themselves 4 Supervision or touching assist (CGA). [place] provide cues , steadying assist 3 The helper provides less than half the effort to complete the activity 2 The helper provides more than half the effort to complete the activity 1 Dependent. The helper does all the effort to complete an activity 7 Patient refused to complete or attempt activity 9 The patient did not perform the activity before the current illness or injury 88 Not attempted due to Medical conditions or safety concerns Transfers (B, C, W/C) (FIM): 5 Scootin Rollin Supine to/from Sit: 5 Sit to/from Stand: 5 used lif recline mechanism of chair Gait Training Does the Patient Walk?: Yes Gait (FIM): 5 Distance (FIM): 3=150 ft (x3) Gait Level of Assist: 5 Gait Persons Needed: 1 Gait Assistive Device: FWW kyphotic, needs cues for guiding to destination Stair Training Stair Training: Handrails/: 2 handrails Stairs (FIM): 2 #of Steps: 4 Level of Assist: 4 cues for sequence Exercises Seated Therapy Exercises: Ankle pumps, Sit to stand, Long arc quads, Hip flexion Seated Reps: 15 Assessment Current Status: Good Progress PT Short Term Goals Short Term Goals Time Frame: Dec 15, 2016 Transfers (B,C,W/C) (FIM): 3 Gait (FIM): 2 Gait Distance Comment: 50' Gait Level of Assist: 3 Gait Assistive Device: FWW Wheelchair Distance: 150' PT Isotope Technician Goals [facility] Goals PT Isotope Technician Goals Time Frame: Dec 29, 2016 Transfers (B,C,W/C) (FIM): 4 Sit to Lying (QC): 4 Lying-Sitting on Side/Bed(QC): 4 Sit to Stand (QC): 4 Rollin Roll Left to Right (QC): 4 Chair/Tdc-mp-[id number] Xfer(QC): 4 Car Transfer (QC): 4 Gait (FIM): 4 Distance: 150' Walk 10 feet (QC): 4 Walk 10ft-Uneven Surface(QC): 4 Walk 50ft with 2 Turns (QC): 4 Walk 150 ft (QC): 4 Gait Level of Assist: 4 Gait Assistive Device: FWW Stairs (FIM): 2 # of Steps: 4 1 Step (curb) (QC): 4 4 Steps (QC): 4 Stairs Level Of Assist: 4 PT Plan Treatment/Plan Treatment Plan: Continue Plan of Care Treatment Plan: Bed Mobility, Education, Functional Activity [place], Functional Strength, Group Therapy, Gait, Safety, Therapeutic Exercise, Transfers Treatment Duration: Dec 29, 2016 Frequency: At least 5-7 days/Wk (IRF) Estimated Hrs Per Day: 1.5 hours per day Patient and/or Family Agrees t: Yes Safety Risks/Education Patient Education: Gait Training, Transfer Techniques, Steps, Correct Positioning, Reviewed Don/Doff Brace, Disease Process, Safety Issues Teaching Recipient: Patient Teaching Methods: Demonstration, Discussion Response to Teaching: Verbalize Understanding, Return Demonstration, Reinforcement Needed Time/GCodes Time In: 1000 Time Out: 1100 Total Billed Treatment Time: 60 Total Billed Treatment 1,GT30m,FA30m G Codes Necessary: CASPER Sahni DRY CLEANER Dec 24, 2016 11:08
--- NOTE | 2016-12-24 11:32 | Occupational Ther Daily Note ---
OT Current Status-Daily Note Subjective Pt alert, lying in bed. Pt agreed to therapy. Pt stated that he had no ointment on his L hip this morning for pain. Applied to L hip and outside of thigh, reported to nrsg. street worker called physician to see if pt could take shower without brace. street worker reported that physician stated that it was okay, precautions were no twisting or bending during shower. Mental Status/Objective Patient Orientation: Person, Place, Time, Situation Functional [place] Measure 0=Not Assessed/NA 4=Minimal Assistance 1=Total Assistance 5=Supervision or Setup 2=Maximal Assistance 6=Modified [place] 3=Moderate Assistance 7=Complete [place] ADL-Treatment Pt agreed to sponge bath. Pt complete upper body bathing lying in bed. Pt was able to move LE's off of bed then assist x2 to sit up EOB. Sitting EOB by self. Pt donned shirt by self, TLSO with assist. With bed elevated, pt able to go from sit to stand with CGA then CGA using FWW to go from bed to BSC. Pt sat on BSC for toileting then was able to cleanse buttocks in standing with min A to stand due to fatigue. Pt fatigued quickly and required assistance to finish with cleansing. CGA using FWW to transfer from BSC to recliner. Using AE pt was able to don shorts then CGA to hike over hips. Assist to bathe feet. Pt had increased redness on dorsum of L foot. Medication applied to area, reported to nrsg. After therapy, pt sitting in recliner with call light/phone in reach. All needs met in room. Functional [place] Measure 0=Not Assessed/NA 4=Minimal Assistance 1=Total Assistance 5=Supervision or Setup 2=Maximal Assistance 6=Modified [place] 3=Moderate Assistance 7=Complete IndependenceIRFPAI Quality Coding Scale 6 Independent with activity with or without an assistive device 5 Patient requires set up or clean up by helper. Patient completes activity by themselves 4 Supervision or touching assist (CGA). [place] provide cues , steadying assist 3 The helper provides less than half the effort to complete the activity 2 The helper provides more than half the effort to complete the activity 1 Dependent. The helper does all the effort to complete an activity 7 Patient refused to complete or attempt activity 9 The patient did not perform the activity before the current illness or injury 88 Not attempted due to Medical conditions or safety concerns Bathing (FIM): 4 Bathing Location: L Arm, R Arm, L Upper Leg, R Upper Leg, Chest, Abdomen, Buttocks, Perineal Area Upper Body (FIM): 5 Lower Body Dressing (FIM): 4 Toileting (FIM): 4 Transfers (B, C, W/C) (FIM): 4 Toilet/Commode Transfer (FIM): 4 OT Short Term Goals Short Term Goals Time Frame: Dec 15, 2016 Eating(FIM): 5 Grooming(FIM): 4 Bathing(FIM): 3 Upper Body Dressing(FIM): 3 Lower Body Dressing(FIM): 3 Toileting(FIM): 3 Transfers (B,C,W/C) (FIM): 3 Toilet/Commode Transfer(FIM): 3 Additional Short Term Goals: 1-Demonstrate ADL Tasks, 2-Verbalize Understanding , 3-ImproveStrength/[place] 1=Demonstrate adherence to instructed precautions during ADL tasks. 2=Patient will verbalize/demonstrate understanding of assistive devices/ modifications for ADL. 3=Patient will improve strength/tolerance for activity to enable patient to perform ADL's. OT Slumber Room Attendant Goals Slumber Room Attendant Goals Time Frame: Dec 29, 2016 Eating (FIM): 6 Eating (QC): 5 Groomin Oral Hygiene (QC): 5 Bathing(FIM): 4 Shower/Bathe Self (QC): 4 Upper Body Dressing(FIM): 5 Upper Body Dressing (QC): 5 Lower Body Dressing(FIM): 5 Lower Body Dressing (QC): 5 On/Off Footwear (QC): 5 Toileting(FIM): 6 Toileting Hygiene (QC): 5 Transfers (B,C,W/C) (FIM): 5 Toilet/Commode Transfer(FIM): 5 Toilet/Commode Transfer (QC): 5 Shower Transfer(FIM): 4 Additional Goals: 1-Demonstrate ADL Tasks, 2-Verbalize Understanding, 3- ImproveStrength/[place] 1=Demonstrate adherence to instructed precautions during ADL tasks. 2=Patient will verbalize/demonstrate understanding of assistive devices/ modifications for ADL. 3=Patient will improve strength/tolerance for activity to enable patient to perform ADL's. OT Education/Plan Discharge Recommendations Plan/Recommendations: Continue POC Treatment Plan/Plan of Care Patient would benefit from OT for education, treatment and training to promote independence in ADL's, mobility, safety and/or upper extremity function for ADL' s. Plan of Care: ADL Retraining, Caregiver Training, Functional Mobility, Group Exercise/Act as Ind, UE Funct Exercise/Act Treatment Duration: Dec 29, 2016 Frequency: At least 5-7 days/Wk (IRF) (Thursday - Thursday, PRN Thursday) Estimated Hrs Per Day: 1.5 hours per day Agreement: Yes Rehab Potential: Fair Time/GCodes Start Time: 09:00 Stop Time: 10:00 Total Time Billed (hr/min): 60 Billed Treatment Time 1 visit-ADL 4 (60 min) DOUGIE VILLATORO Dec 24, 2016 11:32
--- NOTE | 2016-12-24 14:04 | Physical Therapy Daily Note ---
PT Daily Note-Current Subjective Pt. agrees to Rx. 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 States he is grateful for all his care here. Asks about [facility] and the therapy services there. Pain Numeric Pain Scale: 0-No Pain Mental Status Patient Orientation: Normal For Age Attachments: Other-See Comments (TLSO) Transfers Functional [place] Measure 0=Not Assessed/NA 4=Minimal Assistance 1=Total Assistance 5=Supervision or Setup 2=Maximal Assistance 6=Modified [place] 3=Moderate Assistance 7=Complete IndependenceIRFPAI Quality Coding Scale 6 Independent with activity with or without an assistive device 5 Patient requires set up or clean up by helper. Patient completes activity by themselves 4 Supervision or touching assist (CGA). [place] provide cues , steadying assist 3 The helper provides less than half the effort to complete the activity 2 The helper provides more than half the effort to complete the activity 1 Dependent. The helper does all the effort to complete an activity 7 Patient refused to complete or attempt activity 9 The patient did not perform the activity before the current illness or injury 88 Not attempted due to Medical conditions or safety concerns sit to stand and sup to sit all SBA Gait Training Gait Assistive Device: FWW gait 170 ft FWW SBA Stair Training Stair Training: Handrails/: 2 handrails Stairs (FIM): 2 #of Steps: 4 Stairs: Pattern: Step to Level of Assist: 4 Exercises NuStep Minutes: 10 NuStep Workload: 2 Assessment Current Status: Good Progress PT Short Term Goals Short Term Goals Time Frame: Dec 15, 2016 Transfers (B,C,W/C) (FIM): 3 Gait (FIM): 2 Gait Distance Comment: 50' Gait Level of Assist: 3 Gait Assistive Device: FWW Wheelchair Distance: 150' PT Halfway Goals Competitive Shopper Goals PT Halfway Goals Time Frame: Dec 29, 2016 Transfers (B,C,W/C) (FIM): 4 Sit to Lying (QC): 4 Lying-Sitting on Side/Bed(QC): 4 Sit to Stand (QC): 4 Rollin Roll Left to Right (QC): 4 Chair/Ecj-qf-Ednrd Xfer(QC): 4 Car Transfer (QC): 4 Gait (FIM): 4 Distance: 150' Walk 10 feet (QC): 4 Walk 10ft-Uneven Surface(QC): 4 Walk 50ft with 2 Turns (QC): 4 Walk 150 ft (QC): 4 Gait Level of Assist: 4 Gait Assistive Device: FWW Stairs (FIM): 2 # of Steps: 4 1 Step (curb) (QC): 4 4 Steps (QC): 4 Stairs Level Of Assist: 4 PT Plan Treatment/Plan Treatment Plan: Continue Plan of Care Treatment Plan: Bed Mobility, Education, Functional Activity [place], Functional Strength, Group Therapy, Gait, Safety, Therapeutic Exercise, Transfers Treatment Duration: Dec 29, 2016 Frequency: At least 5-7 days/Wk (IRF) Estimated Hrs Per Day: 1.5 hours per day Patient and/or Family Agrees t: Yes Safety Risks/Education Patient Education: Gait Training, Transfer Techniques Teaching Recipient: Patient Teaching Methods: Demonstration, Discussion Response to Teaching: Verbalize Understanding, Return Demonstration Time/GCodes Time In: 1330 Time Out: 1400 Total Billed Treatment Time: 30 Total Billed Treatment 1,FA20m,EX10m G Codes Necessary: CASPER Sahni PHYSICIAN SURGEON Dec 24, 2016 14:04
[2016-12-24 17:59] VITALS: BP 127/67
[2016-12-24] MEDS: ATORVASTATIN 40 MG (LIPITOR) TABLET PO SCH (20:00)
[2016-12-25 05:22] VITALS: BP 124/68
[2016-12-25] MEDS: MULTIVIT W/MINERALS TAB (THERAGRAN M) PO SCH (05:47)
[2016-12-25] MEDS: CALCIUM CARB + VIT D 600 MG (CALCARB + D) TAB PO SCH (05:47)
[2016-12-25] MEDS: PANTOPRAZOLE 40 MG (PROTONIX) TAB PO SCH (05:47)
[2016-12-25 05:59] LABS: BASOPHILS % (AUTO) 0 % (0-10); EOSINOPHILS # (AUTO) 0.2 10^3/uL (0.0-0.3); EOSINOPHILS % (AUTO) 1 % (0-10); LYMPHOCYTES # (AUTO) 15.8 X 10^3 (1.0-4.0); LYMPHOCYTES % (AUTO) 80 % (12-44); MEAN CORPUSCULAR HEMOGLOBIN 32 PG (25-34); MEAN CORPUSCULAR HGB CONC 32 G/DL (32-36); MEAN CORPUSCULAR VOLUME 99 FL (80-99); MEAN PLATELET VOLUME 9.4 FL (7.4-10.4); MONOCYTES # (AUTO) 0.2 X 10^3 (0.0-1.0); MONOCYTES % (AUTO) 1 % (0-12); NEUTROPHILS # (AUTO) 3.7 X 10^3 (1.8-7.8); NEUTROPHILS % (AUTO) 19 % (42-75); PLATELET COUNT 182 10^3/uL (130-400); RED BLOOD COUNT 2.86 10^6/uL (4.35-5.85); WHITE BLOOD COUNT 19.9 10^3/uL (4.3-11.0)
--- NOTE | 2016-12-25 08:06 | PM & R (SOAP) Progress Note ---
Subjective Time Seen by Provider: 07:45 Subjective/Events-last exam Patient was seen in his room Rash on left leg improving with now being localized to only dorsum of left foor.Making progress with function as well Patient SBA at times for transfers and gait with walker and TLSO. Review of Systems Skin rash as per above macular and spoty near left knee and pretibial area Objective Exam Last Set of Vital Signs Vital Signs Date Time Temp Pulse Resp B/P (MAP) Pulse Ox O2 Delivery O2 Flow Rate FiO2 12/25/16 05:22 97.5 91 16 124/68 97 Room Air Capillary Refill : I&O Intake and Output 12/25/16 00:00 Intake Total 880 ml Output Total 550 ml Balance 330 ml Intake Oral 880 ml Output Urine Total 550 ml # Voids 3 # Bowel Movements 1 General: Alert, Oriented X3, Cooperative HEENT: Mucous Memb Moist/[place], Other (running blue suture on top of head- skin growing around it.) Neck: Supple, No JVD Lungs: Clear to Auscultation, Normal Air Movement Heart: Regular Rate Abdomen: Normal Bowel Sounds, Soft Extremities: No Clubbing, No Cyanosis, Other (Surgical scar over left knee) Skin: No Rashes, No Breakdown Neuro: Normal Speech, Sensation Intact, Other (strength- 4/5 lower extremities - 5/5 upper extremities) Psych/Mental Status: Mental Status NL, Mood NL (quiet, reserved) Results Lab Laboratory Tests 12/23/16 07:30: White Blood Count 22.3H, Red Blood Count 2.87L, Hemoglobin 9.2L, Hematocrit 29L , Mean Corpuscular Volume 100H, Mean Corpuscular Hemoglobin 32, Mean Corpuscular Hemoglobin Concent 32, Red Cell Distribution Width 18.0H, Platelet Count 183, Mean Platelet Volume 9.2, Neutrophils (%) (Auto) 16L, Lymphocytes (% ) (Auto) 82H, Monocytes (%) (Auto) 1, Eosinophils (%) (Auto) 1, Basophils (%) ( Auto) 0, Neutrophils # (Auto) 3.5, Lymphocytes # (Auto) 18.3H, Monocytes # (Auto ) 0.3, Eosinophils # (Auto) 0.2, Basophils # (Auto) 0.0 12/24/16 06:57: White Blood Count 22.6H, Red Blood Count 2.77L, Hemoglobin 8.9L, Hematocrit 28L , Mean Corpuscular Volume 99, Mean Corpuscular Hemoglobin 32, Mean Corpuscular Hemoglobin Concent 32, Red Cell Distribution Width 18.0H, Platelet Count 180, Mean Platelet Volume 8.9, Neutrophils (%) (Auto) 17L, Lymphocytes (%) (Auto) 82H , Monocytes (%) (Auto) 1, Eosinophils (%) (Auto) 1, Basophils (%) (Auto) 0, Neutrophils # (Auto) 3.8, Lymphocytes # (Auto) 18.5H, Monocytes # (Auto) 0.2, Eosinophils # (Auto) 0.2, Basophils # (Auto) 0.0 12/25/16 05:45: White Blood Count 19.9H, Red Blood Count 2.86L, Hemoglobin 9.1L, Hematocrit 28L , Mean Corpuscular Volume 99, Mean Corpuscular Hemoglobin 32, Mean Corpuscular Hemoglobin Concent 32, Red Cell Distribution Width 18.0H, Platelet Count 182, Mean Platelet Volume 9.4, Neutrophils (%) (Auto) 19L, Lymphocytes (%) (Auto) 80H , Monocytes (%) (Auto) 1, Eosinophils (%) (Auto) 1, Basophils (%) (Auto) 0, Neutrophils # (Auto) 3.7, Lymphocytes # (Auto) 15.8H, Monocytes # (Auto) 0.2, Eosinophils # (Auto) 0.2, Basophils # (Auto) 0.0 Assessment/Plan Assessment 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 Appreciate ST note they have signed off for now as she feel patient is at baseline with mild memory deficits Current labs noted Scheduled Pain med in AM before morning session of Therapy-doing better with pain management Replaced Ca See orders Continued scheduled pain med in am before therapies but at a lessed dose Trial of Voltaran gel for painful djd left hip-done Team Conference held yesterday- 12/24/16-see report for full funtional updat and elos RX for rash See orders. discharge set tetatvely for next week to SNU as patients spouse feels that she is unable to care for him at home at this time Will confirm with KARL BAPTISTE MD Dec 25, 2016 08:06
[2016-12-25] MEDS: ENALAPRIL 5 MG (VASOTEC) TAB PO SCH (08:30)
[2016-12-25] MEDS: meTOprolol TARTRATE 50 MG (LOPRESSOR) TAB PO SCH ×2 (08:30→20:24)
[2016-12-25] MEDS: TRIAMCINOLONE 0.1% CR (KENALOG) 15 GM TUBE TOP SCH ×2 (08:31→20:25)
[2016-12-25] MEDS: MICONAZOLE 2% POWDER (DESENEX AF) 90 GM TOP SCH ×2 (08:31→20:25)
[2016-12-25] MEDS: DICLOFENAC 1% GEL 100 GM (VOLTAREN) TUBE TOP SCH ×4 (08:32→20:25)
[2016-12-25] MEDS: RT-ADVAIR HFA 115/21 MCG PER PUFF IH SCH (09:12)
--- NOTE | 2016-12-25 11:46 | Occupational Ther Daily Note ---
OT Current Status-Daily Note Subjective Pt alert, lying in bed. Pt agreed to therapy. No c/o pain. Mental Status/Objective Patient Orientation: Person, Place, Time, Situation Functional [place] Measure 0=Not Assessed/NA 4=Minimal Assistance 1=Total Assistance 5=Supervision or Setup 2=Maximal Assistance 6=Modified [place] 3=Moderate Assistance 7=Complete [place] Attachments: Other-See Comments (TLSO) ADL-Treatment Functional [place] Measure 0=Not Assessed/NA 4=Minimal Assistance 1=Total Assistance 5=Supervision or Setup 2=Maximal Assistance 6=Modified [place] 3=Moderate Assistance 7=Complete IndependenceIRFPAI Quality Coding Scale 6 Independent with activity with or without an assistive device 5 Patient requires set up or clean up by helper. Patient completes activity by themselves 4 Supervision or touching assist (CGA). [place] provide cues , steadying assist 3 The helper provides less than half the effort to complete the activity 2 The helper provides more than half the effort to complete the activity 1 Dependent. The helper does all the effort to complete an activity 7 Patient refused to complete or attempt activity 9 The patient did not perform the activity before the current illness or injury 88 Not attempted due to Medical conditions or safety concerns Eating (FIM): 5 (After set up, pt is able to use utensils to feed self.) Eating (QC): 5 (After set up, pt is able to use utensils to feed self.) Grooming (FIM): 5 (After set up, pt is able to complete grooming tasks.) Oral Hygiene (QC): 5 (After set up, pt is able to complete grooming tasks.) Bathing (FIM): 4 (Using long handle sponge, shower chair, grabbars and hand held shower pt is able to complete shower with assistance to bathe buttocks in standing due to back precautions of no twisting or bending.) Bathing Location: L Arm, R Arm, L Upper Leg, R Upper Leg, L Lower Leg ( including foot), R Lower Leg (including foot), Chest, Abdomen, Perineal Area Shower/Bathe Self (QC): 3 (Using long handle sponge, shower chair, grabbars and hand held shower pt is able to complete shower with assistance to bathe buttocks in standing due to back precautions of no twisting or bending.) Upper Body (FIM): 5 (After set up, pt able to don/doff upper body clothing by self.) Upper Body Dressing (QC): 5 (After set up, pt able to don/doff upper body clothing by self.) Lower Body Dressing (FIM): 4 (Using AE pt able to complete lower body dressing with min A.) Lower Body Dressing (QC): 3 (Using AE pt able to complete lower body dressing with min A.) On/Off Footwear (QC): 4 (Using AE pt able to complete with supervision.) Toileting (FIM): 4 (Assist in standing to cleanse buttocks due to fatigue. Able to manipulate clothing with CGA.) Toileting Hygiene (QC): 3 (Assist in standing to cleanse buttocks due to fatigue. Able to manipulate clothing with CGA.) Transfers (B, C, W/C) (FIM): 4 (Min A for transfers using FWW.) Toilet/Commode Transfer (FIM): 4 (Min A for transfers using FWW.) Toilet Transfer (QC): 3 (Min A for transfers using FWW.) Shower Transfer(FIM): 4 (Min A for transfers using FWW and grabbars.) OT Short Term Goals Short Term Goals Time Frame: Dec 15, 2016 Eating(FIM): 5 Grooming(FIM): 4 Bathing(FIM): 3 Upper Body Dressing(FIM): 3 Lower Body Dressing(FIM): 3 Toileting(FIM): 3 Transfers (B,C,W/C) (FIM): 3 Toilet/Commode Transfer(FIM): 3 Additional Short Term Goals: 1-Demonstrate ADL Tasks, 2-Verbalize Understanding , 3-ImproveStrength/[place] 1=Demonstrate adherence to instructed precautions during ADL tasks. 2=Patient will verbalize/demonstrate understanding of assistive devices/ modifications for ADL. 3=Patient will improve strength/tolerance for activity to enable patient to perform ADL's. OT Supervisor Rose Grading Goals Supervisor Rose Grading Goals Time Frame: Dec 29, 2016 Eating (FIM): 6 (not met) Eating (QC): 5 (met-12/25/2016) Groomin (met-12/25/2016) Oral Hygiene (QC): 5 (met-12/25/2016) Bathing(FIM): 4 (met-12/25/2016) Shower/Bathe Self (QC): 4 (not met) Upper Body Dressing(FIM): 5 (met-12/25/2016) Upper Body Dressing (QC): 5 (met-12/25/2016) Lower Body Dressing(FIM): 5 (not met) Lower Body Dressing (QC): 5 (not met) On/Off Footwear (QC): 5 (met-12/25/2016) Toileting(FIM): 6 (not met) Toileting Hygiene (QC): 5 (not met) Transfers (B,C,W/C) (FIM): 5 (not met) Toilet/Commode Transfer(FIM): 5 (not met) Toilet/Commode Transfer (QC): 5 (not met) Shower Transfer(FIM): 4 (met-12/25/2016) Additional Goals: 1-Demonstrate ADL Tasks, 2-Verbalize Understanding, 3- ImproveStrength/[place] 1=Demonstrate adherence to instructed precautions during ADL tasks. 2=Patient will verbalize/demonstrate understanding of assistive devices/ modifications for ADL. 3=Patient will improve strength/tolerance for activity to enable patient to perform ADL's. OT Education/Plan Discharge Recommendations Plan/Recommendations: Continue POC Treatment Plan/Plan of Care Patient would benefit from OT for education, treatment and training to promote independence in ADL's, mobility, safety and/or upper extremity function for ADL' s. Plan of Care: ADL Retraining, Caregiver Training, Functional Mobility, Group Exercise/Act as Ind, UE Funct Exercise/Act Treatment Duration: Dec 29, 2016 Frequency: At least 5-7 days/Wk (IRF) (Thursday - Thursday, PRN Thursday) Estimated Hrs Per Day: 1.5 hours per day Agreement: Yes Rehab Potential: Fair Time/GCodes Start Time: 08:00 Stop Time: 09:00 Total Time Billed (hr/min): 60 Billed Treatment Time 1 visit-ADL 4 (60 min) DOUGIE VILLATORO Dec 25, 2016 11:46
--- NOTE | 2016-12-25 12:15 | Physical Therapy Daily Note ---
PT Daily Note-Current Subjective Pt sitting in recliner upon arrival. Pt agrees to PT. Pain Numeric Pain Scale: 3 Location Body Site: Back Pain Description: Ache Mental Status Patient Orientation: Person, Place, Situation Attachments: Other-See Comments (Back brace) Transfers Functional [place] Measure 0=Not Assessed/NA 4=Minimal Assistance 1=Total Assistance 5=Supervision or Setup 2=Maximal Assistance 6=Modified [place] 3=Moderate Assistance 7=Complete IndependenceIRFPAI Quality Coding Scale 6 Independent with activity with or without an assistive device 5 Patient requires set up or clean up by helper. Patient completes activity by themselves 4 Supervision or touching assist (CGA). [place] provide cues , steadying assist 3 The helper provides less than half the effort to complete the activity 2 The helper provides more than half the effort to complete the activity 1 Dependent. The helper does all the effort to complete an activity 7 Patient refused to complete or attempt activity 9 The patient did not perform the activity before the current illness or injury 88 Not attempted due to Medical conditions or safety concerns Transfers (B, C, W/C) (FIM): 5 Scootin Rollin Roll Left to Right (QC): 5 Supine to/from Sit: 5 Sit to/from Stand: 5 Sit to Lying (QC): 5 Sit to Stand (QC): 5 Chair/Klo-zk-Qnnvw Xfer(QC): 5 Bed to/from Chair: 5 Car Transfer (QC): 88 Pt was unable to complete car transfer due to car not present but will tomorrow upon discharge. Weight Bearing Weight Bearing Restriction: Full Weight Bearing Location Restriction: LE Bilateral Gait Training Gait (FIM): 4 Distance (FIM): 3=150 ft Distance: 350' Walk 10 feet (QC): 5 Walk 50 ft with 2 Turns(QC): 5 Walk 150 ft (QC): 5 Walking 10ft/uneven surface-QC: 4 Gait Level of Assist: 5 Gait Persons Needed: 1 Gait Assistive Device: FWW Pt gets a little wobbly at times especially when stepping onto uneven surface but able to self-correct. Pt's jean marie is very slow but steady. Pt still walks with slight kyphotic posture. Stair Training Stair Training: Handrails/: 2 handrails #of Steps: 8 1 Step (curb) (QC): 5 4 Steps (QC): 5 12 Steps (QC): 88 Stairs: Pattern: Step to Level of Assist: 5 Balance Picking up an Object (QC): 88 Special Test Comments Pt unable to complete due to back precautions given by surgeon. Treatments Pt transferred from recliner to standing using FWW at SBA. Pt ambulated in hallway using FWW at close SBA. Pt completes balance activities including stairs, walking on varying surface for at least 10' as well as bed mobility/ rolling. Pt doesn't attempt picking up object from floor due to back precautions given by surgeon. Pt will attempt car transfer tomorrow at discharge. Pt ambulates again in hallway before returning to room to rest in recliner at end of tx with all needs met. Assessment Current Status: Good Progress Pt is transferring and ambulating more independently and safely than previous tx. PT Short Term Goals Short Term Goals Time Frame: Dec 15, 2016 Transfers (B,C,W/C) (FIM): 3 Gait (FIM): 2 Gait Distance Comment: 50' Gait Level of Assist: 3 Gait Assistive Device: FWW Wheelchair Distance: 150' PT J2Ee Consultant Goals J2Ee Consultant Goals PT J2Ee Consultant Goals Time Frame: Dec 29, 2016 Transfers (B,C,W/C) (FIM): 4 Sit to Lying (QC): 4 Lying-Sitting on Side/Bed(QC): 4 Sit to Stand (QC): 4 Rollin Roll Left to Right (QC): 4 Chair/Qrp-ij-Cgvdy Xfer(QC): 4 Car Transfer (QC): 4 Gait (FIM): 4 Distance: 150' Walk 10 feet (QC): 4 Walk 10ft-Uneven Surface(QC): 4 Walk 50ft with 2 Turns (QC): 4 Walk 150 ft (QC): 4 Gait Level of Assist: 4 Gait Assistive Device: FWW Stairs (FIM): 2 # of Steps: 4 1 Step (curb) (QC): 4 4 Steps (QC): 4 Stairs Level Of Assist: 4 PT Plan Problem List Problem List: Activity Tolerance, Functional Strength, Safety, Balance, Gait Treatment/Plan Treatment Plan: Continue Plan of Care Treatment Plan: Bed Mobility, Education, Functional Activity [place], Functional Strength, Group Therapy, Gait, Safety, Therapeutic Exercise, Transfers Treatment Duration: Dec 29, 2016 Frequency: At least 5-7 days/Wk (IRF) Estimated Hrs Per Day: 1.5 hours per day Patient and/or Family Agrees t: Yes Safety Risks/Education Patient Education: Gait Training, Transfer Techniques, Steps, Correct Positioning, Safety Issues Teaching Recipient: Patient, Significant Other Teaching Methods: Discussion Response to Teaching: Verbalize Understanding Time/GCodes Time In: 1015 Time Out: 1115 Total Billed Treatment Time: 60 Total Billed Treatment visit, GT x2 (30m) & FA x2 (30m) KIRSTEN CORRAL SOUND TECHNICIAN SUPERVISOR Dec 25, 2016 12:15
[2016-12-25] MEDS ORDERED: TR1C15 TOP (13:49)
[2016-12-25] MEDS ORDERED: CLD600T PO (13:49)
[2016-12-25] MEDS ORDERED: DICL100G18 TOP (13:49)
[2016-12-25] MEDS ORDERED: MICO90PO TOP (13:49)
[2016-12-25] MEDS ORDERED: Oxycodone Hcl PO (13:49)
--- NOTE | 2016-12-25 14:59 | Therapy Group Daily Note ---
Therapy Daily Group Note Patient Education Topic Exercises, Other List Below (Memory Strategies) Exercises LE Seated Exercise, UE Exercise Other/Notes Pt walked to PT/OT Group in Therapy Gym using FWW at [facility]. Group consisted of Introductions (Name, Where you grew up & Favorite Childhood Game/Boardgame), Memorization Techniques and Strategies, Seated UE & LE Exercises and Memory Activity. Pt actively participated in Group by verbally giving answers when asked questions as well as participating in UE & LE Exercises. Pt walked back to room using FWW at the end of Group to rest. Pt is resting in recliner with all needs met at the end of Group. Start Time: 13:00 Stop Time: 14:15 Total Billed Treatment Time: 75 Total Billed Treatment 1, GRP KIRSTEN CORRAL SOLAR ENERGY SALES SPECIALIST Dec 25, 2016 14:59
[2016-12-25 18:58] VITALS: BP 114/63
[2016-12-25] MEDS: ATORVASTATIN 40 MG (LIPITOR) TABLET PO SCH (20:24)
[2016-12-26 05:30] VITALS: BP 112/63
[2016-12-26 05:57] LABS: BASOPHILS % (AUTO) 0 % (0-10); EOSINOPHILS # (AUTO) 0.2 10^3/uL (0.0-0.3); EOSINOPHILS % (AUTO) 1 % (0-10); LYMPHOCYTES # (AUTO) 16.3 X 10^3 (1.0-4.0); LYMPHOCYTES % (AUTO) 81 % (12-44); MEAN CORPUSCULAR HEMOGLOBIN 32 PG (25-34); MEAN CORPUSCULAR HGB CONC 32 G/DL (32-36); MEAN CORPUSCULAR VOLUME 99 FL (80-99); MEAN PLATELET VOLUME 9.4 FL (7.4-10.4); MONOCYTES # (AUTO) 0.2 X 10^3 (0.0-1.0); MONOCYTES % (AUTO) 1 % (0-12); NEUTROPHILS # (AUTO) 3.5 X 10^3 (1.8-7.8); NEUTROPHILS % (AUTO) 17 % (42-75); PLATELET COUNT 184 10^3/uL (130-400); RED BLOOD COUNT 2.79 10^6/uL (4.35-5.85); WHITE BLOOD COUNT 20.2 10^3/uL (4.3-11.0)
[2016-12-26] MEDS: CALCIUM CARB + VIT D 600 MG (CALCARB + D) TAB PO SCH (06:07)
[2016-12-26] MEDS: MULTIVIT W/MINERALS TAB (THERAGRAN M) PO SCH (06:07)
[2016-12-26] MEDS: PANTOPRAZOLE 40 MG (PROTONIX) TAB PO SCH (06:07)
[2016-12-26] MEDS: RT-ADVAIR HFA 115/21 MCG PER PUFF IH SCH (07:06)
[2016-12-26] MEDS: meTOprolol TARTRATE 50 MG (LOPRESSOR) TAB PO SCH (08:03)
[2016-12-26] MEDS: ENALAPRIL 5 MG (VASOTEC) TAB PO SCH (08:03)
[2016-12-26] MEDS: TRIAMCINOLONE 0.1% CR (KENALOG) 15 GM TUBE TOP SCH (08:04)
[2016-12-26] MEDS: DICLOFENAC 1% GEL 100 GM (VOLTAREN) TUBE TOP SCH (08:04)
[2016-12-26] MEDS: MICONAZOLE 2% POWDER (DESENEX AF) 90 GM TOP SCH (08:04)
--- NOTE | 2016-12-26 08:17 | PM & R (SOAP) Progress Note ---
Subjective Time Seen by Provider: 07:45 Subjective/Events-last exam Patient was seen in his room this AM.Patient making progress and sba for transfers but patients spouse wants Patient to go to SNU for ongoing care..Rash remains on dorsum of left foot but hasnt spread and is non painful. Review of Systems Skin rash as per above macular and spoty near left knee and pretibial area Objective Exam Last Set of Vital Signs Vital Signs Date Time Temp Pulse Resp B/P (MAP) Pulse Ox O2 Delivery O2 Flow Rate FiO2 12/26/16 07:06 94 Room Air 12/26/16 05:30 98.2 94 18 112/63 Capillary Refill : I&O Intake and Output 12/26/16 00:00 Intake Total 750 ml Output Total 825 ml Balance -75 ml Intake Oral 750 ml Output Urine Total 825 ml General: Alert, Oriented X3, Cooperative HEENT: Mucous Memb Moist/[place], Other (running blue suture on top of head- skin growing around it.) Neck: Supple, No JVD Lungs: Clear to Auscultation, Normal Air Movement Heart: Regular Rate Abdomen: Normal Bowel Sounds, Soft Extremities: No Clubbing, No Cyanosis, Other (Surgical scar over left knee) Skin: No Rashes, No Breakdown Neuro: Normal Speech, Sensation Intact, Other (strength- 4/5 lower extremities - 5/5 upper extremities) Psych/Mental Status: Mental Status NL, Mood NL (quiet, reserved) Results Lab Laboratory Tests 12/24/16 06:57: White Blood Count 22.6H, Red Blood Count 2.77L, Hemoglobin 8.9L, Hematocrit 28L , Mean Corpuscular Volume 99, Mean Corpuscular Hemoglobin 32, Mean Corpuscular Hemoglobin Concent 32, Red Cell Distribution Width 18.0H, Platelet Count 180, Mean Platelet Volume 8.9, Neutrophils (%) (Auto) 17L, Lymphocytes (%) (Auto) 82H , Monocytes (%) (Auto) 1, Eosinophils (%) (Auto) 1, Basophils (%) (Auto) 0, Neutrophils # (Auto) 3.8, Lymphocytes # (Auto) 18.5H, Monocytes # (Auto) 0.2, Eosinophils # (Auto) 0.2, Basophils # (Auto) 0.0 12/25/16 05:45: White Blood Count 19.9H, Red Blood Count 2.86L, Hemoglobin 9.1L, Hematocrit 28L , Mean Corpuscular Volume 99, Mean Corpuscular Hemoglobin 32, Mean Corpuscular Hemoglobin Concent 32, Red Cell Distribution Width 18.0H, Platelet Count 182, Mean Platelet Volume 9.4, Neutrophils (%) (Auto) 19L, Lymphocytes (%) (Auto) 80H , Monocytes (%) (Auto) 1, Eosinophils (%) (Auto) 1, Basophils (%) (Auto) 0, Neutrophils # (Auto) 3.7, Lymphocytes # (Auto) 15.8H, Monocytes # (Auto) 0.2, Eosinophils # (Auto) 0.2, Basophils # (Auto) 0.0 12/26/16 05:17: White Blood Count 20.2H, Red Blood Count 2.79L, Hemoglobin 8.8L, Hematocrit 28L , Mean Corpuscular Volume 99, Mean Corpuscular Hemoglobin 32, Mean Corpuscular Hemoglobin Concent 32, Red Cell Distribution Width 18.0H, Platelet Count 184, Mean Platelet Volume 9.4, Neutrophils (%) (Auto) 17L, Lymphocytes (%) (Auto) 81H , Monocytes (%) (Auto) 1, Eosinophils (%) (Auto) 1, Basophils (%) (Auto) 0, Neutrophils # (Auto) 3.5, Lymphocytes # (Auto) 16.3H, Monocytes # (Auto) 0.2, Eosinophils # (Auto) 0.2, Basophils # (Auto) 0.0 Assessment/Plan Assessment 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
[2016-12-26 09:10] VITALS: BP 112/63
--- NOTE | 2016-12-26 10:04 | Therapy Team Discharge Summary ---
Therapy Discharge Summary Discharge Recommendations Date of Discharge Dec 26, 2016 at 09:10 Therapy D/C Recommendations: Home w/ Family Support, Occupational Therapy Home Care Physical Therapy Patient came to rehab status post T12-L4 fusion for a L2 fracture. Upon evaluation patient performed bed mobility and transfers with max assist, ambulated 15' with a rolling walker with max assist, no stairs at this time. Patient has been performing bed mobility and transfer training, balance and endurance training, functional strengthening, stair training, gait training, and education. Patient has made good progress and has met all of his pickling grader goals except for rolling. Now, patient performs bed mobility with SBA, transfers with SBA, ambulates 350' with a rolling walker with SBA (including 50 ' with at least 2 turns of 90 degrees but CGA/Moi with 10' over an uneven surface), and can go up and down 4 steps using 2 handrails with SBA. Patient has been discharged from this facility and will be discharged from PT at this time. PT Deputy Treasurer Goals Deputy Treasurer Goals PT Deputy Treasurer Goals Time Frame: Dec 29, 2016 Transfers (B,C,W/C) (FIM): 4 Roll Left to Right (QC): 4 Sit to Lying (QC): 4 Lying-Sitting on Side/Bed(QC): 4 Sit to Stand (QC): 4 Chair/Frr-ec-Ryktk Xfer(QC): 4 Car Transfer (QC): 4 Gait (FIM): 4 Distance: 150' Walk 10 feet (QC): 4 Walk 10ft-Uneven Surface(QC): 4 Walk 50ft with 2 Turns (QC): 4 Walk 150 ft (QC): 4 Gait Level of Assist: 4 Gait Assistive Device: FWW Stairs (FIM): 2 # of Steps: 4 1 Step (curb) (QC): 4 4 Steps (QC): 4 Stairs Level Of Assist: 4 OT Penitentiary Goals Penitentiary Goals Time Frame: Dec 29, 2016 Eating (FIM): 6 (not met) Eating (QC): 5 (met-12/25/2016) Oral Hygiene (QC): 5 (met-12/25/2016) Grooming(FIM): 5 (met-12/25/2016) Bathing(FIM): 4 (met-12/25/2016) Shower/Bathe Self (QC): 4 (not met) Upper Body Dressing(FIM): 5 (met-12/25/2016) Upper Body Dressing (QC): 5 (met-12/25/2016) Lower Body Dressing(FIM): 5 (not met) Lower Body Dressing (QC): 5 (not met) On/Off Footwear (QC): 5 (met-12/25/2016) Toileting(FIM): 6 (not met) Toileting Hygiene (QC): 5 (not met) Transfers (B,C,W/C) (FIM): 5 (not met) Toilet/Commode Transfer(FIM): 5 (not met) Toilet/Commode Transfer (QC): 5 (not met) Shower Transfer(FIM): 4 (met-12/25/2016) Additional Goals: 1-Demonstrate ADL Tasks, 2-Verbalize Understanding, 3- ImproveStrength/Chandler 1=Demonstrate adherence to instructed precautions during ADL tasks. 2=Patient will verbalize/demonstrate understanding of assistive devices/ modifications for ADL. 3=Patient will improve strength/tolerance for activity to enable patient to perform ADL's. TYSON AGUILERA PT Dec 26, 2016 10:04
--- NOTE | 2016-12-29 14:14 | Therapy Team Discharge Summary ---
Therapy Discharge Summary Discharge Recommendations Date of Discharge Dec 26, 2016 at 09:10 Therapy D/C Recommendations: Home w/ Family Support, Occupational Therapy Home Care Occupational Therapy Pt admitted to ARU status post T12-L4 fusion for a L2 fracture. On admission pt required total assist for lower body dressing and toileting, and max assist for bathing and toilet transfer. Skilled OT intervention focused on ADL training, transfer, strengthening, adaptive equipment training, and safety education. Pt progressed with therapy and by discharge is completing feeding, grooming, and UE dressing with set up/SBA, and is able to complete bathing, lower body dressing, toileting, and transfers with minimal assistance. Pt met goals for grooming, bathing, upper body dressing, and shower transfers, but did not meet other LTG. Pt discharged to [facility] for continued care. D/C ARU OT. PT Correction Goals Advertising Job Titles Goals PT Correction Goals Time Frame: Dec 29, 2016 Transfers (B,C,W/C) (FIM): 4 Roll Left to Right (QC): 4 Sit to Lying (QC): 4 Lying-Sitting on Side/Bed(QC): 4 Sit to Stand (QC): 4 Chair/Dli-lo-Qoppy Xfer(QC): 4 Car Transfer (QC): 4 Gait (FIM): 4 Distance: 150' Walk 10 feet (QC): 4 Walk 10ft-Uneven Surface(QC): 4 Walk 50ft with 2 Turns (QC): 4 Walk 150 ft (QC): 4 Gait Level of Assist: 4 Gait Assistive Device: FWW Stairs (FIM): 2 # of Steps: 4 1 Step (curb) (QC): 4 4 Steps (QC): 4 Stairs Level Of Assist: 4 OT Advertising Job Titles Goals Advertising Job Titles Goals Time Frame: Dec 29, 2016 Eating (FIM): 6 (not met) Eating (QC): 5 (met-12/25/2016) Oral Hygiene (QC): 5 (met-12/25/2016) Grooming(FIM): 5 (met-12/25/2016) Bathing(FIM): 4 (met-12/25/2016) Shower/Bathe Self (QC): 4 (not met) Upper Body Dressing(FIM): 5 (met-12/25/2016) Upper Body Dressing (QC): 5 (met-12/25/2016) Lower Body Dressing(FIM): 5 (not met) Lower Body Dressing (QC): 5 (not met) On/Off Footwear (QC): 5 (met-12/25/2016) Toileting(FIM): 6 (not met) Toileting Hygiene (QC): 5 (not met) Transfers (B,C,W/C) (FIM): 5 (not met) Toilet/Commode Transfer(FIM): 5 (not met) Toilet/Commode Transfer (QC): 5 (not met) Shower Transfer(FIM): 4 (met-12/25/2016) Additional Goals: 1-Demonstrate ADL Tasks, 2-Verbalize Understanding, 3- ImproveStrength/Chandler 1=Demonstrate adherence to instructed precautions during ADL tasks. 2=Patient will verbalize/demonstrate understanding of assistive devices/ modifications for ADL. 3=Patient will improve strength/tolerance for activity to enable patient to perform ADL's. MARU FARFAN OT Dec 29, 2016 14:14
== END 2016-12-26 09:10 | DRG 560 ==
LOC: ENPENDDIS 12-26 09:00
PROVIDERS: ADMIT Physical Medicine & Rehabilitation; ATTEND Physical Medicine & Rehabilitation
DX: S32.029D Unspecified fracture of second lumbar vertebra, subsequent encounter for fracture with routine healing (principal); Z98.1 Arthrodesis status; C91.10 Chronic lymphocytic leukemia of B-cell type not having achieved remission; I10 Essential (primary) hypertension; J45.30 Mild persistent asthma, uncomplicated; I25.10 Atherosclerotic heart disease of native coronary artery without angina pectoris; K21.9 Gastro-esophageal reflux disease without esophagitis; E78.5 Hyperlipidemia, unspecified; M19.90 Unspecified osteoarthritis, unspecified site; J44.9 Chronic obstructive pulmonary disease, unspecified; S01.01XD Laceration without foreign body of scalp, subsequent encounter; S06.0X9D Concussion with loss of consciousness of unspecified duration, subsequent encounter; E83.51 Hypocalcemia; M16.12 Unilateral primary osteoarthritis, left hip; R21 Rash and other nonspecific skin eruption; Z95.0 Presence of cardiac pacemaker
CPT/HCPCS: 36415; 72133; 73502; 73562; 80048; 80053; 82962; 85007; 85025; 85027; 85045; 86880; 94640; 94664; 94760

== ENCOUNTER 2017-02-04 23:21 | Emergency (ER) | payer MEDICARE, OTHER ==
[~2017-02-04] VITALS: Ht 180.3 cm; Wt 80.8 kg
[~2017-02-04 23:21] MED LIST changes: +ACET325T38 PO; +ATOR40TA PO; +BUDE10.22 IH; +CLD600T PO; +CYAN100T PO; +FURO20TA4 PO; +METO50TA2 PO; +MICO90PO TOP; +MULT-35 PO; +OMEP20CA12 PO; +OXYC15TA79 PO; +Oxycodone Hcl PO; +POTA-51 PO; +RT-ALBUINH IH; +SAW450CA4 PO; +TR1C15 TOP
--- NOTE | 2017-02-05 00:36 | ED Fall/Injury ---
General Chief Complaint: Trauma-Non Activation Stated Complaint: FALL Nursing Triage Note: PT WAS BROUGHT TO ROOM BY WHEELCHAIR. PT WAS AT HOME IN THE BATHROOM WHEN HE FELL, PT STATES HIS FEET JUST GOT CAUGHT UP. PT DENIES LOC, BUT DID HIT HEAD. MULTIPLE SKIN TEARS ON PT. PT WEARING A BACK BRACE DUE TO RECENT BACK SURGERY ON DECEMBER 01, 2016. PT FELL AT APPROX. [id number] Source: patient History of Present Illness Time seen by provider: 23:30 Initial Comments PT ARRIVES VIA POV FROM HOME PT STATES HE WAS STARTING TO SIT DOWN ON THE TOILET, WAS HOLDING ON TO RAILING ON THE WALL TO HIS LEFT AND LOST HIS BALANCE AND FELL TO THE RIGHT , LANDING ON HIS RIGHT SIDE ON THE FLOOR OCCURRED JUST PRIOR TO ARRIVAL NO LOSS OF CONSCIOUSNESS NO NECK PAIN NO VISION CHANGES NO PARESTHESIAS OR MOTOR DEFICITS NO DIZZINESS NO NAUSEA/VOMITING C/O LOW BACK PAIN---PT HAD SURGERY ON HIS L2 VERTEBRA IN NOVEMBER BY DR. PEREZ AT [facility] IN [place] , AND IS WEARING A BACK BRACE. HAS CHRONIC BACK PAIN NORMALLY, THEN HAD A FALL AND SUSTAINED AN L2 BURST FRACTURE 11/25/16 AND HAD SURGERY, THEN ADMITTED HERE FOR REHAB 12/07/16-12/26/16 AND THEN TO [facility] FOR ADDITIONAL PENITENTIARY. PT IS BACK HOME NOW, OF 1 WEEK AGO. PT HAS HOME HEALTH, AND HOME PHYSICAL THERAPY. HAS SKIN TEARS ON RIGHT ELBOW AND FOREARM AND A MINOR ABRASION TO RIGHT BROW AREA, WELL A SKIN TEAR TO RIGHT SCAPULA AREA. NO BONY PAIN TO ARMS, HIPS OR LEGS. PT IS UP TO DATE ON TETANUS--HAD ONE [place]LIER IN [place]OVEMBER 2016 AT [place] PT HAS AN APPOINTMENT WITH HIS SURGEON ON Thursday02/06/17 Location Injury Occurred: HOME PCP: DR. COOMBS ONCOLOGY: DR. VAZQUEZ Allergies and Home Medications Allergies Coded Allergies: prednisone (Verified Allergy, Mild, 12/07/16) cigarette smoke (Verified Allergy, Unknown, 12/07/16) Shortness of breath/wheezing. perfume (Verified Allergy, Unknown, 12/07/16) Perfumes and rogers cause "throat to close". Home Medications Acetaminophen 325 Mg Tablet, 650 MG PO Q4H PRN for PAIN-MILD, (Reported) TAKES 2 (325MG) TABLETS Albuterol Sulfate 1 Puff Puff, 2 PUFF IH Q6H PRN for SHORTNESS OF BREATH, ( Reported) 1 PUFF = 90 MCG Atorvastatin Calcium 40 Mg Tablet, 40 MG PO HS, (Reported) Budesonide/Formoterol Fumarate 10.2 Gm Hfa.aer.ad, 2 PUFF IH DAILY, (Reported) Calcium Carbonate/Vitamin D3 1 Each Tablet, 600 MG PO DAILY@0700 for 30 Days, # 30 Prescribed by: KARL MIRELES on 12/25/161348 Cyanocobalamin 100 Mcg Tablet, 100 MCG PO DAILY, (Reported) Diclofenac Sodium 100 Gm Gel..gram., 0 GM TOP QID for 30 Days, #1 Prescribed by: KARL MIRELES on 12/25/16 134 Enalapril Maleate 5 Mg Tablet, 5 MG PO DAILY, (Reported) Metoprolol Tartrate 50 Mg Tablet, 50 MG PO Q12H, (Reported) Miconazole Nitrate 90 Gm Powder, 0 GM TOP BID for 30 Days, #1 Prescribed by: KARL MIRELES on 12/25/161348 Multivitamin 1 Each Tablet, 1 TAB PO DAILY, (Reported) Nitroglycerin 0.4 Mg Tab.subl, 0.4 MG SL UD PRN for CHEST PAIN, (Reported) Omeprazole 20 Mg Capsule.dr, 40 MG PO DAILY, (Reported) Oxycodone HCl 15 Mg Tablet, 7.5 MG PO Q4H PRN for PAIN-BREAKTHROUGH, (Reported) TAKES 1/2 (15MG) TABLET Triamcinolone Acet 15 Gm Cr, 0 GM TOP BID for 30 Days, #1 Prescribed by: KARL MIRELES on 12/25/161348 [Oxycodone Hcl] 5 MG TAB, 5 MG PO DAILY for 30 Days, #30 Prescribed by: KARL MIRELES on 12/25/161348 Constitutional: no symptoms reported Eyes: No Symptoms Reported Ears, Nose, Mouth, Throat: no symptoms reported Respiratory: no symptoms reported, No short of breath Cardiovascular: no symptoms reported, No chest pain Gastrointestinal: no symptoms reported, No abdominal pain, No nausea, No vomiting Genitourinary: no symptoms reported Musculoskeletal: see HPI, back pain Skin: see HPI Psychiatric/Neurological: No Symptoms Reported, Denies Headache, Denies Numbness, Denies Paresthesia, Denies Tingling, Denies Weakness Past Xpazvdg-Pzcjtx-Vvbmex Hx Patient Social History Alcohol Use: Denies Use Recreational Drug Use: No Smoking Status: Never a Smoker 2nd Hand Smoke Exposure: Yes Recent Foreign Travel: No Contact w/Someone Who Travel: No Recent Infectious Disease Expo: No Recent Hopitalizations: Yes (BACK SURGERY AT [facility] November, HERE FOR REHAB 12/07-12/26/16) Physical Abuse: No Sexual Abuse: No Immunizations Up To Date Tetanus Booster (TDap): Less than 5yrs (11/2016) Date of Pneumonia Vaccine: Dec 04, 2014 Seasonal Allergies Seasonal Allergies: Yes Surgeries History of Surgeries: Yes (HERNIA REPAIR, C-SINE SURGERY, L2 REPAIR, EVACUATION OF SUBDURAL HEMATOMA; BUNIONECTOMY; CARPAL TUNNEL REPAIR; ULNAR NERVE SURGERY) Surgeries: Bowel Surgery, Neurological, Orthopedic, Pacemaker Respiratory History of Respiratory Disorde: Yes Respiratory Disorders: Asthma Currently Using CPAP: No Currently Using BIPAP: No Cardiovascular History of Cardiac Disorders: Yes (pacemaker ) Cardiac Disorders: Chronic Edema/Swelling, Coronary Artery Disease, High Cholesterol, Hypertension Neurological History of Neurological Disord: Yes (CHI, SUBDURAL / EPIDURAL HEMATOMA 2014--S/ P SURGICAL EVACUATION) Genitourinary History of Genitourinary Disor: No Gastrointestinal History of Gastrointestinal Di: Yes Gastrointestinal Disorders: Abdominal Hernia, Gastroesophageal Reflux, Polyps Musculoskeletal History of Musculoskeletal Dis: Yes (closed unstable burst fx of L2 lumbar vertebra - surgical repair 11/2016; MULTIPLE FALLS) Musculoskeletal Disorders: Arthritis, Back Injury, Chronic Back Pain, Fractures Endocrine History of Endocrine Disorders: No HEENT History of HEENT Disorders: Yes (involuntary eye movements) Hearing Impairment: Denies Cancer History of Cancer: Yes (B-Cell, chronic lymphocytic leukemia ) Cancer: Leukemia Did You Recieve Any Treatments: Yes Type of Tx Receive: Chemotherapy Psychosocial History of Psychiatric Problem: No Suicide Risk Score: 0 Integumentary History of Skin or Integumenta: No Blood Transfusions History of Blood Disorders: Yes (leukemia) Family Medical History Significant Family History: No Pertinent Family Hx Family Medial History: FH: cancer 19 MOTHER FH: heart disease 19 FATHER Physical Exam Vital Signs Vital Sign - Last 12Hours 02/04/17 23:26 Temp 98.1 Pulse 109 Resp 20 B/P (MAP) 163/97 Pulse Ox 100 O2 Delivery Room Air Capillary Refill : Less Than 3 Seconds General Appearance: WD/WN, no apparent distress HEENT: PERRL/EOMI, normal ENT inspection, TMs normal, pharynx normal, other ( ABRASION TO RIGHT BROW AREA. NO BONY TENDERNESS) Neck: non-tender, full range of motion, supple, normal inspection Cardiovascular: regular rate, rhythm, no murmur Respiratory: chest non-tender, normal breath sounds, no respiratory distress, no accessory muscle use Gastrointestinal: non tender, soft Back: other (TENDERNESS TO LUMBAR AREA; SURGICAL WOUND WITH DRESSING THAT IS CLEAN DRY AND INTACT, IS THE WOUND. NO SIGNS OF INFECTION. 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 ), other (MULTIPLE SKIN TEARS/ABRASIONS TO RIGHT ELBOW AND FOREARM, RIGHT SCAPULA, AND RIGHT BROW AREA ) Magee Coma Score Best Eye Response: (4) Open Spontaneously Best Verbal Response: (5) Oriented Best Motor Response: (6) Obeys Commands Magee Total: 15 Laceration Repair : Suture Size: 4-0 Progress/Results/Core Measures Results/Orders My Orders Orders - JEFF FUNES DO Ct Head/Cervical Spine Wo (02/05/17 00:01) Ct Thoracic/Lumbar Spine Wo (02/05/17 00:01) Chest 1 View, Ap/Pa Only (02/05/17 ) Pelvis (02/05/17 ) Vital Signs/I&O Vital Sign - Last 12Hours 02/04/17 23:26 Temp 98.1 Pulse 109 Resp 20 B/P (MAP) 163/97 Pulse Ox 100 O2 Delivery Room Air Blood Pressure Mean: 119 Progress Note : Progress Note UNEVENTFUL ER STAY Diagnostic Imaging Comments CXR--SMALL EFFUSION RIGHT BASE, OTHERWISE NO ACUTE PROCESS PELVIS XRAY--NO ACUTE PROCESS CT HEAD/CERVICAL SPINE--NO ACUTE PROCESS, CHRONIC DEGENERATIVE AND POST OP CHANGES, PER [facility] VIA FAX @ [phone] CT THORACIC AND LUMBAR SPINE--NO ACUTE PROCESS, STABLE APPEARING SURGICAL CHANGES, CHRONIC DEGENERATIVE CHANGES, PER [facility] VIA FAX @ [phone] Reviewed: Reviewed by Me Departure Impression Impression: Primary Impression: Status post fall Additional Impressions: Acute exacerbation of chronic low back pain Abrasions of multiple sites Head injury with loss of consciousness Disposition: HOME, SELF-CARE Condition: Stable Departure-Patient Inst. Referrals: SORAYA COOMBS MD (PCP/Family) Primary Care Physician Patient Instructions: Low Back Pain (DC), Preventing Falls in the Older Adult , Skin Abrasions (DC), Wound Care (DC) Add. Discharge Instructions: CONTINUE ALL PREVIOUS POST OP INSTRUCTIONS TAKE YOUR HOME PAIN MEDICATIONS NEEDED FOLLOW UP WITH YOUR SURGEON TOMORROW SCHEDULED All discharge instructions reviewed with patient and/or family. Voiced understanding. JEFF FUNES DO Feb 05, 2017 00:36
[2017-02-05 01:35] VITALS: BP 132/74
--- NOTE | 2017-02-05 07:01 | Diagnostic Imaging Report ---
Clinical indication: Patient with history of lumbar surgery. Patient status post fall. Exam: Chest x-ray upright AP view. Comparison: Chest x-ray dated 06/14/2014. Findings: There is cardiomegaly with no significant pulmonary vascular congestion. There is interval development of a small right pleural effusion. There is slight increased airspace opacification both lung bases which may represent atelectasis versus infiltrates. Again seen cardiac pacemaker overlying left chest with 2 leads projecting over the heart. Lower cervical spine postop changes with hardware seen. Surgical clips are seen overlying the right upper quadrant which could be related to cholecystectomy changes. Incompletely imaged posterior lumbar fusion hardware seen. Impression: 1.: Interval development of a small right pleural effusion and bibasilar atelectasis versus infiltrate. 2: Mild cardiomegaly with no significant pulmonary vascular congestion. Dictated by: Dictated on workstation # [id number]
--- NOTE | 2017-02-05 07:09 | Diagnostic Imaging Report ---
CLINICAL INDICATION: Patient status post fall with history of lumbar surgery. EXAM: X-ray pelvis AP view. COMPARISON: X-ray left hip dated 12/16/2016. X-ray of the pelvis dated 11/25/2016. FINDINGS: There is stable appearance of the pelvis with no interval acute fracture or dislocation. There is degenerative spurring of the right acetabular region. There is vascular calcification seen. Mild enthesopathy of the bilateral greater trochanters and ischium. There is hypertrophic spurring of the lower lumbar spine. There is interval placement of posterior fusion hardware of the lower lumbar spine which is partially visualized. Sacroiliac joints show no significant abnormality. Phleboliths are seen in the pelvis. IMPRESSION: 1: There is no acute fracture or dislocation. 2: Degenerative disease of the pelvis and severe degenerative changes of lower lumbar spine. 3: Interval placement of posterior lumbar fusion hardware. Dictated by: Dictated on workstation # [id number]
--- NOTE | 2017-02-05 07:18 | Diagnostic Imaging Report ---
Clinical indication: Patient fell. Patient has back and hip pain. Patient has history of surgery in November of 2015. Exam: Axial CT scan of the thoracic and lumbar spine performed without IV contrast. Sagittal and coronal reformations were performed. Bone and soft tissue windows were created. Comparison: CT scan of the lumbar spine without and with IV contrast dated 12/19/2016. CT scan of the thoracic and lumbar spine dated 01/02/2015. FINDINGS: There is no interval acute thoracic or lumbar spine fracture. There is interval progression of sclerosis involving the chance fracture involving the L2 vertebral body which has stable alignment and distraction of the fracture region. There is stable T12-L4 posterior fusion hardware with bilateral spanning rods and pedicle screws stabilizing the Chance fracture region. There is no interval hardware complications such as osteolysis or hardware fracture. Again seen grade 1 anterolisthesis of L5 on S1 and grade 1 retrolisthesis of L3 on L4 and L4 on L5. Again seen syndesmophytes and hypertrophic spurring seen throughout the thoracic and lumbar spine which may be seen with ankylosing spondylitis. There is no significant change to the hypertrophic spurs and facet arthropathy throughout. Again seen severe bilateral neural foramen narrowing due to facet arthropathy involving the T4-T5 level. There is also other areas of moderate to severe bony neural foramen narrowing at the T5-T9 levels due to facet arthropathy. There is also moderate to severe bony neural foramen narrowing involving the lumbar spine which is also not significantly changed. There is mild to moderate central canal narrowing at the T12-L1, L3-L4, L4-5, and T4-T5 levels due to disc spurs, facet arthropathy. There is no significant paraspinal soft tissue abnormality. Partially visualized anterior cervical fusion of the lower cervical spine. Small hiatal hernia is noted. There is a small right pleural effusion with suspected bibasilar atelectasis. There is some incompletely imaged patchy consolidation in both lung bases noted as well. Surgical anastomosis in the right colon region is seen. Gallbladder surgically resected. IMPRESSION: 1.: There is no evidence of interval acute thoracic or lumbar spine fracture. 2: Interval progression of sclerosis of the fracture margins of the L2 Chance fracture with stable position. 3: Stable T12-L4 posterior fusion hardware with no interval hardware complications. 4.: There is no significant change to the moderate to severe multilevel thoracic and lumbar spine degenerative disease. 5.: There is a small right pleural effusion with bibasilar atelectasis, but superimposed infiltrate can't be completely excluded. I agree with [facility] report. Dictated by: Dictated on workstation # [id number]
--- NOTE | 2017-02-05 08:57 | Diagnostic Imaging Report ---
CLINICAL INDICATION: Patient status post fall. Patient now has back and hip pain. Patient has history of lumbar surgery in December 01. EXAM: Head CT without IV contrast. Axial CT scan of the cervical spine with sagittal and coronal reformations. COMPARISON: CT scan of the cervical spine and head dated 11/25/2016. FINDINGS: Head CT: There is no evidence of acute cerebral infarct, intracranial hemorrhage, or gross mass effect. Again seen focal and subtle patchy areas of low-attenuation white matter changes in both cerebral hemispheres, likely representing chronic small vessel ischemic disease. There is normal zimmer-white matter distinction. The brain parenchymal volume appears appropriate for patient's age. There is no significant midline shift or herniation. There is atherosclerotic disease involving the intradural vertebral artery and bilateral cavernous carotid arteries. Dolichoectasia of the basilar vertebral arteries. Ossification of falx cerebri is again seen anteriorly. There is no evidence of hydrocephalus. The basal cisterns are unremarkable. The skull addison hole craniotomy is noted. The skull, extracranial soft tissue, and orbits are unremarkable. Stable small mucus retention cyst or polyp in the sphenoid sinus. Temporal bone structures show no significant abnormality. CERVICAL SPINE: There is stable appearance of the cervical spine with no interval acute cervical spine fracture or dislocation. Incompletely imaged left curvature of the thoracic spine is noted. There are stable postop changes to the cervical spine with C3 through C6 anterior cervical interbody fusion with solid bony fusion in the region. There is no gross hardware complication. There are stable cervical spine degenerative disease with facet arthropathy and vertebral body spurs. Again seen partially calcified periodontoid pannus which causes mild encroachment upon the central canal anteriorly. The neck soft tissue structures show no other acute interval process. Lung apices are clear. IMPRESSION: 1: Stable CT scan of brain with no evidence of acute intracranial process. 2: Stable degenerative and postop changes to the cervical spine with no interval acute fracture or dislocation. I agree with [facility] report. Dictated by: Dictated on workstation # [id number]
== END 2017-02-05 01:35 | disposition home or self-care (01) ==
LOC: EDUNIT# 23:21 → ER 23:23
DX: S51.011A Laceration without foreign body of right elbow, initial encounter (principal); S51.811A Laceration without foreign body of right forearm, initial encounter; M54.9 Dorsalgia, unspecified; G89.29 Other chronic pain; K21.9 Gastro-esophageal reflux disease without esophagitis; E78.00 Pure hypercholesterolemia, unspecified; I25.10 Atherosclerotic heart disease of native coronary artery without angina pectoris; I10 Essential (primary) hypertension; R60.9 Edema, unspecified; J45.909 Unspecified asthma, uncomplicated; Z85.6 Personal history of leukemia; Z92.21 Personal history of antineoplastic chemotherapy; Z87.81 Personal history of (healed) traumatic fracture; Z98.890 Other specified postprocedural states; Z91.81 History of falling; W18.12XA Fall from or off toilet with subsequent striking against object, initial encounter; Y92.002 Bathroom of unspecified non-institutional (private) residence as the place of occurrence of the external cause
CPT/HCPCS: 70450; 71010; 72125; 72128; 72131; 72170; 99282

== ENCOUNTER → 2017-02-11 | Outpatient (CLI) | payer MEDICARE, OTHER | LOC: WOUNDCARE 11:58 | PROVIDERS: ATTEND Surgery | DX: L89.122 Pressure ulcer of left upper back, stage 2 (principal) | CPT/HCPCS: 97597 ==

== ENCOUNTER → 2017-02-16 | Outpatient (CLI) | payer MEDICARE, OTHER | LOC: WOUNDCARE 10:38 | PROVIDERS: ATTEND Surgery | DX: L89.122 Pressure ulcer of left upper back, stage 2 (principal); M06.00 Rheumatoid arthritis without rheumatoid factor, unspecified site; T81.31XA Disruption of external operation (surgical) wound, not elsewhere classified, initial encounter | CPT/HCPCS: 99212 ==

== ENCOUNTER 2017-04-10 09:15 | Outpatient (RCR) | payer MEDICARE, OTHER ==
[~2017-04-10 09:15] MED LIST changes: +METO50TA15 PO; -METO50TA2 PO; -SAW450CA4 PO; +SAW450CA7 PO
== END 2017-05-27 08:25 | disposition home or self-care (01) ==
PROVIDERS: ATTEND Neurological Surgery
DX: Z47.89 Encounter for other orthopedic aftercare (principal); Z98.1 Arthrodesis status

== ENCOUNTER 2017-05-22 13:00 | Outpatient (RCR) | payer MEDICARE, OTHER ==
[2017-05-20 10:37] LABS: BASOPHILS % (AUTO) 0 % (0-10); EOSINOPHILS # (AUTO) 0.1 10^3/uL (0.0-0.3); EOSINOPHILS % (AUTO) 1 % (0-10); HEMATOCRIT 36 % (40-54); HEMOGLOBIN 12.2 G/DL (13.3-17.7); LYMPHOCYTES # (AUTO) 8.2 X 10^3 (1.0-4.0); LYMPHOCYTES % (AUTO) 70 % (12-44); MEAN CORPUSCULAR HEMOGLOBIN 34 PG (25-34); MEAN CORPUSCULAR HGB CONC 34 G/DL (32-36); MEAN CORPUSCULAR VOLUME 101 FL (80-99); MEAN PLATELET VOLUME 9.2 FL (7.4-10.4); MONOCYTES # (AUTO) 0.5 X 10^3 (0.0-1.0); MONOCYTES % (AUTO) 4 % (0-12); NEUTROPHILS # (AUTO) 2.9 X 10^3 (1.8-7.8); NEUTROPHILS % (AUTO) 25 % (42-75); PLATELET COUNT 141 10^3/uL (130-400); RED CELL DISTRIBUTION WIDTH 14.6 % (10.0-14.5); WHITE BLOOD COUNT 11.6 10^3/uL (4.3-11.0)
[2017-05-20 11:00] LABS: ALANINE AMINOTRANSFERASE 20 U/L (0-55); ALBUMIN 3.8 GM/DL (3.2-4.5); ALKALINE PHOSPHATASE 79 U/L (40-136); BILIRUBIN,TOTAL 0.4 MG/DL (0.1-1.0); BUN/CREATININE RATIO 18; CALCIUM 9.3 MG/DL (8.5-10.1); CARBON DIOXIDE 28 MMOL/L (21-32); CHLORIDE 103 MMOL/L (98-107); CREATININE SERUM 0.91 MG/DL (0.60-1.30); GFR ESTIMATED > 60; GLUCOSE 84 MG/DL (70-105); POTASSIUM 4.9 MMOL/L (3.6-5.0); SODIUM 138 MMOL/L (135-145); TOTAL PROTEIN 6.3 GM/DL (6.4-8.2)
== END 2017-08-18 | disposition home or self-care (01) ==
LOC: ONC 13:00
PROVIDERS: ATTEND Internal Medicine Hematology & Oncology
DX: C91.10 Chronic lymphocytic leukemia of B-cell type not having achieved remission (principal); J44.9 Chronic obstructive pulmonary disease, unspecified; I25.10 Atherosclerotic heart disease of native coronary artery without angina pectoris; E78.5 Hyperlipidemia, unspecified; Z79.899 Other long term (current) drug therapy
CPT/HCPCS: 36415; 80053; 83615; 85025; 99213

== ENCOUNTER 2017-05-26 08:47 | Emergency (ER) | payer MEDICARE, OTHER ==
[~2017-05-26] VITALS: Ht 175.3 cm; Wt 81.6 kg
--- NOTE | 2017-05-26 09:25 | ED Fall/Injury ---
General Chief Complaint: Upper Extremity Stated Complaint: FALL Nursing Triage Note: TO ROOM 06 VIA AMB WITH HIS WALKER. COMPLAINS OF A FALL ON SAT CAUSING A LARGE SCRAPE TO HIS LEFT UPPER ARM. ALSO COMPLAINS OF BILAT LOWER RIB PAIN AFTER THE FALL. Source: patient Exam Limitations: no limitations History of Present Illness Time seen by provider: 09:02 Initial Comments Here with report of fall on Thursday morning. Complains of wound to the left elbow area as well as pain around the lower ribs bilaterally. Denies hitting his head. Denies loss of consciousness. States she is not sure what he hit his ribs on. Does have history of back surgery within the last several months to the mid spine in the low thoracic upper lumbar area. Occurred: other (2 days ago) Severity: moderate Injuries/Pain Location: upper extremity, chest, abdomen Context: lost balance Modifying Factors: Improves With Immobilization, Worse With Movement Associated Symptoms (Fall): No Confusion, No Headache, No Nausea/Vomiting, No Neck Pain, No Shortness of Air, No Trouble Walking Allergies and Home Medications Allergies Coded Allergies: prednisone (Verified Allergy, Mild, 12/07/16) cigarette smoke (Verified Allergy, Unknown, 12/07/16) Shortness of breath/wheezing. perfume (Verified Allergy, Unknown, 12/07/16) Perfumes and rogers cause "throat to close". Home Medications Acetaminophen 325 Mg Tablet, 650 MG PO Q4H PRN for PAIN-MILD, (Reported) TAKES 2 (325MG) TABLETS Albuterol Sulfate 1 Puff Puff, 2 PUFF IH Q6H PRN for SHORTNESS OF BREATH, ( Reported) 1 PUFF = 90 MCG Atorvastatin Calcium 40 Mg Tablet, 40 MG PO HS, (Reported) Budesonide/Formoterol Fumarate 10.2 Gm Hfa.aer.ad, 2 PUFF IH DAILY, (Reported) Calcium Carbonate/Vitamin D3 1 Each Tablet, 600 MG PO DAILY@0700 for 30 Days, # 30 Prescribed by: KARL MIRELES on 12/25/16 1349 Cyanocobalamin 100 Mcg Tablet, 100 MCG PO DAILY, (Reported) Diclofenac Sodium 100 Gm Gel..gram., 0 GM TOP QID for 30 Days, #1 Prescribed by: KARL MIRELES on 12/25/16 1349 Enalapril Maleate 5 Mg Tablet, 5 MG PO DAILY, (Reported) Metoprolol Tartrate 50 Mg Tablet, 50 MG PO Q12H, (Reported) Miconazole Nitrate 90 Gm Powder, 0 GM TOP BID for 30 Days, #1 Prescribed by: KARL MIRELES on 12/25/16 1349 Multivitamin 1 Each Tablet, 1 TAB PO DAILY, (Reported) Nitroglycerin 0.4 Mg Tab.subl, 0.4 MG SL UD PRN for CHEST PAIN, (Reported) Omeprazole 20 Mg Capsule.dr, 40 MG PO DAILY, (Reported) Oxycodone HCl 15 Mg Tablet, 7.5 MG PO Q4H PRN for PAIN-BREAKTHROUGH, (Reported) TAKES 1/2 (15MG) TABLET Triamcinolone Acet 15 Gm Cr, 0 GM TOP BID for 30 Days, #1 Prescribed by: KARL MIRELES on 12/25/16 1349 [Oxycodone Hcl] 5 MG TAB, 5 MG PO DAILY for 30 Days, #30 Prescribed by: KARL MIRELES on 12/25/16 1349 Constitutional: see HPI, No chills, No fever Eyes: No Symptoms Reported Ears, Nose, Mouth, Throat: no symptoms reported Respiratory: no symptoms reported, No short of breath, No wheezing Cardiovascular: chest pain, No edema Gastrointestinal: abdominal pain, No nausea, No vomiting Genitourinary: no symptoms reported Musculoskeletal: see HPI, joint swelling, muscle pain Skin: see HPI, change in color, lesions Psychiatric/Neurological: No Symptoms Reported All Other Systems Reviewed Negative Unless Noted: Yes Past Gozrjbg-Gdjetl-Cpfwjv Hx Patient Social History Alcohol Use: Denies Use Recreational Drug Use: No Smoking Status: Never a Smoker 2nd Hand Smoke Exposure: Yes Recent Foreign Travel: No Contact w/Someone Who Travel: No Recent Infectious Disease Expo: No Recent Hopitalizations: Yes Immunizations Up To Date Tetanus Booster (TDap): Less than 5yrs Date of Pneumonia Vaccine: Dec 04, 2014 Seasonal Allergies Seasonal Allergies: Yes Surgeries History of Surgeries: Yes Surgeries: Bowel Surgery, Neurological, Orthopedic, Pacemaker Respiratory History of Respiratory Disorde: Yes Respiratory Disorders: Asthma Currently Using CPAP: No Currently Using BIPAP: No Cardiovascular History of Cardiac Disorders: Yes (pacemaker ) Cardiac Disorders: Chronic Edema/Swelling, Coronary Artery Disease, High Cholesterol, Hypertension Neurological History of Neurological Disord: Yes ([facility], SUBDURAL / EPIDURAL HEMATOMA 2014--S/ P SURGICAL EVACUATION) Genitourinary History of Genitourinary Disor: No Gastrointestinal History of Gastrointestinal Di: Yes Gastrointestinal Disorders: Abdominal Hernia, Gastroesophageal Reflux, Polyps Musculoskeletal History of Musculoskeletal Dis: Yes Musculoskeletal Disorders: Arthritis, Back Injury, Chronic Back Pain, Fractures Endocrine History of Endocrine Disorders: No HEENT History of HEENT Disorders: Yes (involuntary eye movements) Hearing Impairment: Denies Cancer History of Cancer: Yes (B-Cell, chronic lymphocytic leukemia ) Cancer: Leukemia Did You Recieve Any Treatments: Yes Type of Tx Receive: Chemotherapy Psychosocial History of Psychiatric Problem: No Integumentary History of Skin or Integumenta: No Blood Transfusions History of Blood Disorders: Yes (leukemia) Reviewed Nursing Assessment Reviewed/Agree w Nursing PMH: Yes Family Medical History Significant Family History: No Pertinent Family Hx Family Medial History: FH: cancer 19 MOTHER FH: heart disease 19 FATHER Physical Exam Vital Signs Vital Sign - Last 12Hours 05/26/17 08:49 Temp 98.0 Pulse 97 Resp 18 B/P (MAP) 169/94 (119) Pulse Ox 99 Capillary Refill : Less Than 3 Seconds General Appearance: WD/WN, no apparent distress HEENT: PERRL/EOMI, pharynx normal Neck: full range of motion, supple Cardiovascular: regular rate, rhythm, no murmur Respiratory: lungs clear, normal breath sounds, other (tender to the left and right side of the lower ribs) Gastrointestinal: soft, tenderness (upper abdomen bilateral and lateral) Back: normal inspection, no CVA tenderness, no vertebral tenderness Extremities: pelvis stable, other (skin tear of bruising as described below. Tender to the left elbow region but has good range of motion.) Neurologic/Psychiatric: alert, oriented x 3 Skin: warm/dry, other (4 x 4 centimeter skin tear to the left lateral elbow with small skin tear more posterior. These were covered with dressing initially. I exposed in, skin tear noted with flap in place. Small amount of bleeding noted.) Nena Coma Score Best Eye Response: (4) Open Spontaneously Best Verbal Response: (5) Oriented Best Motor Response: (6) Obeys Commands Laceration Repair : Suture Size: 4-0 Progress/Results/Core Measures Results/Orders My Orders Orders - JANA BROCK MD Ct Chest/Abdomen Wo (05/26/17 09:17) Elbow, Left, 3 Views (05/26/17 09:17) Vital Signs/I&O Vital Sign - Last 12Hours 05/26/17 05/26/17 08:49 10:50 Temp 98.0 98.0 Pulse 97 97 Resp 18 18 B/P (MAP) 169/94 (119) Pulse Ox 99 99 Blood Pressure Mean: 119 Progress Note : Progress Note Seen and evaluated. CT of the chest and abdomen ordered which will help with the evaluation of the ribs and spine. We will do a noncontrast at this point as I believe that we'll provide adequate evaluation with out kidney concerns. X -ray of the left elbow ordered. 1045: Elbow film does have questionable lucency in the radial head. Patient is without pain on pressure and does have some pain locally with movement. He is able to use his walker without arm without difficulty. Due to his significant follows concerns we will allow him to continue that with the understanding that if pain is worsening he will present for reevaluation or follow up with his orthopedic doctor, Dr. Ohara. Diagnostic Imaging Diagonstic Imaging: Xray Plain Films/CT/US/NM/MRI: elbow Comments VIA [facility], [facility]. [place], [place] NAME: ARGELIA ANNA [facility] REC#: [id number] PT STATUS: REG ER : 1930 PHYSICIAN: JANA BROCK MD ADMIT DATE: 05/26/17/ER Draft Date of Exam:05/26/17 ELBOW, LEFT, 3 VIEWS INDICATION: Left elbow pain AP, oblique, and lateral views of the left elbow are obtained. 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 There is chronic appearing soft tissue calcification adjacent to the elbow joint. There is however a slight linear lucency in the radial head on the lateral view, raising the possibility of a nondisplaced fracture. Followup should be considered. 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 On the lateral view, there is a faint linear lucency in the radial head suspicious for nondisplaced fracture of unclear age. Followup is recommended as clinically warranted. Dictated on workstation # [id number] Dict: 05/26/17 1009 Trans: 05/26/17 1013 [place] [id number] Interpreted by: OPAL BOLAÑOS MD Electronically signed by: Diagonstic Imaging: CT Plain Films/CT/US/NM/MRI: chest, abdomen Comments VIA [facility]. [place], [place] NAME: ARGELIA ANNA JR [facility] REC#: [id number] PT STATUS: REG ER : 1930 PHYSICIAN: JANA BROCK MD ADMIT DATE: 05/26/17/ER Draft Date of Exam:05/26/17 CT CHEST/ABDOMEN WO PROCEDURE: CT chest and abdomen without contrast. TECHNIQUE: Axial images were obtained from the thoracic inlet through the iliac crest without the administration of intravenous contrast. INDICATION: Fall. Lower rib pain more on the right side. FINDINGS: CT CHEST: There is a pacemaker in the left chest wall with prominent beam hardening artifacts. Right atrial and right ventricular leads are seen. There is no pericardial effusion. Extensive coronary artery calcifications are noted. No pleural effusion or hemorrhage. There is no mediastinal hemorrhage. The thoracic aorta is normal in caliber. No significantly enlarged mediastinal or axillary lymph nodes seen. The hilar vessels are not opacified with no obvious hilar lymphadenopathy noted. The lungs demonstrate no significant consolidation, mass or suspicious nodule. There is mild scattered scarring in the lung bases. The osseous structures demonstrate degenerative changes with bridging syndesmophytes in the thoracic spine and mild scoliotic curvature convex to the left and upper thoracic levels. CT ABDOMEN: Beam hardening artifacts from posterior fusion hardware involving T12-L4 levels is seen. This appears to be related to lumbar spine fracture fixation around L2 level. The liver, the spleen, the pancreas, and adrenals appear unremarkable. The kidneys demonstrate no hydronephrosis or stones. A 2.8 cm left renal cyst is seen. Cholecystectomy clips are seen. IMPRESSION: CT CHEST: No acute process. CT ABDOMEN: No acute process. Dictated on workstation # [id number] Dict: 05/26/17 1010 Trans: 05/26/17 1025 [id number] Interpreted by: EDWARD DUNN MD Electronically signed by: Departure Impression Impression: Primary Impression: Skin tear Additional Impressions: Left elbow contusion Qualified Codes: S50.02XA - Contusion of left elbow, initial encounter Chest wall pain Disposition: HOME, SELF-CARE Condition: Improved Departure-Patient Inst. Decision time for Depature: 10:51 Referrals: SORAYA COOMBS MD (PCP/Family) Primary Care Physician Patient Instructions: Contusion (DC), Elbow Fracture (DC), Skin Abrasions (DC) Add. Discharge Instructions: All discharge instructions reviewed with patient and/or family. Voiced understanding. Keep the dressing in place to the left elbow until it falls off on its on. If it does come off and there is still healing required, you can continue the dressings that you had placed previously. Follow-up with your doctor in a few days for recheck as needed. You may follow-up with Dr. Ohara for recheck and further evaluation if you have elbow pain as there is a question of a fracture of the left radial head. Return for worsening, fever, vomiting, weakness, breathing problems or other concerns as needed. You may use Tylenol 1000 mg every 6 hours as needed for pain. You may use ice packs to the affected area as needed for pain or swelling. JANA BROCK MD May 26, 2017 09:25
--- NOTE | 2017-05-26 10:13 | Diagnostic Imaging Report ---
INDICATION: Left elbow pain AP, oblique, and lateral views of the left elbow are obtained. 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 There is chronic appearing soft tissue calcification adjacent to the elbow joint. There is however a slight linear lucency in the radial head on the lateral view, raising the possibility of a nondisplaced fracture. Followup should be considered. 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 On the lateral view, there is a faint linear lucency in the radial head suspicious for nondisplaced fracture of unclear age. Followup is recommended as clinically warranted. Dictated by: Dictated on workstation # [id number]
--- NOTE | 2017-05-26 10:26 | Diagnostic Imaging Report ---
PROCEDURE: CT chest and abdomen without contrast. TECHNIQUE: Axial images were obtained from the thoracic inlet through the iliac crest without the administration of intravenous contrast. INDICATION: Fall. Lower rib pain more on the right side. FINDINGS: CT CHEST: There is a pacemaker in the left chest wall with prominent beam hardening artifacts. Right atrial and right ventricular leads are seen. There is no pericardial effusion. Extensive coronary artery calcifications are noted. No pleural effusion or hemorrhage. There is no mediastinal hemorrhage. The thoracic aorta is normal in caliber. No significantly enlarged mediastinal or axillary lymph nodes seen. The hilar vessels are not opacified with no obvious hilar lymphadenopathy noted. The lungs demonstrate no significant consolidation, mass or suspicious nodule. There is mild scattered scarring in the lung bases. The osseous structures demonstrate degenerative changes with bridging syndesmophytes in the thoracic spine and mild scoliotic curvature convex to the left and upper thoracic levels. CT ABDOMEN: Beam hardening artifacts from posterior fusion hardware involving T12-L4 levels is seen. This appears to be related to lumbar spine fracture fixation around L2 level. The liver, the spleen, the pancreas, and adrenals appear unremarkable. The kidneys demonstrate no hydronephrosis or stones. A 2.8 cm left renal cyst is seen. Cholecystectomy clips are seen. IMPRESSION: CT CHEST: No acute process. CT ABDOMEN: No acute process. Dictated by: Dictated on workstation # [id number]
[2017-05-26 10:50] VITALS: BP 169/94
== END 2017-05-26 10:50 ==
LOC: EDUNIT# 08:47 → ER 08:50
DX: S51.802A Unspecified open wound of left forearm, initial encounter (principal); R07.89 Other chest pain; J45.909 Unspecified asthma, uncomplicated; I25.10 Atherosclerotic heart disease of native coronary artery without angina pectoris; E78.00 Pure hypercholesterolemia, unspecified; I10 Essential (primary) hypertension; K21.9 Gastro-esophageal reflux disease without esophagitis; Z86.010 Personal history of colon polyps; Z82.49 Family history of ischemic heart disease and other diseases of the circulatory system; Z87.820 Personal history of traumatic brain injury; Z98.890 Other specified postprocedural states; Z77.22 Contact with and (suspected) exposure to environmental tobacco smoke (acute) (chronic); Z95.0 Presence of cardiac pacemaker; W19.XXXA Unspecified fall, initial encounter
CPT/HCPCS: 71250; 73080; 74150

== ENCOUNTER → 2017-08-28 | Outpatient (CLI) | payer MEDICARE, OTHER ==
--- NOTE | 2017-08-28 15:30 | Diagnostic Imaging Report ---
INDICATION: Cough and chest congestion. TIME OF EXAM: 3:20 p.m. COMPARISON: Comparison is made with prior exam from 02/05/2017. FINDINGS: The heart size is stable. Cardiac pacemaker remains in place. Lungs appear to be clear. No infiltrates are seen. There is no effusion. No pneumothorax is identified. IMPRESSION: No acute cardiopulmonary process is detected. Dictated by: Dictated on workstation # [id number]
== END ==
LOC: RAD 14:46
PROVIDERS: ATTEND Nurse Practitioner Family
DX: R05 Cough (principal); R09.89 Other specified symptoms and signs involving the circulatory and respiratory systems
CPT/HCPCS: 71046

== ENCOUNTER → 2017-10-07 | Outpatient (RCR) | payer MEDICARE, OTHER | END | disposition home or self-care (01) | LOC: CR3 09-07 10:00 | PROVIDERS: ATTEND Family Medicine | DX: Z29.8 Encounter for other specified prophylactic measures (principal) ==

== ENCOUNTER 2017-10-14 12:29 | Outpatient (RCR) | payer MEDICARE, OTHER ==
[2017-10-13 11:12] LABS: BASOPHILS % (AUTO) 0 % (0-10); EOSINOPHILS % (AUTO) 0 % (0-10); HEMATOCRIT 35 % (40-54); HEMOGLOBIN 12.5 G/DL (13.3-17.7); LYMPHOCYTES # (AUTO) 10.7 X 10^3 (1.0-4.0); LYMPHOCYTES % (AUTO) 69 % (12-44); MEAN CORPUSCULAR HEMOGLOBIN 35 PG (25-34); MEAN CORPUSCULAR HGB CONC 36 G/DL (32-36); MEAN CORPUSCULAR VOLUME 97 FL (80-99); MEAN PLATELET VOLUME 9.5 FL (7.4-10.4); MONOCYTES # (AUTO) 0.4 X 10^3 (0.0-1.0); MONOCYTES % (AUTO) 3 % (0-12); NEUTROPHILS # (AUTO) 4.4 X 10^3 (1.8-7.8); NEUTROPHILS % (AUTO) 28 % (42-75); PLATELET COUNT 139 10^3/uL (130-400); RED BLOOD COUNT 3.59 10^6/uL (4.35-5.85); RED CELL DISTRIBUTION WIDTH 15.1 % (10.0-14.5); WHITE BLOOD COUNT 15.5 10^3/uL (4.3-11.0)
[2017-10-13 11:34] LABS: ALANINE AMINOTRANSFERASE 21 U/L (0-55); ALBUMIN 4.1 GM/DL (3.2-4.5); ALKALINE PHOSPHATASE 61 U/L (40-136); BILIRUBIN,TOTAL 0.6 MG/DL (0.1-1.0); BUN/CREATININE RATIO 28; CALCIUM 9.2 MG/DL (8.5-10.1); CARBON DIOXIDE 26 MMOL/L (21-32); CHLORIDE 106 MMOL/L (98-107); CREATININE SERUM 0.92 MG/DL (0.60-1.30); GFR ESTIMATED > 60; GLUCOSE 105 MG/DL (70-105); POTASSIUM 4.6 MMOL/L (3.6-5.0); SODIUM 138 MMOL/L (135-145); TOTAL PROTEIN 6.3 GM/DL (6.4-8.2)
== END 2018-01-11 | disposition home or self-care (01) ==
LOC: ONC 12:29
PROVIDERS: ATTEND Internal Medicine Hematology & Oncology
DX: C91.10 Chronic lymphocytic leukemia of B-cell type not having achieved remission (principal); J44.9 Chronic obstructive pulmonary disease, unspecified; I25.10 Atherosclerotic heart disease of native coronary artery without angina pectoris; E78.5 Hyperlipidemia, unspecified; Z79.899 Other long term (current) drug therapy
CPT/HCPCS: 36415; 80053; 82232; 83615; 85025; 99213

== ENCOUNTER 2017-11-06 08:29 | Outpatient (RCR) | payer MEDICARE, OTHER | END 2017-11-08 | disposition home or self-care (01) | LOC: CR3 08:29 | PROVIDERS: ATTEND Family Medicine | DX: Z29.8 Encounter for other specified prophylactic measures (principal) ==

== ENCOUNTER 2017-12-07 08:45 | Outpatient (RCR) | payer MEDICARE, OTHER | END 2017-12-09 | disposition home or self-care (01) | LOC: CR3 08:45 | PROVIDERS: ATTEND Family Medicine | DX: Z29.8 Encounter for other specified prophylactic measures (principal) ==

== ENCOUNTER → 2017-12-30 | Outpatient (CLI) | payer MEDICARE, OTHER ==
[2017-12-30 14:26] LABS: BASOPHILS % (AUTO) 0 % (0-10); EOSINOPHILS % (AUTO) 0 % (0-10); HEMATOCRIT 38 % (40-54); HEMOGLOBIN 12.8 G/DL (13.3-17.7); LYMPHOCYTES % (AUTO) 76 % (12-44); MEAN CORPUSCULAR HEMOGLOBIN 34 PG (25-34); MEAN CORPUSCULAR HGB CONC 34 G/DL (32-36); MEAN CORPUSCULAR VOLUME 100 FL (80-99); MEAN PLATELET VOLUME 9.1 FL (7.4-10.4); MONOCYTES # (AUTO) 0.3 X 10^3 (0.0-1.0); MONOCYTES % (AUTO) 2 % (0-12); NEUTROPHILS # (AUTO) 3.6 X 10^3 (1.8-7.8); NEUTROPHILS % (AUTO) 22 % (42-75); PLATELET COUNT 131 10^3/uL (130-400); RED BLOOD COUNT 3.82 10^6/uL (4.35-5.85); RED CELL DISTRIBUTION WIDTH 14.9 % (10.0-14.5); WHITE BLOOD COUNT 15.9 10^3/uL (4.3-11.0)
[2017-12-30 14:52] LABS: ALANINE AMINOTRANSFERASE 21 U/L (0-55); ALBUMIN 4.2 GM/DL (3.2-4.5); ALKALINE PHOSPHATASE 58 U/L (40-136); BUN/CREATININE RATIO 19; CALCIUM 9.4 MG/DL (8.5-10.1); CARBON DIOXIDE 25 MMOL/L (21-32); CHLORIDE 107 MMOL/L (98-107); CREATININE SERUM 0.85 MG/DL (0.60-1.30); GFR ESTIMATED > 60; GLUCOSE 96 MG/DL (70-105); POTASSIUM 4.3 MMOL/L (3.6-5.0); SODIUM 140 MMOL/L (135-145); TOTAL PROTEIN 6.3 GM/DL (6.4-8.2)
[2017-12-30 15:05] LABS: LYMPHOCYTES % (MANUAL) 64 %; MONOCYTES % (MANUAL) 5 %; NEUTROPHILS % (MANUAL) 23 %
[2017-12-30 15:06] LABS: ACANTHOCYTES SLIGHT; BURR CELLS MODERATE; CRENATED RBC SLIGHT; REACTIVE LYMPHOCYTES 8 %; SMUDGE CELLS MOD
== END ==
LOC: LAB 14:07
PROVIDERS: ATTEND Nurse Practitioner Family
DX: R42 Dizziness and giddiness (principal); R10.13 Epigastric pain
CPT/HCPCS: 36415; 80053; 84484; 85007; 85027

== ENCOUNTER 2018-01-06 10:10 | Outpatient (RCR) | payer MEDICARE, OTHER | END 2018-01-07 | disposition home or self-care (01) | LOC: CR3 10:10 | PROVIDERS: ATTEND Family Medicine | DX: Z29.8 Encounter for other specified prophylactic measures (principal) ==

== ENCOUNTER 2018-02-05 09:25 | Outpatient (RCR) | payer MEDICARE, OTHER | END 2018-02-07 | disposition home or self-care (01) | LOC: CR3 09:25 | PROVIDERS: ATTEND Family Medicine | DX: Z29.8 Encounter for other specified prophylactic measures (principal) ==

== ENCOUNTER → 2018-03-12 | Outpatient (RCR) | payer MEDICARE, OTHER | END | disposition home or self-care (01) | LOC: CR3 02-10 09:00 | PROVIDERS: ATTEND Family Medicine | DX: Z29.8 Encounter for other specified prophylactic measures (principal) ==

== ENCOUNTER → 2018-04-14 | Outpatient (RCR) | payer MEDICARE, OTHER | END | disposition home or self-care (01) | LOC: CR3 03-15 11:00 | PROVIDERS: ATTEND Family Medicine | DX: Z29.8 Encounter for other specified prophylactic measures (principal) ==

== ENCOUNTER 2018-04-21 12:33 | Outpatient (RCR) | payer MEDICARE, OTHER ==
[2018-04-20 10:02] LABS: BASOPHILS % (AUTO) 0 % (0-10); EOSINOPHILS % (AUTO) 0 % (0-10); HEMATOCRIT 38 % (40-54); HEMOGLOBIN 13.2 G/DL (13.3-17.7); LYMPHOCYTES # (AUTO) 13.6 X 10^3 (1.0-4.0); LYMPHOCYTES % (AUTO) 72 % (12-44); MEAN CORPUSCULAR HEMOGLOBIN 34 PG (25-34); MEAN CORPUSCULAR HGB CONC 35 G/DL (32-36); MEAN CORPUSCULAR VOLUME 98 FL (80-99); MEAN PLATELET VOLUME 9.7 FL (7.4-10.4); MONOCYTES # (AUTO) 0.4 X 10^3 (0.0-1.0); MONOCYTES % (AUTO) 2 % (0-12); NEUTROPHILS # (AUTO) 4.7 X 10^3 (1.8-7.8); NEUTROPHILS % (AUTO) 25 % (42-75); PLATELET COUNT 157 10^3/uL (130-400); RED CELL DISTRIBUTION WIDTH 14.8 % (10.0-14.5); WHITE BLOOD COUNT 18.8 10^3/uL (4.3-11.0)
[2018-04-20 10:19] LABS: ALANINE AMINOTRANSFERASE 20 U/L (0-55); ALBUMIN 4.5 GM/DL (3.2-4.5); ALKALINE PHOSPHATASE 69 U/L (40-136); BILIRUBIN,TOTAL 0.6 MG/DL (0.1-1.0); BUN/CREATININE RATIO 18; CALCIUM 9.8 MG/DL (8.5-10.1); CARBON DIOXIDE 23 MMOL/L (21-32); CHLORIDE 102 MMOL/L (98-107); CREATININE SERUM 1.03 MG/DL (0.60-1.30); GFR ESTIMATED > 60; GLUCOSE 91 MG/DL (70-105); POTASSIUM 5.1 MMOL/L (3.6-5.0); SODIUM 135 MMOL/L (135-145); TOTAL PROTEIN 6.9 GM/DL (6.4-8.2)
== END 2018-07-19 | disposition home or self-care (01) ==
LOC: ONC 12:33
PROVIDERS: ATTEND Internal Medicine Hematology & Oncology
DX: C91.10 Chronic lymphocytic leukemia of B-cell type not having achieved remission (principal); J44.9 Chronic obstructive pulmonary disease, unspecified; I25.10 Atherosclerotic heart disease of native coronary artery without angina pectoris; E78.5 Hyperlipidemia, unspecified; Z79.899 Other long term (current) drug therapy
CPT/HCPCS: 36415; 80053; 82232; 83615; 85025; 99213

== ENCOUNTER 2018-05-14 08:50 | Outpatient (RCR) | payer MEDICARE, OTHER | END 2018-05-16 | disposition home or self-care (01) | LOC: CR3 08:50 | PROVIDERS: ATTEND Family Medicine | DX: Z29.8 Encounter for other specified prophylactic measures (principal) ==

== ENCOUNTER → 2018-06-16 | Outpatient (RCR) | payer MEDICARE, OTHER | END | disposition home or self-care (01) | LOC: CR3 05-17 10:30 | PROVIDERS: ATTEND Family Medicine | DX: Z29.8 Encounter for other specified prophylactic measures (principal) ==

== ENCOUNTER 2018-07-09 08:20 | Outpatient (RCR) | payer MEDICARE, OTHER | END 2018-07-18 | disposition home or self-care (01) | LOC: CR3 08:20 | PROVIDERS: ATTEND Family Medicine | DX: Z29.8 Encounter for other specified prophylactic measures (principal) ==

== ENCOUNTER 2018-07-09 13:40 | Inpatient (IN) | payer MEDICARE, OTHER | END 2018-07-10 14:10 | LOC: ER 13:40 → ICU 18:20 ==

== ENCOUNTER → 2018-08-20 | Outpatient (RCR) | payer MEDICARE, OTHER | END | disposition home or self-care (01) | LOC: CR3 07-21 09:00 | PROVIDERS: ATTEND Family Medicine | DX: Z29.8 Encounter for other specified prophylactic measures (principal) ==

== ENCOUNTER → 2018-09-22 | Outpatient (RCR) | payer MEDICARE, OTHER ==
[~2018-09-22] MED LIST changes: -CYAN100T PO; +CYAN100T3 PO
== END | disposition home or self-care (01) ==
LOC: CR3 08-23 08:00
PROVIDERS: ATTEND Family Medicine
DX: Z29.8 Encounter for other specified prophylactic measures (principal)

== ENCOUNTER → 2018-10-27 | Outpatient (RCR) | payer MEDICARE, OTHER | END | disposition home or self-care (01) | LOC: CR3 09-27 14:19 | PROVIDERS: ATTEND Family Medicine | DX: Z29.8 Encounter for other specified prophylactic measures (principal) ==

== ENCOUNTER → 2018-10-29 | Outpatient (CLI) | payer MEDICARE, OTHER ==
--- NOTE | 2018-10-29 11:41 | Diagnostic Imaging Report ---
PROCEDURE: US right lower extremity venous. TECHNIQUE: Multiple real-time grayscale images were obtained over the right lower extremity in various projections. Additional spectral analysis and color Doppler duplex images were also obtained. INDICATION: Right leg pain. FINDINGS: The right lower extremity femoral-popliteal deep venous system is widely patent. No deep or superficial thrombus. No mass or fluid collection. IMPRESSION: Normal negative unilateral right lower extremity venous Doppler and ultrasound exam. Dictated by: Dictated on workstation # [id number]
== END ==
LOC: RAD 09:51
PROVIDERS: ATTEND Nurse Practitioner Family
DX: M79.604 Pain in right leg (principal)

== ENCOUNTER → 2018-12-03 | Outpatient (RCR) | payer MEDICARE, OTHER | END | disposition home or self-care (01) | LOC: CR3 11-03 09:00 | PROVIDERS: ATTEND Family Medicine | DX: Z29.8 Encounter for other specified prophylactic measures (principal) ==

== ENCOUNTER → 2019-01-05 | Outpatient (RCR) | payer MEDICARE, OTHER | END | disposition home or self-care (01) | LOC: CR3 12-06 08:00 | PROVIDERS: ATTEND Family Medicine | DX: Z29.8 Encounter for other specified prophylactic measures (principal) ==

== ENCOUNTER 2019-02-02 08:41 | Outpatient (RCR) | payer MEDICARE, OTHER ==
[~2019-02-02 08:41] MED LIST changes: -OMEP20CA12 PO; +OMEP20CA13 PO
== END 2019-02-06 | disposition home or self-care (01) ==
LOC: CR3 08:41
PROVIDERS: ATTEND Family Medicine
DX: Z29.8 Encounter for other specified prophylactic measures (principal)

== ENCOUNTER 2019-03-09 08:05 | Outpatient (RCR) | payer MEDICARE, OTHER | END 2019-03-10 | disposition home or self-care (01) | LOC: CR3 08:05 | PROVIDERS: ATTEND Family Medicine | DX: Z29.8 Encounter for other specified prophylactic measures (principal) ==

== ENCOUNTER 2019-04-08 08:40 | Outpatient (RCR) | payer MEDICARE, OTHER | END 2019-04-10 | disposition home or self-care (01) | LOC: CR3 08:40 | PROVIDERS: ATTEND Family Medicine | DX: Z29.8 Encounter for other specified prophylactic measures (principal) ==

== ENCOUNTER 2019-05-13 08:23 | Outpatient (RCR) | payer MEDICARE, OTHER ==
[~2019-05-13 08:23] MED LIST changes: -ACET-77 PO; +ACET-78 PO; -ENAL5TAB PO; +ENLP5T PO; +OMEP-280 PO; -OMEP20CA13 PO
== END 2019-05-14 | disposition home or self-care (01) ==
LOC: CR3 08:23
PROVIDERS: ATTEND Family Medicine
DX: Z29.8 Encounter for other specified prophylactic measures (principal)

== ENCOUNTER → 2019-06-15 | Outpatient (RCR) | payer MEDICARE, OTHER ==
[~2019-06-15] MED LIST changes: +ACET-77 PO; -ACET-78 PO; +ENAL5TAB PO; -ENLP5T PO; -OMEP-280 PO; +OMEP20CA13 PO
== END | disposition home or self-care (01) ==
LOC: CR3 05-16 09:00
PROVIDERS: ATTEND Family Medicine
DX: Z29.8 Encounter for other specified prophylactic measures (principal)

== ENCOUNTER 2019-07-15 08:28 | Outpatient (RCR) | payer MEDICARE, OTHER ==
[~2019-07-15 08:28] MED LIST changes: -ACET-77 PO; +ACET-78 PO; -ENAL5TAB PO; +ENLP5T PO; +OMEP-280 PO; -OMEP20CA13 PO
== END 2019-07-17 | disposition home or self-care (01) ==
LOC: CR3 08:28
PROVIDERS: ATTEND Family Medicine
DX: Z29.8 Encounter for other specified prophylactic measures (principal)

== ENCOUNTER → 2019-08-17 | Outpatient (RCR) | payer MEDICARE, OTHER ==
--- NOTE | 2019-08-16 17:32 | NUR ---
CONTACTED PT FOR INFECTIOUS DISEASE SCREENING (PER ADMINISTRATION ORDERS)
[~2019-08-17] MED LIST changes: -OMEP-280 PO; +OMEP20CA18 PO
== END | disposition home or self-care (01) ==
LOC: CR3 07-18 10:00
PROVIDERS: ATTEND Family Medicine
DX: Z29.8 Encounter for other specified prophylactic measures (principal)

== ENCOUNTER 2019-08-22 08:32 | Outpatient (RCR) | payer MEDICARE, OTHER ==
[~2019-08-22 08:32] MED LIST changes: +OXYC-525 PO; -OXYC15TA79 PO
== END 2019-09-17 | disposition home or self-care (01) ==
LOC: CR3 08:32
PROVIDERS: ATTEND Family Medicine
DX: Z29.8 Encounter for other specified prophylactic measures (principal)

== ENCOUNTER → 2020-09-26 | Outpatient (RCR) | payer MEDICARE, OTHER ==
[~2020-09-26] MED LIST changes: -CYAN100T3 PO; +CYAN100T37 PO
== END | disposition home or self-care (01) ==
LOC: CR3 08-27 10:45
PROVIDERS: ATTEND Family Medicine
DX: Z29.8 Encounter for other specified prophylactic measures (principal)

== ENCOUNTER 2020-10-26 10:39 | Outpatient (RCR) | payer MEDICARE, OTHER | END 2020-10-27 | disposition home or self-care (01) | LOC: CR3 10:39 | PROVIDERS: ATTEND Family Medicine | DX: Z29.8 Encounter for other specified prophylactic measures (principal) ==

== ENCOUNTER 2020-11-02 10:11 | Emergency (ER) | payer MEDICARE, OTHER ==
[~2020-11-02] VITALS: Ht 178 cm; Wt 77.0 kg
[2020-11-02] MEDS ORDERED: TETANUS,DIPTH,PERTUSS P/F (BOOSTRIX) 0.5 ML VIAL IM ONE (10:24)
--- NOTE | 2020-11-02 11:08 | ED Fall/Injury ---
General Chief Complaint: Trauma-Non Activation Stated Complaint: BILAT ARM PAIN/LAC Nursing Triage Note: PT TO RM 7 WITH FRIEND WITH CC OF A FALL YESTERDAY, SKIN TEARS ON RT ARM AND LT HAND. DENIES HITTING HIS HEAD, NO OTHER PAIN. Source: patient, other (friend) Exam Limitations: no limitations History of Present Illness Date Seen by Provider: November 02, 2020 Time Seen by Provider: 10:30 Initial Comments This 89-year-old gentleman presents to the emergency room with complaints of numerous skin tears after having a fall in his home. He had been up much of the night before caring for his who recently had a hip replacement. He had also been out at a follow-up appointment and was therefore feeling worn out. He was turning with his walker in the kitchen and tipped over backwards. He did not strike his head or neck. The incident happened yesterday and was witnessed by his friend who is present currently. Patient has numerous skin tears on his upper extremities that he would like evaluated. He does not believe he has any significant bony injury and he declines x-rays. He also does not believe he needs any lab or urine work-up as he believes his fall was related to fatigue from the long night and busy day. Patient has some difficulty communicating due to chronic vocal cord spasms or paralysis. His friend provides much of the history. Allergies and Home Medications Allergies Coded Allergies: prednisone (Verified Allergy, Mild, 12/07/16) cigarette smoke (Verified Allergy, Unknown, 12/07/16) Shortness of breath/wheezing. perfume (Verified Allergy, Unknown, 12/07/16) Perfumes and rogers cause "throat to close". Home Medications Acetaminophen 325 Mg Tablet, 650 MG PO Q4H PRN for PAIN-MILD, (Reported) TAKES 2 (325MG) TABLETS Albuterol Sulfate 1 Puff Puff, 2 PUFF IH Q6H PRN for SHORTNESS OF BREATH, (Reported) 1 PUFF = 90 MCG Atorvastatin Calcium 40 Mg Tablet, 40 MG PO HS, (Reported) Budesonide/Formoterol Fumarate 10.2 Gm Hfa.aer.ad, 2 PUFF IH DAILY, (Reported) Calcium Carbonate/Vitamin D3 1 Each Tablet, 600 MG PO DAILY@0700 Prescribed by: KARL MIRELES on 12/25/16 1349 Cyanocobalamin 100 Mcg Tablet, 100 MCG PO DAILY, (Reported) Diclofenac Sodium 100 Gm Gel..gram., 0 GM TOP QID Prescribed by: KARL MIRELES on 12/25/161348 Enalapril Maleate 5 Mg Tablet, 5 MG PO DAILY, (Reported) Metoprolol Tartrate 50 Mg Tablet, 50 MG PO Q12H, (Reported) Miconazole Nitrate 90 Gm Powder, 0 GM TOP BID Prescribed by: KARL MIRELES on 12/25/161348 Multivitamin 1 Each Tablet, 1 TAB PO DAILY, (Reported) Nitroglycerin 0.4 Mg Tab.subl, 0.4 MG SL UD PRN for CHEST PAIN, (Reported) Omeprazole 20 Mg Capsule.dr, 40 MG PO DAILY, (Reported) Oxycodone HCl 15 Mg Tablet, 7.5 MG PO Q4H PRN for PAIN-BREAKTHROUGH, (Reported) TAKES 1/2 (15MG) TABLET Triamcinolone Acet 15 Gm Cr, 0 GM TOP BID Prescribed by: KARL MIRELES on 12/25/161348 [Oxycodone Hcl] 5 MG TAB, 5 MG PO DAILY Prescribed by: KARL MIRELES on 12/25/161348 Patient Home Medication List Home Medication List Reviewed: Yes Review of Systems Review of Systems Constitutional: see HPI Eyes: No Symptoms Reported Ears, Nose, Mouth, Throat: see HPI Respiratory: no symptoms reported Cardiovascular: no symptoms reported Gastrointestinal: no symptoms reported Genitourinary: no symptoms reported Musculoskeletal: see HPI Skin: see HPI Psychiatric/Neurological: No Symptoms Reported Past Fbhzajf-Vdyxbd-Yrosdt Hx Past Med/Social Hx: Reviewed Nursing Past Med/Soc Hx Patient Social History Alcohol Use: Denies Use Smoking Status: Never a Smoker 2nd Hand Smoke Exposure: Yes Recent Infectious Disease Expo: No Recent Hopitalizations: Yes Immunizations Up To Date Tetanus Booster (TDap): Less than 5yrs Date of Pneumonia Vaccine: Mar 08, 2017 Date of Influenza Vaccine: Mar 08, 2018 Seasonal Allergies Seasonal Allergies: Yes Past Medical History Surgeries: Yes (COLON RESECTION, ) Bowel Surgery, Neurological, Orthopedic, Pacemaker Respiratory: Yes Asthma Currently Using CPAP: No Currently Using BIPAP: No Cardiac: Yes (pacemaker ) Chronic Edema/Swelling, Coronary Artery Disease, High Cholesterol, Hypertension Neurological: Yes ([facility], SUBDURAL / EPIDURAL HEMATOMA 2014--S/P SURGICAL EVACUATION) Genitourinary: No Gastrointestinal: Yes Abdominal Hernia, Gastroesophageal Reflux, Polyps Musculoskeletal: Yes Arthritis, Back Injury, Chronic Back Pain, Fractures Endocrine: No HEENT: Yes (involuntary eye movements) Hearing Impairment: Denies Cancer: Yes (B-Cell, chronic lymphocytic leukemia ) Leukemia Did You Recieve Any Treatments: Yes What Type of Treatment Did You: Chemotherapy Psychosocial: No Integumentary: No Blood Disorders: Yes (leukemia) Family Medical History FH: cancer 19 MOTHER FH: heart disease 19 FATHER No Pertinent Family Hx Physical Exam Vital Signs Vital Signs - First Documented 11/02/20 10:20 Temp 36.3 Pulse 70 Resp 16 B/P (MAP) 180/93 (122) Pulse Ox 100 O2 Delivery Room Air Capillary Refill : Less Than 3 Seconds Height, Weight, BMI Height: 5'10.00" Weight: 186lbs. 5.0oz. 84.047175ec; 24.00 BMI Method:Stated General Appearance: WD/WN, no apparent distress, thin HEENT: PERRL/EOMI, normal ENT inspection, other (Bandage over the left temporal area where there is a skin cancer) Neck: normal inspection Cardiovascular: regular rate, rhythm, no edema, no murmur Respiratory: lungs clear, normal breath sounds, no respiratory distress Gastrointestinal: non tender, soft Extremities: other (Multiple skin tears over the upper extremities. No significant focal tenderness or significant pain with range of motion. Lower extremities are nontender to palpation) Neurologic/Psychiatric: no motor/sensory deficits, alert, normal mood/affect, other (Vocal cord spasm or paralysis causing hoarseness) Skin: warm/dry, ecchymosis, other (Skin tears on the upper extremities) Edmond Coma Score Best Eye Response: (4) Open Spontaneously Best Verbal Response: (5) Oriented Best Motor Response: (6) Obeys Commands Nena Total: 15 Procedures/Interventions Suture Size: 4-0 Progress/Results/Core Measures Results/Orders My Orders Orders - JODY RABAGO MD Dipht,Pertuss(Acell),Tet Adult (Boostrix (11/02/20 10:24) Medications Given in ED Current Medications Medications Dose Ordered Sig/Kaleb Route Start Time Stop Time Status Last Admin Dose Admin Diphtheria/ Tetanus/Acell Pertussis 0.5 ml STK-MED ONCE IM 11/02/20 10:24 5/28/21 10:34 DC 11/02/20 10:37 0.5 ML Vital Signs/I&O 11/02/20 11/02/20 10:20 11:23 Temp 36.3 36.3 Pulse 70 70 Resp 16 16 B/P (MAP) 180/93 (122) 154/84 (122) Pulse Ox 100 100 O2 Delivery Room Air Blood Pressure Mean: 122 Progress Progress Note : Time: 11:03 Progress Note Patient states he was very tired yesterday after only getting 2 to 3 hours of sleep the night before because of caring for his postoperative . He otherwise was feeling well. I offered lab work and urinalysis for further evaluation. Patient declines and would like to return home. He was mainly concerned about his skin tears. Skin tears were cleaned and dressed by nursing staff. Departure Impression Primary Impression: Multiple skin tears Disposition: 01 HOME, SELF-CARE Condition: Improved Departure-Patient Inst. Decision time for Depature: 11:05 Referrals: SORAYA DYKES MD (PCP/Family) Primary Care Physician Patient Instructions: SKIN AVULSION Add. Discharge Instructions: Keep the wounds clean and dry. Keep them covered until they scab over. Please follow-up with Dr. Dykes on Thursday morning or return to the emergency room between and Thursday to have your wounds reassessed. You may return to the ER at any time for a no charge wound check and redressing. Monitor the wounds for signs of infection such as increasing redness, increasing swelling, puslike drainage, or fever. Return to care promptly if you notice the symptoms. If dressings stick to your wounds, moisten the dressings with clean tap water and wait a few minutes. Then gently remove the dressing. If the dressings still stick, repeat this process until they are loose enough. Call with questions or concerns. All discharge instructions reviewed with patient and/or family. Voiced understanding. Copy Copies To 1: SORAYA DYKES MD, JOSHUA T MD November 02, 2020 11:08
[2020-11-02 11:23] VITALS: BP 154/84
== END 2020-11-02 11:23 | disposition home or self-care (01) ==
LOC: EDUNIT# 10:11 → ER 10:13
DX: S51.811A Laceration without foreign body of right forearm, initial encounter (principal); S51.812A Laceration without foreign body of left forearm, initial encounter; J38.00 Paralysis of vocal cords and larynx, unspecified; C44.90 Unspecified malignant neoplasm of skin, unspecified; I10 Essential (primary) hypertension; I25.10 Atherosclerotic heart disease of native coronary artery without angina pectoris; J45.909 Unspecified asthma, uncomplicated; E78.00 Pure hypercholesterolemia, unspecified; K21.9 Gastro-esophageal reflux disease without esophagitis; G89.29 Other chronic pain; M54.9 Dorsalgia, unspecified; Z95.0 Presence of cardiac pacemaker; Z77.22 Contact with and (suspected) exposure to environmental tobacco smoke (acute) (chronic); Z79.51 Long term (current) use of inhaled steroids; Z79.891 Long term (current) use of opiate analgesic; Z79.899 Other long term (current) drug therapy; Z23 Encounter for immunization; W01.0XXA Fall on same level from slipping, tripping and stumbling without subsequent striking against object, initial encounter; Y92.000 Kitchen of unspecified non-institutional (private) residence as the place of occurrence of the external cause
CPT/HCPCS: 90715; 99284

== ENCOUNTER 2020-11-09 10:55 | Emergency (ER) | payer MEDICARE, OTHER ==
[~2020-11-09] VITALS: Ht 178 cm; Wt 77.0 kg
--- NOTE | 2020-11-09 11:29 | ED Suture Removal/Wound Check ---
Suture/Wound Re-check Suture Removal/Wound Recheck : Suture Removal/Wound Recheck: Dry/sterile dressing-appl Progress Patient is an 89-year-old male who presents to the emergency room for reevalua tion of his wounds after a fall on November 02. Patient has not changed any dressings since the time of his fall. He denies any fevers chills or complaints of illness or injury other than the wounds to his left hand and right posterior upper arm and elbow. General Appearance: WD/WN, no apparent distress Neuro/Tendon: normal sensation, normal motor functions, normal tendon functions Skin Exam: normal color, warm/dry, other (Skin tear noted over the dorsal left hand, red macerated base with a little subcutaneous fat exposed. Slight bleeding noted. Patient has also skin tears noted to the posterior right distal arm and over the elbow. None of these wounds appear infected, no purulent drainage, no surrounding erythema or streaking.) Physical Exam Vital Signs Vital Signs - First Documented 11/09/20 11:09 Temp 37.0 Pulse 76 Resp 16 B/P (MAP) 151/78 (102) Pulse Ox 100 Capillary Refill : Less Than 3 Seconds General Appearance: WD/WN Cardiovascular: regular rate, rhythm Respiratory: no respiratory distress, no accessory muscle use Extremities: normal range of motion, non-tender Neurologic/Psychiatric: alert, normal mood/affect, oriented x 3 Skin: normal color, warm/dry, other (See prior note) Departure Impression Primary Impression: Encounter for wound re-check Disposition: 01 HOME, SELF-CARE Condition: Stable Departure-Patient Inst. Decision time for Depature: 11:28 Referrals: SORAYA DYKES MD (PCP/Family) Primary Care Physician Patient Instructions: Wound Care Add. Discharge Instructions: Please call Dr. Dykes's office for a follow-up appointment next week. Wash your wounds gently with soap and water once a day and redress them daily. Watch for increasing redness, swelling, drainage of pus or anything else that becomes concerning. Come back to the emergency room for fever, shortness of breath or any other emergent concerning complaints. AUSTIN WALLACE MD Nov 09, 2020 11:29
[2020-11-09 11:34] VITALS: BP 151/78
== END 2020-11-09 11:34 | disposition home or self-care (01) ==
LOC: EDUNIT# 10:55 → ER 10:58
DX: S61.412D Laceration without foreign body of left hand, subsequent encounter (principal); S51.011D Laceration without foreign body of right elbow, subsequent encounter; W19.XXXD Unspecified fall, subsequent encounter
CPT/HCPCS: 99283; A6223

== ENCOUNTER 2020-12-24 10:23 | Outpatient (RCR) | payer MEDICARE, OTHER | END 2020-12-26 | disposition home or self-care (01) | LOC: CR3 10:23 | PROVIDERS: ATTEND Family Medicine | DX: Z29.8 Encounter for other specified prophylactic measures (principal) ==

== ENCOUNTER 2021-01-23 11:13 | Outpatient (RCR) | payer MEDICARE, OTHER | END 2021-01-27 | LOC: CR3 11:13 | PROVIDERS: ATTEND Family Medicine | DX: Z29.8 Encounter for other specified prophylactic measures (principal) ==

== ENCOUNTER → 2021-03-01 | Outpatient (RCR) | payer MEDICARE, OTHER | LOC: CR3 01-30 10:25 | PROVIDERS: ATTEND Family Medicine | DX: Z29.8 Encounter for other specified prophylactic measures (principal) ==

== ENCOUNTER 2021-04-01 11:06 | Emergency (ER) | payer MEDICARE, OTHER ==
[~2021-04-01] VITALS: Ht 180 cm; Wt 77.2 kg
--- NOTE | 2021-04-01 11:44 | ED Fall/Injury ---
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 SKIN TEAR TO BACK. Source: patient Exam Limitations: no limitations History of Present Illness Date Seen by Provider: Apr 01, 2021 Time Seen by Provider: 11:30 Initial Comments Patient to the ER by private conveyance with his spouse and chief complaint that just prior to arrival he was at the wellness center getting off the scale in his foot drug and he fell backwards onto his back against a treadmill. He caused some skin tears on his mid thoracic spine and his left shoulder blade. He is on aspirin but no blood thinners. He has a history of surgery to remove subdural hematoma many many years ago. He is not having any loss of consciousness. He did strike the occiput of his head. He is not having any nausea vomiting, confusion difficulty walking. He denies dysuria cough shortness of air chest pain. He is not having any pain in his upper or lower extremities. Allergies and Home Medications Allergies Coded Allergies: prednisone (Verified Allergy, Mild, 12/07/16) cigarette smoke (Verified Allergy, Unknown, 12/07/16) Shortness of breath/wheezing. perfume (Verified Allergy, Unknown, 12/07/16) Perfumes and rogers cause "throat to close". Patient Home Medication List Home Medication List Reviewed: Yes Acetaminophen (Tylenol) 325 Mg Tablet, 650 MG PO Q4H PRN for PAIN-MILD, (Reported) Entered as Reported by: NIC MENA on 12/08/16 1024 Albuterol Sulfate (Ventolin Hfa) 1 Puff Puff, 2 PUFF IH Q6H PRN for SHORTNESS OF BREATH, (Reported) Entered as Reported by: NIC MENA on 12/08/16 1024 Atorvastatin Calcium (Lipitor) 40 Mg Tablet, 40 MG PO HS, (Reported) Entered as Reported by: NIC MENA on 12/08/16 1024 Budesonide/Formoterol Fumarate (Symbicort 80-4.5 Mcg Inhaler) 10.2 Gm Hfa.aer.ad, 2 PUFF IH DAILY, (Reported) Entered as Reported by: NIC MENA on 12/08/16 1024 Calcium Carbonate/Vitamin D3 (Calcium 600 + Vit D3 400 Tab) 1 Each Tablet, 600 MG PO DAILY@0700 Prescribed by: KARL MIRELES on 12/25/16 134 Cyanocobalamin (Vitamin B-12) 100 Mcg Tablet, 100 MCG PO DAILY, (Reported) Entered as Reported by: NIC MENA on 12/08/16 1024 Diclofenac Sodium (Voltaren) 100 Gm Gel..gram., 0 GM TOP QID Prescribed by: KARL MIRELES on 12/25/16 134 Enalapril Maleate (Enalapril Maleate) 5 Mg Tablet, 5 MG PO DAILY, (Reported) Entered as Reported by: NIC MENA on 12/08/16 1024 Metoprolol Tartrate (Metoprolol Tartrate) 50 Mg Tablet, 50 MG PO Q12H, (Reported) Entered as Reported by: NIC MENA on 12/08/16 1024 Miconazole Nitrate (Lotrimin AF) 90 Gm Powder, 0 GM TOP BID Prescribed by: KARL MIRELES on 12/25/16 134 Multivitamin (Daily Multiple Vitamin) 1 Each Tablet, 1 TAB PO DAILY, (Reported) Entered as Reported by: NIC MENA on 12/08/16 1024 Nitroglycerin (Nitrostat) 0.4 Mg Tab.subl, 0.4 MG SL UD PRN for CHEST PAIN, (Reported) Entered as Reported by: NIC MENA on 12/08/16 1024 Omeprazole (Omeprazole) 20 Mg Capsule.dr, 40 MG PO DAILY, (Reported) Entered as Reported by: NIC MENA on 12/08/16 1024 Oxycodone HCl (Oxycodone HCl) 15 Mg Tablet, 7.5 MG PO Q4H PRN for PAIN- BREAKTHROUGH, (Reported) Entered as Reported by: NIC MENA on 12/08/16 1024 Triamcinolone Acet (Triamcinolone Acetonide 0.1% Cream) 15 Gm Cr, 0 GM TOP BID Prescribed by: KARL MIRELES on 12/25/16 134 [Oxycodone Hcl] 5 MG TAB, 5 MG PO DAILY Prescribed by: KARL MIRELES on 12/25/16 134 Review of Systems Review of Systems Constitutional: No chills, No diaphoresis Eyes: Denies Blindness, Denies Blurred Vision Ears, Nose, Mouth, Throat: denies ear pain, denies ear discharge Respiratory: No cough, No dyspnea on exertion Cardiovascular: No chest pain, No edema Gastrointestinal: No abdominal pain, No nausea, No vomiting Genitourinary: No discharge, No dysuria Musculoskeletal: see HPI, back pain (Chronic no acute); No joint pain All Other Systems Reviewed Negative Unless Noted: Yes Past Jxptrrm-Chcwva-Fsspxa Hx Patient Social History Tobacco Use?: No Substance use?: No Immunizations Up To Date Tetanus Booster (TDap): Less than 5yrs First/Initial COVID19 Vaccinat: August COVID19 Vaccination Masoud: AUGUST 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 [employer]: SAMANTHA Seasonal Allergies Seasonal Allergies: Yes Past Medical History Surgeries: Yes (COLON RESECTION, ) Bowel Surgery, Neurological, Orthopedic, Pacemaker Respiratory: Yes Asthma Currently Using CPAP: No Currently Using BIPAP: No Cardiac: Yes (pacemaker ) Chronic Edema/Swelling, Coronary Artery Disease, High Cholesterol, Hypertension Neurological: Yes ([facility], SUBDURAL / EPIDURAL HEMATOMA 2015--S/P SURGICAL EVACUATION) Genitourinary: No Gastrointestinal: Yes Abdominal Hernia, Gastroesophageal Reflux, Polyps Musculoskeletal: Yes Arthritis, Back Injury, Chronic Back Pain, Fractures Endocrine: No HEENT: Yes (involuntary eye movements) Hearing Impairment: Denies Cancer: Yes (B-Cell, chronic lymphocytic leukemia ) Leukemia Did You Recieve Any Treatments: Yes What Type of Treatment Did You: Chemotherapy Psychosocial: No Integumentary: No Blood Disorders: Yes (leukemia) Family Medical History FH: cancer 19 MOTHER FH: heart disease 19 FATHER No Pertinent Family Hx Physical Exam Vital Signs Vital Signs - First Documented 04/01/21 11:12 Temp 36.0 Pulse 60 Resp 18 B/P (MAP) 174/94 (120) Pulse Ox 99 Capillary Refill : Less Than 3 Seconds Height, Weight, BMI Height: 5'10.00" Weight: 186lbs. 5.0oz. 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, alert, normal mood/affect, oriented x 3 Skin: other (3 cm irregular skin tear superficial over the left scapula and a 2 and half centimeter irregular skin tear over the mid thoracic spine between the scapulas.) Collins Coma Score Best Eye Response: (4) Open Spontaneously Best Verbal Response: (5) Oriented Best Motor Response: (6) Obeys Commands Collins Total: 15 Procedures/Interventions Suture Size: 4-0 Progress/Results/Core Measures Results/Orders My Orders Orders - KHARI NIX Ct Head/Cervical Spine Wo (04/01/21 11:34) Vital Signs/I&O 04/01/21 11:12 Temp 36.0 Pulse 60 Resp 18 B/P (MAP) 174/94 (120) Pulse Ox 99 Blood Pressure Mean: 120 Progress Progress Note : Time: 11:43 Progress Note Clean the skin tears with sterile saline and chlorhexidine and reapproximate skin and apply Telfa and gauze. CT of the head and C-spine. Offered imaging of the back and the patient states he is not hurting so he does not want right now. Diagnostic Imaging Diagonstic Imaging: CT Plain Films/CT/US/NM/MRI: c-spine, head Comments [facility] [place], [place] NAME: AR[facility]EL[facility]NA [facility] REC#: [id number] PT STATUS: REG ER : 1930 PHYSICIAN: KHARI NIX MD ADMIT DATE: 04/01/21/ER Draft Date of Exam:04/01/21 CT HEAD/CERVICAL SPINE WO PROCEDURE: CT head and CT cervical spine without contrast. TECHNIQUE: Multiple contiguous axial images were obtained through the brain and cervical spine without the use of intravenous contrast. Sagittal and coronal reformations through the cervical spine were then performed. Auto Exposure Controls were utilized during the CT exam to meet ALARA standards for radiation dose reduction. INDICATION: Fell backwards and hit head with laceration. COMPARISON: 02/05/2017. FINDINGS: HEAD: No intracranial hyperdense hemorrhage or space-occupying mass. No hydrocephalus or midline shift. Global atrophy is unchanged. Mild periventricular white matter hypoattenuation is likely due to chronic microvascular ischemic disease. There is an old addison hole in the left calvarium. No acute skull fracture. Paranasal sinuses and mastoid air cells are clear. CERVICAL SPINE: No acute fracture or traumatic malalignment. Prior corpectomy of C6 has solid fusion of the interbody bone graft material. Anterior fusion is present from C4-C7. No fracture within the hardware or features of loosening. C4-C5 has solid interbody fusion. No cervical lymphadenopathy. Lung apices are clear. IMPRESSION: 1. No acute intracranial hemorrhage or skull fracture. 2. No acute fracture or traumatic malalignment in the cervical spine. 3. Stable cervical spine fusion without complication. Dictated on workstation # [id number] Dict: 04/01/21 1244 Trans: 04/01/21 1256 [id number] [id number] Interpreted by: ANTONIA SIMENTAL MD Electronically signed by: Reviewed: Reviewed by Me Departure Impression Primary Impression: Fall on same level Qualified Codes: W18.30XA - Fall on same level, unspecified, initial encounter Additional Impression: Skin tear Disposition: 01 HOME, SELF-CARE Condition: Stable Departure-Patient Inst. Decision time for Depature: 13:36 Referrals: SORAYA COOMBS MD (PCP/Family) Primary Care Physician Patient Instructions: Minor Head Injury (DC), Skin Abrasions (DC) Add. Discharge Instructions: Keep the wounds clean with regular soap and water. Keep the skin edges approximated to each other. Lining them with a thin layer of Vaseline or triple antibiotic ointment daily after washing with soap and water. Telfa or similar nonstick dressing to be changed daily or more frequently if it becomes soiled. Tylenol and Motrin as necessary for pain. All discharge instructions reviewed with patient and/or family. Voiced understanding. Scripts Cephalexin (Cephalexin) 500 Mg Tablet 500 MG PO BID for 5 Days, #10 TAB 0 Refills Prov: KHARI NIX 04/01/21 KHARI NIX Apr 01, 2021 11:44
--- NOTE | 2021-04-01 12:56 | Diagnostic Imaging Report ---
PROCEDURE: CT head and CT cervical spine without contrast. TECHNIQUE: Multiple contiguous axial images were obtained through the brain and cervical spine without the use of intravenous contrast. Sagittal and coronal reformations through the cervical spine were then performed. Auto Exposure Controls were utilized during the CT exam to meet ALARA standards for radiation dose reduction. INDICATION: Fell backwards and hit head with laceration. COMPARISON: 02/05/2017. FINDINGS: HEAD: No intracranial hyperdense hemorrhage or space-occupying mass. No hydrocephalus or midline shift. Global atrophy is unchanged. Mild periventricular white matter hypoattenuation is likely due to chronic microvascular ischemic disease. There is an old addison hole in the left calvarium. No acute skull fracture. Paranasal sinuses and mastoid air cells are clear. CERVICAL SPINE: No acute fracture or traumatic malalignment. Prior corpectomy of C6 has solid fusion of the interbody bone graft material. Anterior fusion is present from C4-C7. No fracture within the hardware or features of loosening. C4-C5 has solid interbody fusion. No cervical lymphadenopathy. Lung apices are clear. IMPRESSION: 1. No acute intracranial hemorrhage or skull fracture. 2. No acute fracture or traumatic malalignment in the cervical spine. 3. Stable cervical spine fusion without complication. Dictated by: Dictated on workstation # [id number]
[2021-04-01] MEDS ORDERED: CEPH500T PO (13:47)
[2021-04-01 13:53] VITALS: BP 166/80
== END 2021-04-01 13:53 | disposition home or self-care (01) ==
LOC: EDUNIT# 11:06 → ER 11:08
DX: S41.012A Laceration without foreign body of left shoulder, initial encounter (principal); J45.909 Unspecified asthma, uncomplicated; I10 Essential (primary) hypertension; K21.9 Gastro-esophageal reflux disease without esophagitis; I25.10 Atherosclerotic heart disease of native coronary artery without angina pectoris; E78.00 Pure hypercholesterolemia, unspecified; G89.29 Other chronic pain; M54.9 Dorsalgia, unspecified; Z79.899 Other long term (current) drug therapy; Z79.891 Long term (current) use of opiate analgesic; W18.30XA Fall on same level, unspecified, initial encounter
CPT/HCPCS: 70450; 72125

== ENCOUNTER → 2021-04-03 | Outpatient (RCR) | payer MEDICARE, OTHER ==
[~2021-04-03] MED LIST changes: +ASPI-1238 PO; +ATOR80TA76 PO; +CARV3.122 PO; +CEPH500C PO; +CEPH500T PO; +CLOP75TA28 PO; +FURO40TA4 PO; +[UNRECOGNIZED DRUG - CODE] PO
== END | disposition home or self-care (01) ==
LOC: CR3 03-04 10:11
PROVIDERS: ATTEND Family Medicine
DX: Z29.8 Encounter for other specified prophylactic measures (principal)

== ENCOUNTER 2021-04-04 01:49 | Day surgery (SDC) | payer MEDICARE, OTHER ==
[~2021-04-04] VITALS: Ht 180 cm; Wt 77.6 kg
[~2021-04-04 01:49] MED LIST changes: -ASPI-1238 PO; -ATOR80TA76 PO; -CARV3.122 PO; -CEPH500C PO; -CLOP75TA28 PO; -FURO40TA4 PO; -[UNRECOGNIZED DRUG - CODE] PO
--- NOTE | 2021-04-04 02:29 | ED Chest Pain ---
General Chief Complaint: Chest Pain Stated Complaint: CHEST PRESSURE Source: patient, family (spouse) Exam Limitations: no limitations History of Present Illness Date Seen by Provider: Apr 04, 2021 Time Seen by Provider: 02:10 Initial Comments Patient is an 89-year-old male who presents to the emergency department today with a chief complaint of vague chest discomfort and left upper arm pain onset this evening possibly around 10 or 11 PM. He states to me and had told his that he "did not feel right". He states that he felt like he could hear his pacemaker in his chest and he has never heard it before. Patient was recently in the emergency department after a fall off of a scale at the [employer] [facility]. He did hit his head and injure his back. He presents with dressings over some wounds to his back. Patient states that he actually feels a little bit better at his time of presentation. Only minimal left upper arm discomfort. Patient has a history of previous pacemaker placement, followed by Dr. 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 His states that the last time his pacemaker was checked was January 16 and it was working appropriately. No recent illnesses. No swelling in his legs. He was a little short of breath this evening but uses inhalers for his breathing. He has a history of "asthma". No nausea, problems with bowel or bladder. Patient had his angioplasty done in Jul of this past year. Patient takes a baby aspirin daily. All other review of systems reviewed and negative except as stated. 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 perfume (Verified Allergy, Unknown, 12/07/16) Perfumes and rogers cause "throat to close". Patient Home Medication List Home Medication List Reviewed: Yes Acetaminophen (Tylenol) 325 Mg Tablet, 650 MG PO Q4H PRN for PAIN-MILD, (Reported) Entered as Reported by: NIC MENA on 12/08/161023 Last Action: Reviewed Aspirin (Aspirin EC) 81 Mg Tablet.dr, 81 MG PO DAILY, (Reported) Entered as Reported by: JAQUI LYNNE on 04/04/211325 Last Action: Reviewed Atorvastatin Calcium (Atorvastatin Calcium) 80 Mg Tablet, 80 MG PO HS Prescribed by: QUENTIN CARROLL JR, MD on 04/05/21 1003 Budesonide/Formoterol Fumarate (Symbicort 80-4.5 Mcg Inhaler) 10.2 Gm Hfa.aer.ad, 1 PUFF IH BID, (Reported) Entered as Reported by: NIC MENA on 12/08/161023 Last Action: Reviewed Carvedilol (Carvedilol) 3.125 Mg Tablet, 3.125 MG PO BID Prescribed by: QUENTIN CARROLL JR, MD on 04/05/21 1003 Cephalexin (Cephalexin) 500 Mg Capsule, 500 MG PO BID, (Reported) Entered as Reported by: JAQUI LYNNE on 04/04/211325 Last Action: Reviewed Clopidogrel Bisulfate (Clopidogrel) 75 Mg Tablet, 75 MG PO DAILY Prescribed by: QUENTIN CARROLL JR, MD on 04/05/21 1003 Cyanocobalamin (Vitamin B-12) 100 Mcg Tablet, 100 MCG PO DAILY, (Reported) Entered as Reported by: NIC MENA on 12/08/161023 Last Action: Reviewed Docusate Sodium (Shoemaker' Laxative) 100 Mg Capsule, 100 MG PO DAILY PRN for CONSTIPATION, (Reported) Entered as Reported by: JAQUI LYNNE on 04/04/211325 Last Action: Reviewed Furosemide (Furosemide) 40 Mg Tablet, 40 MG PO DAILY PRN for FLUID RETENTION, (Reported) Entered as Reported by: JAQUI LYNNE on 04/04/211325 Last Action: Reviewed Omeprazole (Omeprazole) 20 Mg Capsule.dr, 20 MG PO BID, (Reported) Entered as Reported by: NIC MENA on 12/08/161023 Last Action: Reviewed Potassium Chloride (Potassium Chloride) 20 Meq Tablet.er, 20 MEQ PO DAILY PRN for WHEN TAKING FUROSEMIDE, (Reported) Entered as Reported by: JAQUI LYNNE on 04/04/211325 Last Action: Reviewed Discontinued Medications Albuterol Sulfate (Ventolin Hfa) 1 Puff Puff, 2 PUFF IH Q6H PRN for SHORTNESS OF BREATH, (Reported) Discontinued Reason: No Longer Taking Entered as Reported by: NIC MENA on 12/08/16 1024 Last Action: Discontinued Atorvastatin Calcium (Lipitor) 40 Mg Tablet, 40 MG PO HS, (Reported) Discontinued Reason: Prescription changed Entered as Reported by: NIC MENA on 12/08/16 1024 Atorvastatin Calcium (Atorvastatin Calcium) 80 Mg Tablet, 40 MG PO HS, (Reported) Entered as Reported by: JAQUI LYNNE on 04/04/21 1326 Last Action: Reviewed Calcium Carbonate/Vitamin D3 (Calcium 600 + Vit D3 400 Tab) 1 Each Tablet, 600 MG PO DAILY@0700 Discontinued Reason: No Longer Taking Prescribed by: KARL MIRELES on 12/25/161348 Last Action: Discontinued Cephalexin (Cephalexin) 500 Mg Tablet, 500 MG PO BID Discontinued Reason: No Longer Taking Prescribed by: KHARI NIX on 04/01/21 1347 Last Action: Discontinued Diclofenac Sodium (Voltaren) 100 Gm Gel..gram., 0 GM TOP QID Discontinued Reason: No Longer Taking Prescribed by: KARL MIRELES on 12/25/161348 Last Action: Discontinued Enalapril Maleate (Enalapril Maleate) 5 Mg Tablet, 5 MG PO DAILY, (Reported) Entered as Reported by: NIC MENA on 12/08/16 1024 Last Action: Reviewed Metoprolol Tartrate (Metoprolol Tartrate) 50 Mg Tablet, 50 MG PO Q12H, (Reported) Discontinued Reason: No Longer Taking Entered as Reported by: NIC MENA on 12/08/16 1024 Last Action: Discontinued Miconazole Nitrate (Lotrimin AF) 90 Gm Powder, 0 GM TOP BID Discontinued Reason: No Longer Taking Prescribed by: KARL MIRELES on 12/25/161348 Last Action: Discontinued Multivitamin (Daily Multiple Vitamin) 1 Each Tablet, 1 TAB PO DAILY, (Reported) Discontinued Reason: No Longer Taking Entered as Reported by: NIC MENA on 12/08/16 1024 Last Action: Discontinued Nitroglycerin (Nitrostat) 0.4 Mg Tab.subl, 0.4 MG SL UD PRN for CHEST PAIN, (Reported) Discontinued Reason: No Longer Taking Entered as Reported by: NIC MENA on 12/08/16 1024 Last Action: Discontinued Oxycodone HCl (Oxycodone HCl) 15 Mg Tablet, 7.5 MG PO Q4H PRN for PAIN- BREAKTHROUGH, (Reported) Discontinued Reason: No Longer Taking Entered as Reported by: NIC MENA on 12/08/16 1024 Last Action: Discontinued Triamcinolone Acet (Triamcinolone Acetonide 0.1% Cream) 15 Gm Cr, 0 GM TOP BID Discontinued Reason: No Longer Taking Prescribed by: KARL MIRELES on 12/25/16 1349 Last Action: Discontinued [Oxycodone Hcl] 5 MG TAB, 5 MG PO DAILY Discontinued Reason: No Longer Taking Prescribed by: KARL MIRELES on 12/25/16 1349 Last Action: Discontinued Review of Systems Review of Systems Constitutional: see HPI EENTM: No Symptoms Reported Respiratory: Shortness of Air Cardiovascular: Chest Pain Gastrointestinal: No Symptoms Reported Genitourinary: No Symptoms Reported Musculoskeletal: back pain Skin: no symptoms reported Psychiatric/Neurological: Anxiety All Other Systems Reviewed Negative Unless Noted: Yes Past Eivunms-Cmozmu-Xxsxos Hx Patient Social History Tobacco Use?: No Substance use?: No Alcohol Use?: No Pt feels they are or have been: No Immunizations Up To Date Tetanus Booster (TDap): Less than 5yrs First/Initial COVID19 Vaccinat: AUGUST 2020 Second COVID19 Vaccination Masoud: AUGUST 2020 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 Dress Draper: MODERNNakia Seasonal Allergies Seasonal Allergies: Yes Past Medical History Surgery/Hospitalization HX: ASTHMA PACER Surgeries: Yes (COLON RESECTION, ) Bowel Surgery, Neurological, Orthopedic, Pacemaker Respiratory: Yes Asthma Currently Using CPAP: No Currently Using BIPAP: No Cardiac: Yes (pacemaker ) Chronic Edema/Swelling, Coronary Artery Disease, High Cholesterol, Hypertension Neurological: Yes ([facility], SUBDURAL / EPIDURAL HEMATOMA 2015--S/P SURGICAL EVACUATION) Genitourinary: No Gastrointestinal: Yes Abdominal Hernia, Gastroesophageal Reflux, Polyps Musculoskeletal: Yes Arthritis, Back Injury, Chronic Back Pain, Fractures Endocrine: No HEENT: Yes (involuntary eye movements) Hearing Impairment: Denies Cancer: Yes (B-Cell, chronic lymphocytic leukemia ) Leukemia Did You Recieve Any Treatments: Yes What Type of Treatment Did You: Chemotherapy Psychosocial: No Integumentary: No Blood Disorders: Yes (leukemia) Family Medical History FH: cancer 19 MOTHER FH: heart disease 19 FATHER No Pertinent Family Hx Physical Exam Vital Signs Vital Signs - First Documented 04/04/21 01:55 Temp 36.4 Pulse 70 Resp 16 B/P (MAP) 184/81 (115) Pulse Ox 98 O2 Delivery Room Air Capillary Refill : Less Than 3 Seconds Height, Weight, BMI Height: 5'10.00" Weight: 186lbs. 5.0oz. 84.335130ar; 23.00 BMI Method:Stated General Appearance: No Apparent Distress, WD/WN HEENT: PERRL/EOMI Neck: Normal Inspection Respiratory: Chest Non Tender, Lungs Clear, Normal Breath Sounds, No Accessory Muscle Use, No Respiratory Distress Cardiovascular: Regular Rate, Rhythm, Normal Peripheral Pulses Gastrointestinal: Non Tender, Soft Extremity: Normal Inspection, Pedal Edema (1+ bilateral LE edema, non pitting; both legs are warm.) Neurologic/Psychiatric: Alert, Oriented x3, No Motor/Sensory Deficits, Normal Mood/Affect Skin: Normal Color, Warm/Dry, Other (dressed abrasions on the back) Procedures/Interventions Suture Size: 4-0 Progress/Results/Core Measures Results/Orders Lab Results Laboratory Tests Test 04/04/21 02:10 Range/Units White Blood Count 15.6 H 4.3-11.0 10^3/uL Red Blood Count 3.52 L 4.30-5.52 10^6/uL Hemoglobin 11.8 L 13.3-17.7 g/dL Hematocrit 36 L 40-54 % Mean Corpuscular Volume 101 H 80-99 fL Mean Corpuscular Hemoglobin 34 25-34 pg Mean Corpuscular Hemoglobin Concent 33 32-36 g/dL Red Cell Distribution Width 14.4 10.0-14.5 % Platelet Count 147 130-400 10^3/uL Mean Platelet Volume 10.2 9.0-12.2 fL Immature Granulocyte % (Auto) 0 % Neutrophils (%) (Auto) 18 L 42-75 % Lymphocytes (%) (Auto) 80 H 12-44 % Monocytes (%) (Auto) 1 0-12 % Eosinophils (%) (Auto) 0 0-10 % Basophils (%) (Auto) 0 0-10 % Neutrophils # (Auto) 2.9 1.8-7.8 10^3/uL Lymphocytes # (Auto) 12.5 H 1.0-4.0 10^3/uL Monocytes # (Auto) 0.2 0.0-1.0 10^3/uL Eosinophils # (Auto) 0.0 0.0-0.3 10^3/uL Basophils # (Auto) 0.0 0.0-0.1 10^3/uL Immature Granulocyte # (Auto) 0.0 0.0-0.1 10^3/uL Neutrophils % (Manual) 27 % Lymphocytes % (Manual) 69 % Monocytes % (Manual) 2 % Eosinophils % (Manual) 0 % Basophils % (Manual) 0 % Band Neutrophils 0 % Reactive Lymphocytes 2 % Smudge Cells MARKED Poikilocytosis MODERATE Anisocytosis SLIGHT Schistocytes SLIGHT Sodium Level 139 135-145 MMOL/L Potassium Level 4.0 3.6-5.0 MMOL/L Chloride Level 103 98-107 MMOL/L Carbon Dioxide Level 20 L 21-32 MMOL/L Anion Gap 16 H 5-14 MMOL/L Blood Urea Nitrogen 24 H 7-18 MG/DL Creatinine 1.03 0.60-1.30 MG/DL Estimat Glomerular Filtration Rate 68 BUN/Creatinine Ratio 23 Glucose Level 100 70-105 MG/DL Calcium Level 9.8 8.5-10.1 MG/DL Total Creatine Kinase 184 30-200 U/L Troponin I 0.122 H <0.028 NG/ML My Orders Orders - AUSTIN WALLACE MD Ed Iv/Invasive Line Start (04/04/21 02:22) Cbc With Automated Diff (04/04/21 02:22) Basic Metabolic Panel (04/04/21 02:22) Creatine Kinase (04/04/21 02:22) Troponin I (04/04/21 02:22) Ekg Tracing (04/04/21 02:22) Chest 1 View, Ap/Pa Only (04/04/21 02:22) Manual Differential (04/04/21 02:10) Aspirin Chewable Tablet (Baby Aspirin Ch (04/04/21 03:30) Vital Signs/I&O 04/04/21 01:55 Temp 36.4 Pulse 70 Resp 16 B/P (MAP) 184/81 (115) Pulse Ox 98 O2 Delivery Room Air Admisison Planning May Need Admission (Planning): 03:19 Progress Progress Note : Time: 03:19 Progress Note Patient reevaluated, resting comfortably. Troponin is noted to be elevated at 0.122. EKG shows no ectopy or ST segment change. It is a paced ventricular rhythm. Talk with the and the patient, he is agreeable to being admitted to the hospital under the care of Dr. Dykes, his primary care physician. We will consult Dr. Carroll first thing in the morning. Patient is given 4 baby aspirin. Will trend his troponin. Admit to cardiac stepdown. Initial ECG Impression Date: Apr 04, 2021 Initial ECG Impression Time: 02:10 Initial ECG Rate: 62 Comment Ventricularly paced rhythm without ectopy, QRS 184, QTc 496, CA 48 Diagnostic Imaging Diagonstic Imaging: Xray Comments Chest x-ray interpreted by me, no significant effusions or infiltrates are noted, hardware noted in the cervical spine and lower thoracic spine, pacemaker in place. Departure Communication (Admissions) Time/Spoke to Admitting Phy: 03:[address] Dykes; she is ok with consult to Dr Carroll this morning Impression Primary Impression: NSTEMI (non-ST elevated myocardial infarction) Disposition: ADMITTED INPATIENT Condition: Stable Admissions Decision to Admit Reason: Admit from ER (General) Decision to Admit/Date: Apr 04, 2021 Time/Decision to Admit Time: 03:30 Departure-Patient Inst. Referrals: SORAYA DYKES MD (PCP/Family) Primary Care Physician Scripts Carvedilol (Carvedilol) 3.125 Mg Tablet 3.125 MG PO BID, #60 TAB 11 Refills Prov: QUENTIN CARROLL JR, MD 04/05/21 Atorvastatin Calcium (Atorvastatin Calcium) 80 Mg Tablet 80 MG PO HS, #90 TAB 3 Refills Prov: QUENTIN CARROLL JR, MD 04/05/21 Clopidogrel Bisulfate (Clopidogrel) 75 Mg Tablet 75 MG PO DAILY, #90 TAB 3 Refills Prov: QUENTIN CARROLL JR, MD 04/05/21 AUSTIN WALLACE MD Apr 04, 2021 02:29
[2021-04-04 02:30] LABS: BASOPHILS % (AUTO) 0 % (0-10); EOSINOPHILS % (AUTO) 0 % (0-10); HEMATOCRIT 36 % (40-54); HEMOGLOBIN 11.8 g/dL (13.3-17.7); LYMPHOCYTES # (AUTO) 12.5 10^3/uL (1.0-4.0); LYMPHOCYTES % (AUTO) 80 % (12-44); MEAN CORPUSCULAR HEMOGLOBIN 34 pg (25-34); MEAN CORPUSCULAR HGB CONC 33 g/dL (32-36); MEAN CORPUSCULAR VOLUME 101 fL (80-99); MEAN PLATELET VOLUME 10.2 fL (9.0-12.2); MONOCYTES # (AUTO) 0.2 10^3/uL (0.0-1.0); MONOCYTES % (AUTO) 1 % (0-12); NEUTROPHILS # (AUTO) 2.9 10^3/uL (1.8-7.8); NEUTROPHILS % (AUTO) 18 % (42-75); PLATELET COUNT 147 10^3/uL (130-400); WHITE BLOOD COUNT 15.6 10^3/uL (4.3-11.0)
[2021-04-04 02:34] LABS: CALCIUM 9.8 MG/DL (8.5-10.1)
[2021-04-04 02:38] LABS: CREATININE SERUM 1.03 MG/DL (0.60-1.30)
[2021-04-04 03:05] LABS: BAND NEUTROPHILS 0 %; BASOPHILS % (MANUAL) 0 %; EOSINOPHILS % (MANUAL) 0 %; LYMPHOCYTES % (MANUAL) 69 %; MONOCYTES % (MANUAL) 2 %; NEUTROPHILS % (MANUAL) 27 %; REACTIVE LYMPHOCYTES 2 %
[2021-04-04 03:06] LABS: ANISOCYTOSIS SLIGHT; POIKILOCYTOSIS MODERATE; SCHISTOCYTES SLIGHT
[2021-04-04] MEDS ORDERED: ASPIRIN 81 MG CHEW (CHILDREN'S ASA) PO ONE (03:30)
[2021-04-04 04:43] VITALS: BP 184/81
[2021-04-04] MEDS: NS IV 1000 ML 1,000 ML IV SCH ×3 (04:49→21:18)
[2021-04-04] MEDS ORDERED: RT-ALBUTEROL SULF 2.5 MG/3 ML PRE-MIX VIAL INH PRN (05:00)
--- NOTE | 2021-04-04 08:07 | Diagnostic Imaging Report ---
INDICATION: Chest pain, left arm pain. COMPARISON: 07/09/2018. FINDINGS: Heart size stable. Vascular congestion has increased and there is bilateral mixed interstitial and airspace opacity suspicious for pulmonary edema correlate clinically as infectious etiologies could not be excluded. Some haziness of the right costophrenic angle may reflect a small right pleural effusion. There is no pneumothorax. IMPRESSION: Vascular congestion and bilateral pulmonary opacities, edema versus infiltrates, equivocal findings for small right pleural effusion. Dictated by: Dictated on workstation # [id number]
[2021-04-04 08:35] LABS: CHOLESTEROL 115 MG/DL (< 200); HDL CHOLESTEROL 41 MG/DL (40-60); TRIGLYCERIDES 62 MG/DL (<150); VLDL CHOLESTEROL 12 MG/DL (5-40)
--- NOTE | 2021-04-04 08:57 | History & Physical ---
History of Present Illness History of Present Illness Date of Admission Apr 04, 2021 at 03:23 I consulted on this patient on 04/04/21 08:57 Attending Physician Soraya Dykes MD Admitting Physician Soraya Dykes MD Consult Allergies and Home Medications Allergies Coded Allergies: prednisone (Verified Allergy, Mild, 12/07/16) cigarette smoke (Verified Allergy, Unknown, 12/07/16) Shortness of breath/wheezing. perfume (Verified Allergy, Unknown, 12/07/16) Perfumes and rogers cause "throat to close". Patient Home Medication List Acetaminophen (Tylenol) 325 Mg Tablet, 650 MG PO Q4H PRN for PAIN-MILD, (Reported) Entered as Reported by: NIC MENA on 12/08/16 1024 Albuterol Sulfate (Ventolin Hfa) 1 Puff Puff, 2 PUFF IH Q6H PRN for SHORTNESS OF BREATH, (Reported) Entered as Reported by: NIC MENA on 12/08/16 1024 Atorvastatin Calcium (Lipitor) 40 Mg Tablet, 40 MG PO HS, (Reported) Entered as Reported by: NIC MENA on 12/08/16 1024 Budesonide/Formoterol Fumarate (Symbicort 80-4.5 Mcg Inhaler) 10.2 Gm Hfa.aer.ad, 2 PUFF IH DAILY, (Reported) Entered as Reported by: NIC MENA on 12/08/16 1024 Calcium Carbonate/Vitamin D3 (Calcium 600 + Vit D3 400 Tab) 1 Each Tablet, 600 MG PO DAILY@0700 Prescribed by: KARL MIRELES on 12/25/16 1349 Cephalexin (Cephalexin) 500 Mg Tablet, 500 MG PO BID Prescribed by: KHARI NIX on 04/01/21 1347 Cyanocobalamin (Vitamin B-12) 100 Mcg Tablet, 100 MCG PO DAILY, (Reported) Entered as Reported by: NIC MENA on 12/08/16 1024 Diclofenac Sodium (Voltaren) 100 Gm Gel..gram., 0 GM TOP QID Prescribed by: KARL MIRELES on 12/25/16 1349 Enalapril Maleate (Enalapril Maleate) 5 Mg Tablet, 5 MG PO DAILY, (Reported) Entered as Reported by: NIC MENA on 12/08/16 1024 Metoprolol Tartrate (Metoprolol Tartrate) 50 Mg Tablet, 50 MG PO Q12H, (Reported) Entered as Reported by: NIC MENA on 12/08/16 1024 Miconazole Nitrate (Lotrimin AF) 90 Gm Powder, 0 GM TOP BID Prescribed by: KARL MIRELES on 12/25/16 1349 Multivitamin (Daily Multiple Vitamin) 1 Each Tablet, 1 TAB PO DAILY, (Reported) Entered as Reported by: NIC MENA on 12/08/16 1024 Nitroglycerin (Nitrostat) 0.4 Mg Tab.subl, 0.4 MG SL UD PRN for CHEST PAIN, (Reported) Entered as Reported by: NIC MENA on 12/08/16 1024 Omeprazole (Omeprazole) 20 Mg Capsule.dr, 40 MG PO DAILY, (Reported) Entered as Reported by: NIC MENA on 12/08/16 1024 Oxycodone HCl (Oxycodone HCl) 15 Mg Tablet, 7.5 MG PO Q4H PRN for PAIN- BREAKTHROUGH, (Reported) Entered as Reported by: NIC MENA on 12/08/16 1024 Triamcinolone Acet (Triamcinolone Acetonide 0.1% Cream) 15 Gm Cr, 0 GM TOP BID Prescribed by: KARL MIRELES on 12/25/16 1349 [Oxycodone Hcl] 5 MG TAB, 5 MG PO DAILY Prescribed by: KARL MIRELES on 12/25/16 134 Past Lpmzprw-Gphntw-Wlxvwo Hx Patient Social History Tobacco Use?: No Smoking Status: Never a Smoker Substance use?: No Alcohol Use?: No Pt feels they are or have been: No Immunizations Up To Date Date of Influenza Vaccine: Apr 04, 2021 First/Initial COVID19 Vaccinat: AUGUST Second COVID19 Vaccination Masoud: AUGUST Date of Pneumonia Vaccine: Mar 08, 2017 Seasonal Allergies Seasonal Allergies: Yes Current Status Advance Directives: Yes Communicates: Verbally Primary Language: Tamazight Preferred Spoken Language: Tamazight Is interpretation needed?: No Sensory deficits: Vision impairment, Hearing impairment Implanted or Applied Medical D: Pacemaker Past Medical History Surgeries: Bowel Surgery, Neurological, Orthopedic, Pacemaker Asthma Currently Using CPAP: No Currently Using BIPAP: No Chronic Edema/Swelling, Coronary Artery Disease, High Cholesterol, Hypertension Abdominal Hernia, Gastroesophageal Reflux, Polyps Arthritis, Back Injury, Chronic Back Pain, Fractures Hearing Impairment: Denies Leukemia Did You Recieve Any Treatments: Yes What Type of Treatment Did You: Chemotherapy Blood Disorders: Yes (leukemia) Family Medical History FH: cancer 19 MOTHER FH: heart disease 19 FATHER No Pertinent Family Hx Physical Exam Vital Signs Vital Signs - First Documented 04/04/21 04/04/21 04/04/21 01:55 04:43 08:41 Temp 36.4 Pulse 70 Resp 16 B/P (MAP) 184/81 (115) Pulse Ox 98 O2 Delivery Room Air O2 Flow Rate 2.00 FiO2 21 Capillary Refill : Less Than 3 Seconds Height, Weight, BMI Height: 5'10.00" Weight: 186lbs. 5.0oz. 84.176384bu; 23.82 BMI Method:Stated Clinical Quality Measures AMI/AHF: ASA po Prior to arrival: Yes SORAYA DYKES MD Apr 04, 2021 08:57
[2021-04-04] MEDS: ASPIRIN E.C. 81 MG (ECOTRIN) TAB PO SCH ×2 (10:00→11:40)
[2021-04-04] MEDS: ENOXAPARIN 80 MG/0.8 ML (LOVENOX) SYR SC SCH ×3 (11:00→23:38)
--- NOTE | 2021-04-04 11:35 | Consultation-Cardiology ---
HPI-Cardiology Cardiology Consultation: Date of Consultation 04/04/2021 Date of Admission 04/04/2021 Attending Physician Nevaeh Dykes MD Admitting Physician Nevaeh Dykes MD Consulting Physician QUENTIN PENG JR, MD HPI: Time Seen by a Provider: 11:00 Chief Complaint: Reason for consultation: Non-ST elevation myocardial infarction. I had the pleasure of seeing Jose on the cardiac stepdown unit at [facility] in [place], [place] this morning. 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 He was previously following with a group president at [facility] in [place], [place] who recently retired. He was well until last evening when he was getting ready for bed and developed left shoulder pain with radiation to his left arm. He felt generally unwell. He told his and after the symptoms persisted for over an hour, they came to the emergency room for further evaluation. He was found to have an elevated troponin level and was admitted for further treatment. At some point overnight, his left arm and shoulder pain resolved. He does not report any other associated cardiac symptoms with the arm discomfort. He denies ever having had this symptom in the past. He denies dyspnea, paroxysmal nocturnal dyspnea, orthopnea, palpitations, lightheadedness, syncope, or lower extremity edema. His current CODE STATUS is DO NOT RESUSCITATE. He is not sure if he wants any invasive procedures. He also has problems speaking at times due to an issue in his throat which has been thought to be secondary to environmental allergies. As such, he was not really able to answer any of my questions other than nodding yes or no. His provided most of the history outlined above. I did go back to his room after reading his echocardiogram and at that point, the patient was again having left-sided arm pain. At that point he was able to speak and expressed his desire to consider cardiac catheterization. Certain portions of this document may have been dictated utilizing voice recognition technology. Inherent to this technology, typographical and grammatical errors may exist. As much as I am diligent to identify and correct these mistakes, some errors may remain in the document. Review of Systems-Cardiology Review of Systems Other comments Review of 10 organ systems is as per the history of present illness, otherwise negative. All Other Systems Reviewed Negative Unless Noted: Yes BTA-Ttrfls-Aoffrl Hx Patient Social History Marrital Status: Smoking Status: Never a Smoker 2nd Hand Smoke Exposure: Yes Alcohol Use?: No Pt feels they are or have been: No Immunizations Up To Date Tetanus Booster (TDap): Less than 5yrs Date of Pneumonia Vaccine: Mar 08, 2017 Date of Influenza Vaccine: Apr 04, 2021 Past Medical History PMH As described under Assessment. Family Medical History Family History: FH: cancer 19 MOTHER FH: heart disease 19 FATHER Allergies and Home Medications Allergies Coded Allergies: prednisone (Verified Allergy, Mild, 12/07/16) cigarette smoke (Verified Allergy, Unknown, 12/07/16) Shortness of breath/wheezing. perfume (Verified Allergy, Unknown, 12/07/16) Perfumes and rogers cause "throat to close". Patient Home Medication List Home Medication List Reviewed: Yes Acetaminophen (Tylenol) 325 Mg Tablet, 650 MG PO Q4H PRN for PAIN-MILD, (Reported) Entered as Reported by: NIC MENA on 12/08/16 1024 Last Action: Reviewed Aspirin (Aspirin EC) 81 Mg Tablet.dr, 81 MG PO DAILY, (Reported) Entered as Reported by: JAQUI LYNNE on 04/04/211325 Last Action: Reviewed Atorvastatin Calcium (Atorvastatin Calcium) 80 Mg Tablet, 40 MG PO HS, (Reported) Entered as Reported by: JAQUI LYNNE on 04/04/211325 Last Action: Reviewed Budesonide/Formoterol Fumarate (Symbicort 80-4.5 Mcg Inhaler) 10.2 Gm Hfa.aer.ad, 1 PUFF IH BID, (Reported) Entered as Reported by: NIC MENA on 12/08/16 1024 Last Action: Reviewed Cephalexin (Cephalexin) 500 Mg Capsule, 500 MG PO BID, (Reported) Entered as Reported by: JAQUI LYNNE on 04/04/21 132 Last Action: Reviewed Cyanocobalamin (Vitamin B-12) 100 Mcg Tablet, 100 MCG PO DAILY, (Reported) Entered as Reported by: NIC MENA on 12/08/16 1024 Last Action: Reviewed Docusate Sodium (Shoemaker' Laxative) 100 Mg Capsule, 100 MG PO DAILY PRN for CONSTIPATION, (Reported) Entered as Reported by: JAQUI LYNNE on 04/04/21 132 Last Action: Reviewed Enalapril Maleate (Enalapril Maleate) 5 Mg Tablet, 5 MG PO DAILY, (Reported) Entered as Reported by: NIC MENA on 12/08/16 1024 Last Action: Reviewed Furosemide (Furosemide) 40 Mg Tablet, 40 MG PO DAILY PRN for FLUID RETENTION, (Reported) Entered as Reported by: JAQUI LYNNE on 04/04/21 1326 Last Action: Reviewed Omeprazole (Omeprazole) 20 Mg Capsule.dr, 20 MG PO BID, (Reported) Entered as Reported by: NIC MENA on 12/08/16 1024 Last Action: Reviewed Potassium Chloride (Potassium Chloride) 20 Meq Tablet.er, 20 MEQ PO DAILY PRN for WHEN TAKING FUROSEMIDE, (Reported) Entered as Reported by: JAQUI LYNNE on 04/04/21 132 Last Action: Reviewed Discontinued Medications Albuterol Sulfate (Ventolin Hfa) 1 Puff Puff, 2 PUFF IH Q6H PRN for SHORTNESS OF BREATH, (Reported) Discontinued Reason: No Longer Taking Entered as Reported by: NIC MENA on 12/08/16 1024 Last Action: Discontinued Atorvastatin Calcium (Lipitor) 40 Mg Tablet, 40 MG PO HS, (Reported) Discontinued Reason: Prescription changed Entered as Reported by: NIC MENA on 12/08/16 1024 Calcium Carbonate/Vitamin D3 (Calcium 600 + Vit D3 400 Tab) 1 Each Tablet, 600 MG PO DAILY@0700 Discontinued Reason: No Longer Taking Prescribed by: KARL MIRELES on 12/25/161348 Last Action: Discontinued Cephalexin (Cephalexin) 500 Mg Tablet, 500 MG PO BID Discontinued Reason: No Longer Taking Prescribed by: KHARI NIX on 04/01/21 134 Last Action: Discontinued Diclofenac Sodium (Voltaren) 100 Gm Gel..gram., 0 GM TOP QID Discontinued Reason: No Longer Taking Prescribed by: KARL MIRELES on 12/25/16 134 Last Action: Discontinued Metoprolol Tartrate (Metoprolol Tartrate) 50 Mg Tablet, 50 MG PO Q12H, (Reported) Discontinued Reason: No Longer Taking Entered as Reported by: NIC MENA on 12/08/16 1024 Last Action: Discontinued Miconazole Nitrate (Lotrimin AF) 90 Gm Powder, 0 GM TOP BID Discontinued Reason: No Longer Taking Prescribed by: KARL MIRELES on 12/25/161348 Last Action: Discontinued Multivitamin (Daily Multiple Vitamin) 1 Each Tablet, 1 TAB PO DAILY, (Reported) Discontinued Reason: No Longer Taking Entered as Reported by: NIC MENA on 12/08/16 1024 Last Action: Discontinued Nitroglycerin (Nitrostat) 0.4 Mg Tab.subl, 0.4 MG SL UD PRN for CHEST PAIN, (Reported) Discontinued Reason: No Longer Taking Entered as Reported by: NIC MENA on 12/08/16 1024 Last Action: Discontinued Oxycodone HCl (Oxycodone HCl) 15 Mg Tablet, 7.5 MG PO Q4H PRN for PAIN- BREAKTHROUGH, (Reported) Discontinued Reason: No Longer Taking Entered as Reported by: NIC MENA on 12/08/16 1024 Last Action: Discontinued Triamcinolone Acet (Triamcinolone Acetonide 0.1% Cream) 15 Gm Cr, 0 GM TOP BID Discontinued Reason: No Longer Taking Prescribed by: KARL MIRELES on 12/25/161348 Last Action: Discontinued [Oxycodone Hcl] 5 MG TAB, 5 MG PO DAILY Discontinued Reason: No Longer Taking Prescribed by: KARL MIRELES on 12/25/161348 Last Action: Discontinued Exam Vital Signs Vital Signs Date Time Temp Pulse Resp B/P (MAP) Pulse Ox O2 Delivery O2 Flow Rate FiO2 04/04/21 13:00 60 04/04/21 12:00 37.6 18 161/78 100 Room Air 04/04/21 10:58 2.00 04/04/21 04:43 21 Physical Exam General: Alert. No acute distress. Well nourished and appears stated age. Eye: Extraocular movements are intact. Conjunctivae are clear. There are no xa nthelasma. HENT: Normocephalic. Atraumatic. Carotid pulsations 2/2 without bruits. Neck: Jugular venous pressure does not appear elevated. No thyromegaly appreciated. Respiratory: Lungs are clear to auscultation. Respirations are non-labored. Breath sounds are equal. Symmetrical chest wall expansion. Cardiovascular: Normal rate. Regular rhythm. 2/6 systolic ejection murmur. No gallop. Point of maximal impulse is not appear displaced. Good pulses equal in all extremities. No edema. Gastrointestinal: Soft. Normal bowel sounds. Skin: Skin turgor is normal. There is no pallor. He has some scattered ecchymoses on his upper extremities bilaterally. Musculoskeletal: No kyphosis or scoliosis appreciated. Neurologic: Alert and oriented to person, place, time. Cranial nerves 3-12 appear grossly intact. The patient has good motor tone strength in the upper and lower extremities bilaterally. Psychiatric: Cooperative. Appropriate mood & affect. Labs Laboratory Tests Test 04/04/21 02:10 04/04/21 06:33 Range/Units White Blood Count 15.6 H 4.3-11.0 10^3/uL Red Blood Count 3.52 L 4.30-5.52 10^6/uL Hemoglobin 11.8 L 13.3-17.7 g/dL Hematocrit 36 L 40-54 % Mean Corpuscular Volume 101 H 80-99 fL Mean Corpuscular Hemoglobin 34 25-34 pg Mean Corpuscular Hemoglobin Concent 33 32-36 g/dL Red Cell Distribution Width 14.4 10.0-14.5 % Platelet Count 147 130-400 10^3/uL Mean Platelet Volume 10.2 9.0-12.2 fL Immature Granulocyte % (Auto) 0 % Neutrophils (%) (Auto) 18 L 42-75 % Lymphocytes (%) (Auto) 80 H 12-44 % Monocytes (%) (Auto) 1 0-12 % Eosinophils (%) (Auto) 0 0-10 % Basophils (%) (Auto) 0 0-10 % Neutrophils # (Auto) 2.9 1.8-7.8 10^3/uL Lymphocytes # (Auto) 12.5 H 1.0-4.0 10^3/uL Monocytes # (Auto) 0.2 0.0-1.0 10^3/uL Eosinophils # (Auto) 0.0 0.0-0.3 10^3/uL Basophils # (Auto) 0.0 0.0-0.1 10^3/uL Immature Granulocyte # (Auto) 0.0 0.0-0.1 10^3/uL Neutrophils % (Manual) 27 % Lymphocytes % (Manual) 69 % Monocytes % (Manual) 2 % Eosinophils % (Manual) 0 % Basophils % (Manual) 0 % Band Neutrophils 0 % Reactive Lymphocytes 2 % Smudge Cells MARKED Poikilocytosis MODERATE Anisocytosis SLIGHT Schistocytes SLIGHT Sodium Level 139 135-145 MMOL/L Potassium Level 4.0 3.6-5.0 MMOL/L Chloride Level 103 98-107 MMOL/L Carbon Dioxide Level 20 L 21-32 MMOL/L Anion Gap 16 H 5-14 MMOL/L Blood Urea Nitrogen 24 H 7-18 MG/DL Creatinine 1.03 0.60-1.30 MG/DL Estimat Glomerular Filtration Rate 68 BUN/Creatinine Ratio 23 Glucose Level 100 70-105 MG/DL Calcium Level 9.8 8.5-10.1 MG/DL Total Creatine Kinase 184 30-200 U/L Troponin I 0.122 H 0.125 H <0.028 NG/ML Triglycerides Level 62 <150 MG/DL Cholesterol Level 115 < 200 MG/DL LDL Cholesterol Direct 60 1-129 MG/DL VLDL Cholesterol 12 5-40 MG/DL HDL Cholesterol 41 40-60 MG/DL Radiology ECHOCARDIOGRAM (04/04/2021): 1. Left ventricle: The cavity size is normal. There is severe concentric hypertrophy. Systolic function is normal. The estimated ejection fraction is 60- 65%. There were no regional wall motion abnormalities identified. Features are consistent with a pseudonormal left ventricular filling pattern, with concomitant abnormal relaxation and increased filling pressure (grade 2 diastolic dysfunction). 2. Right ventricle: Device wire noted in the right heart chambers. 3. Left atrium: The left atrium is mildly dilated with a biplane volume index of 35 mL/m. 4. Right atrium: The right atrium is severely dilated with an area of 32 cm. 5. Mitral valve: The annulus is mildly calcified. There is mild regurgitation. 6. Aortic valve: There is trivial regurgitation. There is mild aortic valve sclerosis. 7. Inferior vena cava: The vessel is dilated. The respirophasic diameter changes are blunted (less than 50%). 8. Pulmonary arteries: The estimated pulmonary artery systolic pressure is 48 mmHg assuming a right atrial pressure of 15 mmHg. ECG Impression ECG Comment Demand ventricular pacing with unclear underlying atrial rhythm. Diagnosis/Problems Diagnosis/Problems (1) Non-ST elevation myocardial infarction (NSTEMI), initial care episode Assessment & Plan: He appears to be suffering a 2 non-ST elevation myocardial infarction. His renal function is reasonably good despite his age. He does not have any other ongoing acute medical conditions which makes noncardiac elevation of the troponin unlikely. Now he is having ongoing chest discomfort. As such, I recommend further evaluation with a cardiac catheterization. In light of his anne marie sonably preserved renal function, normal ejection fraction, and the fact he is not diabetic, these things all make the risk of the procedure lower. On the other hand, given his advanced age, this certainly puts him at a slightly higher risk of complications from cardiac catheterization. Nonetheless, in light of his ongoing chest discomfort, I do recommend we go ahead with this procedure. Regardless of what we find, he should continue on aspirin and statin medication. He would likely also need to be placed on dual antiplatelet therapy. I will hold off on starting beta-charline until after the procedure. I have explained the benefits and risks of the procedure to the patient and his and both are in agreement to proceed. (2) Complete heart block Assessment & Plan: He has a permanent pacemaker in place that appears to be functioning normally. (3) Primary hypertension Assessment & Plan: Continue enalapril. I will also consider starting beta- charline after the cardiac catheterization in light of his acute myocardial infarction (4) Mixed hyperlipidemia Assessment & Plan: Continue statin medication. In light of the acute myocardial infarction, we may want to consider intensifying therapy. QUENTIN PENG JR, MD Apr 04, 2021 11:35
[2021-04-04] MEDS ORDERED: FURO40TA4 PO (13:26)
[2021-04-04] MEDS ORDERED: ASPI-1238 PO (13:26)
[2021-04-04] MEDS ORDERED: [UNRECOGNIZED DRUG - CODE] PO (13:26)
[2021-04-04] MEDS ORDERED: ATOR80TA76 PO (13:26)
[2021-04-04] MEDS ORDERED: POTA-51 PO (13:26)
[2021-04-04] MEDS ORDERED: CEPH500C PO (13:26)
[2021-04-04] MEDS ORDERED: NS IV 1000 ML 1,000 ML IV ONE (14:45)
[2021-04-04] MEDS ORDERED: CATHETER FLUSH 10 ML SYR IV PRN (14:45)
[2021-04-04] MEDS ORDERED: HEParin 1000 UNIT/ML (10ML VIAL) FOR BOLUS ONE (15:36)
[2021-04-04] MEDS ORDERED: LIDOCAINE 1% INJ 20 ML 20 ML VIAL ONE (15:36)
[2021-04-04] MEDS ORDERED: VERAPAMIL 5 MG/2 ML (CALAN) VIAL IV ONE (15:36)
[2021-04-04] MEDS ORDERED: fentaNYL INJ 100 MCG/2 ML AMP ONE (15:37)
[2021-04-04] MEDS ORDERED: NITRO DRIP 25000 MCG/D5W 250 ML IV ONE (15:37)
[2021-04-04] MEDS ORDERED: NS IV 1000 ML 1,000 ML ONE (15:37)
[2021-04-04] MEDS ORDERED: HEParin (CATH LAB) 2,000 ML IV ONE (15:37)
[2021-04-04] MEDS ORDERED: MIDAZOLAM 5 MG/5 ML (VERSED) VIAL ONE (15:38)
--- NOTE | 2021-04-04 15:55 | Pre-Op Note & Conscious Sedat ---
Pre-Operative Progress Note H&P Reviewed The H&P was reviewed, patient examined and no changes noted. Date H&P Reviewed: Apr 04, 2021 Time H&P Reviewed: 15:54 Pre-Op Diagnosis: Non-ST elevation myocardial infarction Conscious Sedation Pre-Proced ASA Score 3 For ASA 3 and 4: Consider anesthesia and medical clearance. Also, for patients with a history of failed moderate sedation consider anesthesia. Airway Lungs Heart ASA score ASA 1: a normal healthy patient ASA 2: a patient with a mild systemic disease (mid diabetes, controlled hypertension, obesity ASA 3: a patient with a severe systemic disease that limits activity (angina, COPD, prior Myocardial infarction) ASA 4: a patient with an incapacitating disease that is a constant threat to life (CHF, renal failure) ASA 5: a moribund patient not expected to survive 24 hrs. (ruptured aneurysm) ASA 6: a declared brain- patient whose organs are being harvested. For emergent operations, add the letter E after the classification Mallampati Classification Grade 2 Sedation Plan Analgesia, Amnesia, Plan communicated to team members, Discussed options with patient/fam, Discussed risks with patient/fam The patient is an appropriate candidate to undergo the planned procedure, sedation, and anesthesia. The patient immediately re-assessed prior to indication. QUENTIN PENG JR, MD Apr 04, 2021 15:55
--- NOTE | 2021-04-04 17:26 | Cardiac Cath Report ---
CARDIAC CATHETERIZATION DATE OF PROCEDURE: 04/04/2021 INDICATION: Non-ST elevation myocardial infarction. HISTORY: The patient is a 89 year old male with no previously known history of coronary artery disease. He was well until last evening when he developed left shoulder and arm pain. After 2 hours of discomfort, he came to the hospital for further evaluation. Overnight, his troponin levels became elevated. He then developed recurrent shoulder pain this afternoon. As such, he is now referred for further evaluation with a cardiac catheterization. PROCEDURES PERFORMED: 1. Diagnostic standing rock coronary angiography. 2. Right radial artery angiography. PROCEDURE DESCRIPTION: After informed consent and in the fasting state, I first gained access to the right radial artery by percutaneous approach utilizing ultrasound guidance. The sheath would not enter all the way into the vessel due to some resistance. The sheath was taped in place I performed an angiogram through the sheath. The right radial artery appeared to be patent but with some diffuse spasm. A Versicore wire was advanced up into the brachial artery but then hit an obstruction about midway to the shoulder. I advanced a 5 [place] JR4 catheter over the wire to use this for support. The wire was still not advance beyond an area of obstruction in the brachial artery. The radial artery approach was then aborted. I subsequently gained access to the right femoral artery utilizing a 6 [place] system by percutaneous approach utilizing ultrasound guidance. Standard Samaria catheters were utilized for the diagnostic portion of the procedure. All catheters were exchanged over a guidewire. Following the procedure, a vascular band was applied to the radial artery access site and the sheath was removed with good hemostasis. A 6 [place] Mynx closure device was deployed at the right femoral access site with good hemostasis. RESULTS: HEMODYNAMICS: The aortic pressure was 137/67 mmHg. The aortic valve was not crossed. RIGHT RADIAL ARTERY ANGIOGRAPHY: As above, due to some resistance in passing the sheath and guidewire up into the right radial artery, I performed an angiogram through the sheath. This showed what appeared to be diffuse spasm of the brachial artery but the vessel appeared patent. CORONARY ANGIOGRAPHY: All of the coronary arteries were heavily calcified. Left main coronary artery: There was a 30% stenosis in the midsegment. Left anterior descending coronary artery: The proximal vessel is calcified and ectatic and there was a 50% stenosis in the distal segment with CHUCKY-3 flow. The distal vessel was small and diffusely diseased. Left circumflex coronary artery: Calcified and ectatic but with no significant focal stenosis. Right coronary artery: Dominant with diffuse areas of ectasia and slow flow as well as a 70% stenosis in the most distal posterolateral branch with CHUCKY-1 flow throughout the entire vessel. IMPRESSION: 1. Mildly elevated central aortic pressure. 2. The right radial artery contained diffuse spasm and there appeared to be some obstruction in the midportion of the right brachial artery. The right radial approach for the procedure was aborted. 3. Severely calcified coronary arteries but with no significant focal high- grade stenosis to explain the non-ST elevation myocardial infarction. I suspect due to the diffuse ectasia and slow flow in the dominant right coronary artery, this may have been responsible for the acute myocardial infarction. No percutaneous coronary intervention is indicated. 4. The patient is known to have normal left ventricular systolic function with an estimated ejection fraction of 60-65% by echocardiogram performed earlier today. Certain portions of this document may have been dictated utilizing voice recognition technology. Inherent to this technology, typographical and grammatical errors may exist. As much as I am diligent to identify and correct these mistakes, some errors may remain in the document. QUENTIN PENG JR, MD Apr 04, 2021 17:26
[2021-04-04] MEDS ORDERED: PATIENT MAY USE OWN MEDS, ALL PO SCH (17:30)
[2021-04-04] MEDS: CLOPIDOGREL 75 MG (PLAVIX) TABLET PO SCH (19:21)
[2021-04-05] MEDS: NS IV 1000 ML 1,000 ML IV SCH ×3 (03:46→14:30)
[2021-04-05 05:00] LABS: HEMATOCRIT 31 % (40-54); HEMOGLOBIN 10.2 g/dL (13.3-17.7); MEAN CORPUSCULAR HEMOGLOBIN 34 pg (25-34); MEAN CORPUSCULAR HGB CONC 33 g/dL (32-36); MEAN CORPUSCULAR VOLUME 102 fL (80-99); MEAN PLATELET VOLUME 10.2 fL (9.0-12.2); PLATELET COUNT 120 10^3/uL (130-400)
[2021-04-05 05:13] LABS: POTASSIUM 4.2 MMOL/L (3.6-5.0)
[2021-04-05 05:14] LABS: CALCIUM 8.3 MG/DL (8.5-10.1)
[2021-04-05 05:18] LABS: CREATININE SERUM 0.86 MG/DL (0.60-1.30)
[2021-04-05] MEDS: ASPIRIN E.C. 81 MG (ECOTRIN) TAB PO SCH (08:25)
[2021-04-05] MEDS: CLOPIDOGREL 75 MG (PLAVIX) TABLET PO SCH (08:25)
[2021-04-05] MEDS ORDERED: CARV3.122 PO (10:03)
[2021-04-05] MEDS ORDERED: ATOR80TA76 PO (10:03)
[2021-04-05] MEDS ORDERED: CLOP75TA28 PO (10:03)
--- NOTE | 2021-04-05 10:06 | Cardiology Progress Note ---
Progress Note-Cardiology Events since last exam Date Seen by Provider: Apr 05, 2021 Time Seen by Provider: 10:03 Events since last exam I am following him for coronary artery disease with an acute non-ST elevation myocardial infarction. His cardiac catheterization on 04/04 showed diffuse calcific coronary arteries disease but with no severe stenosis requiring intervention. His left shoulder pain has resolved. He denies dyspnea. He denies palpitations, syncope, or ankle edema. 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 Certain portions of this document may have been dictated utilizing voice recognition technology. Inherent to this technology, typographical and grammatical errors may exist. As much as I am diligent to identify and correct these mistakes, some errors may remain in the document. Vitals Last set of Vitals Signs Vital Signs 04/04/21 04/04/21 04/05/21 04:43 10:58 07:49 Temp 36.8 Pulse 60 Resp 16 B/P (MAP) 137/78 Pulse Ox 98 O2 Delivery Room Air O2 Flow Rate 2.00 FiO2 21 Labs Labs Laboratory Tests 04/05/21 04:48 04/05/21 04:49 Exam Vital Signs Vital Signs Date Time Temp Pulse Resp B/P (MAP) Pulse Ox O2 Delivery O2 Flow Rate FiO2 04/05/21 07:49 36.8 60 16 137/78 98 Room Air 04/04/21 10:58 2.00 04/04/21 04:43 21 Physical Exam General: Alert. No acute distress. Eye: No xanthelasma. HENT: Normocephalic. Neck: Jugular venous pressure does not appear elevated. Respiratory: Lungs are clear to auscultation. Respirations are non-labored. Breath sounds are equal. Symmetrical chest wall expansion. Cardiovascular: Normal rate. Regular rhythm. No murmur. No gallop. No edema. Gastrointestinal: Soft. Normal bowel sounds. Skin: Warm. Dry. Neurologic: Alert and oriented to person, place, time. Cranial nerves 3-11 grossly intact. Psychiatric: Cooperative. Appropriate mood & affect. Labs Laboratory Tests Test 04/05/21 04:48 04/05/21 04:49 Range/Units Sodium Level 137 135-145 MMOL/L Potassium Level 4.2 3.6-5.0 MMOL/L Chloride Level 106 98-107 MMOL/L Carbon Dioxide Level 20 L 21-32 MMOL/L Anion Gap 11 5-14 MMOL/L Blood Urea Nitrogen 16 7-18 MG/DL Creatinine 0.86 0.60-1.30 MG/DL Estimat Glomerular Filtration Rate 84 BUN/Creatinine Ratio 19 Glucose Level 85 70-105 MG/DL Calcium Level 8.3 L 8.5-10.1 MG/DL White Blood Count 11.0 4.3-11.0 10^3/uL Red Blood Count 3.03 L 4.30-5.52 10^6/uL Hemoglobin 10.2 L 13.3-17.7 g/dL Hematocrit 31 L 40-54 % Mean Corpuscular Volume 102 H 80-99 fL Mean Corpuscular Hemoglobin 34 25-34 pg Mean Corpuscular Hemoglobin Concent 33 32-36 g/dL Red Cell Distribution Width 14.7 H 10.0-14.5 % Platelet Count 120 L 130-400 10^3/uL Mean Platelet Volume 10.2 9.0-12.2 fL Diagnosis/Problems Diagnosis/Problems (1) Non-ST elevation myocardial infarction (NSTEMI), initial care episode Assessment & Plan: He suffered a non-ST elevation myocardial infarction. His ejection fraction is well-preserved. He has been continued on aspirin. I started him on clopidogrel. I will start low-dose carvedilol and stop his enalapril until we see how his blood pressure response to the carvedilol. I will intensify his dose of statin medication for the next 30 days. From a cardiac standpoint, the patient can be discharged home. He should follow-up with me in my office in 1 month. I have taken the liberty of sending electronic prescriptions to his pharmacy for clopidogrel, carvedilol, and the higher dose of atorvastatin. (2) Complete heart block Assessment & Plan: He has a permanent pacemaker in place that appears to be functioning normally. (3) Primary hypertension Assessment & Plan: As above, in light of the acute myocardial infarction, I have started him on carvedilol. I would hold off on giving him the enalapril until we see how his blood pressure response to the beta-charline. (4) Mixed hyperlipidemia Assessment & Plan: As above, in light of the acute myocardial infarction, I will intensify his statin for at least the next 30 days. QUENTIN PENG JR, MD Apr 05, 2021 10:06
--- NOTE | 2021-04-05 11:49 | Discharge Inst-Simple/Standard ---
Discharge Inst-Standard Reconcile Patient Problems Problems Reviewed?: Yes Discharge Medications New, Converted or Re-Newed RX: Transmitted to Pharmacy Patient Instructions/Follow Up Plan of Care/Instructions/FU: 1wk [facility] [address] osorio Activity as Tolerated: Yes Discharge Diet: Regular Diet Health Concerns: hypertension coronary artery disease advanced age Return to The [facility] For: any concern for recurrent chest pain, shortnes of breath, or lifethreatening illness or injury Medication List: Active Scripts Active Carvedilol 3.125 Mg Tablet 3.125 Mg PO BID Atorvastatin Calcium 80 Mg Tablet 80 Mg PO HS Clopidogrel (Clopidogrel Bisulfate) 75 Mg Tablet 75 Mg PO DAILY Reported Shoemaker' Laxative (Docusate Sodium) 100 Mg Capsule 100 Mg PO DAILY PRN Aspirin EC (Aspirin) 81 Mg Tablet. 81 Mg PO DAILY Potassium Chloride 20 Meq Tablet.er 20 Meq PO DAILY PRN Furosemide 40 Mg Tablet 40 Mg PO DAILY PRN Cephalexin 500 Mg Capsule 500 Mg PO BID FILLED 04-01-2021 #10/5 DAY SUPPLY Atorvastatin Calcium 80 Mg Tablet 40 Mg PO HS TAKES OF A 80MG TAB Symbicort 80-4.5 Mcg Inhaler (Budesonide/Formoterol Fumarate) 10.2 Gm Hfa.aer.ad 1 Puff IH BID Omeprazole 20 Mg Capsule.dr 20 Mg PO BID LAST FILLED 10-27-2020 #180/90 DAY SUPPY Enalapril Maleate 5 Mg Tablet 5 Mg PO DAILY Vitamin B-12 (Cyanocobalamin) 100 Mcg Tablet 100 Mcg PO DAILY Tylenol (Acetaminophen) 325 Mg Tablet 650 Mg PO Q4H PRN TAKES 2 (325MG) TABLETS Lab results: Laboratory Tests Test 04/05/21 04:48 04/05/21 04:49 Range/Units Sodium Level 137 135-145 MMOL/L Potassium Level 4.2 3.6-5.0 MMOL/L Chloride Level 106 98-107 MMOL/L Carbon Dioxide Level 20 L 21-32 MMOL/L Anion Gap 11 5-14 MMOL/L Blood Urea Nitrogen 16 7-18 MG/DL Creatinine 0.86 0.60-1.30 MG/DL Estimat Glomerular Filtration Rate 84 BUN/Creatinine Ratio 19 Glucose Level 85 70-105 MG/DL Calcium Level 8.3 L 8.5-10.1 MG/DL White Blood Count 11.0 4.3-11.0 10^3/uL Red Blood Count 3.03 L 4.30-5.52 10^6/uL Hemoglobin 10.2 L 13.3-17.7 g/dL Hematocrit 31 L 40-54 % Mean Corpuscular Volume 102 H 80-99 fL Mean Corpuscular Hemoglobin 34 25-34 pg Mean Corpuscular Hemoglobin Concent 33 32-36 g/dL Red Cell Distribution Width 14.7 H 10.0-14.5 % Platelet Count 120 L 130-400 10^3/uL Mean Platelet Volume 10.2 9.0-12.2 fL My orders: Orders - SORAYA COOMBS MD Directional Drill Operator Consult (04/05/21 07:37) Attending Discharge Inpt/Inobs (04/05/21 11:40) SORAYA COOMBS MD Apr 05, 2021 11:49
--- NOTE | 2021-04-05 11:55 | Discharge Summary ---
Diagnosis/Chief Complaint Date of Admission Apr 04, 2021 at 03:23 Date of Discharge Discharge Date: Apr 05, 2021 Discharge Time: 1200 Discharge Summary Discharge Physical Examination Allergies: Coded Allergies: prednisone (Verified Allergy, Mild, 12/07/16) cigarette smoke (Verified Allergy, Unknown, 12/07/16) Shortness of breath/wheezing. perfume (Verified Allergy, Unknown, 12/07/16) Perfumes and rogers cause "throat to close". Vitals & I&Os Vital Signs Date Time Temp Pulse Resp B/P (MAP) Pulse Ox O2 Delivery O2 Flow Rate FiO2 04/05/21 11:45 37.0 04/05/21 10:53 61 20 135/69 99 Room Air 04/04/21 10:58 2.00 04/04/21 04:43 21 Hospital Course Pending Labs Laboratory Tests 04/05/21 04:48: Sodium Level 137, Potassium Level 4.2, Chloride Level 106, Carbon Dioxide Level 20, Anion Gap 11, Blood Urea Nitrogen 16, Creatinine 0.86, Estimat Glomerular Filtration Rate 84, BUN/Creatinine Ratio 19, Glucose Level 85, Calcium Level 8.3 04/05/21 04:49: White Blood Count 11.0, Red Blood Count 3.03, Hemoglobin 10.2, Hematocrit 31, Mean Corpuscular Volume 102, Mean Corpuscular Hemoglobin 34, Mean Corpuscular Hemoglobin Concent 33, Red Cell Distribution Width 14.7, Platelet Count 120, Mean Platelet Volume 10.2 Discharge Instructions to patient/family Please see electronic discharge instructions given to patient. Discharge Medications Reviewed and agree with Discharge Medication list on patient's Discharge Instruction sheet Clinical Quality Measures AMI/AHF: ASA po Prior to arrival: Yes SORAYA COOMBS MD Apr 05, 2021 11:55
[2021-04-05 14:50] VITALS: BP 135/69
== END 2021-04-05 15:30 | disposition home or self-care (01) ==
LOC: EDUNIT# 01:49 → ER 01:51 → CSD 03:23 → UNDOADMOB 03:23 → CSD 04:17 → CATH 04:17 → UNDODISOB 04-05 15:30
PROVIDERS: ATTEND Family Medicine
DX: I21.4 Non-ST elevation (NSTEMI) myocardial infarction (principal); I25.10 Atherosclerotic heart disease of native coronary artery without angina pectoris; I73.9 Peripheral vascular disease, unspecified; J45.909 Unspecified asthma, uncomplicated; E78.00 Pure hypercholesterolemia, unspecified; K21.9 Gastro-esophageal reflux disease without esophagitis; M19.90 Unspecified osteoarthritis, unspecified site; E78.2 Mixed hyperlipidemia; I44.2 Atrioventricular block, complete; I11.9 Hypertensive heart disease without heart failure; I08.0 Rheumatic disorders of both mitral and aortic valves; Z95.0 Presence of cardiac pacemaker; Z79.82 Long term (current) use of aspirin; Z79.2 Long term (current) use of antibiotics; Z79.02 Long term (current) use of antithrombotics/antiplatelets; Z79.899 Other long term (current) drug therapy; Z79.891 Long term (current) use of opiate analgesic; Z79.1 Long term (current) use of non-steroidal anti-inflammatories (NSAID)
CPT/HCPCS: 36247; 71045; 75710; 80048 ×2; 80061; 82550; 84484; 85007; 85027 ×2; 93005; 93306; 93454; 99284; C1760; C1894 ×2; G0378; 36415

== ENCOUNTER 2021-04-18 01:14 | Emergency (ER) | payer MEDICARE, OTHER ==
[~2021-04-18] VITALS: Ht 180 cm; Wt 77.6 kg
[~2021-04-18 01:14] MED LIST changes: +ASPI-1238 PO; +ATOR80TA76 PO; +CARV3.122 PO; +CEPH500C PO; +CLOP75TA28 PO; +FURO40TA4 PO; +[UNRECOGNIZED DRUG - CODE] PO
[2021-04-18] MEDS ORDERED: LIDOCAINE 1% INJ 20 ML 20 ML VIAL INJ ONE (01:30)
--- NOTE | 2021-04-18 01:59 | ED Integumentary General ---
General Chief Complaint: Post OP Complications/Pain Stated Complaint: POST OP SURGERY ON EARS 04-17-21,LOSS OF BLOOD Nursing Triage Note: bleeding from bilateral skin ca removal sites. Source: patient Exam Limitations: no limitations History of Present Illness Date Seen by Provider: Apr 18, 2021 Time Seen by Provider: 01:19 Initial Comments Patient ER by private conveyance with his and chief complaint that he had some skin cancers cut off of his ears bilaterally by Dr. Howard earlier yesterday. He recently started blood thinners a week ago. He had a stitch placed in one of them. They started bleeding again tonight and his is putting tissues on and was concerned he might of lost too much blood. He is not having any chest pain or shortness of air. Allergies and Home Medications Allergies Coded Allergies: prednisone (Verified Allergy, Mild, 12/07/16) cigarette smoke (Verified Allergy, Unknown, 12/07/16) Shortness of breath/wheezing. perfume (Verified Allergy, Unknown, 12/07/16) Perfumes and rogers cause "throat to close". Patient Home Medication List Home Medication List Reviewed: Yes Acetaminophen (Tylenol) 325 Mg Tablet, 650 MG PO Q4H PRN for PAIN-MILD, (Reported) Entered as Reported by: NIC MENA on 12/08/16 1024 Aspirin (Aspirin EC) 81 Mg Tablet.dr, 81 MG PO DAILY, (Reported) Entered as Reported by: JAQUI LYNNE on 04/04/21 1326 Atorvastatin Calcium (Atorvastatin Calcium) 80 Mg Tablet, 80 MG PO HS Prescribed by: QUENTIN PENG JR, MD on 04/05/21 1003 Budesonide/Formoterol Fumarate (Symbicort 80-4.5 Mcg Inhaler) 10.2 Gm Hfa.aer.ad, 1 PUFF IH BID, (Reported) Entered as Reported by: NIC MENA on 12/08/16 1024 Carvedilol (Carvedilol) 3.125 Mg Tablet, 3.125 MG PO BID Prescribed by: QUENTIN PENG JR, MD on 04/05/21 1003 Cephalexin (Cephalexin) 500 Mg Capsule, 500 MG PO BID, (Reported) Entered as Reported by: JAQUI LYNNE on 04/04/21 1326 Clopidogrel Bisulfate (Clopidogrel) 75 Mg Tablet, 75 MG PO DAILY Prescribed by: QUENTIN PENG JR, MD on 04/05/21 1003 Cyanocobalamin (Vitamin B-12) 100 Mcg Tablet, 100 MCG PO DAILY, (Reported) Entered as Reported by: NIC MENA on 12/08/16 1024 Docusate Sodium (Shoemaker' Laxative) 100 Mg Capsule, 100 MG PO DAILY PRN for CO NSTIPATION, (Reported) Entered as Reported by: JAQUI LYNNE on 04/04/21 1326 Furosemide (Furosemide) 40 Mg Tablet, 40 MG PO DAILY PRN for FLUID RETENTION, (Reported) Entered as Reported by: JAQUI LYNNE on 04/04/21 1326 Omeprazole (Omeprazole) 20 Mg Capsule.dr, 20 MG PO BID, (Reported) Entered as Reported by: NIC MENA on 12/08/16 1024 Potassium Chloride (Potassium Chloride) 20 Meq Tablet.er, 20 MEQ PO DAILY PRN for WHEN TAKING FUROSEMIDE, (Reported) Entered as Reported by: JAQUI LYNNE on 04/04/21 1326 Review of Systems Review of Systems Constitutional: No chills, No diaphoresis EENTM: No ear discharge, No hearing loss, No ear pain, No blurred vision Respiratory: No cough, No short of breath Cardiovascular: No chest pain, No edema Gastrointestinal: No abdominal pain, No nausea Genitourinary: No discharge, No dysuria All Other Systems Reviewed Negative Unless Noted: Yes Past Xcfdwqa-Vwlxcj-Cxqrwo Hx Patient Social History Tobacco Use?: No Substance use?: No Alcohol Use?: No Pt feels they are or have been: No Immunizations Up To Date Tetanus Booster (TDap): Less than 5yrs First/Initial COVID19 Vaccinat: 08/26 Second COVID19 Vaccination Masoud: 08/26 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: [employer] Seasonal Allergies Seasonal Allergies: Yes Past Medical History Surgery/Hospitalization HX: ASTHMA PACER Surgeries: Yes (COLON RESECTION, ) Bowel Surgery, Neurological, Orthopedic, Pacemaker Respiratory: Yes Asthma Currently Using CPAP: No Currently Using BIPAP: No Cardiac: Yes (pacemaker ) Chronic Edema/Swelling, Coronary Artery Disease, High Cholesterol, Hypertension Neurological: Yes ([facility], SUBDURAL / EPIDURAL HEMATOMA 2014--S/P SURGICAL EVACUATION) Genitourinary: No Gastrointestinal: Yes Abdominal Hernia, Gastroesophageal Reflux, Polyps Musculoskeletal: Yes Arthritis, Back Injury, Chronic Back Pain, Fractures Endocrine: No HEENT: Yes (involuntary eye movements) Hearing Impairment: Denies Cancer: Yes (B-Cell, chronic lymphocytic leukemia ) Leukemia Did You Recieve Any Treatments: Yes What Type of Treatment Did You: Chemotherapy Psychosocial: No Integumentary: No Blood Disorders: Yes (leukemia) Family Medical History FH: cancer 19 MOTHER FH: heart disease 19 FATHER No Pertinent Family Hx Physical Exam Vital Signs Vital Signs - First Documented 04/18/21 01:18 Temp 36.7 Pulse 60 Resp 18 B/P (MAP) 198/106 (136) Pulse Ox 99 O2 Delivery Room Air Capillary Refill : Less Than 3 Seconds General Appearance: WD/WN, no apparent distress HEENT: PERRL/EOMI, pharynx normal Neck: full range of motion, supple, normal inspection Cardiovascular: normal peripheral pulses, regular rate, rhythm Respiratory: no respiratory distress, no accessory muscle use Skin: normal color, warm/dry, other (Open surgical biopsy site on the right ear with a pulsating arteriole bleed and oozing on the top of his left ear from a shave biopsy. Bottom shave biopsy is hemostatic.) Procedures/Interventions Wound Location: Ears Other Wound Location Aimee-shaped skin biopsy on the inner side of the right pinna Shave biopsies on the outer edge of the pinna upper and lower Wound Length (cm): 2 Wound's Depth, Shape: superficial, linear Wound Explored: clean Irrigated w/ Saline (ccs): 150 Betadine Prep?: Yes (Chlorhexidine and sterile saline) Anesthesia: 1% Lidocaine Volume Anesthetic (ccs): 2 Wound Debrided: minimal Suture: Prolene Suture Size: 6-0 Number of Sutures: 3 Progress Right pinna 1 simple suture reapproximate skin edges and 2 ktbaxr-gr-inrag's got the arteriole bleed and check. We then applied direct pressure gauze. Left ear chemical cautery silver nitrate stick was used x2 to stop the bleeding of the upper wound. The lower shave was hemostatic. Progress/Results/Core Measures Results/Orders Lab Results Laboratory Tests Test 04/18/21 02:01 Range/Units Hemoglobin 10.5 L 13.3-17.7 g/dL Hematocrit 33 L 40-54 % My Orders Orders - KHARI NIX Lidocaine 1% Inj 20 Ml (Xylocaine 1% Inj (04/18/21 01:30) Hemoglobin And Hematocrit (04/18/21 01:53) Medications Given in ED Current Medications Medications Dose Ordered Sig/Kaleb Route Start Time Stop Time Status Last Admin Dose Admin Lidocaine HCl 20 ml ONCE ONCE INJ 04/18/21 01:30 04/18/21 01:31 DC 04/18/21 01:27 20 ML Vital Signs/I&O 04/18/21 01:18 Temp 36.7 Pulse 60 Resp 18 B/P (MAP) 198/106 (136) Pulse Ox 99 O2 Delivery Room Air Blood Pressure Mean: 136 Progress Progress Note #1: Time: 01:59 Progress Note Seem to have closed off the bleeding so I applied some pressure and are going to allow it to sit for a minute. H&H. Will reexamine shortly. Progress Note #2: Time: 03:39 Progress Note Bleeding from the left ear has stopped. Right ear was still having some oozing and a little pulsatile flow so a second oszhnj-hk-arvvb stitch was placed which did stanch the flow. We did little cautery around the area and put some pressu re on and will check again in half an hour. Progress Note #3: Time: 04:07 Progress Note The patient is hemostatic. We left a gauze dressing on. We have encouraged him to change it and put some Vaseline on it this morning and will give him some Keflex 3 times daily. He has follow-up later today with Dr. Dykes. Return precautions were given. Departure Impression Primary Impression: Postoperative bleeding from incision Disposition: 01 HOME, SELF-CARE Condition: Stable Departure-Patient Inst. Decision time for Depature: 04:07 Referrals: SORAYA DYKES MD (PCP/Family) Primary Care Physician Patient Instructions: Bleeding After Surgery Add. Discharge Instructions: Keep the wound clean with regular soap and water. You may apply thin layer of Vaseline or triple antibiotic ointment if you wish to keep the skin moist. Keflex 1 capsule 3 times a day by mouth for 3 days to prevent infection. If he have repeat bleeding have him set up and apply clean dry gauze and pressure for 40 minutes. If this does not stop it then you may return to the ER. Scripts Cephalexin (Cephalexin) 500 Mg Tablet 500 MG PO TID for 3 Days, #9 TAB 0 Refills Prov: KHARI NIX 04/18/21 Copy Copies To 1: SORAYA DYKES MD, TITUS J Apr 18, 2021 01:59
[2021-04-18 02:09] LABS: HEMOGLOBIN 10.5 g/dL (13.3-17.7)
[2021-04-18] MEDS ORDERED: CEPH500T PO (04:09)
[2021-04-18 04:12] VITALS: BP 169/84
== END 2021-04-18 04:20 | disposition home or self-care (01) ==
LOC: EDUNIT# 01:14 → ER 01:16
DX: L76.22 Postprocedural hemorrhage of skin and subcutaneous tissue following other procedure (principal); J45.909 Unspecified asthma, uncomplicated; I10 Essential (primary) hypertension; K21.9 Gastro-esophageal reflux disease without esophagitis; E78.00 Pure hypercholesterolemia, unspecified; I25.10 Atherosclerotic heart disease of native coronary artery without angina pectoris; Z79.01 Long term (current) use of anticoagulants; Z79.899 Other long term (current) drug therapy; Z79.82 Long term (current) use of aspirin
CPT/HCPCS: 36415; 85014; 85018

== ENCOUNTER 2021-04-27 20:34 | Emergency (ER) | payer MEDICARE, OTHER ==
[~2021-04-27] VITALS: Ht 180 cm; Wt 77.6 kg
--- NOTE | 2021-04-27 20:58 | ED EENT ---
History of Present Illness General Chief Complaint: Post OP Complications/Pain Stated Complaint: LEFT EAR BLEEDING Nursing Triage Note: left ear bleeding s/p skin cancer removal. 04/18/21 Source: patient, family Exam Limitations: no limitations History of Present Illness Date Seen by Provider: Apr 27, 2021 Time Seen by Provider: 20:55 Initial Comments To ER by private vehicle with reports of a persistently bleeding wound to the back of the left ear following excision of a skin cancer on 04/18/21. Timing/Duration: abrupt Severity: moderate Prearrival Treatment: no prearrival treatment Associated Symptoms: denies symptoms Allergies and Home Medications Allergies Coded Allergies: prednisone (Verified Allergy, Mild, 12/07/16) cigarette smoke (Verified Allergy, Unknown, 12/07/16) Shortness of breath/wheezing. perfume (Verified Allergy, Unknown, 12/07/16) Perfumes and rogers cause "throat to close". Patient Home Medication List Home Medication List Reviewed: Yes Acetaminophen (Tylenol) 325 Mg Tablet, 650 MG PO Q4H PRN for PAIN-MILD, (Reported) Entered as Reported by: NIC MENA on 12/08/16 1024 Aspirin (Aspirin EC) 81 Mg Tablet.dr, 81 MG PO DAILY, (Reported) Entered as Reported by: JAQUI LYNNE on 04/04/21 1326 Atorvastatin Calcium (Atorvastatin Calcium) 80 Mg Tablet, 80 MG PO HS Prescribed by: QUENTIN PENG JR, MD on 04/05/21 1003 Budesonide/Formoterol Fumarate (Symbicort 80-4.5 Mcg Inhaler) 10.2 Gm Hfa.aer.ad, 1 PUFF IH BID, (Reported) Entered as Reported by: NIC MENA on 12/08/16 1024 Carvedilol (Carvedilol) 3.125 Mg Tablet, 3.125 MG PO BID Prescribed by: QUENTIN PENG JR, MD on 04/05/21 1003 Cephalexin (Cephalexin) 500 Mg Capsule, 500 MG PO BID, (Reported) Entered as Reported by: JAQUI LYNNE on 04/04/21 1326 Cephalexin (Cephalexin) 500 Mg Tablet, 500 MG PO TID Prescribed by: KHARI NIX on 04/18/21 0409 Clopidogrel Bisulfate (Clopidogrel) 75 Mg Tablet, 75 MG PO DAILY Prescribed by: QUENTIN PENG JR, MD on 04/05/21 1003 Cyanocobalamin (Vitamin B-12) 100 Mcg Tablet, 100 MCG PO DAILY, (Reported) Entered as Reported by: NIC MENA on 12/08/16 1024 Docusate Sodium (Shoemaker' Laxative) 100 Mg Capsule, 100 MG PO DAILY PRN for CONSTIPATION, (Reported) Entered as Reported by: JAQUI LYNNE on 04/04/21 1326 Furosemide (Furosemide) 40 Mg Tablet, 40 MG PO DAILY PRN for FLUID RETENTION, (Reported) Entered as Reported by: JAQUI LYNNE on 04/04/21 1326 Omeprazole (Omeprazole) 20 Mg Capsule.dr, 20 MG PO BID, (Reported) Entered as Reported by: NIC MENA on 12/08/16 1024 Potassium Chloride (Potassium Chloride) 20 Meq Tablet.er, 20 MEQ PO DAILY PRN for WHEN TAKING FUROSEMIDE, (Reported) Entered as Reported by: JAQUI LYNNE on 04/04/21 1326 Review of Systems Review of Systems Constitutional: see HPI Eyes: No Symptoms Reported Ears: No Symptoms Reported Nose: no symptoms reported Mouth: no symptoms reported Throat: no symptoms reported Respiratory: no symptoms reported Cardiovascular: no symptoms reported Musculoskeletal: no symptoms reported Skin: no symptoms reported Neurological: No Symptoms Reported Hematologic/Lymphatic: No Symptoms Reported Past Ynfafxv-Mgioej-Rsscmd Hx Immunizations Up To Date Tetanus Booster (TDap): Less than 5yrs First/Initial COVID19 Vaccinat: 08/26 Second COVID19 Vaccination Masoud: 08/26 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[employer] Seasonal Allergies Seasonal Allergies: Yes Past Medical History Surgery/Hospitalization HX: ASTHMA PACER Surgeries: Yes (COLON RESECTION, ) Bowel Surgery, Neurological, Orthopedic, Pacemaker Respiratory: Yes Asthma Currently Using CPAP: No Currently Using BIPAP: No Cardiac: Yes (pacemaker ) Chronic Edema/Swelling, Coronary Artery Disease, High Cholesterol, Hypertension Neurological: Yes ([facility], SUBDURAL / EPIDURAL HEMATOMA 2015--S/P SURGICAL EVACUATION) Genitourinary: No Gastrointestinal: Yes Abdominal Hernia, Gastroesophageal Reflux, Polyps Musculoskeletal: Yes Arthritis, Back Injury, Chronic Back Pain, Fractures Endocrine: No HEENT: Yes (involuntary eye movements) Hearing Impairment: Denies Cancer: Yes (B-Cell, chronic lymphocytic leukemia ) Leukemia Did You Recieve Any Treatments: Yes What Type of Treatment Did You: Chemotherapy Psychosocial: No Integumentary: No Blood Disorders: Yes (leukemia) Family Medical History FH: cancer 19 MOTHER FH: heart disease 19 FATHER No Pertinent Family Hx Physical Exam Vital Signs Vital Signs - First Documented 04/27/21 20:38 Temp 36.4 Pulse 68 Resp 16 B/P (MAP) 187/97 (127) Pulse Ox 95 O2 Delivery Room Air Height, Weight, BMI Height: 5'10.00" Weight: 186lbs. 5.0oz. 84.731101zz; 23.00 BMI Method:Stated General Appearance: WD/WN, no apparent distress Eyes: bilateral eye normal inspection, bilateral eye PERRL, bilateral eye EOMI Ears: left ear other (There is a persistent ooze of blood from the back of the left ear at the site of the skin cancer excision. This was easily controlled with 1 silver nitrate stick.) Nose: normal inspection; No active bleeding Mouth/Throat: normal mouth inspection, pharynx normal Neck: non-tender, full range of motion Respiratory: no respiratory distress, no accessory muscle use Neurologic/Psychiatric: alert, normal mood/affect, oriented x 3 Skin: normal color, warm/dry Procedures/Interventions Suture Size: 6-0 Progress/Results/Core Measures Results/Orders Vital Signs/I&O 04/27/21 20:38 Temp 36.4 Pulse 68 Resp 16 B/P (MAP) 187/97 (127) Pulse Ox 95 O2 Delivery Room Air Blood Pressure Mean: 127 Departure Impression Primary Impression: Postoperative bleeding from incision Disposition: 01 HOME, SELF-CARE Condition: Stable Departure-Patient Inst. Decision time for Depature: 20:57 Referrals: SORAYA COOMBS MD (PCP/Family) Primary Care Physician Patient Instructions: NO INSTRUCTIONS GIVEN Add. Discharge Instructions: 1. Return to ER for any concerns 2. 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
[2021-04-27 21:03] VITALS: BP 165/87
== END 2021-04-27 21:06 | disposition home or self-care (01) ==
LOC: EDUNIT# 20:34 → ER 20:35
DX: C44.209 Unspecified malignant neoplasm of skin of left ear and external auricular canal (principal); L76.22 Postprocedural hemorrhage of skin and subcutaneous tissue following other procedure; J45.909 Unspecified asthma, uncomplicated; I25.10 Atherosclerotic heart disease of native coronary artery without angina pectoris; E78.00 Pure hypercholesterolemia, unspecified; I10 Essential (primary) hypertension; K21.9 Gastro-esophageal reflux disease without esophagitis; Z79.82 Long term (current) use of aspirin; Z79.01 Long term (current) use of anticoagulants; Z79.899 Other long term (current) drug therapy

== ENCOUNTER 2021-05-01 10:30 | Emergency (ER) | payer MEDICARE, OTHER ==
[~2021-05-01] VITALS: Ht 180 cm; Wt 79.0 kg
[~2021-05-01 10:30] MED LIST changes: +CALC-774 PO; -CLD600T PO
[2021-05-01] MEDS ORDERED: ASPIRIN 81 MG CHEW (CHILDREN'S ASA) PO ONE (10:45)
[2021-05-01] MEDS ORDERED: NITROGLYCERIN 0.4 MG SL TABS BTL 25'S SL PRN (10:45)
[2021-05-01 10:48] LABS: BASOPHILS % (AUTO) 0 % (0-10); EOSINOPHILS % (AUTO) 0 % (0-10); HEMATOCRIT 31 % (40-54); HEMOGLOBIN 9.9 g/dL (13.3-17.7); LYMPHOCYTES # (AUTO) 7.3 10^3/uL (1.0-4.0); LYMPHOCYTES % (AUTO) 65 % (12-44); MEAN CORPUSCULAR HEMOGLOBIN 33 pg (25-34); MEAN CORPUSCULAR HGB CONC 32 g/dL (32-36); MEAN CORPUSCULAR VOLUME 104 fL (80-99); MONOCYTES # (AUTO) 0.2 10^3/uL (0.0-1.0); MONOCYTES % (AUTO) 2 % (0-12); NEUTROPHILS # (AUTO) 3.6 10^3/uL (1.8-7.8); NEUTROPHILS % (AUTO) 32 % (42-75); PLATELET COUNT 156 10^3/uL (130-400); WHITE BLOOD COUNT 11.1 10^3/uL (4.3-11.0)
[2021-05-01 10:52] LABS: ALBUMIN 3.9 GM/DL (3.2-4.5); POTASSIUM 4.6 MMOL/L (3.6-5.0)
[2021-05-01 10:53] LABS: CALCIUM 9.2 MG/DL (8.5-10.1)
[2021-05-01 10:54] LABS: INR 1.1 (0.8-1.4); TOTAL PROTEIN 6.2 GM/DL (6.4-8.2)
[2021-05-01 10:56] LABS: BILIRUBIN,TOTAL 0.9 MG/DL (0.1-1.0)
[2021-05-01 10:58] LABS: CREATININE SERUM 1.04 MG/DL (0.60-1.30)
[2021-05-01 11:01] LABS: MAGNESIUM 1.8 MG/DL (1.6-2.4)
--- NOTE | 2021-05-01 11:09 | Diagnostic Imaging Report ---
EXAMINATION: Chest 1 view HISTORY: Chest pain COMPARISON: 04/04 2021 FINDINGS: Heart size and pulmonary vasculature are stable. Left-sided cardiac device is unchanged. Trace bilateral pleural effusions. Mild interstitial opacities in the middle and lower lungs. Surgical and degenerative changes of the spine. IMPRESSION: 1. Small bilateral pleural effusions with bibasilar interstitial opacities, slightly improved from 04/04/2021. Dictated by: Dictated on workstation # [id number]
[2021-05-01 11:21] LABS: BAND NEUTROPHILS 0 %; BASOPHILS % (MANUAL) 1 %; EOSINOPHILS % (MANUAL) 0 %; LYMPHOCYTES % (MANUAL) 58 %; MONOCYTES % (MANUAL) 1 %; NEUTROPHILS % (MANUAL) 40 %
--- NOTE | 2021-05-01 12:01 | ED Chest Pain ---
General Chief Complaint: Chest Pain Stated Complaint: SOB Nursing Triage Note: PT TO RM 7 PER W/C PT CO OF SOA, C/P, WEAKNESS AFTER WALKING IN WELLNESS PROGRAM TODAY. RATES C/P 06/17 Source: patient, family, old records Exam Limitations: no limitations History of Present Illness Date Seen by Provider: May 01, 2021 Time Seen by Provider: 10:35 Initial Comments This 89-year-old gentleman with mild to moderate coronary artery disease and NS GOLD without obstructing lesion on heart cath in March presents to the emergency room with central chest discomfort, mild shortness of breath, and mild weakness that occurred this morning while he was walking into the building to exercise and while using an exercise machine in the rehab unit. He was able to walk 2 to 3 miles on the machine but then decided to stop because of the discomfort. He rated his pain as 2 out of 10 at its worst and a 1 out of 10 presently. He feels better resting. Heart cath performed in March demonstrated no obstructing lesion although he did have notable coronary artery disease. No interventions were performed. It was hypothesized that his NSTEMI was related to slow flow. Patient denies cough or fever. He has had 3 Covid vaccinations. Patient also has history of CLL. Allergies and Home Medications Allergies Coded Allergies: prednisone (Verified Allergy, Mild, 12/07/16) cigarette smoke (Verified Allergy, Unknown, 12/07/16) Shortness of breath/wheezing. perfume (Verified Allergy, Unknown, 12/07/16) Perfumes and rogers cause "throat to close". Patient Home Medication List Home Medication List Reviewed: Yes Acetaminophen (Tylenol) 325 Mg Tablet, 650 MG PO Q4H PRN for PAIN-MILD, (Reported) Entered as Reported by: NIC MENA on 12/08/16 1024 Aspirin (Aspirin EC) 81 Mg Tablet.dr, 81 MG PO DAILY, (Reported) Entered as Reported by: JAQUI LYNNE on 04/04/21 1326 Atorvastatin Calcium (Atorvastatin Calcium) 80 Mg Tablet, 80 MG PO HS Prescribed by: QUENTIN CARROLL JR, MD on 04/05/21 1003 Budesonide/Formoterol Fumarate (Symbicort 80-4.5 Mcg Inhaler) 10.2 Gm Hfa.aer.ad, 1 PUFF IH BID, (Reported) Entered as Reported by: NIC MENA on 12/08/16 1024 Carvedilol (Carvedilol) 3.125 Mg Tablet, 3.125 MG PO BID Prescribed by: QUENTIN CARROLL JR, MD on 04/05/21 1003 Cephalexin (Cephalexin) 500 Mg Capsule, 500 MG PO BID, (Reported) Entered as Reported by: JAQUI LYNNE on 04/04/21 1326 Cephalexin (Cephalexin) 500 Mg Tablet, 500 MG PO TID Prescribed by: KHARI NIX on 04/18/21 0409 Clopidogrel Bisulfate (Clopidogrel) 75 Mg Tablet, 75 MG PO DAILY Prescribed by: QUENTIN CARROLL JR, MD on 04/05/21 1003 Cyanocobalamin (Vitamin B-12) 100 Mcg Tablet, 100 MCG PO DAILY, (Reported) Entered as Reported by: NIC MENA on 12/08/16 1024 Docusate Sodium (Shoemaker' Laxative) 100 Mg Capsule, 100 MG PO DAILY PRN for CONSTIPATION, (Reported) Entered as Reported by: JAQUI LYNNE on 04/04/21 1326 Furosemide (Furosemide) 40 Mg Tablet, 40 MG PO DAILY PRN for FLUID RETENTION, (Reported) Entered as Reported by: JAQUI LYNNE on 04/04/21 1326 Isosorbide Mononitrate (Isosorbide Mononitrate ER) 30 Mg Tab.er.24h, 60 MG PO DAILY Prescribed by: JODY AMEZQUITA on 05/01/21 1359 Omeprazole (Omeprazole) 20 Mg Capsule.dr, 20 MG PO BID, (Reported) Entered as Reported by: NIC MENA on 12/08/16 1024 Potassium Chloride (Potassium Chloride) 20 Meq Tablet.er, 20 MEQ PO DAILY PRN for WHEN TAKING FUROSEMIDE, (Reported) Entered as Reported by: JAQUI LYNNE on 04/04/21 1326 Review of Systems Review of Systems Constitutional: see HPI EENTM: No Symptoms Reported Respiratory: See HPI Cardiovascular: See HPI Gastrointestinal: No Symptoms Reported Genitourinary: No Symptoms Reported Musculoskeletal: no symptoms reported Skin: no symptoms reported Psychiatric/Neurological: No Symptoms Reported Endocrine: No Symptoms Reported Hematologic/Lymphatic: No Symptoms Reported Past Rlixwhx-Hqmbbq-Bcsbxs Hx Patient Social History Tobacco Use?: No Substance use?: No Alcohol Use?: No Pt feels they are or have been: No Immunizations Up To Date Tetanus Booster (TDap): Less than 5yrs First/Initial COVID19 Vaccinat: JUL 2020 Second COVID19 Vaccination Masoud: AUGUST 2020 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 Machine Feeder: IBRAHIMA Seasonal Allergies Seasonal Allergies: Yes Past Medical History Surgery/Hospitalization HX: ASTHMA PACER Surgeries: Yes (COLON RESECTION, ) Bowel Surgery, Cardiac (Heart cath in March 2021 without intervention), Neurol ogical, Orthopedic, Pacemaker Respiratory: Yes Asthma Currently Using CPAP: No Currently Using BIPAP: No Cardiac: Yes (pacemaker ) Chronic Edema/Swelling, Coronary Artery Disease, Heart Attack (NSTEMI March 2021), High Cholesterol, Hypertension Neurological: Yes ([facility], SUBDURAL / EPIDURAL HEMATOMA 2014--S/P SURGICAL EVACUATION) Genitourinary: No Gastrointestinal: Yes Abdominal Hernia, Gastroesophageal Reflux, Polyps Musculoskeletal: Yes Arthritis, Back Injury, Chronic Back Pain, Fractures Endocrine: No HEENT: Yes (involuntary eye movements) Hearing Impairment: Denies Cancer: Yes (B-Cell, chronic lymphocytic leukemia ) Leukemia Did You Recieve Any Treatments: Yes What Type of Treatment Did You: Chemotherapy Psychosocial: No Integumentary: No Blood Disorders: Yes (leukemia) Family Medical History FH: cancer 19 MOTHER FH: heart disease 19 FATHER No Pertinent Family Hx Physical Exam Vital Signs Vital Signs - First Documented 05/01/21 10:30 Temp 35.8 Pulse 66 Resp 30 B/P (MAP) 157/93 (114) Pulse Ox 98 O2 Delivery Room Air Capillary Refill : Less Than 3 Seconds Height, Weight, BMI Height: 5'10.00" Weight: 186lbs. 5.0oz. 84.564864xt; 24.00 BMI Method:Stated General Appearance: WD/WN, Mild Distress, Thin HEENT: PERRL/EOMI, Normal ENT Inspection, Other (Hoarse voice with slow speech) Neck: Normal Inspection; No JVD Respiratory: Chest Non Tender, Lungs Clear, Normal Breath Sounds, No Accessory Muscle Use, No Respiratory Distress Cardiovascular: Regular Rate, Rhythm, No Murmur Gastrointestinal: Normal Bowel Sounds, Non Tender, Soft Extremity: Normal Inspection, Pedal Edema Neurologic/Psychiatric: Alert, Oriented x3, No Motor/Sensory Deficits, Normal Mood/Affect Skin: Normal Color, Warm/Dry Procedures/Interventions Suture Size: 6-0 Progress/Results/Core Measures Results/Orders Lab Results Laboratory Tests Test 05/01/21 10:35 05/01/21 12:53 Range/Units White Blood Count 11.1 H 4.3-11.0 10^3/uL Red Blood Count 2.97 L 4.30-5.52 10^6/uL Hemoglobin 9.9 L 13.3-17.7 g/dL Hematocrit 31 L 40-54 % Mean Corpuscular Volume 104 H 80-99 fL Mean Corpuscular Hemoglobin 33 25-34 pg Mean Corpuscular Hemoglobin Concent 32 32-36 g/dL Red Cell Distribution Width 15.6 H 10.0-14.5 % Platelet Count 156 130-400 10^3/uL Mean Platelet Volume 10.0 9.0-12.2 fL Immature Granulocyte % (Auto) 0 % Neutrophils (%) (Auto) 32 L 42-75 % Lymphocytes (%) (Auto) 65 H 12-44 % Monocytes (%) (Auto) 2 0-12 % Eosinophils (%) (Auto) 0 0-10 % Basophils (%) (Auto) 0 0-10 % Neutrophils # (Auto) 3.6 1.8-7.8 10^3/uL Lymphocytes # (Auto) 7.3 H 1.0-4.0 10^3/uL Monocytes # (Auto) 0.2 0.0-1.0 10^3/uL Eosinophils # (Auto) 0.0 0.0-0.3 10^3/uL Basophils # (Auto) 0.0 0.0-0.1 10^3/uL Immature Granulocyte # (Auto) 0.0 0.0-0.1 10^3/uL Neutrophils % (Manual) 40 % Lymphocytes % (Manual) 58 % Monocytes % (Manual) 1 % Eosinophils % (Manual) 0 % Basophils % (Manual) 1 % Band Neutrophils 0 % Smudge Cells SLIGHT Prothrombin Time 15.0 H 12.2-14.7 SEC INR Comment 1.1 0.8-1.4 Activated Partial Thromboplast Time 30 24-35 SEC Sodium Level 136 135-145 MMOL/L Potassium Level 4.6 3.6-5.0 MMOL/L Chloride Level 106 98-107 MMOL/L Carbon Dioxide Level 21 21-32 MMOL/L Anion Gap 9 5-14 MMOL/L Blood Urea Nitrogen 24 H 7-18 MG/DL Creatinine 1.04 0.60-1.30 MG/DL Estimat Glomerular Filtration Rate 67 BUN/Creatinine Ratio 23 Glucose Level 87 70-105 MG/DL Calcium Level 9.2 8.5-10.1 MG/DL Corrected Calcium 9.3 8.5-10.1 MG/DL Magnesium Level 1.8 1.6-2.4 MG/DL Total Bilirubin 0.9 0.1-1.0 MG/DL Aspartate Amino Transf (AST/SGOT) 27 5-34 U/L Alanine Aminotransferase (ALT/SGPT) 18 0-55 U/L Alkaline Phosphatase 77 40-136 U/L Myoglobin 216.6 H 10.0-92.0 NG/ML Troponin I 0.107 H 0.101 H <0.028 NG/ML B-Type Natriuretic Peptide 546.0 H <100.0 PG/ML Total Protein 6.2 L 6.4-8.2 GM/DL Albumin 3.9 3.2-4.5 GM/DL My Orders Orders - JODY RABAGO MD Cbc With Automated Diff (05/01/21 10:40) Magnesium (05/01/21 10:40) Chest 1 View, Ap/Pa Only (05/01/21 10:40) Ekg Tracing (05/01/21 10:40) Comprehensive Metabolic Panel (05/01/21 10:40) Myoglobin Serum (05/01/21 10:40) Protime With Inr (05/01/21 10:40) Partial Thromboplastin Time (05/01/21 10:40) O2 (05/01/21 10:40) Monitor-Rhythm Ecg Trace Only (05/01/21 10:40) Ed Iv/Invasive Line Start (05/01/21 10:40) BNP (05/01/21 10:40) Troponin I (05/01/21 10:40) Nitroglycerin 0.4 Mg Btl 25's (Nitrostat (05/01/21 10:45) Aspirin Chewable Tablet (Baby Aspirin Ch (05/01/21 10:45) Manual Differential (05/01/21 10:35) Troponin I (05/01/21 12:35) Medications Given in ED Vital Signs/I&O 05/01/21 05/01/21 10:30 14:15 Temp 35.8 Pulse 66 60 Resp 30 18 B/P (MAP) 157/93 (114) 152/77 Pulse Ox 98 99 O2 Delivery Room Air Room Air Blood Pressure Mean: 114 Progress Progress Note #1: Time: 11:57 Progress Note Chest pain was reported as 2/10 while exercising and a 1/10 at the time of assessment. Nitroglycerin x1 relieved his pain. Troponin returned elevated. This was discussed with Dr. Carroll who recommended repeating a troponin at 2 hours. If it is decreasing, he may be prescribed isosorbide and discharged with close outpatient follow-up. If troponin is increasing her pain returns, he should be admitted. Progress Note #2: Progress Note Troponin trended down slightly. Patient denied any further chest pain, SOA, etc. He was discharged with Rx for isosorbide mononitrate. He was instructed to continue taking aspirin and plavix. Initial ECG Impression Date: May 01, 2021 Initial ECG Impression Time: 10:39 Initial ECG Rate: 60 Comment Ventricular paced rhythm with no overt ischemic changes. Similar to prior. Diagnostic Imaging Diagonstic Imaging: Xray Plain Films/CT/US/NM/MRI: chest Comments Chest x-ray reviewed by me and report reviewed. See report below: NAME: ARGELIA ANNA JR [facility] REC#: [id number] PT STATUS: REG ER : 1930 PHYSICIAN: JODY RABAGO MD ADMIT DATE: 05/01/21/ER Signed Date of Exam:05/01/21 CHEST 1 VIEW, AP/PA ONLY EXAMINATION: Chest 1 view HISTORY: Chest pain COMPARISON: 04/04 2021 FINDINGS: Heart size and pulmonary vasculature are stable. Left-sided cardiac device is unchanged. Trace bilateral pleural effusions. Mild interstitial opacities in the middle and lower lungs. Surgical and degenerative changes of the spine. IMPRESSION: 1. Small bilateral pleural effusions with bibasilar interstitial opacities, slightly improved from 04/04/2021. Dictated by: Dictated on workstation # [id number] Dict: 05/01/21 1105 Trans: 05/01/21 1114 ROMEO [id number] Interpreted by: KEMI LÓPEZ DO Electronically signed by: KEMI LÓPEZ DO 05/01/21 1114 Departure Impression Primary Impression: Chest pain Qualified Codes: R07.9 - Chest pain, unspecified Additional Impression: Elevated troponin Disposition: HOME, SELF-CARE Condition: Stable Departure-Patient Inst. Decision time for Depature: 13:45 Referrals: SORAYA COOMBS MD (PCP/Family) Primary Care Physician Patient Instructions: Chest Pain, Troponin Test Add. Discharge Instructions: Start isosorbide mononitrate as prescribed. Do not use this in combination with any medications for erectile dysfunction. Continue taking both aspirin and Plavix. Avoid strenuous activity until your follow-up with Dr. Carroll. Return to the emergency room if you have recurrent chest pain, shortness of breath, or other significant symptoms. Call with questions or concerns. All discharge instructions reviewed with patient and/or family. Voiced understanding. Scripts Isosorbide Mononitrate (Isosorbide Mononitrate ER) 30 Mg Tab.er.24h 60 MG PO DAILY, #60 TAB Take in the morning. May dispense 60 mg tablet if available. Prov: JODY RABAGO MD 05/01/21 Copy Copies To 1: SORAYA COOMBS MD Copies To 2: QUENTIN CARROLL JR, MD BRUEGGEMANN, JOSHUA T MD May 01, 2021 12:01
[2021-05-01] MEDS ORDERED: ISOS30TA82 PO (13:59)
[2021-05-01 14:15] VITALS: BP 152/77
== END 2021-05-01 14:30 | disposition home or self-care (01) ==
LOC: EDUNIT# 10:31 → ER 10:33
DX: R07.9 Chest pain, unspecified (principal); R77.8 Other specified abnormalities of plasma proteins; J45.909 Unspecified asthma, uncomplicated; I25.2 Old myocardial infarction; I10 Essential (primary) hypertension; K21.9 Gastro-esophageal reflux disease without esophagitis; E78.00 Pure hypercholesterolemia, unspecified; I25.10 Atherosclerotic heart disease of native coronary artery without angina pectoris; Z79.01 Long term (current) use of anticoagulants; Z79.82 Long term (current) use of aspirin; Z79.899 Other long term (current) drug therapy
CPT/HCPCS: 36415; 71045; 80053; 83735; 83874; 83880; 84484; 85007; 85027; 85610; 85730; 93005; 93041

== ENCOUNTER → 2021-05-15 | Outpatient (RCR) | payer MEDICARE, OTHER ==
[~2021-05-15] MED LIST changes: +ISOS30TA82 PO
== END | disposition home or self-care (01) ==
LOC: CR3 04-15 11:18
PROVIDERS: ATTEND Family Medicine
DX: Z29.8 Encounter for other specified prophylactic measures (principal)

== ENCOUNTER 2021-07-05 10:42 | Outpatient (RCR) | payer MEDICARE, OTHER | END 2021-07-07 | disposition home or self-care (01) | LOC: CR3 10:42 | PROVIDERS: ATTEND Family Medicine | DX: Z29.8 Encounter for other specified prophylactic measures (principal) ==

== ENCOUNTER 2021-08-05 10:26 | Outpatient (RCR) | payer MEDICARE, OTHER | END 2021-08-07 | disposition home or self-care (01) | LOC: CR3 10:26 | PROVIDERS: ATTEND Family Medicine | DX: Z29.8 Encounter for other specified prophylactic measures (principal) ==